=== PATIENT | female | born 1960 | race Caucasian/White ===

== ENCOUNTER 2017-09-12 09:17 | Emergency (ER) | payer MEDICARE, SELFPAY ==
[2017-09-12 09:18] VITALS: BP 143/89; PULSE 107; RESP 16; TEMP 36.4; O2SAT 99; BMI 20.3
--- NOTE | 2017-09-12 09:57 | ED.VISSUMM ---
- ER Visit Summary Date of Service: 09/12/17 Chief Complaint: Rectal prolapse History of Present Illness: The patient is a 57 F who reports having surgery for rectal prolapse approximately [address] Castillo. Patient states that she became constipated 2 weeks ago and noted recurrent prolapse when she would strain. She called her primary care physician was given a prescription for a laxative. She took the last dose of this 1 week ago. She does state that this helped her bowel movements and her prolapse. Patient now complains of recurrent prolapse with bowel movements and rectal pain. She called her primary care office today and was advised to come to the emergency room. Physical Examination: Vital signs are unremarkable. Patient is in no acute distress and appears nontoxic. Head neck examination is unremarkable. Heart is regular rate and rhythm. Lung sounds are clear with good air movement bilaterally. Abdomen is soft nontender. Hypoactive bowel sounds are noted. Rectal examination reveals no hemorrhoids. There is mild prolapse with straining only. No gross blood is noted. Test Results: [] Emergency Department Course and Treatment: I discussed the case with Dr. Faria. He advises that there is no colorectal surgeon it comes to [place] any longer. He recommended following up with colorectal surgery at [facility], Dr Mike Gill or first available. This physician's name and number is provided for the patient for follow-up. She will be given a prescription for stool softeners. Treatment Plan: [] Disposition: Discharge Impression: Rectal prolapse This note was generated with [employer] dictation software. It may contain incorrect words, spelling, and punctuation that were not noted in review of the chart prior to signing ED Disposition - Plan for ED Patient: Chief Complaint: Other, Pain/Inj Referrals: Jefferson Joya MD [Primary Care Provider] -
--- NOTE | 2017-09-12 10:01 | ED.DCSUM_ITS ---
- ER Visit Summary Date of Service: 09/12/17 Chief Complaint: Rectal prolapse History of Present Illness: The patient is a 57 F who reports having surgery for rectal prolapse approximately [address] Castillo. Patient states that she became constipated 2 weeks ago and noted recurrent prolapse when she would strain. She called her primary care physician was given a prescription for a laxative. She took the last dose of this 1 week ago. She does state that this helped her bowel movements and her prolapse. Patient now complains of recurrent prolapse with bowel movements and rectal pain. She called her primary care office today and was advised to come to the emergency room. Physical Examination: Vital signs are unremarkable. Patient is in no acute distress and appears nontoxic. Head neck examination is unremarkable. Heart is regular rate and rhythm. Lung sounds are clear with good air movement bilaterally. Abdomen is soft nontender. Hypoactive bowel sounds are noted. Rectal examination reveals no hemorrhoids. There is mild prolapse with straining only. No gross blood is noted. Test Results: [] Emergency Department Course and Treatment: I discussed the case with Dr. Faria. He advises that there is no colorectal surgeon it comes to [place] any longer. He recommended following up with colorectal surgery at [facility] , Dr Mike Gill or first available. This physician's name and number is provided for the patient for follow-up. She will be given a prescription for stool softeners. Treatment Plan: [] Disposition: Discharge Impression: Rectal prolapse This note was generated with [employer] dictation software. It may contain incorrect words, spelling, and punctuation that were not noted in review of the chart prior to signing ED Disposition - Plan for ED Patient: Chief Complaint: Other, Pain/Inj Referrals: Jefferson Joya MD [Primary Care Provider] -
--- NOTE | 2017-09-12 10:02 | ED.DEP ---
ED Disposition - Plan for ED Patient: Disposition: Home or Assisted Living Chief Complaint: Other, Pain/Inj Instructions: ED Prolapse Rectal Prescriptions: Docusate Sodium [Colace] 100 mg PO DAILY #20 capsule Referrals: Jefferson Joya MD [Primary Care Provider] - Additional Instructions: Follow-up with colorectal surgery at [facility], Dr Mike Gill or first available [phone]
[2017-09-12 10:15] VITALS: BP 137/81; PULSE 99; RESP 16; O2SAT 98
== END 2017-09-12 10:16 | disposition home or self-care (01) ==
PROVIDERS: Emergency Provider Emergency Medicine; Family Provider Internal Medicine; PCP Internal Medicine
DX: K62.3 Rectal prolapse (principal); F32.9 Major depressive disorder, single episode, unspecified; M79.7 Fibromyalgia; Z72.0 Tobacco use; Z79.82 Long term (current) use of aspirin; Z79.899 Other long term (current) drug therapy
CPT/HCPCS: 99282

== ENCOUNTER 2018-03-02 14:20 | Emergency (ER) | payer MEDICARE, SELFPAY ==
[2018-03-02 14:21] VITALS: BP 128/85; PULSE 105; RESP 18; TEMP 35.8; O2SAT 98; BMI 19.9
--- NOTE | 2018-03-02 15:10 | ED.VISSUMM ---
- ER Visit Summary Date of Service: 03/02/18 Chief Complaint: abdominal pain and rectal prolapse History of Present Illness: The patient is a 57 F with history of recurrent rectal prolapse who presents today for recurrent since yesterday with new abdominal pain. Patient states that she has had issues with rectal prolapse and was scheduled for preop evaluation this month on the . She has been feeling better and canceled it. Since yesterday she has been having return of rectal prolapse now with abdominal pain, which she states is new. She also is complaining of headache, nausea, and intermittent diarrhea. Stool this morning was loose but she did have straining and subsequent rectal prolapse. She denies any fever, chest pain, shortness of breath or other symptoms. Physical Examination: Vital signs: afebrile, hemodynamically stable, no hypoxia on room air General: well nourished, well developed, laying in bed crying Skin: warm, dry, no rash, no pallor HEENT: normocephalic and atraumatic; PERRL, EOMI, moist mucous membranes Cardiovascular: Tachycardic rate and rhythm without murmurs, no peripheral edema, 2+ pulses all distal extremities Respiratory: No increased work of breathing, lungs are clear to auscultation bilaterally, no rales, rhonchi or wheezing Abdominal: Abdomen is soft, mildly tender in lower quadrants with normoactive bowel sounds, no guarding or rebound, no masses; rectal exam shows an external hemorrhoid, no current prolapse, mucousy discharge noted MSK: Moves all extremities, no deformities, normal strength Neuro: Awake and alert, oriented ?4. No facial droop, sensation and motor function intact and symmetric Test Results: Abnormal Lab Results 03/02/18 03/02/18 03/02/18 15:35 15:35 15:35 WBC 8.1 RBC 3.88 L Hgb 12.8 Hct 38.0 MCV 97.9 MCH 33.0 H MCHC 33.7 RDW 13.0 RDW Differential 46.9 H Plt Count 332 MPV 8.9 Immature Gran % (Auto) 0.000 Neut % (Auto) 48.1 Lymph % (Auto) 40.8 [place] % (Auto) 4.6 Eos % (Auto) 6.0 H Baso % (Auto) 0.5 Absolute Neuts (auto) 3.9 Absolute Lymphs (auto) 3.32 Total Counted Not Reportable Sodium 142 Potassium 3.7 Chloride 105 Carbon Dioxide 29.0 Anion Gap 8 BUN 20 H Creatinine 0.78 Estim Creat Clear Calc 68.65 Est GFR (MDRD) Af Amer 98 Est GFR (MDRD) Non-Af 81 BUN/Creatinine Ratio 25.7 H Glucose 115 H Calcium 9.4 Total Bilirubin 0.20 AST 35 ALT 33 Alkaline Phosphatase 84 Total Protein 6.8 Albumin 3.4 Globulin 3.4 Albumin/Globulin Ratio 1.0 Lipase 322 Urine Color Yellow Urine Clarity Clear Urine pH 7.0 Ur Specific [place] 1.010 Urine Protein Negative Urine Glucose (UA) Normal Urine Ketones Negative Urine Occult Blood 50 H Urine Nitrite Negative Urine Bilirubin Negative Urine Urobilinogen Normal Ur Leukocyte Esterase Negative Urine RBC 0-5 SEEN Urine WBC 0 SEEN Ur Squamous Epith Cells 0 SEEN Urine Bacteria 0 SEEN Urine Mucus 0 SEEN Clinical Impression(s) from Imaging Studies Abdomen/Pelvis CT 03/02/18 15:08 IMPRESSION: 1. No evidence of acute intra-abdominal or pelvic abnormality or interval change. 2. Stable lumbar fusion. 3. Minimal dependent changes at the lung bases. Electronically Signed: Mango Iglesias DO at 18:01 EDT Tel [phone], Service support , Medications Given Discontinued Medications Sodium Chloride () 1,000 mls @ 1,000 mls/hr IV .Q1H ONE Stop: 03/02/18 16:07 Last Admin: 03/02/18 15:33 Dose: 1,000 mls/hr Morphine Sulfate () 4 mg IV X1 ONE Stop: 03/02/18 15:09 Last Admin: 03/02/18 15:33 Dose: 4 mg Ondansetron HCl (Zofran) 4 mg IV X1 ONE Stop: 03/02/18 15:09 Last Admin: 03/02/18 15:33 Dose: 4 mg Emergency Department Course and Treatment: Patient presented in significant pain associated with her rectal prolapse. She was given Zofran and morphine, with great improvement in her abdominal pain. Because the pain is a new symptom for her with her prolapse, CT the abdomen and pelvis was performed to evaluate for any possible bowel obstruction. Oral and p.o. contrast used and showed no significant intra-abdominal pathology. Labs were unremarkable patient had no urinary infection on urinalysis. Patient was much improved on reevaluation and felt well enough to go home. We discussed her following a strict bowel regimen to keep her stools soft so that she does not have to strain. She is Jorden been prescribed a regimen by her doctor and will follow it. We also discussed that if I prescribe her opiate pain medications would actually make her problem worse. She will use [id number] medications as needed for any further pain. She is going to call first thing in the morning to see if she can reinstate her preop appointment, and if not she will schedule one for as soon as possible. Patient agreed and was discharged home in improved condition with no evidence of active rectal prolapse. Treatment Plan: [] Disposition: [] Impression: Recurrent rectal prolapse, abdominal pain This note was generated with [employer] dictation software. It may contain incorrect words, spelling, and punctuation that were not noted in review of the chart prior to signing ED Disposition - Plan for ED Patient: Disposition: Home or Assisted Living Chief Complaint: Other, Pain/Inj Instructions: ED Abdominal Pain Unkn Cause, ED Prolapse Rectal Referrals: Jefferson Joya MD [Primary Care Provider] - 3-5 Days if not improving Additional Instructions: Please call your surgeon first thing tomorrow morning to see if you can get your appointment for the preop evaluation back. If not make an appointment with them for as soon as possible. Please use the bowel regimen you were recommended by your doctor daily for the next 7 days to help soften your stool and prevent further prolapse. Your CAT scan of your abdomen and pelvis showed a large amount of stool in your colon. Drink plenty of water to help stay regular and prevent constipation. If you have any worsening of your condition or any new concerning symptoms, please return immediately to the emergency department for another evaluation.
[2018-03-02] MEDS: Morphine 4 MG/ML Syringe IV (15:33)
[2018-03-02] MEDS: 0.9% Normal Saline 1,000 ML 1000 ML IV (15:33)
[2018-03-02] MEDS: Ondansetron 4 MG/2 ML Vial IV (15:33)
[2018-03-02 15:46] LABS: Bacteria 0 SEEN /hpf (None Seen); Mucous, Urine 0 SEEN /hpf (<or=2+); Squamous Epithelial Cells - UA 0 SEEN /hpf (5-10); White Blood Cells 0 SEEN /hpf (0-5)
[2018-03-02 15:47] LABS: Absolute Lymphocyte Count 3.32 X10^3/ul (0.83-4.51); Absolute Neutrophil Count 3.9 X10^3/uL (2.0-7.7); Basophil# 0.04 X10^3/uL; Basophil% 0.5 % (0-1); Eosinophil# 0.49 X10^3/uL; Hemoglobin 12.8 g/dl (12.0-15.0); Lymphocyte # 3.32 X10^3/ul (4.0); Lymphocyte % 40.8 % (19-41); Mean Corp Hgb Conc 33.7 g/gl (32-36); Mean Corpuscular Volume 97.9 fL (81-99); Mean Platelet Vol. 8.9 fl (6.2-12.0); Monocyte# 0.37 X10^3/uL; Monocyte% 4.6 % (0-10); Neutrophil # 3.91 X10^3/uL (2.7-7.7); Neutrophil % 48.1 % (47-70); POSITIVE COUNT NO; POSITIVE DIFFERENTIAL NO; POSITIVE MORPHOLOGY NO; Platelet Count 332 K/mm3 (150-450); RBC Distribution Width SD 46.9 fl (35.1-43.9); Red Blood Count 3.88 M/mm3 (4.2-5.4); White Blood Count 8.1 K/mm3 (4.4-11.0)
[2018-03-02 15:48] LABS: Color, Urine Yellow (Yellow); Glucose, Dipstick Normal (Normal); Ketone-Dipstick Negative (Negative); Leukocyte Esterase-Dipstick Negative /ul (Negative); Nitrite-Dipstick Negative (Negative); Occult Blood-Urine 50 /ul (Negative); Protein-Dipstick Negative (Negative); Urine Bilirubin Dipstick Negative (Negative); Urine Clarity Clear (Clear); Urine Urobilinogen Normal (Normal)
[2018-03-02 15:57] LABS: Red Blood Cells-Urine 0-5 SEEN /hpf (0-5)
[2018-03-02 16:02] LABS: AST(SGOT) 35 U/L (15-37); Alanine Aminotransfer ALT/SGPT 33 U/L (13-56); Albumin, Serum 3.4 g/dL (3.2-5.0); Alkaline Phosphatase 84 U/L (45-117); Anion Gap 8 (5-15); BUN 20 mg/dL (7-18); BUN/Creat Ratio 25.7 RATIO (10-20); Calcium,Total 9.4 mg/dL (8.5-10.1); Chloride 105 mmol/L (98-107); Creatinine, Serum 0.78 mg/dL (0.55-1.02); EST Glomerular Filtration Rate 81 mL/min (>60); Est Glom Filt Rate - Afr Amer 98 mL/min (>60); Estimated Creatinine Clearance 68.65 ml/min; Globulin 3.4 g/dL (2.2-4.2); Glucose 115 mg/dL (74-106); Lipase 322 U/L (73-393); Potassium 3.7 mmol/L (3.5-5.1); Protein, Total 6.8 g/dL (6.4-8.2); Sodium Level 142 mmol/L (136-145)
--- NOTE | 2018-03-02 18:24 | ED.DEP ---
ED Disposition - Plan for ED Patient: Disposition: Home or Assisted Living Chief Complaint: Other, Pain/Inj Instructions: ED Prolapse Rectal, ED Abdominal Pain Unkn Cause Referrals: Jefferson Joya MD [Primary Care Provider] - 3-5 Days if not improving Additional Instructions: Please call your surgeon first thing tomorrow morning to see if you can get your appointment for the preop evaluation back. If not make an appointment with them for as soon as possible. Please use the bowel regimen you were recommended by your doctor daily for the next 7 days to help soften your stool and prevent further prolapse. Your CAT scan of your abdomen and pelvis showed a large amount of stool in your colon. Drink plenty of water to help stay regular and prevent constipation. If you have any worsening of your condition or any new concerning symptoms, please return immediately to the emergency department for another evaluation.
[2018-03-02 18:33] VITALS: BP 111/76; PULSE 76; RESP 16; O2SAT 96
== END 2018-03-02 18:34 | disposition home or self-care (01) ==
PROVIDERS: Emergency Provider Emergency Medicine; Family Provider Internal Medicine; PCP Internal Medicine
DX: K62.2 Anal prolapse (principal); R10.30 Lower abdominal pain, unspecified; G89.29 Other chronic pain; Z72.0 Tobacco use
CPT/HCPCS: 74177; 80053; 81001; 83690; 85025; 96361; 96374; 96375; 99283; J7030; Q9967; J2405

== ENCOUNTER 2018-04-08 15:35 | Inpatient (IN) | payer MEDICARE, SELFPAY ==
[2018-04-08 15:36] VITALS: BP 108/66; PULSE 96; RESP 16; TEMP 36.9; O2SAT 98; BMI 20.5
--- NOTE | 2018-04-08 17:05 | EKG12_ITS ---
Test Reason : GENERAL ILLNESS Blood Pressure : / mmHG Vent. Rate : 072 BPM Atrial Rate : 072 BPM P-R Int : 124 ms QRS Dur : 082 ms QT Int : 418 ms P-R-T Axes : 072 060 065 degrees QTc Int : 457 ms Normal sinus rhythm Normal ECG Confirmed by ALEXANDR RAMESH, AZRA ([id number]), publishing editor SHARON ROSENBAUM ([id number]) on 04/13/2018 3:57:46 PM Referred By: MEGAN Confirmed By:AZRA STRANGE MD
--- NOTE | 2018-04-08 17:05 | CT_ITS ---
STUDY: CT BRAIN WITHOUT CONTRAST REASON FOR EXAM: Female, 57 years old. Schizophrenia, general weakness, confusion. RADIATION DOSAGE (If Supplied By Facility): CTDIvol = ( 60.81 ) mGy, DLP = ( 975.86 ) mGycm TECHNIQUE: Transaxial CT imaging of the brain was performed without administration of intravenous contrast material. Individualized dose optimization techniques were used for this CT. COMPARISON: 08/12/2014. FINDINGS: Normal soft tissue structures. Normal calvarium. There is mild cerebral atrophy with widening of the extra-axial spaces and ventricular dilatation. Normal white matter tracts of the cerebral hemispheres. Normal basal ganglia and thalami. Normal brainstem. Normal cerebellum. There is no intracranial hemorrhage. There are no findings of an acute ischemic infarction. Normal visualized paranasal sinuses. CT/Brain/Head without Contrast IMPRESSION: Mild atrophy, otherwise negative unenhanced CT scan of the brain. Electronically Signed: Faustina Johns MD at 17:56 EDT Tel , Service support ,
[2018-04-08] MEDS: 0.9% Normal Saline 1,000 ML 1000 ML IV (17:10)
[2018-04-08 18:00] VITALS: BP 104/69; PULSE 72; RESP 18
[2018-04-08 18:00] LABS: AST(SGOT) 23 U/L (15-37); Alanine Aminotransfer ALT/SGPT 27 U/L (13-56); Albumin, Serum 3.4 g/dL (3.2-5.0); Alkaline Phosphatase 68 U/L (45-117); Anion Gap 5 (5-15); BUN 16 mg/dL (7-18); BUN/Creat Ratio 20.9 RATIO (10-20); Calcium,Total 8.9 mg/dL (8.5-10.1); Chloride 110 mmol/L (98-107); Creatinine, Serum 0.77 mg/dL (0.55-1.02); EST Glomerular Filtration Rate 82 mL/min (>60); Est Glom Filt Rate - Afr Amer 99 mL/min (>60); Globulin 3.4 g/dL (2.2-4.2); Glucose 96 mg/dL (74-106); Potassium 3.7 mmol/L (3.5-5.1); Protein, Total 6.8 g/dL (6.4-8.2); Sodium Level 140 mmol/L (136-145)
[2018-04-08 18:01] LABS: Absolute Lymphocyte Count 2.81 X10^3/ul (0.83-4.51); Basophil# 0.06 X10^3/uL; Basophil% 0.8 % (0-1); Eosinophil# 0.57 X10^3/uL; Eosinophils% 7.2 % (0-5); Hematocrit 38.1 % (37-47); Lymphocyte # 2.81 X10^3/ul (4.0); Lymphocyte % 35.4 % (19-41); Mean Corp Hgb Conc 34.1 g/gl (32-36); Mean Corpuscular Hgb 34.1 pg (27.0-32.0); Monocyte# 0.45 X10^3/uL; Monocyte% 5.7 % (0-10); Neutrophil # 4.03 X10^3/uL (2.7-7.7); Neutrophil % 50.8 % (47-70); POSITIVE COUNT NO; POSITIVE DIFFERENTIAL NO; POSITIVE MORPHOLOGY NO; Platelet Count 383 K/mm3 (150-450); RBC Distribution Width CV 13.3 % (11.6-14.6); RBC Distribution Width SD 47.7 fl (35.1-43.9); Red Blood Count 3.81 M/mm3 (4.2-5.4); White Blood Count 7.9 K/mm3 (4.4-11.0)
[2018-04-08 18:14] LABS: Bacteria 0 SEEN /hpf (None Seen); Mucous, Urine 0 SEEN /hpf (<or=2+); White Blood Cells 0 SEEN /hpf (0-5)
[2018-04-08 18:18] LABS: Color, Urine Yellow (Yellow); Glucose, Dipstick Normal (Normal); Ketone-Dipstick Negative (Negative); Leukocyte Esterase-Dipstick Negative /ul (Negative); Nitrite-Dipstick Negative (Negative); Occult Blood-Urine 10 /ul (Negative); Protein-Dipstick Negative (Negative); Specific Gravity, Urine 1.015 (1.002-1.030); Urine Bilirubin Dipstick Negative (Negative); Urine Clarity Clear (Clear); Urine Urobilinogen Normal (Normal); Urine pH 6.5 (5.0 - 8.0)
[2018-04-08 18:33] LABS: Red Blood Cells-Urine 0-5 SEEN /hpf (0-5); Squamous Epithelial Cells - UA 0-5 SEEN /hpf (5-10)
--- NOTE | 2018-04-08 18:52 | CT_ITS ---
STUDY: CTA OF THE BRAIN REASON FOR EXAM: Female, 57 years old. Paresthesias. RADIATION DOSAGE (If Supplied By Facility): CTDIvol = ( 13.65 ) mGy, DLP = ( 428.60 ) mGycm TECHNIQUE: CT angiography was performed with a multi-detector CT scanner. Data acquisition was obtained from the skull base through the vertex following intravenous administration of ml of . MIP images were reconstructed from the axial data set. Post-processing of the angiographic images was performed, with multiplanar reformation and 3D reconstruction. Individualized dose optimization techniques were used for this CT. COMPARISON: CT brain 04/08/2018. FINDINGS: Normal bilateral petrous carotid arteries. Normal right cavernous carotid artery with a normal supraclinoid bifurcation. Normal left cavernous carotid artery with a normal supraclinoid bifurcation. Normal right A1 segment of the anterior cerebral artery. Normal left A1 segment of the anterior cerebral artery. There is non-visualization of the anterior communicating artery (ACOM). Normal bilateral A2 segments of the anterior cerebral arteries. Normal right M1 and M2 segments of the middle cerebral arteries, with a normal M1 bifurcation. Normal left M1 and M2 segments of the middle cerebral arteries, with a normal M1 bifurcation. There is a persistent origin of the right posterior cerebral artery with absence of the P1 segment of the right DATA MIGRATION CONSULTANT. There is non-visualization of the left posterior communicating artery (PCOM). Normal bilateral vertebral arteries. Normal basilar artery with a normal basilar bifurcation. The visualized bilateral superior cerebellar (SCA) arteries are normal. Absent P1 segment of the right posterior cerebral artery. Normal left P1 segment. Normal bilateral P2 and visualized P3 segments of the posterior cerebral arteries. There is no demonstrated aneurysm of the [place]. IMPRESSION: 1. Normal [place] without a demonstrated aneurysm or significant stenosis. 2. origin of the right posterior cerebral artery, normal variant. Electronically Signed: Faustina Johns MD at 20:23 EDT Tel , Service support , STUDY: CTA NECK WITH CONTRAST REASON FOR EXAM: Female, 57 years old. Paresthesias RADIATION DOSAGE (If Supplied By Facility): CTDIvol = ( ) mGy, DLP = ( ) mGycm TECHNIQUE: CT angiography with multi-detector data acquisition was performed from the aortic arch to the skull base following intravenous administration of 100ML ml of Isovue 300 contrast. MIP images were reconstructed from the axial data set. Post-processing of the angiographic images was performed, with multiplanar reformation and 3D reconstruction. Individualized dose optimization techniques were used for this CT. COMPARISON: None. FINDINGS: AORTIC ARCH: Normal visualized aortic arch. Normal origins of the brachiocephalic, left common carotid, and left subclavian arteries. RIGHT CAROTID ARTERIES: Normal right common carotid artery (CCA). Normal right common carotid bulb. Normal origin of the right internal carotid (ICA) artery without a hemodynamically significant stenosis. Normal visualized cervical portion of the right internal carotid artery. Normal origin of the right external carotid artery (ECA). LEFT CAROTID ARTERIES: Normal left common carotid artery (CCA). Normal left common carotid bulb. Normal origin of the left internal carotid (ICA) artery without a hemodynamically significant stenosis. Normal visualized cervical portion of the left internal carotid artery. Normal origin of the left external carotid artery (ECA). VERTEBRAL ARTERIES: Normal bilateral vertebral arteries. CT/CTA Head W/WO Contrast IMPRESSION: Normal bilateral cervical carotid and vertebral arteries. Electronically Signed: Faustina Johns MD at 20:29 EDT Tel , Service support ,
--- NOTE | 2018-04-08 18:52 | CT_ITS ---
STUDY: CTA OF THE BRAIN REASON FOR EXAM: Female, 57 years old. Paresthesias. RADIATION DOSAGE (If Supplied By Facility): CTDIvol = ( 13.65 ) mGy, DLP = ( 428.60 ) mGycm TECHNIQUE: CT angiography was performed with a multi-detector CT scanner. Data acquisition was obtained from the skull base through the vertex following intravenous administration of ml of . MIP images were reconstructed from the axial data set. Post-processing of the angiographic images was performed, with multiplanar reformation and 3D reconstruction. Individualized dose optimization techniques were used for this CT. COMPARISON: CT brain 04/08/2018. FINDINGS: Normal bilateral petrous carotid arteries. Normal right cavernous carotid artery with a normal supraclinoid bifurcation. Normal left cavernous carotid artery with a normal supraclinoid bifurcation. Normal right A1 segment of the anterior cerebral artery. Normal left A1 segment of the anterior cerebral artery. There is non-visualization of the anterior communicating artery (ACOM). Normal bilateral A2 segments of the anterior cerebral arteries. Normal right M1 and M2 segments of the middle cerebral arteries, with a normal M1 bifurcation. Normal left M1 and M2 segments of the middle cerebral arteries, with a normal M1 bifurcation. There is a persistent origin of the right posterior cerebral artery with absence of the P1 segment of the right PRODUCTIVITY ENGINEER. There is non-visualization of the left posterior communicating artery (PCOM). Normal bilateral vertebral arteries. Normal basilar artery with a normal basilar bifurcation. The visualized bilateral superior cerebellar (SCA) arteries are normal. Absent P1 segment of the right posterior cerebral artery. Normal left P1 segment. Normal bilateral P2 and visualized P3 segments of the posterior cerebral arteries. There is no demonstrated aneurysm of the [place]. IMPRESSION: 1. Normal [place] without a demonstrated aneurysm or significant stenosis. 2. origin of the right posterior cerebral artery, normal variant. Electronically Signed: Faustina Johns MD at 20:23 EDT Tel , Service support , STUDY: CTA NECK WITH CONTRAST REASON FOR EXAM: Female, 57 years old. Paresthesias RADIATION DOSAGE (If Supplied By Facility): CTDIvol = ( ) mGy, DLP = ( ) mGycm TECHNIQUE: CT angiography with multi-detector data acquisition was performed from the aortic arch to the skull base following intravenous administration of 100ML ml of Isovue 300 contrast. MIP images were reconstructed from the axial data set. Post-processing of the angiographic images was performed, with multiplanar reformation and 3D reconstruction. Individualized dose optimization techniques were used for this CT. COMPARISON: None. FINDINGS: AORTIC ARCH: Normal visualized aortic arch. Normal origins of the brachiocephalic, left common carotid, and left subclavian arteries. RIGHT CAROTID ARTERIES: Normal right common carotid artery (CCA). Normal right common carotid bulb. Normal origin of the right internal carotid (ICA) artery without a hemodynamically significant stenosis. Normal visualized cervical portion of the right internal carotid artery. Normal origin of the right external carotid artery (ECA). LEFT CAROTID ARTERIES: Normal left common carotid artery (CCA). Normal left common carotid bulb. Normal origin of the left internal carotid (ICA) artery without a hemodynamically significant stenosis. Normal visualized cervical portion of the left internal carotid artery. Normal origin of the left external carotid artery (ECA). VERTEBRAL ARTERIES: Normal bilateral vertebral arteries. CT/CTA Neck W/WO Contrast IMPRESSION: Normal bilateral cervical carotid and vertebral arteries. Electronically Signed: Faustina Johns MD at 20:29 EDT Tel , Service support ,
[2018-04-08 19:00] LABS: Magnesium 2.1 mg/dL (1.6-2.6)
[2018-04-08] MEDS: Metoclopramide 10 MG/2 ML Vial IV (19:02)
[2018-04-08] MEDS: Ketorolac 15 MG/ML Vial IV (19:02)
[2018-04-08] MEDS: DiphenhydrAMINE 50 MG/ML Syringe 25 MG IV (19:02)
[2018-04-08] MEDS: 0.9% Normal Saline 1,000 ML 150 ML IV (19:03)
[2018-04-08 20:01] VITALS: BP 102/67; PULSE 81; O2SAT 95
[2018-04-08 22:15] VITALS: BP 116/79; PULSE 77; RESP 18
--- NOTE | 2018-04-08 22:26 | ED.VISSUMM ---
- ER Visit Summary Date of Service: 04/08/18 Chief Complaint: [Fatigue, dizziness, headache] History of Present Illness: The patient is a 57 F [presents the emergency department with multiple complaints since yesterday. Patient states that she woke up in noted that she had a headache and of in the back of her head and the front of her head diffusely patient also noted that she had numbness in both hands and into the left forearm. Patient denies any weakness in the extremities. She denies any falls or head injuries. She denies any neck pain. Patient is not had symptoms like this before. She has not had any fever. She denies any visual changes. She does have a history of depression, fibromyalgia, and history of a rectal prolapse for which she is scheduled to have surgery for.] Physical Examination: [HEENT-PERRLA, EOMI. Cranial nerves II through XII grossly intact. TMs clear. Mucous membranes moist. No adenopathy. Cardiovascular-regular rate and rhythm without murmur or ectopy Lungs-clear to auscultation, chest wall stable without crepitus or subcu emphysema Abdomen-normoactive bowel sounds, soft, nontender, no rebound or rigidity, no peritoneal signs. Neuro cauk-nkztcn-ljrh and heel holloway testing within normal limits, negative Romberg, negative pronator drift, fundi benign. Patient has decreased sensation to light touch over the hands and left forearm. Extremities-intact ?4, normal range of motion, normal pulses, atraumatic] Test Results: [CBC with differential obtained showed a white count of 7.9, hemoglobin 13, hematocrit 38, platelets 383. Chemistries unremarkable. LFTs were normal. Urinalysis was normal. Troponin was less than 0.015. CT scan of the brain without contrast showed some mild atrophy otherwise nothing acute. He is of the head and neck were normal.] Emergency Department Course and Treatment: [She was medicated with Reglan, Benadryl, and Toradol. She had no real relief with that. Patient was ordered Depakote thousand milligrams IV.] Treatment Plan: [At this point etiology of patient's symptomatology is unclear. Patient has no neck pain. I feel she needs further workup and evaluation for this intractable headache and paresthesias. Would consider MS in the differential versus cervical spine lesion and she may warrant further imaging such as MRI of the brain and neck.] Disposition: [Admit] Impression: [Intractable headache Paresthesias] This note was generated with [employer] dictation software. It may contain incorrect words, spelling, and punctuation that were not noted in review of the chart prior to signing ED Disposition - Plan for ED Patient: Chief Complaint: General Illness Referrals: Jefferson Joya MD [Primary Care Provider] -
--- NOTE | 2018-04-08 22:31 | PCM.HP.STD ---
Problem List (1) Numbness and tingling in both hands Status: Acute (2) Headache Status: Acute History of Present Illness Date of Admission: 04/09/18 Chief Complaint: headache, numbness in both arms The patient is a 57 year old F with a history of fibromyalgia and depression. She was admitted via the ED on 04/08/18 with a complaint of 1 day history of numbness in both arms. She says she felt very weak after she left work on the day prior to admission, and slept all day and night. She woke up today and noticed that she had numbness in both arms, from below the elbow. She denies any weakness in any extremity. She also started having a severe headache this morning, rated 9.10, generalised, which was not relieved by aspirin she took at home. In the ED, she was given pain meds which still didnt help with headache. Labs and vitals in the ED were unremarkable. Brain CT and head and neck CTA were also negative for any acute pathology. She is being admitted to be managed for intractable headache. [] Past Medical History Past Medical History (Chronic Problems): Chronic Problems Depression (Chronic) Fibromyalgia (Chronic) Allergies Sulfa (Sulfonamide Antibiotics) Allergy (Verified 03/02/18 14:21) Unknown sulfamethoxazole [From Bactrim] Allergy (Verified 03/02/18 14:21) Unknown trimethoprim [From Bactrim] Allergy (Verified 03/02/18 14:21) Unknown acetaminophen [From Darvocet-N] Adverse Reaction (Verified 03/02/18 14:21) Vomiting codeine Adverse Reaction (Verified 03/02/18 14:21) Vomiting cyclobenzaprine HCl [From Flexeril] Adverse Reaction (Verified 03/02/18 14:21) Vomiting erythromycin base Adverse Reaction (Verified 03/02/18 14:21) Vomiting hydrocodone bitartrate [From Vicodin] Adverse Reaction (Verified 03/02/18 14:21) Vomiting pregabalin [From Lyrica] Adverse Reaction (Verified 03/02/18 14:21) Hives propoxyphene napsylate [From Darvocet-N] Adverse Reaction (Verified 03/02/18 14:21) Vomiting tramadol HCl [From Ultram] Adverse Reaction (Verified 03/02/18 14:21) Vomiting Home Medications: Ambulatory Orders Medication Instructions Recorded Duloxetine Hcl [Cymbalta] 120 mg PO DAILY 01/11/15 Clonazepam 0.5 mg PO PRN PRN 02/15/15 Omeprazole 40 mg PO DAILY 02/15/15 Aripiprazole [Abilify] 2.5 mg PO QHS 12/17/15 Gabapentin [Neurontin] 300 mg PO BIDCM 01/30/16 Gabapentin [Neurontin] 450 mg PO QHS 06/21/17 Aspirin [Aspirin, Baby] 81 mg PO DAILY@0800 09/12/17 Docusate Sodium [Colace] 100 mg PO DAILY PRN 04/09/18 Surgical History: no surgical history Psychiatric History: No pertinent 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 Denies: Chills, Fever, Weight Change Eyes: Denies: Blurred vision, Pain, Redness, Vision Change HEENT: Denies: Head Aches, Sinus Congestion, Sinus Drainage Cardiovascular: Denies: Chest Pain, Chest Pressure, Palpitations Respiratory: Denies: Cough, Shortness of Breath, Shortness of breath at rest, Shortness of breath upon exertion, Sputum production, Wheezing Gastrointestinal: Denies: Abdominal Pain, Nausea, Vomiting Genitourinary: Denies: Dysuria Musculoskeletal: Denies: Joint Pain, Joint Tenderness, Neck Pain, Shoulder Pain Skin: Denies: Rash, Wounds Neurological: Reports: Numbness - of both UEs. Denies: Blurred vision, Double vision, Slurred speech Psychiatric: Denies: Anxiety, Depression, Homicidal Ideations, Suicidal Ideations Endocrine: Denies: Change in Body Habitus Hematologic/ Lymphatic: Denies: Easy Bruising, Easy Bleeding VTE Information - Inpt Only VTE Present on Admission: No VTE Mechan Device Prophylaxis: None VTE Pharm Prophylaxis ordered?: Yes Patient Problems: Active and Suspected Problems Numbness and tingling in both hands (Acute) Headache (Acute) - Physical Exam General: Alert, Oriented x3, Cooperative HEENT: Atraumatic, PERRLA, EOMI, Normocephalic Oral: Dry Mucosa Neck: Supple, No JVD, Negative Carotid Bruits, No Nuchal Rigidity Lungs: Clear to auscultation, Normal air movement, No rhonchi, No wheeze, No rales Cardiovascular: Regular rate, Regular Rhythm, Normal S1, Normal S2, No murmurs Abdomen: Bowel Sounds Present, Soft, Non Tender, Non-Distended, No Hepato-splenomegaly Extremities: No clubbing, No cyanosis, No edema, Capillary Refill Less than 3 Seconds Skin: No rashes, No breakdown Musculoskeletal: No Tenderness to Palpation of Joints or Extremities, No Muscle Wasting Lymphatic: No Cervical, Supraclavicular, or Inguinal Adenopathy Neurological: Cranial nerves II-XII grossly intact, Motor Exam 5/5 strength throughout, Muscle tone normal, - - decreased sensation in upper extremities extending from hands to mid forearm. Normal power, tone and muscle bulk Psych/Mental Status: Normal Affect, Appropriate, Alert and oriented to time, place, person, mood and affect Vital Signs Temp Pulse Resp BP Pulse Ox 98.4 F 77 18 116/79 95 04/08/18 15:36 04/08/18 22:15 04/08/18 22:15 04/08/18 22:15 04/08/18 20:01 Oxygen Delivery Method Room Air Weight: 120 lb Body Mass Index (BMI) 20.5 Finger Stick Blood Glucose 100 Laboratory Tests Past 24 Hrs 04/08/18 04/08/18 04/08/18 17:20 17:20 17:20 WBC 7.9 RBC 3.81 L Hgb 13.0 Hct 38.1 MCV 100.0 H MCH 34.1 H MCHC 34.1 RDW 13.3 RDW Differential 47.7 H Plt Count 383 MPV 9.0 Immature Gran % (Auto) 0.100 Neut % (Auto) 50.8 Lymph % (Auto) 35.4 [place] % (Auto) 5.7 Eos % (Auto) 7.2 H Baso % (Auto) 0.8 Absolute Neuts (auto) 4.0 Absolute Lymphs (auto) 2.81 Total Counted Not Reportable Sodium 140 Potassium 3.7 Chloride 110 H Carbon Dioxide 25.0 Anion Gap 5 BUN 16 Creatinine 0.77 Estim Creat Clear Calc 67.60 Est GFR (MDRD) Af Amer 99 Est GFR (MDRD) Non-Af 82 BUN/Creatinine Ratio 20.9 H Glucose 96 Calcium 8.9 Magnesium 2.1 Total Bilirubin 0.20 AST 23 ALT 27 Alkaline Phosphatase 68 Troponin I < 0.015 Total Protein 6.8 Albumin 3.4 Globulin 3.4 Albumin/Globulin Ratio 1.0 Urine Color Urine Clarity Urine pH Ur Specific [place] Urine Protein Urine Glucose (UA) Urine Ketones Urine Occult Blood Urine Nitrite Urine Bilirubin Urine Urobilinogen Ur Leukocyte Esterase Urine RBC Urine WBC Ur Squamous Epith Cells Urine Bacteria Urine Mucus 04/08/18 18:10 WBC RBC Hgb Hct MCV MCH MCHC RDW RDW Differential Plt Count MPV Immature Gran % (Auto) Neut % (Auto) Lymph % (Auto) [place] % (Auto) Eos % (Auto) Baso % (Auto) Absolute Neuts (auto) Absolute Lymphs (auto) Total Counted Sodium Potassium Chloride Carbon Dioxide Anion Gap BUN Creatinine Estim Creat Clear Calc Est GFR (MDRD) Af Amer Est GFR (MDRD) Non-Af BUN/Creatinine Ratio Glucose Calcium Magnesium Total Bilirubin AST ALT Alkaline Phosphatase Troponin I Total Protein Albumin Globulin Albumin/Globulin Ratio Urine Color Yellow Urine Clarity Clear Urine pH 6.5 Ur Specific [place] 1.015 Urine Protein Negative Urine Glucose (UA) Normal Urine Ketones Negative Urine Occult Blood 10 H Urine Nitrite Negative Urine Bilirubin Negative Urine Urobilinogen Normal Ur Leukocyte Esterase Negative Urine RBC 0-5 SEEN Urine WBC 0 SEEN Ur Squamous Epith Cells 0-5 SEEN Urine Bacteria 0 SEEN Urine Mucus 0 SEEN Diagnostic Data Brain CT 04/08/18 17:05 IMPRESSION: Mild atrophy, otherwise negative unenhanced CT scan of the brain. Electronically Signed: Faustina Johns MD at 17:56 EDT Tel , Service support , Head CTA 04/08/18 18:52 IMPRESSION: Normal bilateral cervical carotid and vertebral arteries. Electronically Signed: Faustina Johns MD at 20:29 EDT Tel , Service support , Assessment/Plan All Active Problems Numbness and tingling in both hands (Acute) Headache (Acute) 57 y/o female presenting with numbness in UEs and headache 1. intractable headache with migrainoid features Still states headache is rated a 9 out of 10. Has not had such as severe headache before in the past. CT brain and CTA head and neck were negative Admit to [facility] telemetry. Started on IV Depakote in the ED. We will give IV Solu-Medrol to help with headache. If headache does not improve by morning, we will consider neurology consult. 2. Parasthesia of upper extremities Perales of numbness fits glove distribution. Patient not a known diabetic and this has been going on literally for just 1 day. will check A1C; has a strong history of smoking, which could also contribute to peripheral neuropathy on gabapentin for fibromyalgia. Will continue. Consider follow-up with neurology on outpatient basis. 3. Fibromyalgia: On gabapentin and Cymbalta. 4. Depression: On Abilify DVT prophylaxis: heparin Code status: Full code Code Visit OBSV E&M: 20634 Initial observation care L3
[2018-04-08 22:44] LABS: Erythrocyte Sedimentation Rate 18 mm/hr (0-30)
[2018-04-08 23:05] VITALS: BP 120/74; PULSE 80; RESP 16; O2SAT 98
--- NOTE | 2018-04-08 23:06 | ED.RN ---
patient sent to the floor with depacon running at 50ml/hr
[2018-04-08 23:49] VITALS: BMI 21.5
--- NOTE | 2018-04-09 | NURSING ---
Pt was a new admit. When Larisa (Rob) brought the pt up, she mentioned that there was a med hanging which was disconnected from the pt. I noticed that there was approximately half of a bag of Depacon that had not been infused. I told Larisa to have the GENERAL LEDGER BOOKKEEPER call me to talk about the med. Billy called me from the ER and stated that the med had been disconnected from the pt when she went to the bathroom and the rest of the Depacon needed to be infused.
[2018-04-09 00:37] VITALS: RESP 16
[2018-04-09] MEDS: 0.9% Normal Saline 1,000 ML 150 ML IV ×4 (00:55→23:30)
[2018-04-09 01:00] VITALS: BP 120/71; PULSE 71; RESP 16; TEMP 36.6; O2SAT 94
[2018-04-09] MEDS: Docusate Sodium 100 MG Capsule PO (01:15)
[2018-04-09] MEDS: Gabapentin 600 MG Tablet 450 MG PO ×2 (03:06→21:39)
[2018-04-09] MEDS: ARIPiprazole 5 MG Tablet 2.5 MG PO ×2 (03:07→21:39)
[2018-04-09 05:44] LABS: Absolute Lymphocyte Count 1.02 X10^3/ul (0.83-4.51); Absolute Neutrophil Count 4.8 X10^3/uL (2.0-7.7); Basophil# 0.05 X10^3/uL; Basophil% 0.8 % (0-1); Eosinophil# 0.15 X10^3/uL; Eosinophils% 2.5 % (0-5); Hematocrit 42.2 % (37-47); Hemoglobin 13.8 g/dl (12.0-15.0); Lymphocyte # 1.02 X10^3/ul (4.0); Lymphocyte % 16.8 % (19-41); Mean Corp Hgb Conc 32.7 g/gl (32-36); Monocyte# 0.06 X10^3/uL; Neutrophil # 4.75 X10^3/uL (2.7-7.7); Neutrophil % 78.4 % (47-70); Platelet Count 403 K/mm3 (150-450); RBC Distribution Width CV 13.3 % (11.6-14.6); RBC Distribution Width SD 48.9 fl (35.1-43.9); Red Blood Count 4.18 M/mm3 (4.2-5.4); White Blood Count 6.1 K/mm3 (4.4-11.0)
[2018-04-09 05:54] LABS: POSITIVE COUNT NO; POSITIVE DIFFERENTIAL NO; POSITIVE MORPHOLOGY NO
[2018-04-09 05:57] LABS: Anion Gap 6 (5-15); BUN 14 mg/dL (7-18); BUN/Creat Ratio 16.6 RATIO (10-20); Calcium,Total 8.7 mg/dL (8.5-10.1); Chloride 114 mmol/L (98-107); Creatinine, Serum 0.84 mg/dL (0.55-1.02); EST Glomerular Filtration Rate 73 mL/min (>60); Est Glom Filt Rate - Afr Amer 89 mL/min (>60); Estimated Creatinine Clearance 62.27 ml/min; Glucose 114 mg/dL (74-106); Potassium 4.3 mmol/L (3.5-5.1); Sodium Level 142 mmol/L (136-145)
[2018-04-09 06:00] VITALS: RESP 16
--- NOTE | 2018-04-09 06:54 | NURSING ---
pt woke up drenched w sweat, new gown given, states she wakes up often with sweats.
[2018-04-09 08:00] VITALS: BP 103/71; PULSE 75; RESP 18; TEMP 36.7; O2SAT 95
[2018-04-09] MEDS: Aspirin 81 MG TAB.CHEW PO (08:22)
[2018-04-09] MEDS: Enoxaparin 40 MG/0.4 ML Syringe SC (08:22)
[2018-04-09] MEDS: Gabapentin 300 MG Capsule PO ×2 (08:22→15:15)
[2018-04-09] MEDS: Pantoprazole Sodium 40 MG Tablet PO (08:23)
[2018-04-09] MEDS: CLARIFY ORDER 1 EACH NOTE (08:23)
[2018-04-09] MEDS: DULoxetine Hcl 60 MG Capsule 120 MG PO (08:27)
--- NOTE | 2018-04-09 10:55 | PCM.PN.HOSP ---
Patient Problems: Active and Suspected Problems Numbness and tingling in both hands (Acute) Headache (Acute) Subjective: Patient was seen and examined. She complains of her headaches subsiding to less than 4/10. Has bilateral upper extremities numbness and episodic weakness with dropping of objects. This has been ongoing for a week. Denies neck pain or head or neck trauma. Vitals/I&O's: Vital Signs Temp Pulse Resp BP Pulse Ox 98.1 F 75 18 103/71 95 04/09/18 08:00 04/09/18 08:00 04/09/18 08:00 04/09/18 08:00 04/09/18 08:00 Oxygen Delivery Method Room Air Weight: 56.9 kg Body Mass Index (BMI) 21.5 Finger Stick Blood Glucose 100 Intake and Output for Last 24 Hours 04/07/18 04/08/18 04/09/18 23:59 23:59 23:59 Intake Total 1130 / 1130 Balance 1130 / 1130 General: Alert, Oriented x3, Cooperative, No apparent distress HEENT: Atraumatic, PERRLA, EOMI, Normocephalic Oral: Moist Mucosa Neck: Supple Lungs: Clear to auscultation, Normal air movement Cardiovascular: Regular rate, Regular Rhythm, Normal S1, Normal S2, No murmurs Abdomen: Bowel Sounds Present, Soft, Non Tender, Non-Distended, No Hepato-splenomegaly Extremities: No edema Skin: No rashes, No breakdown Musculoskeletal: No Tenderness to Palpation of Joints or Extremities Lymphatic: No Cervical, Supraclavicular, or Inguinal Adenopathy Neurological: Cranial nerves II-XII grossly intact, Neuro grossly intact - subjective numbness of bilateral upper extremities, normal power in all extremities, normal tone Psych/Mental Status: Normal Affect, Appropriate Laboratory Results 04/08/18 17:20: WBC 7.9, RBC 3.81 L, Hgb 13.0, Hct 38.1, MCV 100.0 H, MCH 34.1 H, MCHC 34.1, RDW 13.3, RDW Differential 47.7 H, Plt Count 383, MPV 9.0, Immature Gran % (Auto) 0.100, Neut % (Auto) 50.8, Lymph % (Auto) 35.4, [place] % (Auto) 5.7, Eos % (Auto) 7.2 H, Baso % (Auto) 0.8, Absolute Neuts (auto) 4.0, Absolute Lymphs (auto) 2.81, Total Counted Not Reportable 04/08/18 17:20: Sodium 140, Potassium 3.7, Chloride 110 H, Carbon Dioxide 25.0, Anion Gap 5, BUN 16, Creatinine 0.77, Estim Creat Clear Calc 67.60, Est GFR (MDRD) Af Amer 99, Est GFR (MDRD) Non-Af 82, BUN/Creatinine Ratio 20.9 H, Glucose 96, Calcium 8.9, Total Bilirubin 0.20, AST 23, ALT 27, Alkaline Phosphatase 68, Troponin I < 0.015, Total Protein 6.8, Albumin 3.4, Globulin 3.4, Albumin/Globulin Ratio 1.0 04/08/18 17:20: Magnesium 2.1 04/08/18 17:20: ESR 18 04/08/18 18:10: Urine Color Yellow, Urine Clarity Clear, Urine pH 6.5, Ur Specific [place] 1.015, Urine Protein Negative, Urine Glucose (UA) Normal, Urine Ketones Negative, Urine Occult Blood 10 H, Urine Nitrite Negative, Urine Bilirubin Negative, Urine Urobilinogen Normal, Ur Leukocyte Esterase Negative, Urine RBC 0-5 SEEN, Urine WBC 0 SEEN, Ur Squamous Epith Cells 0-5 SEEN, Urine Bacteria 0 SEEN, Urine Mucus 0 SEEN 04/09/18 05:08: WBC 6.1, RBC 4.18 L, Hgb 13.8, Hct 42.2, MCV 101.0 H, MCH 33.0 H, MCHC 32.7, RDW 13.3, RDW Differential 48.9 H, Plt Count 403, MPV 9.0, Immature Gran % (Auto) 0.500, Neut % (Auto) 78.4 H, Lymph % (Auto) 16.8 L, [place] % (Auto) 1.0, Eos % (Auto) 2.5, Baso % (Auto) 0.8, Absolute Neuts (auto) 4.8, Absolute Lymphs (auto) 1.02, Total Counted Not Reportable 04/09/18 05:08: Sodium 142, Potassium 4.3, Chloride 114 H, Carbon Dioxide 22.0, Anion Gap 6, BUN 14, Creatinine 0.84, Estim Creat Clear Calc 62.27, Est GFR (MDRD) Af Amer 89, Est GFR (MDRD) Non-Af 73, BUN/Creatinine Ratio 16.6, Glucose 114 H, Calcium 8.7 Current Medications Acetaminophen/Butalbital/Caffeine (Fioricet) 1 tablet PO Q4H PRN PRN PRN Reason: HEADACHE Aripiprazole (Abilify) 2.5 mg PO QHS [facility] Last Admin: 04/09/18 03:07 Dose: 2.5 mg Aspirin (Aspirin, Baby) 81 mg PO DAILY@0800 [facility] Last Admin: 04/09/18 08:22 Dose: 81 mg Clonazepam (Klonopin) 0.5 mg PO 4X/DAY PRN PRN PRN Reason: ANXIETY Docusate Sodium (Colace) 100 mg PO DAILY PRN PRN PRN Reason: Constipation Last Admin: 04/09/18 01:15 Dose: 100 mg Duloxetine HCl (Cymbalta) 120 mg PO DAILY [facility] Last Admin: 04/09/18 08:27 Dose: 120 mg Enoxaparin Sodium (Lovenox) 40 mg SC DAILY@1000 [facility] Last Admin: 04/09/18 08:22 Dose: 40 mg Gabapentin (Neurontin) 300 mg PO BIDCM [facility] Last Admin: 04/09/18 08:22 Dose: 300 mg Gabapentin (Neurontin) 450 mg PO QHS [facility] Last Admin: 04/09/18 03:06 Dose: 450 mg Sodium Chloride () 1,000 mls @ 150 mls/hr IV .Q6H40M [facility] Last Admin: 04/09/18 07:28 Dose: 150 mls/hr Magnesium Hydroxide (Milk Of Magnesia) 30 ml PO DAILY PRN PRN PRN Reason: Constipation Methylprednisolone (Solu-Medrol) 40 mg IV Q8 [facility] Last Admin: 04/09/18 06:54 Dose: 40 mg Pantoprazole Sodium (Protonix) 40 mg PO DAILY [facility] Last Admin: 04/09/18 08:23 Dose: 40 mg Medical Necessity - Tobacco Use Smoking Status: Current every day smoker Tobacco Use: Cigarettes Assessment/Plan All Active Problems Numbness and tingling in both hands (Acute) Headache (Acute) 57 y/o female with past medical history of fibromyalgia, depression comes in with complaints of headaches and numbness in both extremities 1. Intractable headache, CT of the head as well as CTA of the head and neck was negative improved with Fioricet, Solu-Medrol Will continue on this for now, reassess headache in a.m. 2. Bilateral upper extremities numbness, ongoing for a week per patient, likely secondary to peripheral neuropathy, on gabapentin for fibromyalgia, No weakness noted on physical exam, will continue to monitor on steroids, will consider neurology consult if numbness persists tomorrow 3. Fibromyalgia, on gabapentin and Cymbalta 4. Depression, on Abilify 5. Rectal prolapse, needs to follow-up with general surgery in the outpatient 6. DVT prophylaxis - Lovenox [place] 7. Disposition: Possible DC in am if improved Code Visit Inpatient E&M: 32359 Subs Hosp L2
[2018-04-09 14:00] VITALS: BP 122/61; PULSE 84; RESP 18; TEMP 37.2; O2SAT 95
--- NOTE | 2018-04-09 15:21 | NURSING ---
in to talk with pt regarding 's response to asking about discharge. PRimary RN at bedside. Discussed Dr. Jarvis's response, Dr. Jarvis rounding this a.m. Pt verbalized her head feels better and her hands feel better since they put that stuff, the steriod, in her iv. Also stated she has difficulty understand Dr. Jarvis. Discussed plan to continue steriod/new medications and reevaluate her in a.m. Encouraged patient to ask for her nurse to be present when the physician rounds tomorrow if you can't understand her, that is very understanding and will help her if she can't understand what's she is saying. pt verbalized understanding, denies all further needs or concerns. call light within reach.
[2018-04-09 21:47] VITALS: BP 109/67; PULSE 92; RESP 18; TEMP 37.1; O2SAT 93
[2018-04-10 02:00] VITALS: BP 114/69; PULSE 81; RESP 18; TEMP 37; O2SAT 93
[2018-04-10] MEDS: 0.9% Normal Saline 1,000 ML 150 ML IV (06:38)
[2018-04-10 08:41] VITALS: BP 118/76; PULSE 75; RESP 18; TEMP 36.6; O2SAT 92
--- NOTE | 2018-04-10 08:45 | DS.PCM_ITS ---
Discharge Date and Diagnosis Date of Admission: 04/09/18 Date of Discharge: 04/10/18 - Primary Discharge Diagnosis Active and Suspected Problems Numbness and tingling in both hands (Acute) Headache (Acute) - Secondary Discharge Diagnosis Chronic Problems Depression (Chronic) Fibromyalgia (Chronic) Hospital Course and Treatment Imaging Results: Clinical Impression(s) from Imaging Studies Brain CT 04/08/18 17:05 IMPRESSION: Mild atrophy, otherwise negative unenhanced CT scan of the brain. Electronically Signed: Faustina Johns MD at 17:56 EDT Tel , Service support , Head CTA 04/08/18 18:52 IMPRESSION: Normal bilateral cervical carotid and vertebral arteries. Electronically Signed: Faustina Johns MD at 20:29 EDT Tel , Service support , Neck CTA 04/08/18 18:52 IMPRESSION: Normal bilateral cervical carotid and vertebral arteries. Electronically Signed: Faustina Johns MD at 20:29 EDT Tel , Service support , None Operations: None Procedures: None Summary of Care Provided: The patient is a 57 year old F with past medical history of fibromyalgia, depression comes in with complaints of headaches and numbness in both extremities. CT scan of the head as well as CT of the head and neck was negative for any acute findings. Patient was admitted to the telemetry bed and managed as intractable headache with IV Solu-Medrol and Fiorocet. Patient's headacheimproved in less than 24 hours. She also complains of bilateral upper extremity numbness and tingling which has been going on for a week. She had denied any neck pain or trauma. She has a diagnosis of peripheral neuropathy and is on gabapentin for fibromyalgia. The bilateral upper extremity numbness and tingling also improved with steroids. Patient demonstrated no weakness in her upper extremities. She was discharged home on a steroid taper and to follow-up with her outpatient primary care doctor for possible referral to neurology if this persists. Subjective: On the day of discharge, patient was seen and examined. She felt better, numbness in her upper extremity were resolved. Objective: Physical exam: General: Alert, Oriented x3, Cooperative, No apparent distress HEENT: Atraumatic, PERRLA, EOMI, Normocephalic Oral: Moist Mucosa Neck: Supple Lungs: Clear to auscultation, Normal air movement Cardiovascular: Regular rate, Regular Rhythm, Normal S1, Normal S2, No murmurs Abdomen: Bowel Sounds Present, Soft, Non Tender, Non-Distended, No Hepato- splenomegaly Extremities: No edema Skin: No rashes, No breakdown Musculoskeletal: No Tenderness to Palpation of Joints or Extremities Lymphatic: No Cervical, Supraclavicular, or Inguinal Adenopathy Neurological: Cranial nerves II-XII grossly intact, Neuro grossly intact, normal power in all extremities, normal tone, normal gait - Physical Exam Vital Signs Temp Pulse Resp BP Pulse Ox 97.9 F 75 18 118/76 92 04/10/18 08:41 04/10/18 08:41 04/10/18 08:41 04/10/18 08:41 04/10/18 08:41 Oxygen Delivery Method Room Air Weight: 56.9 kg Body Mass Index (BMI) 21.5 Finger Stick Blood Glucose 100 Intake and Output for Last 24 Hours 04/08/18 04/09/18 04/10/18 23:59 23:59 23:59 Intake Total 1781 / 1781 2744 / 2744 Balance 1781 / 1781 2744 / 2744 Laboratory Tests Past 24 Hrs 04/09/18 05:08 Hemoglobin A1c 6.0 Discharge Diet: No Restrictions Discharge Activity: Return to Normal Activity Home Medications: Medications to take at Discharge Duloxetine Hcl [Cymbalta] 120 mg PO DAILY 01/11/15 Clonazepam 0.5 mg PO 4X/DAY PRN PRN 02/15/15 Omeprazole 40 mg PO DAILY 02/15/15 Aripiprazole [Abilify] 2.5 mg PO QHS 12/17/15 Gabapentin [Neurontin] 300 mg PO BIDCM 01/30/16 Gabapentin [Neurontin] 450 mg PO QHS 06/21/17 Aspirin [Aspirin, Baby] 81 mg PO DAILY@0800 09/12/17 Docusate Sodium [Colace] 100 mg PO DAILY PRN 04/09/18 Ensure Enlive 120 ml PO 4X/DAY #100 liquid 04/10/18 Nicotine [Nicoderm Cq] 21 mg TRANSDERM. DAILY #30 patch 04/10/18 Prednisone 10 mg PO DAILY #30 tab 04/10/18 Following Prescrptions Were Given to Patient: Nicotine [Nicoderm Cq] 21 mg TRANSDERM. DAILY #30 patch Prednisone 10 mg PO DAILY #30 tab Ensure Enlive 120 ml PO 4X/DAY #100 liquid Primary Care Physician: Jefferson Joya MD [Primary Care Provider] - Please follow up with your Primary Care Physician in: within 2 weeks Additional Instructions: She was advised to quit smoking Disposition: Home Minutes spent on discharge:: 40 Patient Condition:: Stable Medical Necessity - Tobacco Use Smoking Status: Current every day smoker Tobacco Use: Cigarettes Meaningful Use Info Meaningful Use Diagnoses (Choose all that apply): None applicable Code Visit OBSV E&M: 36600 Observation care discharge
--- NOTE | 2018-04-10 08:45 | DCINST_ITS ---
- Discharge Diagnoses Current Active Problems: Current Active and Chronic Problems Numbness and tingling in both hands (Acute) Headache (Acute) Reason(s) for Visit for Discharge Instructions: Headache, numbness of upper extremities You will use the following diet at home:: Regular Your food should be the consistency of: Regular Your liquids should be the consistency of: Regular/Thin Discharge Activity: Return to Normal Activity Additional Instructions: Continue to take all your medications as prescribed. You have been prescribed a prednisone taper. Follow-up with your primary doctor in 2 weeks. You may need a referral to the neurologist if the numbness in your upper extremities persist. Allergies/Adverse Reactions: Allergies Sulfa (Sulfonamide Antibiotics) Allergy (Verified 04/08/18 23:52) gets sick sulfamethoxazole [From Bactrim] Allergy (Verified 04/08/18 23:52) gets sick trimethoprim [From Bactrim] Allergy (Verified 04/08/18 23:52) gets sick acetaminophen [From Darvocet-N] Adverse Reaction (Verified 03/02/18 14:21) Vomiting codeine Adverse Reaction (Verified 03/02/18 14:21) Vomiting cyclobenzaprine HCl [From Flexeril] Adverse Reaction (Verified 03/02/18 14:21) Vomiting erythromycin base Adverse Reaction (Verified 03/02/18 14:21) Vomiting hydrocodone bitartrate [From Vicodin] Adverse Reaction (Verified 03/02/18 14:21) Vomiting pregabalin [From Lyrica] Adverse Reaction (Verified 03/02/18 14:21) Hives propoxyphene napsylate [From Darvocet-N] Adverse Reaction (Verified 03/02/18 14:21) Vomiting tramadol HCl [From Ultram] Adverse Reaction (Verified 03/02/18 14:21) Vomiting Medications to take at Discharge Duloxetine Hcl [Cymbalta] 120 mg PO DAILY 01/11/15 Clonazepam 0.5 mg PO 4X/DAY PRN PRN 02/15/15 Omeprazole 40 mg PO DAILY 02/15/15 Aripiprazole [Abilify] 2.5 mg PO QHS 12/17/15 Gabapentin [Neurontin] 300 mg PO BIDCM 01/30/16 Gabapentin [Neurontin] 450 mg PO QHS 06/21/17 Aspirin [Aspirin, Baby] 81 mg PO DAILY@0800 09/12/17 Docusate Sodium [Colace] 100 mg PO DAILY PRN 04/09/18 Ensure Enlive 120 ml PO 4X/DAY #100 liquid 04/10/18 Nicotine [Nicoderm Cq] 21 mg TRANSDERM. DAILY #30 patch 04/10/18 Prednisone 10 mg PO DAILY #30 tab 04/10/18 The following prescriptions were given: Nicotine [Nicoderm Cq] 21 mg TRANSDERM. DAILY #30 patch Prednisone 10 mg PO DAILY #30 tab Ensure Enlive 120 ml PO 4X/DAY #100 liquid Primary Care Physician: Jefferson Joya MD [Primary Care Provider] - Please follow up with your Primary Care Physician in: within 2 weeks Test Results: Test results from this visit will be discussed in further detail at your follow- up appointment, if applicable. Proposed Discharge Date: 04/10/18
[2018-04-10] MEDS: Aspirin 81 MG TAB.CHEW PO (08:59)
[2018-04-10] MEDS: Pantoprazole Sodium 40 MG Tablet PO (08:59)
[2018-04-10] MEDS: DULoxetine Hcl 60 MG Capsule 120 MG PO (08:59)
[2018-04-10] MEDS: Gabapentin 300 MG Capsule PO (08:59)
--- NOTE | 2018-04-10 10:05 | CASEMGMT ---
RN CM Assessment: PCP: Dr. Joya [facility]: [facility] Prescription coverage: yes Transportation: can drive if needed DME: none Living Arrangements: with DC Plan: Home today, No needs identified.
== END 2018-04-10 11:17 | disposition home or self-care (01) | DRG 103 ==
LOC: ED 17:08 → MS3 22:42
PROVIDERS: Admitting Provider Student in an Organized Health Care Education/Training Program; Emergency Provider Emergency Medicine; Family Provider Internal Medicine; PCP Internal Medicine; Visit Provider Internal Medicine
DX: R51 Headache (principal); R20.2 Paresthesia of skin; R20.0 Anesthesia of skin; F32.9 Major depressive disorder, single episode, unspecified; M79.7 Fibromyalgia; K62.3 Rectal prolapse; Z79.82 Long term (current) use of aspirin; Z79.899 Other long term (current) drug therapy; F17.210 Nicotine dependence, cigarettes, uncomplicated
CPT/HCPCS: 36415; 70450; 70496; 70498; 80048; 80053; 81001; 83036; 83735; 84484; 85025; 85652; 93005; 97802; 99285; 99406; J7030; Q9967; A4216

== ENCOUNTER → 2019-11-02 | Outpatient (CLI) | payer MEDICARE, SELFPAY ==
--- NOTE | 2019-11-02 09:25 | MRI_ITS ---
STUDY: MRI LUMBAR SPINE WITH AND WITHOUT CONTRAST REASON FOR EXAM: Female, 59 years old. LBP s/p fusion, RT LEG PAIN TECHNIQUE: Standardized fat and water weighted pulse sequences were obtained in the sagittal and axial planes. IV DOTAREM 13ML was administered for the contrast portion of the examination. COMPARISON: 11/20/2016 FINDINGS: T12-L1: Normal endplates. Normal disc height, hydration and morphology. Normal bilateral facet joints. Normal central canal and bilateral lateral recesses. Normal bilateral intervertebral neural foramina. Normal lumbar lordosis. There is no substantial scoliosis. Normal conus medullaris that terminates at the L1. L1-2: Normal endplates. Normal disc height, hydration and morphology. Normal bilateral facet joints. Normal central canal and bilateral lateral recesses. Normal bilateral intervertebral neural foramina. L2-3: Status post discectomy, interbody fusion, and right transpedicular fixation with anatomic alignment and no spinal stenosis or neural foraminal stenosis. L3-4: Status post discectomy, interbody fusion, and right transpedicular fixation with anatomic alignment and no spinal stenosis or neural foraminal stenosis. L4-5: Mild right facet hypertrophy and ligament flavum hypertrophy. Interval development of a moderate-sized broad disc protrusion asymmetric to the right produces moderate spinal stenosis, moderate right lateral recess stenosis with abutment of the right L5 nerve root, mild left lateral recess stenosis, severe right neural foraminal stenosis with effacement of the right L4 nerve root laterally and mild left neural foraminal stenosis. Associated extensive Modic type I endplate changes involving the right side of the L4 and L5 vertebral bodies including involving the right pedicle of L5. L5-S1: Normal endplates. Normal disc height, hydration and morphology. Normal bilateral facet joints. Normal central canal and bilateral lateral recesses. Normal bilateral intervertebral neural foramina. Normal visualized sacral ala. Normal visualized paraspinous soft tissue structures. There is no demonstrated abnormal enhancement. MRI/Spine Lumbar W/WO Contrast IMPRESSION: Interval development of a moderate broad disc protrusion asymmetric to the right at L4/L5 inferior to the site of fusion from L2 through L4 as described above with moderate spinal stenosis, moderate right lateral recess stenosis with abutment of the right L5 nerve root, and severe right neural foraminal stenosis with effacement of the right L4 nerve root.. Electronically Signed: Darío Ellis MD at 11:27 EDT Tel , Service support ,
[2019-11-02 09:45] LABS: CREATININE FINGERSTICK 0.8 mg/dL (0.55-1.02); EGFR FINGERSTICK > 60.0000 mL/min (>60)
== END | disposition home or self-care (01) ==
LOC: MRI 09:24
PROVIDERS: PCP Internal Medicine; Referring Provider Orthopaedic Surgery; Visit Provider Orthopaedic Surgery
DX: M48.062 Spinal stenosis, lumbar region with neurogenic claudication (principal); Z98.1 Arthrodesis status
CPT/HCPCS: 72158; A9575

== ENCOUNTER → 2020-01-20 | Outpatient (CLI) | payer MEDICARE, SELFPAY | END | disposition home or self-care (01) | LOC: MTDU 10:07 | PROVIDERS: PCP Internal Medicine; Referring Provider Nurse Practitioner; Visit Provider Nurse Practitioner | DX: Z20.828 Contact with and (suspected) exposure to other viral communicable diseases (principal) | CPT/HCPCS: 87635; G2023; U0003 ==

== ENCOUNTER 2021-08-20 11:00 | Emergency (ER) | payer MEDICARE, SELFPAY ==
[2021-08-20 12:19] VITALS: BP 123/70; PULSE 89; RESP 16; TEMP 36.2; O2SAT 97; BMI 20.5
--- NOTE | 2021-08-20 14:40 | CT_ITS ---
STUDY: CT BRAIN WITHOUT CONTRAST REASON FOR EXAM: Female, 61 years old. Chronic headaches. RADIATION DOSAGE (If Supplied By Facility): CTDIvol = ( 47.06 ) mGy, DLP = ( 855.03 ) mGycm TECHNIQUE: Transaxial CT imaging of the brain was performed without administration of intravenous contrast material. Individualized dose optimization techniques were used for this CT. COMPARISON: Comparison is made with prior study 04/08/2018. FINDINGS: Normal soft tissue structures. Normal calvarium. There is mild cerebral atrophy with widening of the extra-axial spaces and ventricular dilatation. Normal white matter tracts of the cerebral hemispheres. Normal basal ganglia and thalami. Normal brainstem. Normal cerebellum. There is no intracranial hemorrhage. There are no findings of an acute ischemic infarction. Atherosclerotic calcification of the cavernous portions of the internal carotid arteries bilaterally. Normal visualized paranasal sinuses. CT/Brain/Head without Contrast IMPRESSION: Chronic involutional changes of the brain. Electronically Signed: Thomas Romero MD at 15:13 EST ,
--- NOTE | 2021-08-20 14:48 | EX.ED.GENINJ ---
HPI <ALEAH Perez - Last Filed: 08/20/21 15:37> History of Present Illness Chief Complaint: Other, Pain/Inj Narrative Narrative: 61-year-old female presents with a headache. She states for the last 2 months she has had left-sided pain mainly behind her left ear and sometimes into the neck. It is a constant dull ache that becomes occasionally more severe and throbbing. It occasionally makes her nauseous with no vomiting. No radiation anywhere else. No vision changes, diplopia, vision loss. No fever. No focal motor or sensory changes. She denies head trauma. She states she is just been living with it but when she called her primary care doctor today to make an appointment they recommended she come to the ER. PFSH <ALEAH Perez - Last Filed: 08/20/21 15:37> [facility] Home Medications duloxetine 120 mg PO DAILY 01/11/15 [History Last Taken 04/08/18 08:00] clonazepam 0.5 mg PO 4X/DAY PRN PRN 02/15/15 [History Last Taken Unknown] omeprazole 40 mg PO DAILY 02/15/15 [History Last Taken 04/08/18 08:00] aripiprazole 2.5 mg PO QHS 12/17/15 [History Last Taken Unknown] gabapentin 300 mg PO BIDCM 01/30/16 [History Last Taken 04/08/18 08:00] gabapentin 450 mg PO QHS 06/21/17 [History Last Taken Unknown] aspirin 81 mg PO DAILY@0800 09/12/17 [History Last Taken 04/08/18 08:00] docusate sodium [DOK] 100 mg PO DAILY PRN 04/09/18 [History Last Taken Unknown] food supplemt, lactose-reduced [Ensure Enlive] 120 ml PO 4X/DAY #100 liquid 04/10/18 [Rx Last Taken Unknown] nicotine 21 mg TRANSDERM. DAILY #30 patch 04/10/18 [Rx Last Taken Unknown] prednisone 10 mg PO DAILY #30 tab 04/10/18 [Rx Last Taken Unknown] Allergy/AdvReac Type Severity Reaction Status Date / Time Sulfa (Sulfonamide Allergy gets sick Verified 08/20/21 12:21 Antibiotics) sulfamethoxazole Allergy gets sick Verified 08/20/21 12:21 [From Bactrim] trimethoprim [From Bactrim] Allergy gets sick Verified 08/20/21 12:21 acetaminophen AdvReac Vomiting Verified 08/20/21 12:21 [From Darvocet-N] codeine AdvReac Vomiting Verified 08/20/21 12:21 cyclobenzaprine HCl AdvReac Vomiting Verified 08/20/21 12:21 [From Flexeril] erythromycin base AdvReac Vomiting Verified 08/20/21 12:21 hydrocodone bitartrate AdvReac Vomiting Verified 08/20/21 12:21 [From Vicodin] pregabalin [From Lyrica] AdvReac Hives Verified 08/20/21 12:21 propoxyphene napsylate AdvReac Vomiting Verified 08/20/21 12:21 [From Darvocet-N] tramadol HCl [From Ultram] AdvReac Vomiting Verified 08/20/21 12:21 Social History Smoking Status: Current every day smoker tobacco type: cigarettes ROS <ALEAH Perez - Last Filed: 08/20/21 15:37> ROS ED ROS Narrative Constitutional: Negative for fever, chills, malaise. Eyes: Negative for visual change. ENT: Negative for sore throat, ear pain, rhinorrhea. CVS: Negative for palpitations, chest pain, syncope. Respiratory: Negative for shortness of breath, cough, orthopnea. GI: Negative for abdominal pain, nausea, vomiting, diarrhea, constipation, melena, hematochezia. : Negative for dysuria, hematuria or frequency. Neuro: Positive for headache, negative for motor/sensory dysfunction. Skin: Negative for rash, abscess, or wound. Musc: Negative for joint pain, swelling, trauma. Heme: Negative for easy bruising, bleeding, lymphadenopathy. EXAM <ALEAH Perez - Last Filed: 08/20/21 15:37> Physical Exam Narrative Exam Narrative: CONST: Patient sitting in no acute distress. EYES: Normal inspection. PERRLA, EOMI. ENT: Normal inspection, moist mucous membranes. 2+ temporal pulses bilaterally, no temporal artery tenderness or palpable cords. NECK: Normal inspection. Supple, full range of motion. No midline spinal tenderness, no step-offs. RESP: No respiratory distress, CTAB. CVS: Regular rate and rhythm, no murmur, no gallop. SKIN: Color normal, no rash, warm, dry, intact. EXTREMITIES: Normal appearance, no pedal edema. NEURO: Oriented x4. Symmetric smile, 5/5 upper and lower extremity strength, normal sensation to light touch, no upper or lower extremity drift. Normal [id number]-[id number] and [id number]. Normal gait. PSYCH: Normal affect. Const Vital Signs: 08/20/21 12:19 08/20/21 14:29 08/20/21 15:42 Temperature 97.1 F L Temperature Source Temporal Pulse Rate 89 84 Respiratory Rate 16 18 Respiratory Effort Normal Non-Labored Blood Pressure 123/70 H 118/73 Blood Pressure Mean 87 Pulse Ox 97 Oxygen Delivery Method Room Air <Dr. Angelita Holley MD - Last Filed: 08/20/21 22:00> Physical Exam Const Vital Signs: 08/20/21 12:19 08/20/21 14:29 08/20/21 15:42 Temperature 97.1 F L Temperature Source Temporal Pulse Rate 89 84 Respiratory Rate 16 18 Respiratory Effort Normal Non-Labored Blood Pressure 123/70 H 118/73 Blood Pressure Mean 87 Pulse Ox 97 Oxygen Delivery Method Room Air [facility] <ALEAH Perez - Last Filed: 08/20/21 15:37> [facility] Narrative Medical decision making narrative: Patient presents with a left-sided headache behind her ear for the last 2 months. Her symptoms are unchanged today but she decided to seek evaluation. She appears well and nontoxic. Afebrile and vital signs within normal limits. Her head is normocephalic atraumatic. Temporal pulses are equal bilaterally with no tenderness or palpable cords. She has no evidence of mastoiditis. TMs clear bilaterally. She is neurologically intact. CT brain shows no acute process. She was treated with Toradol with some improvement. I recommended she follow-up with her PCP is if she has persistent headache she may need an outpatient MRI or further testing. She was counseled on signs that would warrant return and was discharged in stable condition. Diagnoses 1. Chronic headache Radiography Diagnostic Testing: Clinical Impression(s) from Imaging Studies Brain CT 08/20/21 14:40 IMPRESSION: Chronic involutional changes of the brain. Electronically Signed: Thomas Romero MD at 15:13 EST , <Dr. Angelita Holley MD - Last Filed: 08/20/21 22:00> MDM Radiography Diagnostic Testing: Clinical Impression(s) from Imaging Studies Brain CT 08/20/21 14:40 IMPRESSION: Chronic involutional changes of the brain. Electronically Signed: Thomas Romero MD at 15:13 EST , Treatment and Re-Evaluation Comments:: Patient seen and evaluated with physician package worker. Patient independently examined. Note is reviewed and endorsed by myself. Patient presents with a 2-month history of left-sided headache. Pain is very focal and reproducible with palpation of her scalp. It does radiate around the back of her left ear. She denies any known injury. No fever or chills. No vision change. Patient called her PCPs office today to make an appointment and they advised her to come to the emergency room. Patient sitting upright in bedside chair in no acute distress. Head and neck examination was reproducible scalp tenderness of the left parietal region. No tenderness of the mastoid bone. She has very mild tenderness over the left occiput. No C-spine tenderness. Heart is regular rate and rhythm. Sounds are clear. Abdomen is soft and nontender. Neuro exam is normal. CT head is unremarkable. Patient treated with Toradol. Patient is comfortable knowing head CT is normal will follow up with PCP. Discharge Plan Triage Chief Complaint: Other, Pain/Inj ED Provider: Portia Linton Dx/Rx/DC Orders Clinical Impression: Headache Instructions: ED Headache, Tension Prescriptions: No Action duloxetine 60 MG capsule 120 mg PO DAILY RF: 0 clonazepam 0.5 MG tablet 0.5 mg PO 4X/DAY PRN PRN (Reason: Anxiety) RF: 0 omeprazole 40 MG Capsule.Dr 40 mg PO DAILY RF: 0 aripiprazole 5 MG tablet 2.5 mg PO QHS RF: 0 gabapentin 300 MG capsule 300 mg PO BIDCM RF: 0 gabapentin 300 MG capsule 450 mg PO QHS RF: 0 aspirin 81 MG Tab.Chew 81 mg PO DAILY@0800 RF: 0 docusate sodium [DOK] 100 MG capsule 100 mg PO DAILY PRN (Reason: Constipation) RF: 0 nicotine 21 MG patch 21 mg TRANSDERM. DAILY Qty: 30 RF: 0 food supplemt, lactose-reduced [Ensure Enlive] 120 ML Liquid 120 ml PO 4X/DAY Qty: 100 RF: 0 prednisone 10 MG tablet 10 mg PO DAILY Qty: 30 RF: 0 Primary Care Provider: Jefferson Joya Referrals: Jefferson Joya MD [Primary Care Provider] - Activity Restrictions/Additional Instructions: A CAT scan of your brain looks normal. Please follow-up with your primary care doctor for further evaluation of your headaches. Disposition Disposition: Home, Self Care Discharge Date/Time: 08/20/21 15:43
[2021-08-20 15:42] VITALS: BP 118/73; PULSE 84; RESP 18
== END 2021-08-20 15:43 | disposition home or self-care (01) ==
PROVIDERS: Emergency Provider Physician Assistant; PCP Internal Medicine; Visit Provider Physician Assistant
DX: R51.9 Headache, unspecified (principal); F17.210 Nicotine dependence, cigarettes, uncomplicated
CPT/HCPCS: 70450; 96372; 99282

== ENCOUNTER 2021-11-10 19:15 | Emergency (ER) | payer MEDICARE, SELFPAY ==
[2021-11-10 19:16] VITALS: BP 122/91; PULSE 111; RESP 18; TEMP 36.7; O2SAT 97; BMI 21.9
--- NOTE | 2021-11-10 19:29 | EX.ED.DYSGE1 ---
HPI History of Present Illness Chief Complaint: Other, Pain/Inj Detail of Chief Complaint: Sore throat, left jaw and neck pain Informant: patient Narrative Narrative: Patient presents to the emergency department complaint of a sore throat that started this afternoon. Patient then subsequently noticed a lump on the back portion of her neck on the left side. Patient also complains of some pain to her left jaw and left ear. She denies any fevers. She denies any trauma. Denies sick contacts. She denies cough. Prior similar symptoms: No PFSH PFSH Home Medications duloxetine 120 mg PO DAILY 01/11/15 [History Last Taken 04/08/18 08:00] clonazepam 0.5 mg PO 4X/DAY PRN PRN 02/15/15 [History Last Taken Unknown] omeprazole 40 mg PO DAILY 02/15/15 [History Last Taken 04/08/18 08:00] aripiprazole 2.5 mg PO QHS 12/17/15 [History Last Taken Unknown] gabapentin 300 mg PO BIDCM 01/30/16 [History Last Taken 04/08/18 08:00] gabapentin 450 mg PO QHS 06/21/17 [History Last Taken Unknown] aspirin 81 mg PO DAILY@0800 09/12/17 [History Last Taken 04/08/18 08:00] docusate sodium [DOK] 100 mg PO DAILY PRN 04/09/18 [History Last Taken Unknown] food supplemt, lactose-reduced [Ensure Enlive] 120 ml PO 4X/DAY #100 liquid 04/10/18 [Rx Last Taken Unknown] nicotine 21 mg TRANSDERM. DAILY #30 patch 04/10/18 [Rx Last Taken Unknown] prednisone 10 mg PO DAILY #30 tab 04/10/18 [Rx Last Taken Unknown] Allergy/AdvReac Type Severity Reaction Status Date / Time Sulfa (Sulfonamide Allergy gets sick Verified 11/10/21 19:19 Antibiotics) sulfamethoxazole Allergy gets sick Verified 11/10/21 19:19 [From Bactrim] trimethoprim [From Bactrim] Allergy gets sick Verified 11/10/21 19:19 acetaminophen AdvReac Vomiting Verified 11/10/21 19:19 [From Darvocet-N] codeine AdvReac Vomiting Verified 11/10/21 19:19 cyclobenzaprine HCl AdvReac Vomiting Verified 11/10/21 19:19 [From Flexeril] erythromycin base AdvReac Vomiting Verified 11/10/21 19:19 hydrocodone bitartrate AdvReac Vomiting Verified 11/10/21 19:19 [From Vicodin] pregabalin [From Lyrica] AdvReac Hives Verified 11/10/21 19:19 propoxyphene napsylate AdvReac Vomiting Verified 11/10/21 19:19 [From Darvocet-N] tramadol HCl [From Ultram] AdvReac Vomiting Verified 11/10/21 19:19 Social History Smoking Status: Current every day smoker tobacco type: cigarettes ROS ROS ED Constitutional Constitutional ED: Reports systems reviewed and no addt'l complaints, except as documented; Denies body ache(s), change in weight or chills Eyes Eyes: Denies acute decrease in peripheral vision, change in vision, double vision or loss of vision ENT ENT ED: Reports none, ear pain, sore throat and other Details: Left jaw pain ; Denies lip swelling, loss taste/smell, neck pain or otalgia Cardiovascular Cardiovascular: Reports none; Denies abdominal pain, chest pain with activity, leg edema, lightheadedness, palpitations, rapid heart rate or syncope Respiratory/Chest Respiratory/Chest: Reports none; Denies change in mental status, dry cough, dyspnea, hemoptysis, shortness of breath at rest or shortness of breath with exertion Gastrointestinal Gastrointestinal: Reports none; Denies abdominal pain, change in stool character, diarrhea, hematemesis, hematochezia, melena, rectal bleeding or vomiting Genitourinary Genitourinary ED: Reports none; Denies abdominal discomfort, anuria, dysuria, genital pain or polyuria Musculoskeletal Musculoskeletal: Reports none; Denies arthralgias, back pain, difficulty walking, extremity pain, muscle weakness or myalgias Integumentary Reports none; Denies abscess or rash Neurologic Neurologic: Reports none; Denies abnormal gait, confusion, focal weakness, frequent falls, headache(s), loss of vision, numbness, paresthesias, radicular pain, vertigo or weakness Psychiatric Psychiatric: Reports systems reviewed and no addt'l complaints, except as documented and none; Denies behavioral changes, confusion, difficulty concentrating, hallucinations, suicidal ideation, tactile hallucinations or visual hallucinations Endocrine Endocrinology: Denies none, cold intolerance, excessive sweating, fatigue or heat intolerance Hematologic/Lymphatic Hematologic/Lymphatic: Reports none; Denies anemia, easy bleeding or easy bruising Allergic/Immunologic Allergic/Immunologic ED: Denies as per HPI, none, lip swelling, mouth swelling, throat swelling, tongue swelling or hives EXAM Physical Exam Const Vital Signs: 11/10/21 19:16 Temperature 98.0 F Temperature Source Temporal Pulse Rate 111 H Respiratory Rate 18 Blood Pressure 122/91 H Blood Pressure Mean 101 Pulse Ox 97 Oxygen Delivery Method Room Air Positive well nourished and well developed General Appearance ED: well developed and NAD HEENT Reports TM's clear and moist mucous membranes HEENT Narrative: Patient has dentures. She has left submandibular adenopathy as well as left posterior cervical lymphadenopathy. The posterior cervical adenopathy is small measuring less than a centimeter in diameter and freely movable within the soft tissues. Pharynx is slightly erythematous. No exudates. Uvula midline. No trismus. normocephalic and atraumatic; Negative for trauma or tenderness Tympanic Membrane ED: Yes TM's clear Eyes PERRL and EOMs intact bilaterally General Eye ED: Negative for pale conjunctiva or scleral icterus Neck no lymphadenopathy, supple and no JVD General: Negative for tenderness Chest Wall inspection of chest normal and palpation of chest normal Chest: Negative for tenderness Resp normal respiratory effort and clear to auscultation bilaterally Effort and Inspection: Negative for respiratory distress or pain with movement Auscultation: Negative for rhonchi, wheezes or diminished lung sounds Cardio regular rate, regular rhythm, S1 normal heart sound, S2 normal heart sound and no murmurs Peripheral Pulses: pulses 2+ throughout GI normal to inspection, nondistended, normoactive bowel sounds, soft to palpation, non-tender, non-distended and no masses Back/Spine no CVA tenderness and no thoracic nor lumbar tenderness Extremity normal to inspection General Extremety ED: Negative for edema General Extremity: Negative for edema Neuro oriented x3, CN's II-XII intact bilaterally, no sensory deficits noted and gait normal Sensorium / Orientation: awake, alert, oriented to person, oriented to place and oriented to time Motor Exam: strength 5/5 throughout and strength abnormal Psych mental status grossly normal Skin no rashes or lesions noted and no wounds MDM MDM MDM Narrative Medical decision making narrative: Rapid strep screen performed was negative. At this point I suspect a reactive cervical adenopathy that likely is viral. I do not feel antibiotics are indicated. Patient advised use ibuprofen or Tylenol for discomfort and follow-up with primary care physician within next 3 to 5 days. Patient to return if difficulty swallowing increased pain or redness or swelling or fevers or if condition should worsen anyway. Lab Data Attestation: I reviewed the patient's lab results. Discharge Plan Triage Chief Complaint: Other, Pain/Inj ED Provider: Andre Easton Dx/Rx/DC Orders Clinical Impression: Adenopathy, cervical Instructions: Lymphadenopathy Prescriptions: No Action duloxetine 60 MG capsule 120 mg PO DAILY RF: 0 clonazepam 0.5 MG tablet 0.5 mg PO 4X/DAY PRN PRN (Reason: Anxiety) RF: 0 omeprazole 40 MG Capsule.Dr 40 mg PO DAILY RF: 0 aripiprazole 5 MG tablet 2.5 mg PO QHS RF: 0 gabapentin 300 MG capsule 300 mg PO BIDCM RF: 0 gabapentin 300 MG capsule 450 mg PO QHS RF: 0 aspirin 81 MG Tab.Chew 81 mg PO DAILY@0800 RF: 0 docusate sodium [DOK] 100 MG capsule 100 mg PO DAILY PRN (Reason: Constipation) RF: 0 nicotine 21 MG patch 21 mg TRANSDERM. DAILY Qty: 30 RF: 0 food supplemt, lactose-reduced [Ensure Enlive] 120 ML Liquid 120 ml PO 4X/DAY Qty: 100 RF: 0 prednisone 10 MG tablet 10 mg PO DAILY Qty: 30 RF: 0 Primary Care Provider: Jefferson Joya Referrals: Jefferson Joya MD [Primary Care Provider] - 3-5 Days Disposition Disposition: Home, Self Care
== END 2021-11-10 20:10 | disposition home or self-care (01) ==
PROVIDERS: Emergency Provider Emergency Medicine; PCP Internal Medicine; Visit Provider Emergency Medicine
DX: R59.0 Localized enlarged lymph nodes (principal); J02.9 Acute pharyngitis, unspecified; F17.210 Nicotine dependence, cigarettes, uncomplicated; Z79.82 Long term (current) use of aspirin
CPT/HCPCS: 87880; 99282

== ENCOUNTER → 2022-10-16 | Outpatient (CLI) | payer MEDICARE, SELFPAY ==
[2022-10-16 17:49] LABS: Absolute Lymphocyte Count 3.16 X10^3/uL (0.83-4.51); Absolute Neutrophil Count 4.4 X10^3/uL (2.0-7.7); Basophil# 0.06 X10^3/uL; Basophil% 0.7 % (0-1); Eosinophil# 0.17 X10^3/uL; Eosinophils% 2.1 % (0-5); Hematocrit 45.2 % (37-47); Hemoglobin 14.7 g/dL (12.0-15.0); Lymphocyte # 3.16 X10^3/ul (0.83-4.51); Lymphocyte % 38.2 % (19-41); Mean Corp Hgb Conc 32.5 g/dL (32-36); Mean Corpuscular Hgb 33.3 pg (27.0-32.0); Mean Corpuscular Volume 102.3 fL (81-99); Mean Platelet Vol. 8.4 fl (6.2-12.0); Monocyte# 0.48 X10^3/uL; Monocyte% 5.8 % (0-10); NRBC Flagged by Analyzer 0 % (0-5); Neutrophil # 4.38 X10^3/uL (2.7-7.7); Neutrophil % 52.8 % (47-70); Platelet Count 443 K/mm3 (150-450); RBC Distribution Width CV 12.5 % (11.6-14.6); RBC Distribution Width SD 46.9 fl (35.1-43.9); Red Blood Count 4.42 M/mm3 (4.2-5.4); White Blood Count 8.3 K/mm3 (4.4-11.0)
[2022-10-16 18:50] LABS: AST(SGOT) 19 U/L (15-37); Alanine Aminotransfer ALT/SGPT 21 U/L (13-56); Albumin, Serum 3.8 g/dL (3.2-5.0); Alkaline Phosphatase 68 U/L (45-117); Anion Gap 3 (5-15); BUN 19 mg/dL (7-18); BUN/Creat Ratio 18.8 RATIO (10-20); Calcium,Total 10.5 mg/dL (8.5-10.1); Chloride 106 mmol/L (98-107); Creatinine, Serum 1.01 mg/dL (0.55-1.02); EST Glomerular Filtration Rate 59 mL/min (>60); Est Glom Filt Rate - Afr Amer 71 mL/min (>60); Glucose 96 mg/dL (74-106); Potassium 4.4 mmol/L (3.5-5.1); Protein, Total 7.8 g/dL (6.4-8.2); Sodium Level 136 mmol/L (136-145)
[2022-10-16 19:38] LABS: Hepatitis C Antibody Non-Reactive (Nonreactive)
== END | disposition home or self-care (01) ==
LOC: LAB 17:33
PROVIDERS: PCP Internal Medicine; Referring Provider Family Medicine Geriatric Medicine; Visit Provider Family Medicine Geriatric Medicine
DX: R53.83 Other fatigue (principal); Z13.89 Encounter for screening for other disorder
CPT/HCPCS: 36415; 80053; 84443; 85025; 86803

== ENCOUNTER 2022-11-09 08:56 | Emergency (ER) | payer MEDICARE, SELFPAY ==
[2022-11-09 08:57] VITALS: BP 121/86; PULSE 96; RESP 16; TEMP 36.2; O2SAT 99; BMI 20.9
--- NOTE | 2022-11-09 09:23 | CT_ITS ---
HISTORY: headache, intractable. TECHNIQUE: Noncontrast axial images were obtained of the brain. Subsequently, routine carotid and [place] CT angiogram protocol was performed after the intravenous administration of 100 mL Isovue-370. NASCET criteria using the distal ICAs for comparison were used for evaluation of stenoses. 3D reconstructions were reviewed. A radiation dose optimization technique was used for this scan. 2036 images. COMPARISON: 08/20/2021, 04/08/2018. FINDINGS: CT BRAIN- BRAIN PARENCHYMA: Mild chronic small vessel ischemic gliosis. No acute intra-axial hemorrhage. CSF SPACES: Mild generalized volume loss. No significant midline shift or other mass effect.No acute extra-axial hemorrhage. OTHER: Intact calvarium.No significant air fluid levels in the paranasal sinuses. Symmetric orbital contents. CTA NECK- AORTIC ARCH AND BRANCHES: Mild atherosclerosis. Bovine arch configuration. RIGHT CCA: No occlusion, significant stenosis or dissection. Minimal atherosclerosis at the bifurcation. RIGHT ICA: No occlusion, significant stenosis or dissection. LEFT CCA: No occlusion, significant stenosis or dissection. Minimal atherosclerosis at the bifurcation. LEFT ICA: No occlusion, significant stenosis or dissection. RIGHT VERTEBRAL ARTERY: No occlusion, significant stenosis or dissection. LEFT VERTEBRAL ARTERY: No occlusion, significant stenosis or dissection. OTHER: Emphysema and scarring in the lung apices. CTA HEAD- ICAs: No significant stenosis at the intracranial/visualized segments. ACAs: No significant stenosis at the visualized segments. MCAs: No significant stenosis at the visualized segments. heart nurse: No significant stenosis at the visualized segments. Right origin. BASILAR ARTERY: No significant stenosis. VERTEBRAL ARTERIES: No significant stenosis at the intradural/visualized segments. No evidence of intracranial aneurysm or vascular malformation. CT/CTA Head AND Neck W/ Contrast IMPRESSION: No acute intracranial process identified. Mild chronic involutional and white matter changes. No evidence for significant stenosis or occlusion of the carotid or vertebral arteries of the neck. No evidence for large vessel occlusion or other focal vascular abnormality in the [place] region. Electronically Signed: Jamila Jacobson MD at 11:41 EDT ,
--- NOTE | 2022-11-09 09:24 | EX.ED.VIS.HA ---
HPI History of Present Illness Chief Complaint: Headache Detail of Chief Complaint: Headache x1-1/2 months Informant: patient and spouse/S.O. Narrative Narrative: Patient presents with a headache that started a month and a half ago. Patient states that she saw her primary care physician 5 weeks ago and had a CT scan of her brain ordered but they had some issues with ordering it and is scheduled for next Friday. Patient states that she has a constant pain that is been there for the last month and a half and Tylenol is not relieving it. Patient apparently was given a prescription for a migraine medicine which is not helping her headache as well. She complains of nausea. She complains of photophobia and loud sounds hurting her head. Patient does have history of migraines but states this is different than any migraine she is ever had. She denies recent illness. She denies closed head injury or trauma. Patient rates her headache a 10 out of 10. Prior similar symptoms: No PFSH PFSH Medical History (Updated 11/09/22 @ 12:[address] Andre Easton, ) Depression Home Medications duloxetine 60 mg capsule,delayed release 120 mg PO DAILY depression 01/11/15 [History Last Taken 04/08/18 08:00] clonazepam 0.5 mg tablet 0.5 mg PO 4X/DAY PRN PRN Anxiety 02/15/15 [History Last Taken Unknown] omeprazole 40 mg capsule,delayed release 40 mg PO DAILY stomach 02/15/15 [History Last Taken 04/08/18 08:00] aripiprazole 5 mg tablet 2.5 mg PO QHS depression 12/17/15 [History Last Taken Unknown] gabapentin 300 mg capsule 300 mg PO BIDCM leg pain 01/30/16 [History Last Taken 04/08/18 08:00] gabapentin 300 mg capsule 450 mg PO QHS leg pain 06/21/17 [History Last Taken Unknown] aspirin 81 mg chewable tablet 81 mg PO DAILY@0800 heart health 09/12/17 [History Last Taken 04/08/18 08:00] docusate sodium 100 mg capsule (DOK) 100 mg PO DAILY PRN Constipation 04/09/18 [History Last Taken Unknown] food supplemt, lactose-reduced 0.08 gram-1.5 kcal/mL oral liquid (Ensure Enlive) 120 ml PO 4X/DAY ##100 04/10/18 [Rx Last Taken Unknown] nicotine 21 mg/24 hr daily transdermal patch 21 mg TRANSDERM. DAILY ##30 04/10/18 [Rx Last Taken Unknown] prednisone 10 mg tablet 10 mg PO DAILY #30 tabs 04/10/18 [Rx Last Taken Unknown] Allergy/AdvReac Type Severity Reaction Status Date / Time Sulfa (Sulfonamide Allergy gets sick Verified 11/09/22 08:59 Antibiotics) sulfamethoxazole Allergy gets sick Verified 11/09/22 08:59 [From Bactrim] trimethoprim [From Bactrim] Allergy gets sick Verified 11/09/22 08:59 acetaminophen AdvReac Vomiting Verified 11/09/22 08:59 [From Darvocet-N] codeine AdvReac Vomiting Verified 11/09/22 08:59 cyclobenzaprine HCl AdvReac Vomiting Verified 11/09/22 08:59 [From Flexeril] erythromycin base AdvReac Vomiting Verified 11/09/22 08:59 hydrocodone bitartrate AdvReac Vomiting Verified 11/09/22 08:59 [From Vicodin] pregabalin [From Lyrica] AdvReac Hives Verified 11/09/22 08:59 propoxyphene napsylate AdvReac Vomiting Verified 11/09/22 08:59 [From Darvocet-N] tramadol HCl [From Ultram] AdvReac Vomiting Verified 11/09/22 08:59 Social History Smoking Status: Current every day smoker tobacco type: cigarettes ROS ROS ED Review of Systems ROS Unobtainable: other Constitutional Constitutional ED: Reports lethargy; Denies chills, fever(s), sweats or weight loss Eyes Eyes: Denies blurry vision, change in vision or diplopia ENT ENT ED: Denies rhinorrhea or sore throat Cardiovascular Cardiovascular: Denies chest pain, orthopnea or racing heartbeat Respiratory/Chest Respiratory/Chest: Denies cough, dyspnea, dyspnea on exertion, orthopnea or sputum Gastrointestinal Gastrointestinal: Denies abdominal pain, diarrhea, nausea or vomiting Genitourinary Genitourinary ED: Denies dysuria, hematuria or urinary frequency Musculoskeletal Musculoskeletal: Denies arthralgias, back pain, myalgias or neck pain Integumentary Denies abscess, Abrasions or rash Neurologic Neurologic: Reports headache(s); Denies weakness Psychiatric Psychiatric: Denies anxiety, depression or suicidal thoughts Endocrine Endocrinology: Denies polydipsia, polyphagia or polyuria Hematologic/Lymphatic Hematologic/Lymphatic: Denies easy bleeding, easy bruising or lymphadenopathy Allergic/Immunologic Allergic/Immunologic ED: Denies mouth swelling, tongue swelling or urticaria EXAM Physical Exam Const Vital Signs: 11/09/22 08:57 Temperature 97.1 F L Temperature Source Temporal Pulse Rate 96 Respiratory Rate 16 Blood Pressure 121/86 H Blood Pressure Mean 97 Pulse Ox 99 Oxygen Delivery Method Room Air Positive well nourished and well developed General Appearance ED: well developed and NAD HEENT Reports TM's clear and moist mucous membranes normocephalic and atraumatic; Negative for trauma or tenderness Tympanic Membrane ED: Yes TM's clear Eyes PERRL and EOMs intact bilaterally General Eye ED: Negative for pale conjunctiva or scleral icterus Neck no lymphadenopathy, supple and no JVD General: Negative for tenderness Chest Wall inspection of chest normal and palpation of chest normal Chest: Negative for tenderness Resp normal respiratory effort and clear to auscultation bilaterally Effort and Inspection: Negative for respiratory distress or pain with movement Auscultation: Negative for rhonchi, wheezes or diminished lung sounds Cardio regular rate, regular rhythm, S1 normal heart sound, S2 normal heart sound and no murmurs Peripheral Pulses: pulses 2+ throughout GI normal to inspection, nondistended, normoactive bowel sounds, soft to palpation, non-tender, non-distended and no masses Back/Spine no CVA tenderness and no thoracic nor lumbar tenderness Extremity normal to inspection General Extremety ED: Negative for edema General Extremity: Negative for edema Neuro oriented x3, CN's II-XII intact bilaterally, no sensory deficits noted and gait normal Sensorium / Orientation: awake, alert, oriented to person, oriented to place and oriented to time Motor Exam: strength 5/5 throughout and strength abnormal Psych mental status grossly normal Skin no rashes or lesions noted and no wounds MDM MDM MDM Narrative Medical decision making narrative: Patient presents with headache for over 6 weeks. Patient does have history of migraines but this was different than migraine she has had. Patient had an IV line established which showed a white count of 6.0 and a sed rate of 14. Hemoglobin was 14. Chemistries were unremarkable. I did do a CTA of head and neck and these were normal. She does have some symptoms that would be consistent with migraine and that she has had nausea and some photophobia and loud sounds bother her. I did give her Reglan and Benadryl and Toradol and she did have some improvement in her headache with this. At this point I suspect possibly migraine as the etiology of her headache. Patient will be given referral to neurology for follow-up. Discharged to home in stable condition advised to return if worsening headache, difficulty with balance or speech, or condition should worsen anyway. Lab Data Attestation: I reviewed the patient's lab results. Labs: Laboratory Results - last 24 hr 11/09/22 11/09/22 09:35 09:35 WBC 6.0 RBC 4.19 L Hgb 14.0 Hct 41.7 MCV 99.5 H MCH 33.4 H MCHC 33.6 RDW Std Deviation 45.9 H RDW Coeff of Zuleima 12.5 Plt Count 382 MPV 9.5 Immature Gran % (Auto) 0.200 Neut % (Auto) 57.8 Lymph % (Auto) 33.3 [place] % (Auto) 5.3 Eos % (Auto) 2.6 Baso % (Auto) 0.8 Absolute Neuts (auto) 3.5 Absolute Lymphs (auto) 2.01 Nucleated RBC % 0 ESR 14 Sodium 140 Potassium 4.3 Chloride 108 H Carbon Dioxide 28.0 Anion Gap 4 L BUN 12 Creatinine 0.73 Estim Creat Clear Calc 64.40 Est GFR (MDRD) Af Amer 103 Est GFR (MDRD) Non-Af 85 BUN/Creatinine Ratio 16.5 Glucose 109 H Calcium 9.4 Radiography Diagnostic Testing: Clinical Impression(s) from Imaging Studies Head/Neck CTA 11/09/22 09:23 IMPRESSION: No acute intracranial process identified. Mild chronic involutional and white matter changes. No evidence for significant stenosis or occlusion of the carotid or vertebral arteries of the neck. No evidence for large vessel occlusion or other focal vascular abnormality in the lower [place] region. Electronically Signed: Jamila Jacobson MD at 11:41 EDT , Chest X-Ray 11/09/22 10:00 IMPRESSION: No acute cardiopulmonary process identified. COPD with mild scarring. Electronically Signed: Jamila Jacobson MD at 10:31 EDT , 1 view chest x-ray obtained interpreted by myself no acute disease process. There is no evidence of infiltrate or pneumothorax. Radiology was in agreement and noted COPD with mild scarring. Discharge Plan Triage Chief Complaint: Headache ED Provider: Andre Easton Dx/Rx/DC Orders Clinical Impression: Headache Instructions: ED Headache Unspecified, ED, Migraine (Classical) Prescriptions: No Action duloxetine 60 MG capsule 120 mg PO DAILY clonazepam 0.5 MG tablet 0.5 mg PO 4X/DAY PRN PRN (Reason: Anxiety) Label Comments: omeprazole 40 MG capsule,delayed release(DR/EC) 40 mg PO DAILY Label Comments: aripiprazole 5 MG tablet 2.5 mg PO QHS gabapentin 300 MG capsule 300 mg PO BIDCM Rx Instructions: takes 1 in the am; 1 in the afternoon & then the larger dose at night gabapentin 300 MG capsule 450 mg PO QHS aspirin 81 MG tablet,chewable 81 mg PO DAILY@0800 docusate sodium [DOK] 100 MG capsule 100 mg PO DAILY PRN (Reason: Constipation) nicotine 21 MG patch 21 mg TRANSDERM. DAILY Qty: 30 0RF food supplemt, lactose-reduced [Ensure Enlive] 120 ML liquid 120 ml PO 4X/DAY Qty: 100 0RF prednisone 10 MG tablet 10 mg PO DAILY Qty: 30 0RF Rx Instructions: 40 mg daily @ 8:00 AM for 3 days 30 mg daily @ 8:00 AM for 3 days 20 mg daily @ 8:00 AM for 3 days 10 mg daily @ 8:00 AM for 3 days Primary Care Provider: Lul Denson Chi Referrals: Lul Denson Chi, MD [[facility]] - Disposition Disposition: Home, Self Care
[2022-11-09] MEDS: 0.9% Normal Saline 1,000 ML 150 ML IV (09:37)
--- NOTE | 2022-11-09 10:00 | RAD_ITS ---
HISTORY: cough. TECHNIQUE: XR Chest 1 View. COMPARISON: 08/20/2016. FINDINGS: CARDIOMEDIASTINAL BORDERS: Cardiac silhouette within normal limits in size. Mediastinal contour unremarkable with calcification of the aortic knob. LUNGS: Mild hyperinflation with upper lobe lucency and chronic coarse interstitial markings in the lung bases, likely COPD. Chronic scarring in the mid lungs. PLEURA: No pleural effusion or pneumothorax seen. OSSEOUS STRUCTURES: Thoracic dextroscoliosis and mild degenerative change. RAD/Chest 1 View (Portable) IMPRESSION: No acute cardiopulmonary process identified. COPD with mild scarring. Electronically Signed: Jamila Jacobson MD at 10:31 EDT ,
[2022-11-09 10:11] LABS: Erythrocyte Sedimentation Rate 14 mm/hr (0-30)
[2022-11-09 10:12] LABS: Absolute Lymphocyte Count 2.01 X10^3/uL (0.83-4.51); Absolute Neutrophil Count 3.5 X10^3/uL (2.0-7.7); Basophil# 0.05 X10^3/uL; Basophil% 0.8 % (0-1); Eosinophil# 0.16 X10^3/uL; Eosinophils% 2.6 % (0-5); Hematocrit 41.7 % (37-47); Lymphocyte # 2.01 X10^3/ul (0.83-4.51); Lymphocyte % 33.3 % (19-41); Mean Corp Hgb Conc 33.6 g/dL (32-36); Mean Corpuscular Hgb 33.4 pg (27.0-32.0); Mean Corpuscular Volume 99.5 fL (81-99); Mean Platelet Vol. 9.5 fl (6.2-12.0); Monocyte# 0.32 X10^3/uL; Monocyte% 5.3 % (0-10); NRBC Flagged by Analyzer 0 % (0-5); Neutrophil # 3.49 X10^3/uL (2.7-7.7); Neutrophil % 57.8 % (47-70); Platelet Count 382 K/mm3 (150-450); RBC Distribution Width CV 12.5 % (11.6-14.6); RBC Distribution Width SD 45.9 fl (35.1-43.9); Red Blood Count 4.19 M/mm3 (4.2-5.4)
[2022-11-09 10:17] LABS: Anion Gap 4 (5-15); BUN 12 mg/dL (7-18); BUN/Creat Ratio 16.5 RATIO (10-20); Calcium,Total 9.4 mg/dL (8.5-10.1); Chloride 108 mmol/L (98-107); Creatinine, Serum 0.73 mg/dL (0.55-1.02); EST Glomerular Filtration Rate 85 mL/min (>60); Est Glom Filt Rate - Afr Amer 103 mL/min (>60); Glucose 109 mg/dL (74-106); Potassium 4.3 mmol/L (3.5-5.1); Sodium Level 140 mmol/L (136-145)
[2022-11-09 11:00] VITALS: PULSE 87; RESP 18; O2SAT 100
[2022-11-09] MEDS: Ketorolac 15 MG/ML Vial IV (12:03)
[2022-11-09] MEDS: Metoclopramide 10 MG/2 ML Vial IV (12:03)
[2022-11-09] MEDS: DiphenhydrAMINE 50 MG/ML Syringe 25 MG IV (12:03)
== END 2022-11-09 12:48 | disposition home or self-care (01) ==
PROVIDERS: Emergency Provider Emergency Medicine; PCP Family Medicine Geriatric Medicine; Visit Provider Emergency Medicine
DX: R51.9 Headache, unspecified (principal); F17.210 Nicotine dependence, cigarettes, uncomplicated; F32.A Depression, unspecified; Z79.899 Other long term (current) drug therapy
CPT/HCPCS: 70496; 70498; 71045; 80048; 85025; 85652; 96361; 96374; 96375; 99284; J7030; Q9967; A4216

== ENCOUNTER 2023-01-07 17:41 | Emergency (ER) | payer MEDICARE, SELFPAY ==
[2023-01-07 17:43] VITALS: BP 115/70; PULSE 72; RESP 15; TEMP 36.2; O2SAT 100; BMI 20.5
--- NOTE | 2023-01-07 22:25 | EDS_ITS ---
HPI History of Present Illness Chief Complaint: Headache Informant: patient Narrative Narrative: Patient is a 62-year-old female with past medical history of fibromyalgia and depression. She states for the past few months she has been in a brain fog. She states that she had a head CT over the last 4 weeks which revealed no acute finding. Patient states that this time she feels deathly ill. She states there is no associated nausea vomiting diarrhea or dysuria. She denies any chest pain shortness of breath or diaphoresis. She states there has been no known sick contacts. She states because she feels ill she is concerned for an infectious process and therefore comes in for evaluation [facility] Medical History (Updated 01/08/23 @ 04:[address] Martinez Wick, DO) Depression Home Medications duloxetine 60 mg capsule,delayed release 120 mg PO DAILY depression 01/11/15 [History Last Taken 04/08/18 08:00] clonazepam 0.5 mg tablet 0.5 mg PO 4X/DAY PRN PRN Anxiety 02/15/15 [History Last Taken Unknown] omeprazole 40 mg capsule,delayed release 40 mg PO DAILY stomach 02/15/15 [History Last Taken 04/08/18 08:00] aripiprazole 5 mg tablet 2.5 mg PO QHS depression 12/17/15 [History Last Taken Unknown] gabapentin 300 mg capsule 300 mg PO BIDCM leg pain 01/30/16 [History Last Taken 04/08/18 08:00] gabapentin 300 mg capsule 450 mg PO QHS leg pain 06/21/17 [History Last Taken Unknown] aspirin 81 mg chewable tablet 81 mg PO DAILY@0800 heart health 09/12/17 [History Last Taken 04/08/18 08:00] docusate sodium 100 mg capsule (DOK) 100 mg PO DAILY PRN Constipation 04/09/18 [History Last Taken Unknown] food supplemt, lactose-reduced 0.08 gram-1.5 kcal/mL oral liquid (Ensure Enlive) 120 ml PO 4X/DAY ##100 04/10/18 [Rx Last Taken Unknown] nicotine 21 mg/24 hr daily transdermal patch 21 mg TRANSDERM. DAILY ##30 04/10/18 [Rx Last Taken Unknown] prednisone 10 mg tablet 10 mg PO DAILY #30 tabs 04/10/18 [Rx Last Taken Unknown] Allergy/AdvReac Type Severity Reaction Status Date / Time Sulfa (Sulfonamide Allergy gets sick Verified 01/07/23 17:46 Antibiotics) sulfamethoxazole Allergy gets sick Verified 01/07/23 17:46 [From Bactrim] trimethoprim [From Bactrim] Allergy gets sick Verified 01/07/23 17:46 acetaminophen AdvReac Vomiting Verified 01/07/23 17:46 [From Darvocet-N] codeine AdvReac Vomiting Verified 01/07/23 17:46 cyclobenzaprine HCl AdvReac Vomiting Verified 01/07/23 17:46 [From Flexeril] erythromycin base AdvReac Vomiting Verified 01/07/23 17:46 hydrocodone bitartrate AdvReac Vomiting Verified 01/07/23 17:46 [From Vicodin] pregabalin [From Lyrica] AdvReac Hives Verified 01/07/23 17:46 propoxyphene napsylate AdvReac Vomiting Verified 01/07/23 17:46 [From Darvocet-N] tramadol HCl [From Ultram] AdvReac Vomiting Verified 01/07/23 17:46 Social History Smoking Status: Current every day smoker tobacco type: cigarettes ROS ROS ED Constitutional Constitutional ED: Denies chills or fever(s) Eyes Eyes: Denies change in vision ENT ENT ED: Denies rhinorrhea or sore throat Cardiovascular Cardiovascular: Denies chest pain, palpitations or racing heartbeat Respiratory/Chest Respiratory/Chest: Denies cough or dyspnea Gastrointestinal Gastrointestinal: Denies abdominal pain, diarrhea, nausea or vomiting Genitourinary Genitourinary ED: Denies dysuria or hematuria Musculoskeletal Musculoskeletal: Denies myalgias Integumentary Denies rash Neurologic Neurologic: Reports headache(s) and weakness Psychiatric Psychiatric: Reports depression Hematologic/Lymphatic Hematologic/Lymphatic: Denies easy bleeding or easy bruising EXAM Physical Exam Const Vital Signs: 01/07/23 17:43 01/07/23 21:54 01/07/23 23:57 Temperature 97.1 F L Temperature Source Temporal Pulse Rate 72 61 Respiratory Rate 15 16 Respiratory Effort Normal Non-Labored Respiratory Pattern Normal Blood Pressure 115/70 107/62 Blood Pressure Mean 85 77 Pulse Ox 100 99 Oxygen Delivery Method Room Air 01/08/23 01:10 01/08/23 01:10 Temperature Temperature Source Pulse Rate 61 Respiratory Rate 18 Respiratory Effort Respiratory Pattern Blood Pressure 116/79 116/79 Blood Pressure Mean 91 Pulse Ox 99 Oxygen Delivery Method Positive well nourished and well developed General Appearance ED: well developed HEENT Reports dry mucous membranes HEENT Narrative: No signs of infection noted in the posterior pharynx Mouth ED: Yes dry mucous membranes Mouth: dry mucous membranes Eyes PERRL and EOMs intact bilaterally General Eye ED: Negative for scleral icterus Neck supple Neck Narrative: No nuchal rigidity or meningeal signs Resp normal respiratory effort and clear to auscultation bilaterally Cardio regular rate and regular rhythm Rate: other Other Details: Radial pulses are plus 2 out of 4 bilaterally are equal and symmetric GI normal to inspection, nondistended, normoactive bowel sounds, non-tender and non-distended GI Narrative: No voluntary guarding or rigidity no pulsatile mass Auscultation: normoactive bowel sounds Palpation: soft Back/Spine no CVA tenderness Extremity normal to inspection Neuro oriented x3, CN's II-XII intact bilaterally and no sensory deficits noted Sensorium / Orientation: alert Motor Exam: strength 5/5 throughout Psych Psych Narrative: Patient has a flat affect Skin no rashes or lesions noted Skin Narrative: Skin turgor is elevated/increased General Skin Exam: Negative for jaundice MDM MDM MDM Narrative Medical decision making narrative: Patient presented to the ER with stable vitals and a nonfocal exam other than dehydration changes with increased skin tenting and dry mucous membranes. She denied any recent trauma or fevers and despite reporting feeling deathly ill she cannot define her symptoms more than having mild headache and fatigue. As she states she had a CT scan in the last 4 to 6 weeks which was normal and there were no signs of meningitis or trauma I do not feel there is need for repeat imaging. Basic blood work was obtained which reveals no clinically significant cause of the patient's symptoms. Therefore at this time with negative work-up and stable vitals I do not feel there is need for further evaluation and patient can be discharged home with outpatient follow-up History & Record Review Discussion w/independent historian: Patient and Significant other Lab Data Attestation: I reviewed the patient's lab results. Labs: Laboratory Results - last 24 hr 01/07/23 01/07/23 22:55 23:27 WBC 9.1 RBC 3.98 L Hgb 13.3 Hct 40.2 MCV 101.0 H MCH 33.4 H MCHC 33.1 RDW Std Deviation 48.9 H RDW Coeff of Zuleima 13.2 Plt Count 465 H MPV 8.8 Immature Gran % (Auto) 0.300 Neut % (Auto) 51.7 Lymph % (Auto) 40.3 [place] % (Auto) 5.0 Eos % (Auto) 1.9 Baso % (Auto) 0.8 Absolute Neuts (auto) 4.7 Absolute Lymphs (auto) 3.68 Nucleated RBC % 0 Sodium 141 Potassium 3.4 L Chloride 109 H Carbon Dioxide 28.0 Anion Gap 4 L BUN 15 Creatinine 0.92 Estim Creat Clear Calc 51.10 Est GFR (MDRD) Af Amer 79 Est GFR (MDRD) Non-Af 66 BUN/Creatinine Ratio 16.4 Glucose 87 Calcium 9.7 Magnesium 2.0 TSH 1.68 Urine Color Yellow Urine Clarity Clear Urine pH 6.5 Ur Specific [place] 1.010 Urine Protein Negative Urine Glucose (UA) Normal Urine Ketones Negative Urine Occult Blood 25 H Urine Nitrite Negative Urine Bilirubin Negative Urine Urobilinogen Normal Ur Leukocyte Esterase Negative Urine RBC 0-5 SEEN Urine WBC 0 SEEN Ur Squamous Epith Cells 0 SEEN Urine Bacteria 0 SEEN Urine Mucus 0 SEEN Discharge Plan Triage Chief Complaint: Headache ED Provider: Martinez Wick Dx/Rx/DC Orders Clinical Impression: Dehydration, Generalized weakness, Depression Instructions: Dehydration, ED Weakness (Uncertain Cause) Prescriptions: No Action duloxetine 60 MG capsule 120 mg PO DAILY clonazepam 0.5 MG tablet 0.5 mg PO 4X/DAY PRN PRN (Reason: Anxiety) Patient Comments: omeprazole 40 MG capsule,delayed release(DR/EC) 40 mg PO DAILY Patient Comments: aripiprazole 5 MG tablet 2.5 mg PO QHS gabapentin 300 MG capsule 300 mg PO BIDCM Rx Instructions: takes 1 in the am; 1 in the afternoon & then the larger dose at night gabapentin 300 MG capsule 450 mg PO QHS aspirin 81 MG tablet,chewable 81 mg PO DAILY@0800 docusate sodium [DOK] 100 MG capsule 100 mg PO DAILY PRN (Reason: Constipation) nicotine 21 MG patch 21 mg TRANSDERM. DAILY Qty: 30 0RF food supplemt, lactose-reduced [Ensure Enlive] 120 ML liquid 120 ml PO 4X/DAY Qty: 100 0RF prednisone 10 MG tablet 10 mg PO DAILY Qty: 30 0RF Rx Instructions: 40 mg daily @ 8:00 AM for 3 days 30 mg daily @ 8:00 AM for 3 days 20 mg daily @ 8:00 AM for 3 days 10 mg daily @ 8:00 AM for 3 days Primary Care Provider: Lul Denson Chi Referrals: Lul Denson Chi, MD [Primary Care Provider] - Activity Restrictions/Additional Instructions: please follow-up with your family doctor to discuss referral to neurology and/or rheumatology to assess for other disease processes that could be causing your symptoms but your work-up here revealed no acute findings Disposition Disposition: Home, Self Care Discharge Date/Time: 01/08/23 01:12
[2023-01-07] MEDS: 0.9% Normal Saline 1,000 ML 999 ML IV (23:01)
[2023-01-07 23:07] LABS: Absolute Lymphocyte Count 3.68 X10^3/uL (0.83-4.51); Absolute Neutrophil Count 4.7 X10^3/uL (2.0-7.7); Basophil# 0.07 X10^3/uL; Basophil% 0.8 % (0-1); Eosinophil# 0.17 X10^3/uL; Eosinophils% 1.9 % (0-5); Hematocrit 40.2 % (37-47); Hemoglobin 13.3 g/dL (12.0-15.0); Lymphocyte # 3.68 X10^3/ul (0.83-4.51); Lymphocyte % 40.3 % (19-41); Mean Corp Hgb Conc 33.1 g/dL (32-36); Mean Corpuscular Hgb 33.4 pg (27.0-32.0); Mean Platelet Vol. 8.8 fl (6.2-12.0); Monocyte# 0.46 X10^3/uL; NRBC Flagged by Analyzer 0 % (0-5); Neutrophil # 4.72 X10^3/uL (2.7-7.7); Neutrophil % 51.7 % (47-70); Platelet Count 465 K/mm3 (150-450); RBC Distribution Width CV 13.2 % (11.6-14.6); RBC Distribution Width SD 48.9 fl (35.1-43.9); Red Blood Count 3.98 M/mm3 (4.2-5.4); White Blood Count 9.1 K/mm3 (4.4-11.0)
[2023-01-07 23:32] LABS: Anion Gap 4 (5-15); BUN 15 mg/dL (7-18); BUN/Creat Ratio 16.4 RATIO (10-20); Calcium,Total 9.7 mg/dL (8.5-10.1); Chloride 109 mmol/L (98-107); Creatinine, Serum 0.92 mg/dL (0.55-1.02); EST Glomerular Filtration Rate 66 mL/min (>60); Est Glom Filt Rate - Afr Amer 79 mL/min (>60); Glucose 87 mg/dL (74-106); Potassium 3.4 mmol/L (3.5-5.1); Sodium Level 141 mmol/L (136-145); Thyroid Stim Hormone (TSH) 1.68 uIU/mL (0.358-3.74)
[2023-01-07 23:36] LABS: Bacteria 0 SEEN /hpf (None Seen); Mucous, Urine 0 SEEN /hpf (<or=2+); Squamous Epithelial Cells - UA 0 SEEN /hpf (5-10); White Blood Cells 0 SEEN /hpf (0-5)
[2023-01-07 23:38] LABS: Color, Urine Yellow (Yellow); Glucose, Dipstick Normal (Normal); Ketone-Dipstick Negative (Negative); Leukocyte Esterase-Dipstick Negative /ul (Negative); Nitrite-Dipstick Negative (Negative); Occult Blood-Urine 25 /ul (Negative); Protein-Dipstick Negative (Negative); Urine Bilirubin Dipstick Negative (Negative); Urine Clarity Clear (Clear); Urine Urobilinogen Normal (Normal); Urine pH 6.5 (5.0 - 8.0)
[2023-01-07 23:49] LABS: Red Blood Cells-Urine 0-5 SEEN /hpf (0-5)
[2023-01-07 23:57] VITALS: BP 107/62; PULSE 61; RESP 16; O2SAT 99
[2023-01-08 01:10] VITALS: BP 116/79; PULSE 61; RESP 18; O2SAT 99
== END 2023-01-08 01:12 | disposition home or self-care (01) ==
PROVIDERS: Emergency Provider Emergency Medicine; PCP Family Medicine Geriatric Medicine; Visit Provider Emergency Medicine
DX: E86.0 Dehydration (principal); F32.A Depression, unspecified; F17.210 Nicotine dependence, cigarettes, uncomplicated; M79.7 Fibromyalgia; R51.9 Headache, unspecified
CPT/HCPCS: 80048; 81001; 83735; 84443; 85025; 87428; 96360; 96361; 99285; J7030; A4216

== ENCOUNTER → 2023-01-09 | Outpatient (CLI) | payer MEDICARE, SELFPAY | END | disposition home or self-care (01) | PROVIDERS: PCP Family Medicine Geriatric Medicine; Referring Provider Family Medicine Geriatric Medicine; Visit Provider Family Medicine Geriatric Medicine | DX: R68.83 Chills (without fever) (principal) | CPT/HCPCS: 87804; 87807 ==

== ENCOUNTER → 2023-01-13 | Outpatient (CLI) | payer MEDICARE, SELFPAY ==
[2023-01-13 16:24] LABS: Absolute Lymphocyte Count 2.29 X10^3/uL (0.83-4.51); Absolute Neutrophil Count 4.5 X10^3/uL (2.0-7.7); Basophil# 0.07 X10^3/uL; Basophil% 0.9 % (0-1); Eosinophil# 0.12 X10^3/uL; Eosinophils% 1.6 % (0-5); Hematocrit 42.5 % (37-47); Hemoglobin 13.9 g/dL (12.0-15.0); Lymphocyte # 2.29 X10^3/ul (0.83-4.51); Lymphocyte % 30.9 % (19-41); Mean Corp Hgb Conc 32.7 g/dL (32-36); Mean Corpuscular Hgb 32.8 pg (27.0-32.0); Mean Corpuscular Volume 100.2 fL (81-99); Mean Platelet Vol. 9.3 fl (6.2-12.0); Monocyte# 0.36 X10^3/uL; Monocyte% 4.9 % (0-10); NRBC Flagged by Analyzer 0 % (0-5); Neutrophil # 4.53 X10^3/uL (2.7-7.7); Neutrophil % 61.3 % (47-70); Platelet Count 555 K/mm3 (150-450); RBC Distribution Width CV 13.4 % (11.6-14.6); RBC Distribution Width SD 49.3 fl (35.1-43.9); Red Blood Count 4.24 M/mm3 (4.2-5.4); White Blood Count 7.4 K/mm3 (4.4-11.0)
[2023-01-13 17:26] LABS: ALB/GLOB Ratio 0.9 RATIO (0.9-2.4); AST(SGOT) 25 U/L (15-37); Alanine Aminotransfer ALT/SGPT 24 U/L (13-56); Albumin, Serum 3.6 g/dL (3.2-5.0); Alkaline Phosphatase 65 U/L (45-117); Anion Gap 4 (5-15); BUN 10 mg/dL (7-18); BUN/Creat Ratio 12.9 RATIO (10-20); Calcium,Total 9.6 mg/dL (8.5-10.1); Chloride 106 mmol/L (98-107); Creatinine, Serum 0.78 mg/dL (0.55-1.02); EST Glomerular Filtration Rate 79 mL/min (>60); Est Glom Filt Rate - Afr Amer 96 mL/min (>60); Globulin 4.1 g/dL (2.2-4.2); Glucose 97 mg/dL (74-106); Potassium 3.9 mmol/L (3.5-5.1); Protein, Total 7.7 g/dL (6.4-8.2); Sodium Level 136 mmol/L (136-145); Thyroid Stim Hormone (TSH) 1.52 uIU/mL (0.358-3.74)
== END | disposition home or self-care (01) ==
PROVIDERS: PCP Family Medicine Geriatric Medicine; Visit Provider Family Medicine Geriatric Medicine
DX: R53.83 Other fatigue (principal)
CPT/HCPCS: 36415; 80053; 84443; 85025

== ENCOUNTER → 2023-04-24 | Outpatient (CLI) | payer MEDICARE, SELFPAY ==
[2023-04-24 11:56] LABS: Absolute Lymphocyte Count 2.54 X10^3/uL (0.83-4.51); Basophil# 0.05 X10^3/uL; Basophil% 0.7 % (0-1); Eosinophil# 0.11 X10^3/uL; Eosinophils% 1.5 % (0-5); Hematocrit 39.5 % (37-47); Hemoglobin 12.8 g/dL (12.0-15.0); Lymphocyte # 2.54 X10^3/ul (0.83-4.51); Lymphocyte % 35.1 % (19-41); Mean Corp Hgb Conc 32.4 g/dL (32-36); Mean Corpuscular Hgb 32.7 pg (27.0-32.0); Mean Platelet Vol. 9.6 fl (6.2-12.0); Monocyte# 0.48 X10^3/uL; Monocyte% 6.6 % (0-10); NRBC Flagged by Analyzer 0 % (0-5); Neutrophil # 4.04 X10^3/uL (2.7-7.7); Neutrophil % 55.8 % (47-70); Platelet Count 371 K/mm3 (150-450); RBC Distribution Width CV 12.8 % (11.6-14.6); RBC Distribution Width SD 47.8 fl (35.1-43.9); Red Blood Count 3.91 M/mm3 (4.2-5.4); White Blood Count 7.2 K/mm3 (4.4-11.0)
[2023-04-24 12:22] LABS: ALB/GLOB Ratio 0.9 RATIO (0.9-2.4); AST(SGOT) 16 U/L (15-37); Alanine Aminotransfer ALT/SGPT 21 U/L (13-56); Albumin, Serum 3.3 g/dL (3.2-5.0); Alkaline Phosphatase 71 U/L (45-117); Anion Gap 4 (5-15); BUN 15 mg/dL (7-18); BUN/Creat Ratio 21.9 RATIO (10-20); Calcium,Total 9.2 mg/dL (8.5-10.1); Chloride 107 mmol/L (98-107); Creatinine, Serum 0.68 mg/dL (0.55-1.02); EST Glomerular Filtration Rate 92 mL/min (>60); Est Glom Filt Rate - Afr Amer 111 mL/min (>60); Globulin 3.6 g/dL (2.2-4.2); Glucose 115 mg/dL (74-106); Potassium 3.5 mmol/L (3.5-5.1); Protein, Total 6.9 g/dL (6.4-8.2); Sodium Level 137 mmol/L (136-145); Thyroid Stim Hormone (TSH) 0.59 uIU/mL (0.358-3.74)
== END | disposition home or self-care (01) ==
LOC: POLAB3 10:00
PROVIDERS: PCP Family Medicine Geriatric Medicine; Visit Provider Family Medicine Geriatric Medicine
DX: R53.83 Other fatigue (principal)
CPT/HCPCS: 36415; 80053; 84443; 85025

== ENCOUNTER 2023-08-08 11:32 | Outpatient (CLI) | payer MEDICARE, SELFPAY ==
--- NOTE | 2023-08-08 11:34 | CT_ITS ---
STUDY: CT ABDOMEN AND PELVIS WITH CONTRAST REASON FOR EXAM: Female, 63 years old. NAUSEA AND VOMITING. One week history of lower abdominal pain. RADIATION DOSAGE (If Supplied By Facility): CTDIvol = ( 11.05 ) mGy, DLP = ( 388.22 ) mGycm TECHNIQUE: Transaxial images were obtained from the dome of the diaphragm to the symphysis pubis with oral contrast. Oral and amp; IV Gastrografin and amp; 100mL Isovue-300 was administered. Sagittal and coronal images were reconstructed. Individualized dose optimization techniques were used for this CT. COMPARISON: Comparison is made with prior study dated March 02, 2018. FINDINGS: Stable mild increased markings at the lung bases suggestive of atelectasis and/or scarring. The visualized portions of the heart are within normal limits. Normal liver. Normal gallbladder and extrahepatic biliary system. Normal spleen. Normal pancreas. Normal bilateral adrenal glands. Normal right kidney. Normal left kidney. Normal visualized stomach. Normal small intestine. Moderate amount of fecal material is seen in the colon. Mural thickening of the sigmoid colon suggestive of a sigmoid colitis. There are surgical clips in the region of the appendix consistent with a prior appendectomy. There is diffuse atherosclerotic calcification of the abdominal aorta, without a demonstrated aneurysm. Normal inferior vena cava. Normal retroperitoneum. Normal urinary bladder. There is absence of the uterus consistent with a prior hysterectomy. Normal abdominal wall. There are diffuse degenerative changes of the visualized lumbar spine. Prior effusion at the L2-L3 and L3-L4 levels. CT/Abdomen/Pelvis WITH Contrast IMPRESSION: Moderate amount of fecal material is seen in the colon. Status post appendectomy. Findings suggestive of a colitis of the sigmoid colon. Electronically Signed: Thomas Romero MD at 13:58 EST ,
[2023-08-08] MEDS: 0.9% Normal Saline (1000mL) 1,000 ML 999 ML IV ×2 (12:04→13:10)
[2023-08-08 12:05] VITALS: BP 115/72; PULSE 75; RESP 16; TEMP 35.5; O2SAT 115; BMI 20.5
[2023-08-08 14:50] VITALS: BP 113/76; PULSE 69; RESP 16
== END 2023-08-08 23:59 | disposition home or self-care (01) ==
PROVIDERS: PCP Family Medicine Geriatric Medicine; Referring Provider Family Medicine Geriatric Medicine; Visit Provider Family Medicine Geriatric Medicine
DX: R11.2 Nausea with vomiting, unspecified (principal); D86.0 Sarcoidosis of lung; N39.0 Urinary tract infection, site not specified; K57.32 Diverticulitis of large intestine without perforation or abscess without bleeding
CPT/HCPCS: 96360; 96361; 36415; 74177; 80053; 85025; 87086; 87088; 87186; Q9967; A4216

== ENCOUNTER → 2023-08-08 | Outpatient (CLI) | payer MEDICARE, SELFPAY ==
[2023-08-08 11:50] LABS: Absolute Lymphocyte Count 2.85 X10^3/uL (0.83-4.51); Absolute Neutrophil Count 4.3 X10^3/uL (2.0-7.7); Basophil# 0.06 X10^3/uL; Basophil% 0.8 % (0-1); Eosinophils% 1.3 % (0-5); Hematocrit 42.3 % (37-47); Hemoglobin 14.3 g/dL (12.0-15.0); Lymphocyte # 2.85 X10^3/ul (0.83-4.51); Lymphocyte % 37.5 % (19-41); Mean Corp Hgb Conc 33.8 g/dL (32-36); Mean Corpuscular Hgb 32.9 pg (27.0-32.0); Mean Corpuscular Volume 97.5 fL (81-99); Mean Platelet Vol. 9.3 fl (6.2-12.0); Monocyte# 0.29 X10^3/uL; Monocyte% 3.8 % (0-10); NRBC Flagged by Analyzer 0 % (0-5); Neutrophil # 4.29 X10^3/uL (2.7-7.7); Neutrophil % 56.3 % (47-70); Platelet Count 395 K/mm3 (150-450); RBC Distribution Width CV 12.8 % (11.6-14.6); RBC Distribution Width SD 45.8 fl (35.1-43.9); Red Blood Count 4.34 M/mm3 (4.2-5.4); White Blood Count 7.6 K/mm3 (4.4-11.0)
[2023-08-08 12:14] LABS: AST(SGOT) 15 U/L (15-37); Alanine Aminotransfer ALT/SGPT 23 U/L (13-56); Albumin, Serum 3.9 g/dL (3.2-5.0); Alkaline Phosphatase 63 U/L (45-117); Anion Gap 5 (5-15); BUN 13 mg/dL (7-18); BUN/Creat Ratio 17.2 RATIO (10-20); Calcium,Total 10.2 mg/dL (8.5-10.1); Chloride 105 mmol/L (98-107); Creatinine, Serum 0.76 mg/dL (0.55-1.02); EST Glomerular Filtration Rate 81 mL/min (>60); Est Glom Filt Rate - Afr Amer 99 mL/min (>60); Globulin 3.9 g/dL (2.2-4.2); Glucose 114 mg/dL (74-106); Potassium 3.7 mmol/L (3.5-5.1); Protein, Total 7.8 g/dL (6.4-8.2); Sodium Level 140 mmol/L (136-145)
== END | disposition home or self-care (01) ==
LOC: POLAB3 10:55
PROVIDERS: PCP Family Medicine Geriatric Medicine; Visit Provider Family Medicine Geriatric Medicine
DX: N39.0 Urinary tract infection, site not specified (principal); K57.32 Diverticulitis of large intestine without perforation or abscess without bleeding; R11.2 Nausea with vomiting, unspecified
CPT/HCPCS: 36415; 80053; 85025; 87086; 87088; 87186

== ENCOUNTER → 2023-11-03 | Outpatient (CLI) | payer MEDICARE, SELFPAY ==
[2023-11-03 10:38] LABS: Absolute Lymphocyte Count 2.65 X10^3/uL (0.83-4.51); Absolute Neutrophil Count 3.6 X10^3/uL (2.0-7.7); Basophil# 0.08 X10^3/uL; Basophil% 1.2 % (0-1); Eosinophil# 0.12 X10^3/uL; Eosinophils% 1.7 % (0-5); Hematocrit 40.5 % (37-47); Hemoglobin 13.5 g/dL (12.0-15.0); Lymphocyte # 2.65 X10^3/ul (0.83-4.51); Lymphocyte % 38.1 % (19-41); Mean Corp Hgb Conc 33.3 g/dL (32-36); Mean Corpuscular Hgb 33.7 pg (27.0-32.0); Mean Platelet Vol. 9.2 fl (6.2-12.0); Monocyte# 0.47 X10^3/uL; Monocyte% 6.8 % (0-10); NRBC Flagged by Analyzer 0 % (0-5); Neutrophil % 51.8 % (47-70); Platelet Count 371 K/mm3 (150-450); RBC Distribution Width CV 12.5 % (11.6-14.6); RBC Distribution Width SD 47.1 fl (35.1-43.9); Red Blood Count 4.01 M/mm3 (4.2-5.4)
[2023-11-03 11:08] LABS: Vitamin D,25 Hydroxy 34.3 ng/mL
[2023-11-03 11:36] LABS: ALB/GLOB Ratio 0.9 RATIO (0.9-2.4); AST(SGOT) 20 U/L (15-37); Alanine Aminotransfer ALT/SGPT 20 U/L (13-56); Albumin, Serum 3.6 g/dL (3.2-5.0); Alkaline Phosphatase 66 U/L (45-117); Anion Gap 4 (5-15); BUN 11 mg/dL (7-18); Calcium,Total 9.7 mg/dL (8.5-10.1); Chloride 108 mmol/L (98-107); Creatinine, Serum 0.73 mg/dL (0.55-1.02); EST Glomerular Filtration Rate 84 mL/min (>60); Est Glom Filt Rate - Afr Amer 102 mL/min (>60); Globulin 3.8 g/dL (2.2-4.2); Glucose 85 mg/dL (74-106); Potassium 4.3 mmol/L (3.5-5.1); Protein, Total 7.4 g/dL (6.4-8.2); Sodium Level 138 mmol/L (136-145); Thyroid Stim Hormone (TSH) 0.42 uIU/mL (0.358-3.74)
== END | disposition home or self-care (01) ==
LOC: LAB 09:45
PROVIDERS: PCP Family Medicine Geriatric Medicine; Referring Provider Family Medicine Geriatric Medicine; Visit Provider Family Medicine Geriatric Medicine
DX: R53.83 Other fatigue (principal); E55.9 Vitamin D deficiency, unspecified
CPT/HCPCS: 36415; 80053; 82306; 84443; 85025

== ENCOUNTER → 2023-12-01 | Outpatient (CLI) | payer MEDICARE, SELFPAY ==
--- NOTE | 2023-12-01 07:29 | CT_ITS ---
HISTORY: Nicotine dependence. TECHNIQUE: Helically acquired images were obtained of the chest without contrast. A radiation dose optimization technique was used for this scan. 793 images. COMPARISON: CR 11/09/2022. FINDINGS: LARGE AIRWAYS: Patent. LUNGS: Mild-moderate paraseptal emphysema with mild biapical and peripheral reticular scarring. 2 mm left upper lobe nodule. Irregular linear scarring in the left upper lobe anteriorly. 7 mm triangular pleural-based nodule of the left lower lobe. PLEURA: No pneumothorax or significant pleural effusion. HEART/PERICARDIUM: Heart within normal limits in size with coronary artery calcification. No pericardial effusion. VESSELS: Thoracic aorta nondilated. Mild atherosclerosis. MEDIASTINUM/LUKASZ: No pathologically enlarged adenopathy. UPPER ABDOMEN: Unremarkable. BONES: Mild thoracic dextroscoliosis. Lumbar spinal fusion hardware present.. CT/Low Dose CT Lung Screening IMPRESSION: Emphysema with mild scarring and a 7 mm left lower lobe juxtapleural nodule. Lungs-RADS category 2: Continue annual screening with low dose CT. Electronically Signed: Jamila Jacobson MD at 9:10 EDT ,
== END | disposition home or self-care (01) ==
PROVIDERS: PCP Family Medicine Geriatric Medicine; Referring Provider Family Medicine Geriatric Medicine; Visit Provider Family Medicine Geriatric Medicine
DX: Z12.2 Encounter for screening for malignant neoplasm of respiratory organs (principal); F17.210 Nicotine dependence, cigarettes, uncomplicated
CPT/HCPCS: 71271

== ENCOUNTER 2023-12-04 11:58 | Outpatient (CLI) | payer MEDICARE, SELFPAY ==
[2023-12-04 12:12] VITALS: BP 113/62; PULSE 66; RESP 16; TEMP 36.4; O2SAT 97
[2023-12-04] MEDS: 0.9% NaCl Peripheral Flush Adult/Peds IV (12:18)
[2023-12-04] MEDS: 0.9% Normal Saline (1000mL) 1,000 ML 999 ML IV ×2 (12:18→13:56)
--- NOTE | 2023-12-04 15:45 | RAD_ITS ---
EXAM: XR CHEST, 2 VIEWS CLINICAL INDICATION: ABDOMINAL PAIN TECHNIQUE: Frontal and lateral views of the chest. COMPARISON: 11/09/2022 FINDINGS: LUNGS AND PLEURAL SPACES: There are interstitial opacities in the periphery of the lungs which may represent scar or minimal edema. No pneumothorax. No effusion. HEART: Unremarkable. Cardiac silhouette not enlarged. MEDIASTINUM: Central airways and mediastinal contour are unremarkable. BONES/JOINTS: Scoliotic deformity of the thoracic spine. No acute fracture. SOFT TISSUES: Unremarkable. OTHER FINDINGS: . Stable from the reference exam. RAD/Chest PA and Lateral IMPRESSION: Stable interstitial opacities which may represent scar or trace edema. There has been no change from the reference exam. Electronically Signed: Mikel Vazquez MD at 18:57 EDT ,
--- NOTE | 2023-12-04 15:45 | RAD_ITS ---
EXAM: XR ABDOMEN, 1 VIEW CLINICAL INDICATION: ABDOMINAL PAIN TECHNIQUE: Frontal supine view of the abdomen/pelvis. COMPARISON: No relevant prior studies available. FINDINGS: LOWER THORAX: No acute pathology. GASTROINTESTINAL TRACT: Unremarkable. Non-obstructive. No bowel or stomach distention. ORGANS: Unremarkable as visualized. No organomegaly. No abnormal calcifications. BONES/JOINTS: There are right-sided pedicle screws from L2 through L4. SOFT TISSUES: No acute pathology. RAD/Abdomen Single View IMPRESSION: No acute findings. Electronically Signed: Mikel Vazquez MD at 20:58 EDT ,
[2023-12-04 15:59] LABS: Absolute Lymphocyte Count 3.01 X10^3/uL (0.83-4.51); Absolute Neutrophil Count 3.5 X10^3/uL (2.0-7.7); Basophil# 0.06 X10^3/uL; Basophil% 0.8 % (0-1); Eosinophil# 0.16 X10^3/uL; Eosinophils% 2.3 % (0-5); Hematocrit 37.1 % (37-47); Hemoglobin 12.1 g/dL (12.0-15.0); Lymphocyte # 3.01 X10^3/ul (0.83-4.51); Lymphocyte % 42.3 % (19-41); Mean Corp Hgb Conc 32.6 g/dL (32-36); Mean Corpuscular Volume 101.1 fL (81-99); Mean Platelet Vol. 9.1 fl (6.2-12.0); Monocyte# 0.39 X10^3/uL; Monocyte% 5.5 % (0-10); NRBC Flagged by Analyzer 0 % (0-5); Neutrophil # 3.47 X10^3/uL (2.7-7.7); Neutrophil % 48.8 % (47-70); Platelet Count 348 K/mm3 (150-450); RBC Distribution Width CV 13.1 % (11.6-14.6); RBC Distribution Width SD 48.7 fl (35.1-43.9); Red Blood Count 3.67 M/mm3 (4.2-5.4); White Blood Count 7.1 K/mm3 (4.4-11.0)
[2023-12-04 16:44] LABS: AST(SGOT) 26 U/L (15-37); Alanine Aminotransfer ALT/SGPT 24 U/L (13-56); Albumin, Serum 3.1 g/dL (3.2-5.0); Alkaline Phosphatase 66 U/L (45-117); Anion Gap 3 (5-15); BUN 9 mg/dL (7-18); BUN/Creat Ratio 11.5 RATIO (10-20); Calcium,Total 8.8 mg/dL (8.5-10.1); Chloride 114 mmol/L (98-107); Creatinine, Serum 0.78 mg/dL (0.55-1.02); EST Glomerular Filtration Rate 78 mL/min (>60); Est Glom Filt Rate - Afr Amer 95 mL/min (>60); Globulin 3.2 g/dL (2.2-4.2); Glucose 70 mg/dL (74-106); Potassium 3.7 mmol/L (3.5-5.1); Protein, Total 6.3 g/dL (6.4-8.2); Sodium Level 143 mmol/L (136-145); Thyroid Stim Hormone (TSH) 0.66 uIU/mL (0.358-3.74)
== END 2023-12-04 23:59 | disposition home or self-care (01) ==
PROVIDERS: PCP Family Medicine Geriatric Medicine; Referring Provider Family Medicine Geriatric Medicine; Visit Provider Family Medicine Geriatric Medicine
DX: E86.0 Dehydration (principal); N39.0 Urinary tract infection, site not specified; A08.4 Viral intestinal infection, unspecified; R19.7 Diarrhea, unspecified; R10.9 Unspecified abdominal pain
CPT/HCPCS: 96360; 96361; 36415; 71046; 74018; 80053; 84443; 85025; 87077; 87086; 87088; 87186; J7030; A4216

== ENCOUNTER → 2023-12-05 | Outpatient (CLI) | payer MEDICARE, SELFPAY | END | disposition home or self-care (01) | LOC: LAB.FUTURE 09:37 | PROVIDERS: PCP Family Medicine Geriatric Medicine; Visit Provider Family Medicine Geriatric Medicine | DX: A08.4 Viral intestinal infection, unspecified (principal); R19.7 Diarrhea, unspecified ==

== ENCOUNTER → 2024-05-17 | Outpatient (CLI) | payer MEDICARE, SELFPAY ==
[2024-05-17 11:30] LABS: Absolute Lymphocyte Count 2.45 X10^3/uL (0.83-4.51); Absolute Neutrophil Count 6.8 X10^3/uL (2.0-7.7); Basophil# 0.05 X10^3/uL; Basophil% 0.5 % (0-1); Eosinophil# 0.11 X10^3/uL; Eosinophils% 1.1 % (0-5); Hematocrit 41.7 % (37-47); Hemoglobin 13.9 g/dL (12.0-15.0); Lymphocyte # 2.45 X10^3/ul (0.83-4.51); Lymphocyte % 24.6 % (19-41); Mean Corp Hgb Conc 33.3 g/dL (32-36); Mean Corpuscular Hgb 32.1 pg (27.0-32.0); Mean Corpuscular Volume 96.3 fL (81-99); NRBC Flagged by Analyzer 0 % (0-5); Neutrophil # 6.83 X10^3/uL (2.7-7.7); Neutrophil % 68.6 % (47-70); Platelet Count 468 K/mm3 (150-450); RBC Distribution Width CV 12.6 % (11.6-14.6); RBC Distribution Width SD 44.7 fl (35.1-43.9); Red Blood Count 4.33 M/mm3 (4.2-5.4)
[2024-05-17 11:58] LABS: Vitamin D,25 Hydroxy 35.6 ng/mL
[2024-05-17 12:04] LABS: ALB/GLOB Ratio 1.1 RATIO (0.9-2.4); AST(SGOT) 21 U/L (15-37); Alanine Aminotransfer ALT/SGPT 25 U/L (13-56); Albumin, Serum 4.2 g/dL (3.2-5.0); Alkaline Phosphatase 65 U/L (45-117); Anion Gap 11 (5-15); BUN 35 mg/dL (7-18); BUN/Creat Ratio 32.1 RATIO (10-20); Calcium,Total 9.9 mg/dL (8.5-10.1); Chloride 99 mmol/L (98-107); Creatinine, Serum 1.09 mg/dL (0.55-1.02); EST Glomerular Filtration Rate 53 mL/min (>60); Est Glom Filt Rate - Afr Amer 65 mL/min (>60); Globulin 3.8 g/dL (2.2-4.2); Glucose 117 mg/dL (74-106); Potassium 3.2 mmol/L (3.5-5.1); Sodium Level 133 mmol/L (136-145)
== END | disposition home or self-care (01) ==
LOC: POLAB3 10:54
PROVIDERS: PCP Family Medicine Geriatric Medicine; Visit Provider Family Medicine Geriatric Medicine
DX: R53.83 Other fatigue (principal); E55.9 Vitamin D deficiency, unspecified
CPT/HCPCS: 36415; 80053; 82306; 84443; 85025

== ENCOUNTER → 2024-05-17 | Outpatient (CLI) | payer MEDICARE, SELFPAY ==
--- NOTE | 2024-05-17 12:06 | CT_ITS ---
STUDY: CT ABDOMEN AND PELVIS WITH CONTRAST REASON FOR EXAM: Female, 63 years old. Left-sided abdominal pain for months. RADIATION DOSAGE (If Supplied By Facility): CTDIvol = ( 16.25 ) mGy, DLP = ( 247.41 ) mGycm TECHNIQUE: Transaxial images were obtained from the dome of the diaphragm to the symphysis pubis with oral contrast. Oral and amp; IV Gastrografin and amp; 100mL Isovue-300 was administered. Sagittal and coronal images were reconstructed. Individualized dose optimization techniques were used for this CT. COMPARISON: Comparison is made with prior study dated August 08, 2023. FINDINGS: Mild degree of increased markings at the right lung base suggestive of atelectasis. The visualized portions of the heart are within normal limits. Normal liver. Normal gallbladder and extrahepatic biliary system. Normal spleen. Normal pancreas. Normal bilateral adrenal glands. Normal right kidney. Normal left kidney. Normal visualized stomach. Normal small intestine. Large amount of fecal material is seen throughout the colon. The patient is status post appendectomy. There is scattered atherosclerotic calcification of the abdominal aorta, without a demonstrated aneurysm. Normal inferior vena cava. Normal retroperitoneum. There is distention of the urinary bladder. There is absence of the uterus consistent with a prior hysterectomy. Normal abdominal wall. There are degenerative changes of the visualized lumbar spine. Patient status post interpedicular screw fixation and prosthetic disc placement at the L2-L3 and L3-L4 levels. CT/Abdomen/Pelvis WITH Contrast IMPRESSION: Large amount of fecal material is seen in the colon. There is distention of the urinary bladder. Electronically Signed: Thomas Romero MD at 14:25 EST ,
== END | disposition home or self-care (01) ==
LOC: CT 12:05
PROVIDERS: PCP Family Medicine Geriatric Medicine; Referring Provider Family Medicine Geriatric Medicine; Visit Provider Family Medicine Geriatric Medicine
DX: R10.9 Unspecified abdominal pain (principal)
CPT/HCPCS: 74177; Q9967; A4216

== ENCOUNTER → 2024-09-01 | Outpatient (CLI) | payer MEDICARE, SELFPAY ==
--- NOTE | 2024-09-01 14:50 | RAD_ITS ---
PROCEDURE: THORACIC SPINE 3 VIEWS REASON FOR EXAM: Thoracic back pain TECHNIQUE: AP, lateral, and swimmer's views of the thoracic spine were obtained. COMPARISON: None. FINDINGS: Visualization of the upper thoracic spine is limited due to superimposition of the shoulders, despite swimmer's view. Fracture/dislocation: None visible. Vertebral body heights are preserved. Alignment: S shaped cervical and thoracolumbar scoliosis, predominantly dextroconvex at the level of the lower thoracic and upper lumbar spine. Disc heights: Variable disc height loss up to mild along the mid to lower thoracic spine. Soft tissues: Atherosclerosis. Foreign bodies: Partially imaged lumbar spinal fusion hardware with a disc spacer. Bone mineralization: Demineralization. RAD/Thoracic Spine 3 Views IMPRESSION: 1. Demineralization without visible acute displaced fracture. If concern persi sts, consider CT. 2. Scoliosis with overall mild evident spondylosis as detailed. 3. Additional description as above. Reading Location: [id number]
== END | disposition home or self-care (01) ==
LOC: RAD 14:39
PROVIDERS: PCP Family Medicine Geriatric Medicine; Referring Provider Family Medicine Geriatric Medicine; Visit Provider Family Medicine Geriatric Medicine
DX: M54.6 Pain in thoracic spine (principal)
CPT/HCPCS: 72072

== ENCOUNTER → 2024-12-14 | Outpatient (CLI) | payer MEDICARE, SELFPAY ==
[2024-12-14 12:00] LABS: Absolute Lymphocyte Count 2.72 X10^3/uL (0.83-4.51); Absolute Neutrophil Count 4.6 X10^3/uL (2.0-7.7); Basophil# 0.09 X10^3/uL; Basophil% 1.1 % (0-1); Eosinophils% 2.4 % (0-5); Hematocrit 37.9 % (37-47); Hemoglobin 12.7 g/dL (12.0-15.0); Lymphocyte # 2.72 X10^3/ul (0.83-4.51); Lymphocyte % 33.3 % (19-41); Mean Corp Hgb Conc 33.5 g/dL (32-36); Mean Corpuscular Hgb 33.9 pg (27.0-32.0); Mean Corpuscular Volume 101.1 fL (81-99); Mean Platelet Vol. 9.3 fl (6.2-12.0); Monocyte# 0.52 X10^3/uL; Monocyte% 6.4 % (0-10); NRBC Flagged by Analyzer 0 % (0-5); Neutrophil # 4.63 X10^3/uL (2.7-7.7); Neutrophil % 56.6 % (47-70); Platelet Count 391 K/mm3 (150-450); RBC Distribution Width SD 48.2 fl (35.1-43.9); Red Blood Count 3.75 M/mm3 (4.2-5.4); White Blood Count 8.2 K/mm3 (4.4-11.0)
[2024-12-14 14:50] LABS: Thyroid Stim Hormone (TSH) 0.988 uIU/mL (0.300-4.200); Vitamin D,25 Hydroxy 30.3 ng/mL (30-100)
[2024-12-14 14:54] LABS: ALB/GLOB Ratio 1.5 RATIO (0.9-2.4); AST(SGOT) 24 U/L (<=31); Alanine Aminotransfer ALT/SGPT 20 U/L (<=34); Albumin, Serum 4.1 g/dL (3.4-4.8); Alkaline Phosphatase 70 U/L (35-104); Anion Gap 8 (5-15); BUN 13 mg/dL (4-19); BUN/Creat Ratio 18.9 RATIO (10-20); Calcium,Total 10.2 mg/dL (7.6-11.0); Carbon Dioxide 27.1 mmol/L (21.0-32.0); Chloride 103 mmol/L (98-108); Creatinine, Serum 0.69 mg/dL (0.70-1.20); EST Glomerular Filtration Rate 96 (>60); Globulin 2.8 g/dL (2.2-4.2); Glucose 97 mg/dL (70-99); Potassium 4.4 mmol/L (3.3-5.1); Protein, Total 6.9 g/dL (5.9-8.4); Sodium Level 139 mmol/L (133-145); Total Bilirubin < 0.15 mg/dL (0.00-1.30)
--- OUTSIDE RECORDS SUMMARY | 2024-12-14 22:19 | XMS RPT_ITS | CCD ---
Author Organization [facility] Care Team Providers Care Meal Temperer Name Role Phone Sofia Medina MD Primary Care Provider Toan RAMESH, Jefferson Garvin Primary Care Provider Toan RAMESH, Jefferson Garvin Primary Care Provider [phone] Toan RAMESH, Jefferson Garvin Primary Care Provider [phone] Unavailable Primary Care Provider Unavailabl e Toan RAMESH, Jefferson Garvin Primary Care Provider Sofia Medina MD Primary Care Provider Toan RAMESH, Jefferson Garvin Primary Care Provider Jarett, Ull Chi Primary Care Provider Jarett, Lul Chi Primary Care Unavailable Jarett, Lul Chi Attending Unavailable Jarett, Lul Chi Attending Unavailable Jarett, Lul Chi Primary Care Unavailable Jarett, Lul Chi Attending Unavailable Jarett, Lul Chi Referring Unavailable Jarett, Lul Chi Primary Care Unavailable Jarett, Lul Chi Attending Unavailable Jarett, Lul Chi Referring Unavailable Jarett, Lul Chi Primary Care Unavailable Jarett, Lul Chi Attending Unavailable Jarett, Lul Chi Primary Care Unavailable Jarett, Lul Chi Primary Care Unavailable Jarett, Lul Chi Attending Unavailable Jarett, Lul Chi Referring Unavailable Jarett, Lul Chi Primary Care Unavailable Jarett, Lul Chi Attending Unavailable Jarett, Lul Chi Referring Unavailable Jarett, Lul Chi Primary Care Unavailable Jarett, Lul Chi Attending Unavailable Jarett, Lul Chi Referring Unavailable Jarett , Dr. Lul Metzger Primary Care Provider Dr. Lul Reyes MD, Chi Attending Provider Dr. Lul Reyes MD, Chi Referring Provider JARETT, LUL CHI Primary Care Unavailable KIKI CARROLL Referring Unavailable KIKI CARROLL Attending Unavailable LUL REYES CHI Primary Care Unavailable Allergies Allergy Classification Reported Allergen(s) Allergy Type Date of Onset Reaction(s) Facility (6 sources) Acetaminophen Drug Allergy 11-11-19 [facility] (20 sources) Codeine; Translations: [CODEINE] Drug Allergy 06-08-20 05 [facility] Work Phone: [phone] (20 sources) cyclobenzaprine; Translations: [cyclobenzaprine HCl] Drug Allergy 12-10-19 09 Intolerance [facility] (20 sources) Erythromycin Drug Allergy 06-08-20 05 [facility] Work Phone: (11 sources) HYDROcodone; Translations: [hydrocodone bitartrate] Drug Allergy 11-11-19 22 [facility] (10 sources) pregabalin Drug Allergy 11-11-19 22 [facility] (11 sources) Propoxyphene; Translations: [propoxyphene napsylate] Drug Allergy 11-11-19 22 [facility] (10 sources) Sulfamethoxazole Drug Allergy 11-11-19 [facility] (20 sources) Sulfonamides (Antibiotic); Translations: [Sulfa (Sulfonamide Antibiotics)] Allergy to substance 06-09-20 07 GI Upset [facility] (20 sources) traMADol; Translations: [tramadol HCl] Drug Allergy 01-19-20 08 GI Upset [facility] (10 sources) Trimethoprim Drug Allergy 11-11-19 22 [facility] (20 sources) Acetaminophen / Codeine; Translations: [ACETAMINOPHEN-CODE INE] Drug Allergy 10-04-19 12 [facility] (20 sources) Propranolol; Translations: [PROPRANOLOL HCL] Drug Allergy 08-02-19 15 Other: See Comments [facility] Work Phone: (20 sources) Sulfamethoxazole / Trimethoprim; Translations: [SULFAMETHOXAZOLE-T RIMETHOPRIM] Drug Allergy 06-08-20 05 [facility] Work Phone: (20 sources) zonisamide; Translations: [ZONISAMIDE] Drug Allergy 08-02-19 15 Other: See Comments [facility] Work Phone: (20 sources) Propoxyphene N-Acetaminophen; Translations: [PROPOXYPHENE N-ACETAMINOPHEN] Drug Intolerance 02-03-20 09 [facility] Work Phone: (1 source) Codeine Drug Allergy 08-08-19 24 [facility] (1 source) Erythromycin Drug Allergy 08-08-19 24 [facility] (1 source) pregabalin Drug Allergy 08-08-19 24 [facility] (1 source) Sulfamethoxazole Drug Allergy 08-08-19 24 [facility] (1 source) Trimethoprim Drug Allergy 08-08-19 24 [facility] (1 source) Erythromycin; Translations: [ERYTHROMYCIN] Drug Allergy 06-08-20 05 [facility] Repository Medications Current Medications Medication Drug Class(es) Dates Sig (Normalized) Sig (Original) amoxicillin 875 mg oral tablet (1 source) Penicillin-class Antibacterial Start: 04-12-2023 End: 04-19-2023 take 1 tablet by mouth twice daily amoxicillin (AMOXIL) 875 mg tablet Indications: Other acute nonsuppurative otitis media of left ear, recurrence not specified Take 1 tablet by mouth two times a day for 7 days. 14 tablet 0 04/12/2023 04/19/2023 Active Comment on above: Take 1 tablet by kishan th two times a day for 7 days. 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 Dr. Ochoa 0 07/10/2015 Active Comment on above: Take 1 tablet by kishan th once daily. Dr. Ochoa aspirin 81 mg chewable tablet (10 sources) Platelet Aggregation Inhibitor, Nonsteroidal Anti-inflammatory Drug Start: 03-16-2 018 take 1 tablet by mouth once daily Aspirin 81 MG tablet,chewable Active 81 mg PO DAILY@0800 September 12, 2017 12:00am clonazePAM 0.5 mg oral tablet (10 sources) Benzodiazepine Start: 015 take 1 tablet by mouth four times daily as needed for anxiety Clonazepam 0.5 MG tablet Active 0.5 mg PO 4 TIMES DAILY NEEDED as needed for Anxiety February 15, 2015 12:00am docusate sodium 100 mg oral capsule (20 sources) Start: 018 End: 018 take 1 capsule by mouth once daily as needed for constipation Docusate Sodium (Dok) 100 MG capsule Active 100 mg PO DAILY as needed for Constipation April 09, 2018 12:09am DULoxetine 60 mg delayed release oral capsule (20 sources) Serotonin and Norepinephrine Reuptake Inhibitor Start: 016 take 1 capsule by mouth once daily DULoxetine (CYMBALTA) 60 mg capsule Indications: Severe episode of recurrent major depressive disorder, with psychotic features (HCC) Take 60 mg by mouth once daily. 02/08/2016 Active Start: 01-11-2015 take 2 capsules by m out once daily Duloxetine 60 MG capsule Active 120 mg PO DAILY January 11, 2015 12:00am Start: 01-11-2015 take 120 mg by mouth once marlys y Duloxetine Active 120 MG PO DAILY January 11, 2015 12:00am Comment on above: Take 60 mg by mouth once daily. Food Supplemt, Lactose-Reduced (Ensure Enlive) 120 ML Liquid (1 source) Start: 04-10-2018 take 1 mL by mouth four times daily Food Supplemt, Lactose-Reduced (Ensure Enlive) 120 ML Liquid Active 120 ML PO 4 TIMES DAILY 100 April 10, 2018 8:40am furosemide 20 mg oral tablet (12 sources) Loop Diuretic Start: 01-31-2022 take 1 tablet by mouth once daily furosemide (LASIX) 20 mg tablet Indications: Leg swelling Take 1 tablet by mouth once daily. 3 tablet 01/31/2022 Active Comment on above: Take 1 tablet by kishan th once daily. gabapentin 800 mg oral tablet (20 sources) Anti-epileptic Agent Start: 11-15-2019 gabapentin (NEURONTIN) 800 mg tablet Take one(1) tablet AM and noon. Take 1.[address] Lara. 11/15/2019 Active Start: 06-21-2017 Gabapentin 300 MG capsule Active 450 mg PO AT BEDTIME June 21, 2017 1:00am Start: 06-21-2017 take 450 mg by mouth at bedtim e Gabapentin Active 450 MG PO AT BEDTIME June 21, 2017 1:00am Start: 01-30-2016 Gabapentin 300 MG capsule Active 300 mg PO TWICE DAILY WITH MEALS January 30, 2016 12:00am takes 1 in the am; 1 in the afternoon & then the larger dose at night Comment on above: Take one(1) tablet A M and noon. Take 1.[address] Lara. 24 hr nicotine 0.875 mg/hr transdermal system (10 sources) Cholinergic Nicotinic Agonist Start: 018 apply 21 mg transdermal route once daily Nicotine 21 MG patch Active 21 mg TRANSDERM. DAILY April 10, 2018 12:00am nystatin 178695 unt/ml oral suspension (8 sources) Polyene Antifungal Start: 023 nystatin (MYCOSTATIN) 100,000 unit/mL suspension Indications: Tongue burning sensation Take 5 mL by mouth four times daily. 1tsp swish in mouth for several minutes, then swallow (or expectorate) 4 times daily until gone. 200 mL 10/14/2022 Active Comment on above: Take 5 mL by mouth f our times daily. 1tsp swish in mouth for several minutes, then swallow (or expectorate) 4 times daily until gone. ofloxacin 3 mg/ml otic solution (1 source) Quinolone Antimicrobial Start: 023 End: 023 ofloxacin (FLOXIN) 0.3 % otic solution Indications: Cellulitis of ear canal, left Use 5 Drops in the left ear two times a day for 7 days. 4 mL 0 04/12/2023 04/19/2023 Active Comment on above: Use 5 Drops in the l eft ear two times a day for 7 days. omeprazole 40 mg delayed release oral capsule (20 sources) Proton Pump Inhibitor Start: 015 End: 021 take 1 capsule by mouth once daily omeprazole (PRILOSEC) 40 mg capsule Take 1 capsule by mouth once daily. 90 capsule 1 04/04/2021 Active Comment on above: Take 1 capsule by [facility] once daily. polyethylene glycol 3350 17475 mg powder for oral solution (19 sources) Osmotic Laxative Start: 020 polyethylene glycol 3350 (MIRALAX, GLYCOLAX) 17 gram/dose powder Take 17 g by mouth once daily. This is one (1) capful. Use in at least 8oz of liquid. The dose can be adjusted as needed. 527 g 5 05/12/2020 Active Comment on above: Take 17 g by mouth o nce daily. This is one (1) capful. Use in at least 8oz of liquid. The dose can be adjusted as needed. SUMAtriptan 50 mg oral tablet (19 sources) Serotonin-1b and Serotonin-1d Receptor Agonist Start: 021 SUMAtriptan (IMITREX) 50 mg tablet Indications: Migraine without aura and without status migrainosus, not intractable Take 1 tablet by mouth as needed for Migraine Headache (see administration instructions). 7 tablet 5 11/24/2020 Active Comment on above: Take 1 tablet by [facility] as needed for Migraine Headache (see administration instructions). tropicamide 10 mg/ml ophthalmic solution (2 sources) Anticholinergic Start: 025 End: 025 tropicamide 1 % 1 Drop (MYDRIACYL) Start: 09-02-2024 End: 09-02-2024 1 Drop, BOTH EYES, DIRECT ED, Starting on Sherin 09/02/24 at 0930, Until Sherin 09/02/24 at 2129, Administer for dilation Completed/Discontinued Medications Medication Drug Class(es) Dates Sig (Normalized) Sig (Original) Food Supplemt, Lactose-Reduced (Ensure Enlive) 120 ML liquid (9 sources) Start: 04-10-2018 End: 2023 take 1 mL by mouth four times daily Food Supplemt, Lactose-Reduced (Ensure Enlive) 120 ML liquid Discontinued 120 mL PO 4 TIMES DAILY April 10, 2018 12:00am 2023 1:02pm Start: 04-10-2018 End: 2023 take 1 mL by mouth four times daily Food Supplemt, Lactose-Reduced (Ensure Enlive) 120 ML liquid Discontinued 120 ML PO 4 TIMES DAILY April 10, 2018 12:00am 2023 1:02pm Start: 04-10-2018 End: 2023 take 1 mL by mouth four times daily Food Supplemt, Lactose-Reduced (Ensure Enlive) 120 ML liquid Discontinued 120 ML PO 4 TIMES DAILY April 09, 2018 11:00pm 2023 12:02pm Start: 04-10-2018 take 1 mL by mouth f our times daily Food Supplemt, Lactose-Reduced (Ensure Enlive) 120 ML liquid Active 120 ML PO 4 TIMES DAILY April 10, 2018 12:00am iv contrast (will be provided with radiology test) (1 source) Start: 11-14-2021 End: 11-14-2021 inject 1 dose intravenously once, then inject 1 dose intravenously once iv contrast (will be provided with radiology test) Indications: Neck pain on left side , Jaw pain , Lymphadenopathy Inject 1 Each intravenously one time only for [address] Neck W IVCON No IV access, insert saline lock prior to the sedation, infusion, injection for imaging exam. Discontinue saline lock post exam. If Pt. has a central line or IVAD, may access for administration according to line specific nursing protocol. Once exam is complete flush line and de-access according to line specific nursing protocol in the CT contrast administration guidelines link. 1 Each 0 11/14/2021 11/14/2021 Comment on above: Inject 1 Each intrav enously one time only for [address] Neck W IVCON No IV access, insert saline lock prior to the sedation, infusion, injection for imaging exam. Discontinue saline lock post exam. If Pt. has a central line or IVAD, may access for administration according to line specific nursing protocol. Once exam is complete flush line and de-access according to line specific nursing protocol in the CT contrast administration guidelines link. perflutren lipid microspheres 1.3 mL in NaCl (PF) 0.9% 10 mL injection (DEFINITY) (8 sources) Start: 01-31-2022 End: 05-02-2023 perflutren lipid microspheres 1.3 mL in NaCl (PF) 0.9% 10 mL injection (DEFINITY) predniSONE 10 mg oral tablet (12 sources) Start: 04-10-2018 End: 2023 take 4 tablets by mouth once daily in the morning Prednisone 10 MG tablet Discontinued 10 mg PO DAILY April 10, 2018 12:00am 2023 1:04pm 40 mg daily @ 8:00 AM for 3 days 30 mg daily @ 8:00 AM for 3 days 20 mg daily @ 8:00 AM for 3 days 10 mg daily @ 8:00 AM for 3 days Start: 04-10-2018 End: 2023 take 40 mg by mouth once daily in the morning Prednisone Discontinued 10 MG PO DAILY April 10, 2018 12:00am 2023 1:04pm 40 mg daily @ 8:00 AM for 3 days 30 mg daily @ 8:00 AM for 3 days 20 mg daily @ 8:00 AM for 3 days 10 mg daily @ 8:00 AM for 3 days 125 ml sodium chloride 9 mg/ ml prefilled syringe (8 sources) Start: 01-31-2022 End: 05-02-2023 sodium chloride 0.9 % (flush ) 10 mL (BD POSIFLUSH) Problems Active Problems Problem Classification Problem Date Documented Da te Episodic/Chronic Anxiety disorders (19 sources) Anxiety; Translations: [Anxiety disorder, unspecified] Onset: 4 06-25-2021 Chronic Blindness and vision defects (2 sources) Presbyopia; Translations: [Presbyopia] 09-02-2024 Episodic Cataract (1 source) Bilateral age-related nuclear cataracts; Translations: [Age-related nuclear cataract, bilateral] 09-02-2024 Chronic Conditions associated with dizziness or vertigo (1 source) Dizziness; Translations: [Dizziness and giddiness] 10-03-2024 Episodic Diseases of mouth; excluding dental (1 source) Glossopyrosis ; Translations: [Glossodynia] Episodic Disorders of lipid metabolism (19 sources) Mixed hyperlipidemia; Translations: [Mixed hyperlipidemia] Onset: 6 02-08-2016 Chronic Disorders of teeth and jaw (5 sources) Jaw pain; Translations: [Jaw pain] Episodic Esophageal disorders (20 sources) Gastroesophageal reflux disease; Translations: [Gastro-esophageal reflux disease without esophagitis] Onset: 4 Resolved: 6 09-04-2017 Chronic Gastritis and duodenitis (10 sources) Acute gastritis; Translations: [Acute gastritis without bleeding] 10-30-2014 Episodic Headache; including migraine (20 sources) Migraine without aura, not refractory ; Translations: [Migraine without aura, not intractable, without status migrainosus] Onset: 5 Resolved: 6 11-21-2018 Chronic Headache; including migraine (20 sources) Headache; Translations: [Headache] 04-09-2018 Episodic Influenza (1 source) Influenza-like illness; Translations: [Influenza due to unidentified influenza virus with other respiratory manifestations] Episodic Lymphadenitis (12 sources) Cervical lymphadenopathy; Translations: [Localized enlarged lymph nodes] Episodic Mood disorders (20 sources) Depressive disorder; Translations: [Depression] Onset: 4 06-25-2021 Chronic Nausea and vomiting (1 source) Diarrhea and vomiting; Translations: [Vomiting, unspecified] Episodic Nonspecific chest pain (10 sources) Chest pain; Translations: [Chest pain, unspecified] 10-30-2014 Episodic Other connective tissue disease (1 source) Swelling of lower limb; Translations: [Other specified soft tissue disorders] Episodic Other connective tissue disease (1 source) Pain in bilateral legs; Translations: [Pain in right leg] Episodic Other connective tissue disease (1 source) Pain in left foot; Translations: [Pain in left foot] 01-29-2021 Episodic Other ear and sense organ disorders (1 source) Infection of external auditory canal; Translations: [Cellulitis of left external ear] 04-12-2023 Episodic Other gastrointestinal disorders (10 sources) Diarrhea; Translations: [Diarrhea, unspecified] 12-18-2015 Episodic Other injuries and conditions due to external causes (2 sources) Contusion; Translations: [Other injury of unspecified body region, initial encounter] Episodic Other lower respiratory disease (11 sources) Cough; Translations: [Cough] Episodic Other lower respiratory disease (1 source) Dyspnea on exertion; Translations: [Shortness of breath] Episodic Other lower respiratory disease (1 source) Cough; Translations: [Acute cough] 10-14-2022 Episodic Other nervous system disorders (10 sources) Paresthesia of hand ; Translations: [Anesthesia of skin] 04-09-2018 Episodic Other nutritional; endocrine; and metabolic disorders (1 source) Hypercalcemia; Translations: [Hypercalcemia] Chronic Other skin disorders (2 sources) Finding of neck region; Translations: [Localized swelling, mass and lump, neck] Episodic Otitis media and related conditions (1 source) Acute secretory otitis media; Translations: [Other acute nonsuppurative otitis media, left ear] 04-12-2023 Episodic Residual codes; unclassified (19 sources) Tobacco user; Translations: [Tobacco use] 06-25-2021 Episodic Spondylosis; intervertebral disc disorders; other back problems (19 sources) Lumbar spondylosis; Translations: [Spondylosis without myelopathy or radiculopathy, lumbar region] Onset: 3 09-07-2017 Chronic Substance-related disorders (20 sources) Nicotine dependence; Translations: [Nicotine dependence, unspecified, uncomplicated] Onset: 8 05-14-2018 Chronic Urinary tract infections (10 sources) Urinary tract infectious disease; Translations: [Urinary tract infection, site not specified] 12-18-2015 Episodic Past or Other Problems Problem Classification Problem Date Documented Da te Episodic/Chronic Abdominal pain (2 sources) Generalized abdominal pain; Translations: [Generalized abdominal pain] Onset: 05-20-2024 11-15-2023 Episodic Anal and rectal conditions (12 sources) Rectal prolapse; Translations: [Rectal prolapse] Onset: 11-23-2010 Resolved: 11-21-2018 07-10-2015 Episodic Fluid and electrolyte disorders (9 sources) Dehydration; Translations: [Dehydration] Onset: 12-19-2023 01-07-2023 Episodic Intestinal infection (1 source) Viral intestinal infection, unspecified; Translations: [Viral intestinal infection, unspecified] Onset: 12-19-2023 Episodic Malaise and fatigue (14 sources) Asthenia; Translations: [Weakness] Onset: 05-15-2011 Resolved: 07-10-2015 01-08-2023 Episodic Other and unspecified benign neoplasm (19 sources) Adenomatous polyp of colon ; Translations: [Benign neoplasm of colon, unspecified] Onset: 02-08-2016 02-08-2016 Episodic Other connective tissue disease (16 sources) Fibromyalgia; Translations: [Fibromyalgia] Onset: 06-14-2014 Resolved: 07-10-2015 04-09-2018 Episodic Other connective tissue disease (19 sources) Pain in lower limb; Translations: [Pain in leg, unspecified] Onset: 10-28-2013 06-14-2014 Episodic Other gastrointestinal disorders (6 sources) Irritable bowel syndrome with diarrhea; Translations: [Irritable bowel syndrome with diarrhea] Onset: 01-24-2016 Resolved: 01-24-2016 01-24-2016 Chronic Other lower respiratory disease (6 sources) Hypoxemia; Translations: [Hypoxemia] Onset: 05-14-2018 Resolved: 11-21-2018 11-21-2018 Episodic Other nervous system disorders (6 sources) Postoperative pain ; Translations: [Other acute postprocedural pain] Onset: 05-14-2018 Resolved: 11-21-2018 11-21-2018 Episodic Other non-traumatic joint disorders (6 sources) Arthropathy of multiple joints; Translations: [Arthropathy, unspecified] Onset: 12-25-2012 Resolved: 07-10-2015 07-10-2015 Chronic Other non-traumatic joint disorders (6 sources) Shoulder joint pain; Translations: [Pain in unspecified shoulder] Onset: 05-06-2006 Resolved: 07-10-2015 07-10-2015 Episodic Other screening for suspected conditions (not mental disorders or infectious disease) (4 sources) Patient encounter status; Translations: [Encounter for screening for malignant neoplasm of colon] Onset: 12-11-2023 Episodic Residual codes; unclassified (6 sources) Bilateral lower limb edema; Translations: [Localized edema] Onset: 02-08-2016 Resolved: 09-07-2017 09-07-2017 Episodic Respiratory failure; insufficiency; arrest (adult) (6 sources) Acute respiratory failure; Translations: [Acute respiratory failure, unspecified whether with hypoxia or hypercapnia] Onset: 05-14-2018 Resolved: 11-21-2018 11-21-2018 Episodic Spondylosis; intervertebral disc disorders; other back problems (19 sources) Chronic back pain ; Translations: [Dorsalgia, unspecified] Onset: 01-08-2011 Resolved: 07-10-2015 Episodic Results Test Name Value Interpretation Reference Range Facility [facility] 10-03-2024 CNOV Office Visit ([facility]) DENISA SCHERER ([id number]) 1960 F Date Time Provider Department 10/03/24 8:30 AM PEARL SWANSON [facility] During your visit today, we recorded the following information about you: Temperature Pulse Respiration Blood pressure 97.6 degrees 123/minute 18/minute 109/68 Weight 49.7 kg Pearl Swanson APRN.DIRECTOR CARDIOLOGY 10/03/2024 8:57 AM Signed Patient came in with complaints of 2 days worth of dizziness lightheaded. Patient says it does not seem to be getting any better. Patient says it feels like the room is spinning and that she is going to fall over. Patient did not injure herself in any way. Patient says her whole body feels kind of weak and tired. Patient does have some slight nausea but never vomited patient says she had 2 bouts of diarrhea yesterday but is able to eat and drink. Due to patient's symptoms patient should get blood work. Sent to the ER for an evaluation do not have access to blood work today. Patient declined squad and wants to take her self. Allergies As of Date: 10/03/2024 Noted Allergy Reaction BACTRIM (SULFAMETHOXAZOLE-TR IMETH*06/08/2005 11 - Vomiting CODEINE 06/08/2005 11 - Vomiting ERYTHROMYCIN 06/08/2005 11 - Vomiting ACETAMINOPHEN-CODEIN E 10/04/2011 11 - Vomiting DARVOCET-N 100 (PROPOXYPHENE N-AC*02/02/2009 Comments: Hives and nausea FLEXERIL (CYCLOBENZAPRINE HCL) 12/09/2008 5 - Intolerance Comments: sleepy INDERAL (PROPRANOLOL HCL) 08/02/2014 14 - Other: See Comments Comments: Nausea and dizzy SULFA (SULFONAMIDE ANTIBIOTICS) 06/09/2007 8 - GI Upset ULTRAM (TRAMADOL HCL) 01/19/2008 8 - GI Upset Comments: severe ZONEGRAN (ZONISAMIDE) 08/02/2014 14 - Other: See Comments Comments: Nausea and dizzy Date Reviewed: 10/03/2024 Reviewed by: Agnieszka James MA - Fully Assessed Reason for Visit: Dizziness [36] Cmt: Lightheaded, nausea, diarrhea, ALMENDAREZ x2 days Primary Visit Diagnosis:Dizziness [R42] Prescriptions as of 10/04/2024 - predniSONE (DELTASONE) 10 mg tablet TAKE 4 TABLETS BY MOUTH DAILY FOR 2 days then TAKE 3 TABLETS BY M... (REFER TO PRESCRIPTION NOTES). - nystatin (MYCOSTATIN) 100,000 unit/mL suspension Take 5 mL by mouth four times daily. 1tsp swish in mouth for several minutes, then swallow (or expectorate) 4 times daily until gone. - furosemide (LASIX) 20 mg tablet Take 1 tablet by mouth once daily. - omeprazole (PRILOSEC) 40 mg capsule Take 1 capsule by mouth once daily. - SUMAtriptan (IMITREX) 50 mg tablet Take 1 tablet by mouth as needed for Migraine Headache (see administration instructions). - polyethylene glycol 3350 (MIRALAX, GLYCOLAX) 17 gram/dose powder Take 17 g by mouth once daily. This is one (1) capful. Use in at least 8oz of liquid. The dose can be adjusted as needed. - gabapentin (NEURONTIN) 800 mg tablet Take one(1) tablet AM and noon. Take 1.[address] Lara. - DULoxetine (CYMBALTA) 60 mg capsule Take 60 mg by mouth once daily. - ARIPiprazole (ABILIFY) 5 mg tablet Take 1 tablet by mouth once daily. Dr. Ochoa Problem List As Of Date 10/03/2024 Noted Resolved Pain in joint, shoulder region [M25.519] 05/06/2006 07/10/2015 Rectal prolapse [K62.3] 11/23/2010 07/10/2015 Back pain [M54.9] 01/08/2011 07/10/2015 Physical deconditioning [R53.81] 05/15/2011 07/10/2015 Arthritis, multiple joint involvement [M12.9] 12/25/2012 07/10/2015 Lumbar spondylosis [M47.816] 04/16/2013 Leg pain [M79.606] 10/28/2013 Tobacco abuse [Z72.0] Fibromyalgia [M79.7] 06/14/2014 07/10/2015 Anxiety [F41.9] 06/14/2014 Depression, major [F32.9] 06/14/2014 GERD (gastroesophageal reflux disease) [K21.9] 06/14/2014 Migraine [G43.909] 07/27/2014 07/10/2015 Gastroesophageal reflux disease [K21.9] 01/24/2016 01/24/2016 Irritable bowel syndrome with diarrhea [K58.0] 01/24/2016 01/24/2016 Adenomatous colon polyp [D12.6] 02/08/2016 Mixed hyperlipidemia [E78.2] 02/08/2016 Bilateral edema of lower extremity [R60.0] 02/08/2016 09/07/2017 RP (rectal prolapse) [K62.3] 01/28/2018 11/21/2018 Nicotine use disorder, F17.2 [F17.200] 05/14/2018 Postoperative pain [G89.18] 05/14/2018 11/21/2018 Hypoxemia [R09.02] 05/14/2018 11/21/2018 Acute respiratory failure (HCC) [J96.00] 05/14/2018 11/21/2018 Migraine without aura and without status migrai*11/21/2018 Decongestant abuse [F55.8] 04/05/2020 Encounter Status:Closed by PEARL SWANSON on 10/03/24 Normal [facility] Thoracic Spine 3 Viewson Thoracic Spine 3 Views [facility] [address] [place] [id number] Thoracic Spine 3 Views MR#: [id number] Acct: [id number] Name: DENISA SCHERER Rep #: [id number] : 1960 F 64 From: Gomez Lyles MD PCP: Dr. Lul Reyes MD Status: REG CLI Study: Thoracic Spine 3 Views Date of Exam: 09/01/24 Exam# [id number] Ordering Dr: Lul Reyes MD PROCEDURE: THORACIC SPINE 3 VIEWS REASON FOR EXAM: Thoracic back pain TECHNIQUE: AP, lateral, and swimmer's views of the thoracic spine were obtained. COMPARISON: None. FINDINGS: Visualization of the upper thoracic spine is limited due to superimposition of the shoulders, despite swimmer's view. Fracture/dislocation : None visible. Vertebral body heights are preserved. Alignment: S shaped cervical and thoracolumbar scoliosis, predominantly dextroconvex at the level of the lower thoracic and upper lumbar spine. Disc heights: Variable disc height loss up to mild along the mid to lower thoracic spine. Soft tissues: Atherosclerosis. Foreign bodies: Partially imaged lumbar spinal fusion hardware with a disc spacer. Bone mineralization: Demineralization. RAD/Thoracic Spine 3 Views IMPRESSION: 1. Demineralization without visible acute displaced fracture. If concern persists, consider CT. 2. Scoliosis with overall mild evident spondylosis as detailed. 3. Additional description as above. Reading Location: [id number] CC: Dr. Lul Reyes MD Fleece Tier: Signed Normal [facility] 90-GP-Pcugmrs DOrdered By: Tomeka Reyes on 05-17-2024 Vitamin D 25-Hydroxy 35.6 ng/mL [facility] Comment on above: Vitamin D 25(OH) Sta tus Range Deficiency <20 ng/mL (50nmol/L) Insufficiency 20 - 30 ng/mL (50 - 75 nmol/L) Sufficiency 30 - 100 ng/mL (75 - 250 nmol/L) Toxicity >100 ng/mL (>250 nmol/L) Abdomen/Pelvis WITH Contrast on 05-17-2024 Abdomen/Pelvis WITH Contrast [facility] [address] [place] [address] Abdomen/Pelvis WITH Contrast MR#: [id number] Acct: [id number] Name: DENISA SCHERER Rep #: [id number] : 1960 F 63 From: Thomas munoz MD PCP: Dr. Lul Reyes MD Status: REG [facility] Study: Abdomen/Pelvis WITH Contrast Date of Exam: Exam# [id number] Ordering Dr: Lul Reyes MD [id number] STUDY: CT ABDOMEN AND PELVIS WITH CONTRAST REASON FOR EXAM: Female, 63 years old. Left-sided abdominal pain for months. RADIATION DOSAGE (If Supplied By Facility): CTDIvol = ( 16.25 ) mGy, DLP = ( 247.41 ) mGycm TECHNIQUE: Transaxial images were obtained from the dome of the diaphragm to the symphysis pubis with oral contrast. Oral and amp; IV Gastrografin and amp; 100mL Isovue-300 was administered. Sagittal and coronal images were reconstructed. Individualized dose optimization techniques were used for this CT. COMPARISON: Comparison is made with prior study dated 2023. FINDINGS: Mild degree of increased markings at the right lung base suggestive of atelectasis. The visualized portions of the heart are within normal limits. Normal liver. Normal gallbladder and extrahepatic biliary system. Normal spleen. Normal pancreas. Normal bilateral adrenal glands. Normal right kidney. Normal left kidney. Normal visualized stomach. Normal small intestine. Large amount of fecal material is seen throughout the colon. The patient is status post appendectomy. There is scattered atherosclerotic calcification of the abdominal aorta, without a demonstrated aneurysm. Normal inferior vena cava. Normal retroperitoneum. There is distention of the urinary bladder. There is absence of the uterus consistent with a prior hysterectomy. Normal abdominal wall. There are degenerative changes of the visualized lumbar spine. Patient status post interpedicular screw fixation and prosthetic disc placement at the L2-L3 and L3-L4 levels. CT/Abdomen/Pelvis WITH Contrast IMPRESSION: Large amount of fecal material is seen in the colon. There is distention of the urinary bladder. Electronically Signed: Thomas Romero MD at 14:25 [facility] , CC: Dr. Lul Reyes MD Fleece Tier: Signed Normal [facility] Absolute neutrophil countOrd ered By: Lul Reyes on 05-17-2024 Neutrophils (Bld) [#/Vol] 6.8 10*3/uL 2.0-7.7 [facility] Albumin to globulin ratioOrd ered By: Lul Reyes on 05-17-2024 Albumin/Globulin [Mass ratio] 1.1 {ratio} 0.9-2.4 [facility] Basophil percentageOrdered B y: Lul Reyes on 05-17-2024 Basophils/100 WBC (Bld) 0.5 % 0-1 [facility] Bilirubin, totalOrdered By: Lul Reyes on 05-17-2024 Bilirubin [Mass/Vol] 0.50 mg/dL 0.20-1.00 [facility] Comment on above: For patients on eltr ombopag therapy, use of Dimension [place] TBIL is not recommended. Blood urea nitrogen (BUN)/cr eatinine ratioOrdered By: Lul Reyes on 05-17-2024 Urea nitrogen/Creatinine [Mass ratio] 32.1 mg/mg High - [facility] CBC W/Diff, Automatedon 04-30 Absolute Lymph 2.45 X10 3/uL Normal 0.83-4.51 [facility] Comment on above: Performed By: #### L 501.9520, L506.1000, L100.0100, L500.4050 #### [facility] [address] [place], [address] Absolute Neut 6.8 X10 3/uL Normal 2.0-7.7 [facility] Comment on above: Performed By: #### L 501.9520, L506.1000, L100.0100, L500.4050 #### [facility] [address] [place], [address] Basophils/100 WBC (Bld) 0.5 % Normal 0-1 [facility] Comment on above: Performed By: #### L 501.9520, L506.1000, L100.0100, L500.4050 #### [facility] [address] [place], [address] Eosinophils/100 WBC (Bld) 1.1 % Normal 0-5 [facility] Comment on above: Performed By: #### L 501.9520, L506.1000, L100.0100, L500.4050 #### [facility] [address] [place], [address] Erythrocyte distribution width (RBC) [Ratio] 12.6 % Normal 11.6-14.6 [facility] Comment on above: Performed By: #### L 501.9520, L506.1000, L100.0100, L500.4050 #### [facility] [address] [place], [address] Hematocrit (Bld) [Volume fraction] 41.7 % Normal 37-47 [facility] Comment on above: Performed By: #### L 501.9520, L506.1000, L100.0100, L500.4050 #### [facility] [address] [place], [address] Hemoglobin (Bld) [Mass/Vol] 13.9 g/dL Normal 12.0-15.0 [facility] Comment on above: Performed By: #### L 501.9520, L506.1000, L100.0100, L500.4050 #### [facility] [address] [place], [address] IG% 0.200 Normal 0.0-0.9 [facility] Comment on above: Result Comment: IG% - Immature Granulocytes (promyelocytes, myelocytes and metamyelocytes) > 1% indicates that a LEFT SHIFT is Present. Performed By: #### L 501.9520, L506.1000, L100.0100, L500.4050 #### [facility] [address] [place], [address] Lymphocytes/100 WBC (Bld) 24.6 % Normal 19-41 [facility] Comment on above: Performed By: #### L 501.9520, L506.1000, L100.0100, L500.4050 #### [facility] [address] [place], [address] MCH (RBC) [Entitic mass] 32.1 pg High 27.0-32.0 [facility] Comment on above: Performed By: #### L 501.9520, L506.1000, L100.0100, L500.4050 #### [facility] [address] [place], [address] MCHC (RBC) [Mass/Vol] 33.3 g/dL Normal 32-36 [facility] Comment on above: Performed By: #### L 501.9520, L506.1000, L100.0100, L500.4050 #### [facility] [address] [place], [address] MCV (RBC) [Entitic vol] 96.3 fL Normal 81-99 [facility] Comment on above: Performed By: #### L 501.9520, L506.1000, L100.0100, L500.4050 #### [facility] [address] [place], [address] Monocytes/100 WBC (Bld) 5.0 % Normal 0-10 [facility] Comment on above: Performed By: #### L 501.9520, L506.1000, L100.0100, L500.4050 #### [facility] [address] [place], [address] Neutrophils/100 WBC (Bld) 68.6 % Normal 47-70 [facility] Comment on above: Performed By: #### L 501.9520, L506.1000, L100.0100, L500.4050 #### [facility] [address] [place], [address] Nucleated RBC (Bld) [#/Vol] 0 10*3/uL Normal 0-5 [facility] Comment on above: Performed By: #### L 501.9520, L506.1000, L100.0100, L500.4050 #### [facility] [address] [place], [address] Platelet mean volume (Bld) [Entitic vol] 9.0 fL Normal 6.2-12.0 [facility] Comment on above: Performed By: #### L 501.9520, L506.1000, L100.0100, L500.4050 #### [facility] [address] [place], [address] Platelets (Bld) [#/Vol] 468 10*3/uL High 150-450 [facility] Comment on above: Performed By: #### L 501.9520, L506.1000, L100.0100, L500.4050 #### [facility] [address] [place], [address] RBC (Bld) [#/Vol] 4.33 10*6/uL Normal 4.2-5.4 [facility] Comment on above: Performed By: #### L 501.9520, L506.1000, L100.0100, L500.4050 #### [facility] [address] [place], [address] RDW SD 44.7 fl High 35.1-43.9 [facility] Comment on above: Performed By: #### L 501.9520, L506.1000, L100.0100, L500.4050 #### [facility] [address] [place], [address] WBC (Bld) [#/Vol] 10.0 10*3/uL Normal 4.4-11.0 [facility] Comment on above: Performed By: #### L 501.9520, L506.1000, L100.0100, L500.4050 #### [facility] [address] [place], [address] Carbon dioxide measurementOr dered By: Lul Reyes on 05-17-2024 CO2 [Moles/Vol] 23.0 mmol/L 21.0-32.0 [facility] Chloride measurementOrdered By: Lul Reyes on 05-17-2024 Chloride [Moles/Vol] 99 mmol/L 98-107 [facility] Metabolic Prof ilon 05-17-2024 Albumin [Mass/Vol] 4.2 g/dL Normal 3.2-5.0 [facility] Comment on above: Performed By: #### L 501.9520, L506.1000, L100.0100, L500.4050 #### [facility] [address] [place], [address] Albumin/Globulin [Mass ratio] 1.1 {ratio} Normal 0.9-2.4 [facility] Comment on above: Performed By: #### L 501.9520, L506.1000, L100.0100, L500.4050 #### [facility] [address] [place], [address] ALK P 65 U/L Normal 45-117 [facility] Comment on above: Performed By: #### L 501.9520, L506.1000, L100.0100, L500.4050 #### [facility] [address] [place], [address] ALT [Catalytic activity/Vol] 25 U/L Normal 13-56 [facility] Comment on above: Performed By: #### L 501.9520, L506.1000, L100.0100, L500.4050 #### [facility] [address] [place], [address] AST [Catalytic activity/Vol] 21 U/L Normal 15-37 [facility] Comment on above: Performed By: #### L 501.9520, L506.1000, L100.0100, L500.4050 #### [facility] [address] [place], [address] Bilirubin [Mass/Vol] 0.50 mg/dL Normal 0.20-1.00 [facility] Comment on above: Result Comment: For patients on eltrombopag therapy, use of Dimension [place] TBIL is not recommended. Performed By: #### L 501.9520, L506.1000, L100.0100, L500.4050 #### [facility] [address] [place], [address] BUN/CRE 32.1 RATIO High 10-20 [facility] Comment on above: Performed By: #### L 501.9520, L506.1000, L100.0100, L500.4050 #### [facility] [address] [place], [address] CA,Total 9.9 mg/dL Normal 8.5-10.1 [facility] Comment on above: Performed By: #### L 501.9520, L506.1000, L100.0100, L500.4050 #### [facility] [address] [place], [address] Chloride [Moles/Vol] 99 mmol/L Normal 98-107 [facility] Comment on above: Performed By: #### L 501.9520, L506.1000, L100.0100, L500.4050 #### [facility] [address] [place], [address] CO2 [Moles/Vol] 23.0 mmol/L Normal 21.0-32.0 [facility] Comment on above: Performed By: #### L 501.9520, L506.1000, L100.0100, L500.4050 #### [facility] [address] [place], [address] Creatinine [Mass/Vol] 1.09 mg/dL High 0.55-1.02 [facility] Comment on above: Result Comment: The validity of the calculated GFR GFRAA in patients over 70 years has not been determined. Clinical correlation is essential. Performed By: #### L 501.9520, L506.1000, L100.0100, L500.4050 #### [facility] [address] [place], [address] EST GFR - AA 65 mL/min Normal >60 [facility] Comment on above: Result Comment: Afri can [place] Citizen GFR Calc Performed By: #### L 501.9520, L506.1000, L100.0100, L500.4050 #### [facility] [address] [place], [address] GAP 11 Normal 5-15 [facility] Comment on above: Performed By: #### L 501.9520, L506.1000, L100.0100, L500.4050 #### [facility] [address] [place], [address] GFR/1.73 sq M.predicted among non-blacks MDRD (S/P/Bld) [Vol rate/Area] 53 mL/min/{1.73_m2} Low >60 [facility] Comment on above: Result Comment: Non- GFR Calc Performed By: #### L 501.9520, L506.1000, L100.0100, L500.4050 #### [facility] [address] [place], [address] Globulin (S) [Mass/Vol] 3.8 g/dL Normal 2.2-4.2 [facility] Comment on above: Performed By: #### L 501.9520, L506.1000, L100.0100, L500.4050 #### [facility] [address] [place], [address] Glucose [Mass/Vol] 117 mg/dL High 74-106 [facility] Comment on above: Result Comment: Fast ing Glucose result from 100 to 125 mg/dL suggests IMPAIRED HOMEOSTASIS per A.D.A. criteria. Performed By: #### L 501.9520, L506.1000, L100.0100, L500.4050 #### [facility] [address] [place], [address] Potassium [Moles/Vol] 3.2 mmol/L Low 3.5-5.1 [facility] Comment on above: Performed By: #### L 501.9520, L506.1000, L100.0100, L500.4050 #### [facility] [address] [place], [address] Sodium [Moles/Vol] 133 mmol/L Low 136-145 [facility] Comment on above: Performed By: #### L 501.9520, L506.1000, L100.0100, L500.4050 #### [facility] [address] [place], [address] T PROT 8.0 g/dL Normal 6.4-8.2 [facility] Comment on above: Performed By: #### L 501.9520, L506.1000, L100.0100, L500.4050 #### [facility] [address] [place], [address] Urea nitrogen [Mass/Vol] 35 mg/dL High 7-18 [facility] Comment on above: Performed By: #### L 501.9520, L506.1000, L100.0100, L500.4050 #### [facility] [address] [place], [address] Eosinophil percentageOrdered By: Lul Reyes on 05-17-2024 Eosinophils/100 WBC (Bld) 1.1 % 0-5 [facility] Erythrocyte distribution wid th ratioOrdered By: Lul Reyes on 05-17-2024 Erythrocyte distribution width (RBC) [Ratio] 12.6 % 11.6-14.6 [facility] Erythrocyte distribution wid th standard deviationOrdered By: Lul Reyes on 05-17-2024 Erythrocyte distribution width (RBC) [Entitic vol] 44.7 fL High 35.1-43.9 [facility] Estimated glomerular filtrat ion rate (GFR) AmericanOrdered By: Lul Ryees on 05-17-2024 Estimated GFR (MDRD) Amer 65 mL/min >60 [facility] Comment on above: GFR Calc Glomerular filtration rate ( GFR) estimationOrdered By: Lul Reyes on 05-17-2024 Estimated GFR (MDRD) Non-Af Amer 53 mL/min Low >60 [facility] Comment on above: Non- GFR Calc Glucose measurementOrdered B y: Lul Jarett on 05-17-2024 Glucose [Mass/Vol] 117 mg/dL High 74-106 [facility] Comment on above: Fasting Glucose resu lt from 100 to 125 mg/dL suggests IMPAIRED HOMEOSTASIS per A.D.A. criteria. Hematocrit Auto (Bld) [Volum e fraction]Ordered By: Lul Reyes on 05-17-2024 Hematocrit (Bld) [Volume fraction] 41.7 % 37-47 [facility] Hemoglobin measurementOrdere d By: Lul Reyes on 05-17-2024 Hemoglobin (Bld) [Mass/Vol] 13.9 g/dL 12.0-15.0 [facility] Immature granulocytes/100 WB C Auto (Bld)Ordered By: Lul Reyes 05-17-2024 Immature granulocytes/100 WBC (Bld) 0.200 % 0.0-0.9 [facility] Comment on above: IG% - Immature Granu locytes (promyelocytes, myelocytes and metamyelocytes) > 1% indicates that a LEFT SHIFT is Present. Laboratory - Chemistry and C hemistry - challengeOrdered By: Lul Reyes on 05-17-2024 AST [Catalytic activity/Vol] 21 U/L 15-37 [facility] Lymphocytes Auto (Unsp spec) [#/Vol]Ordered By: Lul Reyes 05-17-2024 Lymphocytes (Bld) [#/Vol] 2.45 10*3/uL 0.83-4.51 [facility] Lymphocytes/100 WBC Auto (Un sp spec)Ordered By: Lul Reyes 05-17-2024 Lymphocytes/100 WBC (Bld) 24.6 % 19-41 [facility] MCV (mean corpuscular volume ) determinationOrdered By: Lul Reyes 05-17-2024 MCV (RBC) [Entitic vol] 96.3 fL 81-99 [facility] Mean corpuscular hemoglobin (MCH) determinationOrdered By: Lul Reyes 05-17-2024 MCH (RBC) [Entitic mass] 32.1 pg High 27.0-32.0 [facility] Mean corpuscular hemoglobin concentration (MCHC) determinationOrdered By: Lul Reyes on 05-17-2024 MCHC (RBC) [Mass/Vol] 33.3 g/dL 32-36 [facility] Mean platelet volume determi nationOrdered By: Lul Reyes on 05-17-2024 Platelet mean volume (Bld) [Entitic vol] 9.0 fL 6.2-12.0 [facility] Monocyte percentageOrdered B y: Lul Reyes on 05-17-2024 Monocytes/100 WBC (Bld) 5.0 % 0-10 [facility] Neutrophil percentageOrdered By: Lul Reyes on 05-17-2024 Neutrophils/100 WBC (Bld) 68.6 % 47-70 [facility] Nucleated red blood cell per centageOrdered By: Lul Reyes on 05-17-2024 Nucleated RBC/100 WBC (Bld) [Ratio] 0 % 0-5 [facility] Platelet countOrdered By: Jsaon Reyes on 05-17-2024 Platelets (Bld) [#/Vol] 468 10*3/uL High 150-450 [facility] Potassium measurementOrdered By: Lul Reyes on 05-17-2024 Potassium [Moles/Vol] 3.2 mmol/L Low 3.5-5.1 [facility] RBC Auto (Bld) [#/Vol]Ordere d By: Lul Reyes on 05-17-2024 RBC (Bld) [#/Vol] 4.33 10*6/uL 4.2-5.4 [facility] Serum anion gap measurementO rdered By: Lul Reyes on 05-17-2024 Anion gap [Moles/Vol] 11 mmol/L 5-15 [facility] Serum globulin measurementOr dered By: Lul Reyes on 05-17-2024 Globulin (S) [Mass/Vol] 3.8 g/dL 2.2-4.2 [facility] Serum or plasma alanine youngblood otransferase (ALT) measurementOrdered By: Lul Reyes 05-17-2024 ALT [Catalytic activity/Vol] 25 U/L 13-56 [facility] Serum or plasma albumin rohith urement (mass/volume)Ordered By: Lul Reyes on 05-17-2024 Albumin [Mass/Vol] 4.2 g/dL 3.2-5.0 [facility] Serum or plasma alkaline shasha sphatase measurementOrdered By: Lul Reyes on 05-17-2024 ALP [Catalytic activity/Vol] 65 U/L 45-117 [facility] Serum or plasma calcium rohith urement (mass/volume)Ordered By: Lul Reyes on 05-17-2024 Calcium [Mass/Vol] 9.9 mg/dL 8.5-10.1 [facility] Serum or plasma creatinine m easurement (mass/volume)Ordered By: Lul Reyes on 05-17-2024 Creatinine [Mass/Vol] 1.09 mg/dL High 0.55-1.02 [facility] Comment on above: The validity of the calculated GFR & GFRAA in patients over 70 years has not been determined. Clinical correlation is essential. Serum or plasma urea nitroge n measurement (mass/volume)Ordered By: Lul Reyes on 05-17-2024 Urea nitrogen [Mass/Vol] 35 mg/dL High 7-18 [facility] Sodium levelOrdered By: Lul Reyes on 05-17-2024 Sodium [Moles/Vol] 133 mmol/L Low 136-145 [facility] TSH QnOrdered By: Lul Reyes o n 05-17-2024 Thyroid Stimulating Hormone (TSH) 1.640 uIU/mL 0.358-3.740 [facility] Thyroid Stim Hormone (TSH)on 05-17-2024 TSH 1.640 uIU/mL Normal 0.358-3.740 [facility] Comment on above: Performed By: #### L 501.9520, L506.1000, L100.0100, L500.4050 #### [facility] [address] [place], [address] Total proteinOrdered By: Lul Reyes on 05-17-2024 Protein [Mass/Vol] 8.0 g/dL 6.4-8.2 [facility] Vitamin D,25 Hydroxyon 05-17 Vitamin D 25-OH 35.6 ng/mL Normal [facility] Comment on above: Result Comment: Emelia min D 25(OH) Status Range Deficiency <20 ng/mL (50nmol/L) Insufficiency 20 - 30 ng/mL (50 - 75 nmol/L) Sufficiency 30 - 100 ng/mL (75 - 250 nmol/L) Toxicity >100 ng/mL (>250 nmol/L) Performed By: #### L 501.9520, L506.1000, L100.0100, L500.4050 #### [facility] [address] [place], [address] White blood cell (WBC) count Ordered By: Lul Reyes on 05-17-2024 WBC (Bld) [#/Vol] 10.0 10*3/uL 4.4-11.0 [facility] Urine Cultureon 12-06-2023 [facility] Escherichia coli Lena Count 11,000-25,000 Escherichia coli: REACTION Ampicillin Islt MANUEL 8 S Ampicillin+Sulbac Islt MANUEL 4 S ceFAZolin Islt MANUEL <=4 S Cefepime Islt MANUEL <=0.12 S cefTRIAXone Islt MANUEL <=0.25 S Ciprofloxacin Islt MANUEL <=0.25 S Ertapenem Islt MANUEL <=0.12 S B-Lactamase Extended Susc Islt NEG Gentamicin Islt MANUEL <=1 S Imipenem Islt MANUEL <=0.25 S levoFLOXacin Islt MANUEL <=0.12 S Nitrofurantoin Islt MANUEL <=16 S Pip+Tazo Islt MANUEL <=4 S Tobramycin Islt MANUEL <=1 S TMP SMX Islt MANUEL <=20 S Normal [facility] Comment on above: Performed By: #### L 501.9520, L506.1000, L100.0100, L500.4050 #### [facility] [address] [place], [place], [id number] Abdomen Single Viewon 2023 Abdomen Single View [facility] [address] [place], [place] [id number] Abdomen Single View MR#: [id number] Acct: [id number] Name: DENISA SCHERER Rep #: [id number] : 1960 F 63 From: Mikel Vazquez MD PCP: Dr. Lul Reyes MD Status: REG CLI Study: Abdomen Single View Date of Exam: 12/04/23 Exam# [id number] Ordering Dr: Lul Reyes MD [id number] EXAM: XR ABDOMEN, 1 VIEW CLINICAL INDICATION: ABDOMINAL PAIN TECHNIQUE: Frontal supine view of the abdomen/pelvis. COMPARISON: No relevant prior studies available. FINDINGS: LOWER THORAX: No acute pathology. GASTROINTESTINAL TRACT: Unremarkable. Non-obstructive. No bowel or stomach distention. ORGANS: Unremarkable as visualized. No organomegaly. No abnormal calcifications. BONES/JOINTS: There are right-sided pedicle screws from L2 through L4. SOFT TISSUES: No acute pathology. RAD/Abdomen Single View IMPRESSION: No acute findings. Electronically Signed: Mikel Vazquez MD at 20:58 EDT , CC: Dr. Lul Reyes MD Fleece Tier: Signed Normal [facility] CBC W/Diff, Automatedon 06-0 Absolute Lymph 3.01 X10 3/uL Normal 0.83-4.51 [facility] Comment on above: Performed By: #### L 100.0100, L500.4050, L501.9520 #### [facility] [address] [place], [address] Absolute Neut 3.5 X10 3/uL Normal 2.0-7.7 [facility] Comment on above: Performed By: #### L 100.0100, L500.4050, L501.9520 #### [facility] [address] [place], [address] Basophils/100 WBC (Bld) 0.8 % Normal 0-1 [facility] Comment on above: Performed By: #### L 100.0100, L500.4050, L501.9520 #### [facility] [address] [place], [address] Eosinophils/100 WBC (Bld) 2.3 % Normal 0-5 [facility] Comment on above: Performed By: #### L 100.0100, L500.4050, L501.9520 #### [facility] [address] [place], [address] Erythrocyte distribution width (RBC) [Ratio] 13.1 % Normal 11.6-14.6 [facility] Comment on above: Performed By: #### L 100.0100, L500.4050, L501.9520 #### [facility] [address] [place], [address] Hematocrit (Bld) [Volume fraction] 37.1 % Normal 37-47 [facility] Comment on above: Performed By: #### L 100.0100, L500.4050, L501.9520 #### [facility] [address] [place], [address] Hemoglobin (Bld) [Mass/Vol] 12.1 g/dL Normal 12.0-15.0 [facility] Comment on above: Performed By: #### L 100.0100, L500.4050, L501.9520 #### [facility] [address] [place], [address] IG% 0.300 Normal 0.0-0.9 [facility] Comment on above: Result Comment: IG% - Immature Granulocytes (promyelocytes, myelocytes and metamyelocytes) > 1% indicates that a LEFT SHIFT is Present. Performed By: #### L 100.0100, L500.4050, L501.9520 #### [facility] [address] [place], [address] Lymphocytes/100 WBC (Bld) 42.3 % High 19-41 [facility] Comment on above: Performed By: #### L 100.0100, L500.4050, L501.9520 #### [facility] [address] [place], [address] MCH (RBC) [Entitic mass] 33.0 pg High 27.0-32.0 [facility] Comment on above: Performed By: #### L 100.0100, L500.4050, L501.9520 #### [facility] [address] [place], [address] MCHC (RBC) [Mass/Vol] 32.6 g/dL Normal 32-36 [facility] Comment on above: Performed By: #### L 100.0100, L500.4050, L501.9520 #### [facility] [address] [place], [address] MCV (RBC) [Entitic vol] 101.1 fL High 81-99 [facility] Comment on above: Performed By: #### L 100.0100, L500.4050, L501.9520 #### [facility] [address] [place], [address] Monocytes/100 WBC (Bld) 5.5 % Normal 0-10 [facility] Comment on above: Performed By: #### L 100.0100, L500.4050, L501.9520 #### [facility] [address] [place], [address] Neutrophils/100 WBC (Bld) 48.8 % Normal 47-70 [facility] Comment on above: Performed By: #### L 100.0100, L500.4050, L501.9520 #### [facility] [address] [place], [address] Nucleated RBC (Bld) [#/Vol] 0 10*3/uL Normal 0-5 [facility] Comment on above: Performed By: #### L 100.0100, L500.4050, L501.9520 #### [facility] [address] [place], [address] Platelet mean volume (Bld) [Entitic vol] 9.1 fL Normal 6.2-12.0 [facility] Comment on above: Performed By: #### L 100.0100, L500.4050, L501.9520 #### [facility] [address] [place], [address] Platelets (Bld) [#/Vol] 348 10*3/uL Normal 150-450 [facility] Comment on above: Performed By: #### L 100.0100, L500.4050, L501.9520 #### [facility] [address] [place], [address] RBC (Bld) [#/Vol] 3.67 10*6/uL Low 4.2-5.4 [facility] Comment on above: Performed By: #### L 100.0100, L500.4050, L501.9520 #### [facility] [address] [place], [address] RDW SD 48.7 fl High 35.1-43.9 [facility] Comment on above: Performed By: #### L 100.0100, L500.4050, L501.9520 #### [facility] [address] [place], [address] WBC (Bld) [#/Vol] 7.1 10*3/uL Normal 4.4-11.0 [facility] Comment on above: Performed By: #### L 100.0100, L500.4050, L501.9520 #### [facility] [address] [place], [address] Chest PA and Lateralon 12-03 Chest PA and Lateral [facility] [address] [place], [place] [address] Chest PA and Lateral MR#: [id number] Acct: [id number] Name: DENISA SCHERER Rep #: [id number] : 1960 F 63 From: Mikel Vazquez MD PCP: Dr. Lul Reyes MD Status: REG CLI Study: Chest PA and Lateral Date of Exam: 12/04/23 Exam# [id number] Ordering Dr: Lul Reyes MD [id number] EXAM: XR CHEST, 2 VIEWS CLINICAL INDICATION: ABDOMINAL PAIN TECHNIQUE: Frontal and lateral views of the chest. COMPARISON: 11/09/2022 FINDINGS: LUNGS AND PLEURAL SPACES: There are interstitial opacities in the periphery of the lungs which may represent scar or minimal edema. No pneumothorax. No effusion. HEART: Unremarkable. Cardiac silhouette not enlarged. MEDIASTINUM: Central airways and mediastinal contour are unremarkable. BONES/JOINTS: Scoliotic deformity of the thoracic spine. No acute fracture. SOFT TISSUES: Unremarkable. OTHER FINDINGS: . Stable from the reference exam. RAD/Chest PA and Lateral IMPRESSION: Stable interstitial opacities which may represent scar or trace edema. There has been no change from the reference exam. Electronically Signed: Mikel Vazquez MD at 18:57 EDT , CC: Dr. uLl Reyes MD Fleece Tier: Signed Normal [facility] Comprehensive Metabolic Prof ilon 12-04-2023 Albumin [Mass/Vol] 3.1 g/dL Low 3.2-5.0 [facility] Comment on above: Performed By: #### L 100.0100, L500.4050, L501.9520 #### [facility] [address] [place], [address] Albumin/Globulin [Mass ratio] 1.0 {ratio} Normal 0.9-2.4 [facility] Comment on above: Performed By: #### L 100.0100, L500.4050, L501.9520 #### [facility] [address] [place], [address] ALK P 66 U/L Normal 45-117 [facility] Comment on above: Performed By: #### L 100.0100, L500.4050, L501.9520 #### [facility] [address] [place], [address] ALT [Catalytic activity/Vol] 24 U/L Normal 13-56 [facility] Comment on above: Performed By: #### L 100.0100, L500.4050, L501.9520 #### [facility] [address] [place], [address] AST [Catalytic activity/Vol] 26 U/L Normal 15-37 [facility] Comment on above: Performed By: #### L 100.0100, L500.4050, L501.9520 #### [facility] [address] [place], [address] Bilirubin [Mass/Vol] 0.10 mg/dL Low 0.20-1.00 [facility] Comment on above: Result Comment: For patients on eltrombopag therapy, use of Dimension [place] TBIL is not recommended. Performed By: #### L 100.0100, L500.4050, L501.9520 #### [facility] [address] [place], [address] BUN/CRE 11.5 RATIO Normal 10-20 [facility] Comment on above: Performed By: #### L 100.0100, L500.4050, L501.9520 #### [facility] [address] [place], [address] CA,Total 8.8 mg/dL Normal 8.5-10.1 [facility] Comment on above: Performed By: #### L 100.0100, L500.4050, L501.9520 #### [facility] [address] [place], [address] Chloride [Moles/Vol] 114 mmol/L High 98-107 [facility] Comment on above: Performed By: #### L 100.0100, L500.4050, L501.9520 #### [facility] [address] [place], [address] CO2 [Moles/Vol] 26.0 mmol/L Normal 21.0-32.0 [facility] Comment on above: Performed By: #### L 100.0100, L500.4050, L501.9520 #### [facility] [address] [place], [address] Creatinine [Mass/Vol] 0.78 mg/dL Normal 0.55-1.02 [facility] Comment on above: Result Comment: The validity of the calculated GFR GFRAA in patients over 70 years has not been determined. Clinical correlation is essential. Performed By: #### L 100.0100, L500.4050, L501.9520 #### [facility] [address] [place], [address] EST GFR - AA 95 mL/min Normal >60 [facility] Comment on above: Result Comment: Afri can [place] Citizen GFR Calc Performed By: #### L 100.0100, L500.4050, L501.9520 #### [facility] [address] [place], [address] GAP 3 Low 5-15 [facility] Comment on above: Performed By: #### L 100.0100, L500.4050, L501.9520 #### [facility] [address] [place], [address] GFR/1.73 sq M.predicted among non-blacks MDRD (S/P/Bld) [Vol rate/Area] 78 mL/min/{1.73_m2} Normal >60 [facility] Comment on above: Result Comment: Non- GFR Calc Performed By: #### L 100.0100, L500.4050, L501.9520 #### [facility] [address] [place], [address] Globulin (S) [Mass/Vol] 3.2 g/dL Normal 2.2-4.2 [facility] Comment on above: Performed By: #### L 100.0100, L500.4050, L501.9520 #### [facility] [address] [place], [address] Glucose [Mass/Vol] 70 mg/dL Low 74-106 [facility] Comment on above: Performed By: #### L 100.0100, L500.4050, L501.9520 #### [facility] [address] [place], [address] Potassium [Moles/Vol] 3.7 mmol/L Normal 3.5-5.1 [facility] Comment on above: Performed By: #### L 100.0100, L500.4050, L501.9520 #### [facility] [address] [place], [address] Sodium [Moles/Vol] 143 mmol/L Normal 136-145 [facility] Comment on above: Performed By: #### L 100.0100, L500.4050, L501.9520 #### [facility] [address] [place], [address] T PROT 6.3 g/dL Low 6.4-8.2 [facility] Comment on above: Performed By: #### L 100.0100, L500.4050, L501.9520 #### [facility] [address] [place], [address] Urea nitrogen [Mass/Vol] 9 mg/dL Normal 7-18 [facility] Comment on above: Performed By: #### L 100.0100, L500.4050, L501.9520 #### [facility] [address] [place], [address] Thyroid Stim Hormone (TSH)on 12-04-2023 TSH 0.66 uIU/mL Normal 0.358-3.74 [facility] Comment on above: Performed By: #### L 501.9520, L506.1000, L100.0100, L500.4050 #### [facility] [address] [place], [address] Lung Screeningon 12-01-[address] Lung Screening [facility] [address] [facility] [place] [address] Lung Screening MR#: [id number] Acct: [id number] Name: DENISA SCHERER Rep #: [id number] : 1960 F 63 From: Jamila turner MD PCP: Dr. Lul Reyes MD Status: [facility] Study: Low Dose CT Lung Screening Date of Exam: 11/30 Exam# [id number] Ordering Dr: Lul Reyes MD [id number] HISTORY: Nicotine dependence. TECHNIQUE: Helically acquired images were obtained of the chest without contrast. A radiation dose optimization technique was used for this scan. 793 images. COMPARISON: CR 11/09/2022. FINDINGS: LARGE AIRWAYS: Patent. LUNGS: Mild-moderate paraseptal emphysema with mild biapical and peripheral reticular scarring. 2 mm left upper lobe nodule. Irregular linear scarring in the left upper lobe anteriorly. 7 mm triangular pleural-based nodule of the left lower lobe. PLEURA: No pneumothorax or significant pleural effusion. HEART/PERICARDIUM: Heart within normal limits in size with coronary artery calcification. No pericardial effusion. VESSELS: Thoracic aorta nondilated. Mild atherosclerosis. MEDIASTINUM/LUKASZ: No pathologically enlarged adenopathy. UPPER ABDOMEN: Unremarkable. BONES: Mild thoracic dextroscoliosis. Lumbar spinal fusion hardware present.. CT/Low Dose CT Lung Screening IMPRESSION: Emphysema with mild scarring and a 7 mm left lower lobe juxtapleural nodule. Lungs-RADS category 2: Continue annual screening with low dose CT. Electronically Signed: Jamila Jacobson MD at 9:10 EDT , CC: Dr. Lul Reyes MD Fleece Tier: Signed [facility] 11-15-2023 CNOV Office Visit (UCWSTR) DENISA SCHERER ([id number]) 1960 F Date Time Provider Department 11/15/23 10:45 AM RUBY OLGUIN [facility] During your visit today, we recorded the following information about you: Temperature Pulse Respiration Blood pressure 98.9 degrees 103/minute 18/minute 122/80 Weight 52.4 kg Ruby Olguin PA 11/15/2023 10:39 AM Signed This note was created using [employer]. Subjective Denisa Scherer is a 63 year old female. HPI 63-year-old female presents for abdominal pain, headache, generally feeling ill for the past several days. Patient is concerned she may have colitis or diverticulitis. She states she has had these in the past. She has had some diarrhea, no blood in the stool. No vomiting. No cough congestion or URI symptoms. She states her stomach feels bloated and when palpated is a 10 out of 10 pain. PAST MEDICAL HISTORY Diagnosis Date Acute kidney injury (HCC) 02/24/2015 Acute respiratory failure (HCC) 05/14/2018 Adjustment disorder with depressed mood Anxiety 06/14/2014 Dr. Tess Ochoa (Psychiatrist at [facility]). Bowel disease Colon polyps Depression, major 06/14/2014 Dr. Tess Ochoa (Psychiatrist at [facility]). 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 0) 02/24/2015 Tobacco abuse 1ppd x 15 years Toxic encephalopathy 02/24/2015 Withdrawal symptoms, drug or narcotic (HCC) 02/24/2015 PAST SURGICAL HISTORY Procedure Laterality Date APPENDECTOMY 08/07 DELIVERY ONLY 2002 , low cervical. x 3 COLONOSCOPY FLX DX W/COLLJ SPEC WHEN PFRMD 11/30/2010 Colonoscopy COLONOSCOPY FLX DX W/COLLJ SPEC WHEN PFRMD 01/24/2016 Colonoscopy ESOPHAGOGASTRODUODEN OSCOPY TRANSORAL DIAGNOSTIC 01/24/2016 EGD LAMINECTOMY W/O FFD > 2 VERT SEG LUMBAR 02/06/2015 Bruce Burks PAST SURGICAL HISTORY OF 1978 left above eye to remove lumps PAST SURGICAL HISTORY OF 11/2010 Laparoscopically-ass isted ventral rectopexy with mesh insertion (Prolene mesh). PAST SURGICAL HISTORY OF 2006 Partial hysterectomy ALLERGIES Bactrim [Sulfamethoxazole-Tr imethoprim], Codeine, Erythromycin, Acetaminophen-Codein e, Darvocet-N 100 [Propoxyphene N-Acetaminophen], Flexeril [Cyclobenzaprine Hcl], Inderal [Propranolol Hcl], Sulfa (Sulfonamide Antibiotics), Ultram [Tramadol Hcl], and Zonegran [Zonisamide] MEDICATIONS nystatin (MYCOSTATIN) 100,000 unit/mL suspension Take 5 mL by mouth four times daily. 1tsp swish in mouth for several minutes, then swallow (or expectorate) 4 times daily until gone. furosemide (LASIX) 20 mg tablet Take 1 tablet by mouth once daily. polyethylene glycol 3350 (MIRALAX, GLYCOLAX) 17 gram/dose powder Take 17 g by mouth once daily. This is one (1) capful. Use in at least 8oz of liquid. The dose can be adjusted as needed. gabapentin (NEURONTIN) 800 mg tablet Take one(1) tablet AM and noon. Take 1.[address] Lara. DULoxetine (CYMBALTA) 60 mg capsule Take 60 mg by mouth once daily. ARIPiprazole (ABILIFY) 5 mg tablet Take 1 tablet by mouth once daily. Dr. Ochoa omeprazole (PRILOSEC) 40 mg capsule Take 1 capsule by mouth once daily. (Patient not taking: Reported on 11/14/2021 ) SUMAtriptan (IMITREX) 50 mg tablet Take 1 tablet by mouth as needed for Migraine Headache (see administration instructions). (Patient not taking: Reported on 11/14/2021 ) FAMILY HISTORY Problem Relation Age of Onset Arthritis Mother Cancer Father lung Social History Tobacco Use Smoking status: Every Day Packs/day: 0.50 Years: 30.00 Additional pack years: 0.00 Total pack years: 15.00 Types: Cigarettes Smokeless tobacco: Never Vaping Use Vaping Use: Never used Substance Use Topics Alcohol use: No Drug use: No Review of Systems Constitutional: Positive for fatigue. Negative for chills and fever. HENT: Negative for congestion, ear pain and sore throat. Respiratory: Negative for cough and shortness of breath. Cardiovascular: Negative for chest pain. Gastrointestinal: Positive for abdominal pain and diarrhea. Negative for vomiting. Neurological: Positive for headaches. Objective BP 122/80 Pulse 103 Temp 37.2 ?C (98.9 ?F) (Tympanic) Resp 18 Wt 52.4 kg (115 lb 8.3 oz) LMP 03/13/2007 SpO2 98% BMI 20.46 kg/m? Phys (more content not included)... Normal [facility] Absolute lymphocyte countOrd ered By: Lul Reyes on 11-03-2023 Lymphocytes Auto (Unsp spec) [#/Vol] 2.65 10*3/uL 0.83-4.51 [facility] Automated lymphocyte count a s percentage of total leukocytesOrdered By: Lul Reyes on 11-03-2023 Lymphocytes/100 WBC Auto (Unsp spec) 38.1 % 19-41 [facility] Basophil percentageOrdered B y: Lul Reyes on 11-03-2023 Basophils/100 WBC (Bld) 1.2 % 0-1 [facility] Bilirubin [Mass/Vol] 0.20 mg/dL 0.20-1.00 [facility] Comment on above: For patients on eltr ombopag therapy, use of Dimension [place] TBIL is not recommended. Chloride [Moles/Vol] 108 mmol/L 98-107 [facility] Eosinophils/100 WBC (Bld) 1.7 % 0-5 [facility] Glucose [Mass/Vol] 85 mg/dL 74-106 [facility] Hemoglobin (Bld) [Mass/Vol] 13.5 g/dL 12.0-15.0 [facility] Monocytes/100 WBC (Bld) 6.8 % 0-10 [facility] Neutrophils (Bld) [#/Vol] 3.6 10*3/uL 2.0-7.7 [facility] Neutrophils/100 WBC (Bld) 51.8 % 47-70 [facility] Potassium [Moles/Vol] 4.3 mmol/L 3.5-5.1 [facility] Protein [Mass/Vol] 7.4 g/dL 6.4-8.2 [facility] Sodium [Moles/Vol] 138 mmol/L 136-145 [facility] WBC (Bld) [#/Vol] 7.0 10*3/uL 4.4-11.0 [facility] CBC W/Diff, Automatedon Absolute Lymph 2.65 X10 3/uL Normal 0.83-4.51 [facility] Comment on above: Performed By: #### L 100.0100, L506.1000, L501.9520, L500.4050 #### [facility] [address] [place], [address] Absolute Neut 3.6 X10 3/uL Normal 2.0-7.7 [facility] Comment on above: Performed By: #### L 100.0100, L506.1000, L501.9520, L500.4050 #### [facility] [address] [place], [address] Basophils/100 WBC (Bld) 1.2 % High 0-1 [facility] Comment on above: Performed By: #### L 100.0100, L506.1000, L501.9520, L500.4050 #### [facility] [address] [place], [address] Eosinophils/100 WBC (Bld) 1.7 % Normal 0-5 [facility] Comment on above: Performed By: #### L 100.0100, L506.1000, L501.9520, L500.4050 #### [facility] [address] [place], [address] Erythrocyte distribution width (RBC) [Ratio] 12.5 % Normal 11.6-14.6 [facility] Comment on above: Performed By: #### L 100.0100, L506.1000, L501.9520, L500.4050 #### [facility] [address] [place], [address] Hematocrit (Bld) [Volume fraction] 40.5 % Normal 37-47 [facility] Comment on above: Performed By: #### L 100.0100, L506.1000, L501.9520, L500.4050 #### [facility] [address] [place], [address] Hemoglobin (Bld) [Mass/Vol] 13.5 g/dL Normal 12.0-15.0 [facility] Comment on above: Performed By: #### L 100.0100, L506.1000, L501.9520, L500.4050 #### [facility] [address] [place], [address] IG% 0.400 Normal 0.0-0.9 [facility] Comment on above: Result Comment: IG% - Immature Granulocytes (promyelocytes, myelocytes and metamyelocytes) > 1% indicates that a LEFT SHIFT is Present. Performed By: #### L 100.0100, L506.1000, L501.9520, L500.4050 #### [facility] [address] [place], [address] Lymphocytes/100 WBC (Bld) 38.1 % Normal 19-41 [facility] Comment on above: Performed By: #### L 100.0100, L506.1000, L501.9520, L500.4050 #### [facility] [address] [place], [address] MCH (RBC) [Entitic mass] 33.7 pg High 27.0-32.0 [facility] Comment on above: Performed By: #### L 100.0100, L506.1000, L501.9520, L500.4050 #### [facility] [address] [place], [address] MCHC (RBC) [Mass/Vol] 33.3 g/dL Normal 32-36 [facility] Comment on above: Performed By: #### L 100.0100, L506.1000, L501.9520, L500.4050 #### [facility] [address] [place], [address] MCV (RBC) [Entitic vol] 101.0 fL High 81-99 [facility] Comment on above: Performed By: #### L 100.0100, L506.1000, L501.9520, L500.4050 #### [facility] [address] [place], [address] Monocytes/100 WBC (Bld) 6.8 % Normal 0-10 [facility] Comment on above: Performed By: #### L 100.0100, L506.1000, L501.9520, L500.4050 #### [facility] [address] [place], [address] Neutrophils/100 WBC (Bld) 51.8 % Normal 47-70 [facility] Comment on above: Performed By: #### L 100.0100, L506.1000, L501.9520, L500.4050 #### [facility] [address] [place], [address] Nucleated RBC (Bld) [#/Vol] 0 10*3/uL Normal 0-5 [facility] Comment on above: Performed By: #### L 100.0100, L506.1000, L501.9520, L500.4050 #### [facility] [address] [place], [address] Platelet mean volume (Bld) [Entitic vol] 9.2 fL Normal 6.2-12.0 [facility] Comment on above: Performed By: #### L 100.0100, L506.1000, L501.9520, L500.4050 #### [facility] [address] [place], [address] Platelets (Bld) [#/Vol] 371 10*3/uL Normal 150-450 [facility] Comment on above: Performed By: #### L 100.0100, L506.1000, L501.9520, L500.4050 #### [facility] [address] [place], [address] RBC (Bld) [#/Vol] 4.01 10*6/uL Low 4.2-5.4 [facility] Comment on above: Performed By: #### L 100.0100, L506.1000, L501.9520, [id number] #### [facility] [address] [place], [address] RDW SD 47.1 fl High 35.1-43.9 [facility] Comment on above: Performed By: #### L 100.0100, L506.1000, L501.9520, [id number] #### [facility] [address] [place], [address] WBC (Bld) [#/Vol] 7.0 10*3/uL Normal 4.4-11.0 [facility] Comment on above: Performed By: #### L 100.0100, L506.1000, L501.9520, [id number] #### [facility] [address] [place], [address] Comprehensive Metabolic Prof [facility] 11-03-2023 Albumin [Mass/Vol] 3.6 g/dL Normal 3.2-5.0 [facility] Comment on above: Performed By: #### L 100.0100, L506.1000, L501.9520, L500.4050 #### [facility] [address] [place], [address] Albumin/Globulin [Mass ratio] 0.9 {ratio} Normal 0.9-2.4 [facility] Comment on above: Performed By: #### L 100.0100, L506.1000, L501.9520, [id number] #### [facility] [address] [place], [address] ALK P 66 U/L Normal 45-117 [facility] Comment on above: Performed By: #### L 100.0100, L506.1000, L501.9520, [id number] #### [facility] [address] [place], [address] ALT [Catalytic activity/Vol] 20 U/L Normal 13-56 [facility] Comment on above: Performed By: #### L 100.0100, L506.1000, L501.9520, L500.4050 #### [facility] [address] [place], [address] AST [Catalytic activity/Vol] 20 U/L Normal 15-37 [facility] Comment on above: Performed By: #### L 100.0100, L506.1000, L501.9520, L500.4050 #### [facility] [address] [place], [address] Bilirubin [Mass/Vol] 0.20 mg/dL Normal 0.20-1.00 [facility] Comment on above: Result Comment: For patients on eltrombopag therapy, use of Dimension [place] TBIL is not recommended. Performed By: #### L 100.0100, L506.1000, L501.9520, L500.4050 #### [facility] [address] [place], [address] BUN/CRE 15.0 RATIO Normal 10-20 [facility] Comment on above: Performed By: #### L 100.0100, L506.1000, L501.9520, [id number] #### [facility] [address] [place], [address] CA,Total 9.7 mg/dL Normal 8.5-10.1 [facility] Comment on above: Performed By: #### L 100.0100, L506.1000, L501.9520, [id number] #### [facility] [address] [place], [address] Chloride [Moles/Vol] 108 mmol/L High 98-107 [facility] Comment on above: Performed By: #### L 100.0100, L506.1000, L501.9520, [id number] #### [facility] [address] [place], [address] CO2 [Moles/Vol] 26.0 mmol/L Normal 21.0-32.0 [facility] Comment on above: Performed By: #### L 100.0100, L506.1000, L501.9520, L500.4050 #### [facility] [address] [place], [address] Creatinine [Mass/Vol] 0.73 mg/dL Normal 0.55-1.02 [facility] Comment on above: Result Comment: The validity of the calculated GFR GFRAA in patients over 70 years has not been determined. Clinical correlation is essential. Performed By: #### L 100.0100, L506.1000, L501.9520, L500.4050 #### [facility] [address] [place], [address] EST GFR - AA 102 mL/min Normal >60 [facility] Comment on above: Result Comment: Afri can [place] Citizen GFR Calc Performed By: #### L 100.0100, L506.1000, L501.9520, L500.4050 #### [facility] [address] [place], [address] GAP 4 Low 5-15 [facility] Comment on above: Performed By: #### L 100.0100, L506.1000, L501.9520, L500.4050 #### [facility] [address] [place], [address] GFR/1.73 sq M.predicted among non-blacks MDRD (S/P/Bld) [Vol rate/Area] 84 mL/min/{1.73_m2} Normal >60 [facility] Comment on above: Result Comment: Non- GFR Calc Performed By: #### L 100.0100, L506.1000, L501.9520, L500.4050 #### [facility] [address] [place], [address] Globulin (S) [Mass/Vol] 3.8 g/dL Normal 2.2-4.2 [facility] Comment on above: Performed By: #### L 100.0100, L506.1000, L501.9520, L500.4050 #### [facility] [address] [place], [address] Glucose [Mass/Vol] 85 mg/dL Normal 74-106 [facility] Comment on above: Performed By: #### L 100.0100, L506.1000, L501.9520, L500.4050 #### [facility] [address] [place], [address] Potassium [Moles/Vol] 4.3 mmol/L Normal 3.5-5.1 [facility] Comment on above: Performed By: #### L 100.0100, L506.1000, L501.9520, L500.4050 #### [facility] [address] [place], [address] Sodium [Moles/Vol] 138 mmol/L Normal 136-145 [facility] Comment on above: Performed By: #### L 100.0100, L506.1000, L501.9520, L500.4050 #### [facility] [address] [place], [address] T PROT 7.4 g/dL Normal 6.4-8.2 [facility] Comment on above: Performed By: #### L 100.0100, L506.1000, L501.9520, L500.4050 #### [facility] [address] [place], [address] Urea nitrogen [Mass/Vol] 11 mg/dL Normal 7-18 [facility] Comment on above: Performed By: #### L 100.0100, L506.1000, L501.9520, L500.4050 #### [facility] [address] [place], [address] Determination of erythrocyte mean corpuscular volume (MCV)Ordered By: [facility] J[facility]tt on 11-03-2023 MCV (RBC) [Entitic vol] 101.0 fL 81-99 [facility] Erythrocyte distribution wid th ratioOrdered By: [facility] on 11-03-2023 Erythrocyte distribution width (RBC) [Ratio] 12.5 % 11.6-14.6 [facility] Erythrocyte distribution wid th standard deviationOrdered By: [facility] on 11-03-2023 Erythrocyte distribution width (RBC) [Entitic vol] 47.1 fL 35.1-43.9 [facility] Hematocrit Auto (Bld) [Volum e fraction]Ordered By: [facility] on 11-03-2023 Hematocrit (Bld) [Volume fraction] 40.5 % 37-47 [facility] Immature granulocytes/100 WB C Auto (Bld)Ordered By: [facility] on 11-03-2023 Immature granulocytes/100 WBC (Bld) 0.400 % 0.0-0.9 [facility] Comment on above: IG% - Immature Granu locytes (promyelocytes, myelocytes and metamyelocytes) > 1% indicates that a LEFT SHIFT is Present. Laboratory - Chemistry and C hemistry - challengeOrdered By: [facility] on 11-03-2023 Albumin/Globulin [Mass ratio] 0.9 {ratio} 0.9-2.4 [facility] ALP [Catalytic activity/Vol] 66 U/L 45-117 [facility] ALT [Catalytic activity/Vol] 20 U/L 13-56 [facility] CO2 [Moles/Vol] 26.0 mmol/L 21.0-32.0 [facility] Globulin (S) [Mass/Vol] 3.8 g/dL 2.2-4.2 [facility] Urea nitrogen/Creatinine [Mass ratio] 15.0 mg/mg 10-20 [facility] Laboratory - Hematology and Cell countsOrdered By: [facility] 11-03-2023 MCH (RBC) [Entitic mass] 33.7 pg 27.0-32.0 [facility] MCHC (RBC) [Mass/Vol] 33.3 g/dL 32-36 [facility] Nucleated RBC/100 WBC (Bld) [Ratio] 0 % 0-5 [facility] Platelet mean volume (Bld) [Entitic vol] 9.2 fL 6.2-12.0 [facility] Platelets (Bld) [#/Vol] 371 10*3/uL 150-450 [facility] No Panel InformationOrdered By: Lul eRyes on 11-03-2023 Estimated GFR (MDRD) Amer 102 mL/min >60 [facility] Comment on above: GFR Calc Estimated GFR (MDRD) Non-Af Amer 84 mL/min >60 [facility] Comment on above: Non- GFR Calc Vitamin D 25-Hydroxy 34.3 ng/mL [facility] Comment on above: Vitamin D 25(OH) Sta tus Range Deficiency <20 ng/mL (50nmol/L) Insufficiency 20 - 30 ng/mL (50 - 75 nmol/L) Sufficiency 30 - 100 ng/mL (75 - 250 nmol/L) Toxicity >100 ng/mL (>250 nmol/L) RBC Auto (Bld) [#/Vol]Ordere d By: Lul Reyes on 11-03-2023 RBC (Bld) [#/Vol] 4.01 10*6/uL 4.2-5.4 [facility] Serum or plasma calcium rohith urement (mass/volume)Ordered By: Lul Reyes on 11-03-2023 Calcium [Mass/Vol] 9.7 mg/dL 8.5-10.1 [facility] Serum or plasma creatinine m easurement (mass/volume)Ordered By: Lul Reyes on 11-03-2023 Creatinine [Mass/Vol] 0.73 mg/dL 0.55-1.02 [facility] Comment on above: The validity of the calculated GFR & GFRAA in patients over 70 years has not been determined. Clinical correlation is essential. Serum or plasma thyroid stim ulating hormone (TSH) measurement (units/volume)Ordered By: Lul Reyes on 11-03-2023 TSH Qn 0.42 uIU/mL 0.358-3.74 [facility] Serum or plasma urea nitroge n measurement (mass/volume)Ordered By: Lul Reyes on 11-03-2023 Urea nitrogen [Mass/Vol] 11 mg/dL 7-18 [facility] Thin prep Papanicolaou smear with manual screeningOrdered By: Lul Reyes on 11-03-2023 Thin prep Papanicolaou smear with manual screening 3.6 g/dL 3.2-5.0 [facility] Thin prep Papanicolaou smear with manual screening 20 U/L 15-37 [facility] Thin prep Papanicolaou smear with manual screening 4 5-15 [facility] Thyroid Stim Hormone (TSH)on 11-03-2023 TSH 0.42 uIU/mL Normal 0.358-3.74 [facility] Comment on above: Performed By: #### L 100.0100, L506.1000, L501.9520, L500.4050 #### [facility] [address] [place], [place], [address] Vitamin D,25 Hydroxyon 11-02 Vitamin D 25-OH 34.3 ng/mL Normal [facility] Comment on above: Result Comment: Emelia min D 25(OH) Status Range Deficiency <20 ng/mL (50nmol/L) Insufficiency 20 - 30 ng/mL (50 - 75 nmol/L) Sufficiency 30 - 100 ng/mL (75 - 250 nmol/L) Toxicity >100 ng/mL (>250 nmol/L) Performed By: #### L 100.0100, L506.1000, L501.9520, L500.4050 #### [facility] [address] [place], [place], [id number] Absolute lymphocyte countOrd ered By: Lul Reyes on 2023 Lymphocytes Auto (Unsp spec) [#/Vol] 2.85 10*3/uL 0.83-4.51 [facility] Automated lymphocyte count a s percentage of total leukocytesOrdered By: Lul Reyes on 2023 Lymphocytes/100 WBC Auto (Unsp spec) 37.5 % 19-41 [facility] Basophil percentageOrdered B y: Lul Reyes on 2023 Basophils/100 WBC (Bld) 0.8 % 0-1 [facility] Bilirubin [Mass/Vol] 0.40 mg/dL 0.20-1.00 [facility] Comment on above: For patients on eltr ombopag therapy, use of Dimension [place] TBIL is not recommended. Chloride [Moles/Vol] 105 mmol/L 98-107 [facility] Eosinophils/100 WBC (Bld) 1.3 % 0-5 [facility] Glucose [Mass/Vol] 114 mg/dL 74-106 [facility] Comment on above: Fasting Glucose resu lt from 100 to 125 mg/dL suggests IMPAIRED HOMEOSTASIS per A.D.A. criteria. Hemoglobin (Bld) [Mass/Vol] 14.3 g/dL 12.0-15.0 [facility] Monocytes/100 WBC (Bld) 3.8 % 0-10 [facility] Neutrophils (Bld) [#/Vol] 4.3 10*3/uL 2.0-7.7 [facility] Neutrophils/100 WBC (Bld) 56.3 % 47-70 [facility] Potassium [Moles/Vol] 3.7 mmol/L 3.5-5.1 [facility] Protein [Mass/Vol] 7.8 g/dL 6.4-8.2 [facility] Sodium [Moles/Vol] 140 mmol/L 136-145 [facility] WBC (Bld) [#/Vol] 7.6 10*3/uL 4.4-11.0 [facility] Culture, urineOrdered By: Jason Reyes on 2023 Bacteria identified Cx Nom (U) Presumptive E. coli [facility] Bacteria identified Cx Nom (U) Presumptive E. coli [facility] Determination of erythrocyte mean corpuscular volume (MCV)Ordered By: Lul Reyes on 2023 MCV (RBC) [Entitic vol] 97.5 fL 81-99 [facility] Erythrocyte distribution wid th ratioOrdered By: Lul Reyes on 2023 Erythrocyte distribution width (RBC) [Ratio] 12.8 % 11.6-14.6 [facility] Erythrocyte distribution wid th standard deviationOrdered By: Lul Reyes on 2023 Erythrocyte distribution width (RBC) [Entitic vol] 45.8 fL 35.1-43.9 [facility] Hematocrit Auto (Bld) [Volum e fraction]Ordered By: Lul Reyes on 2023 Hematocrit (Bld) [Volume fraction] 42.3 % 37-47 [facility] Immature granulocytes/100 WB C Auto (Bld)Ordered By: Lul Reyes on 2023 Immature granulocytes/100 WBC (Bld) 0.300 % 0.0-0.9 [facility] Comment on above: IG% - Immature Granu locytes (promyelocytes, myelocytes and metamyelocytes) > 1% indicates that a LEFT SHIFT is Present. Laboratory - Chemistry and C hemistry - challengeOrdered By: Lul Reyes on 2023 Albumin/Globulin [Mass ratio] 1.0 {ratio} 0.9-2.4 [facility] ALP [Catalytic activity/Vol] 63 U/L 45-117 [facility] ALT [Catalytic activity/Vol] 23 U/L 13-56 [facility] CO2 [Moles/Vol] 30.0 mmol/L 21.0-32.0 [facility] Globulin (S) [Mass/Vol] 3.9 g/dL 2.2-4.2 [facility] Urea nitrogen/Creatinine [Mass ratio] 17.2 mg/mg 10-20 [facility] - Hematology and Cell countsOrdered By: Lul Reyes on 2023 MCH (RBC) [Entitic mass] 32.9 pg 27.0-32.0 [facility] MCHC (RBC) [Mass/Vol] 33.8 g/dL 32-36 [facility] Nucleated RBC/100 WBC (Bld) [Ratio] 0 % 0-5 [facility] Platelet mean volume (Bld) [Entitic vol] 9.3 fL 6.2-12.0 [facility] Platelets (Bld) [#/Vol] 395 10*3/uL 150-450 [facility] No Panel InformationOrdered By: Lul Reyes on 2023 Estimated GFR (MDRD) Amer 99 mL/min >60 [facility] Comment on above: GFR Calc Estimated GFR (MDRD) Non-Af Amer 81 mL/min >60 [facility] Comment on above: Non- GFR Calc RBC Auto (Bld) [#/Vol]Ordere d By: Lul Reyes on 2023 RBC (Bld) [#/Vol] 4.34 10*6/uL 4.2-5.4 [facility] Serum or plasma calcium rohith urement (mass/volume)Ordered By: Lul Reyes on 2023 Calcium [Mass/Vol] 10.2 mg/dL 8.5-10.1 [facility] Serum or plasma creatinine m easurement (mass/volume)Ordered By: Lul Reyes on 2023 Creatinine [Mass/Vol] 0.76 mg/dL 0.55-1.02 [facility] Comment on above: The validity of the calculated GFR & GFRAA in patients over 70 years has not been determined. Clinical correlation is essential. Serum or plasma urea nitroge n measurement (mass/volume)Ordered By: Lul Reyes on 2023 Urea nitrogen [Mass/Vol] 13 mg/dL 7-18 [facility] Thin prep Papanicolaou smear with manual screeningOrdered By: Lul Reyes on 2023 Thin prep Papanicolaou smear with manual screening 3.9 g/dL 3.2-5.0 [facility] Thin prep Papanicolaou smear with manual screening 15 U/L 15-37 [facility] Thin prep Papanicolaou smear with manual screening 5 5-15 [facility] Absolute lymphocyte countOrd ered By: Lul Reyes on 04-24-2023 Lymphocytes Auto (Unsp spec) [#/Vol] 2.54 10*3/uL 0.83-4.51 [facility] Basophil percentageOrdered B y: Lul Reyes on 04-24-2023 Basophils/100 WBC (Bld) 0.7 % 0-1 [facility] Bilirubin [Mass/Vol] 0.20 mg/dL 0.20-1.00 [facility] Comment on above: For patients on eltr ombopag therapy, use of Dimension [place] TBIL is not recommended. Chloride [Moles/Vol] 107 mmol/L 98-107 [facility] Eosinophils/100 WBC (Bld) 1.5 % 0-5 [facility] Glucose [Mass/Vol] 115 mg/dL 74-106 [facility] Comment on above: Fasting Glucose resu lt from 100 to 125 mg/dL suggests IMPAIRED HOMEOSTASIS per A.D.A. criteria. Neutrophils (Bld) [#/Vol] 4.0 10*3/uL 2.0-7.7 [facility] Neutrophils/100 WBC (Bld) 55.8 % 47-70 [facility] Potassium [Moles/Vol] 3.5 mmol/L 3.5-5.1 [facility] Protein [Mass/Vol] 6.9 g/dL 6.4-8.2 [facility] Sodium [Moles/Vol] 137 mmol/L 136-145 [facility] WBC (Bld) [#/Vol] 7.2 10*3/uL 4.4-11.0 [facility] Blood erythrocytes count (nu mber/volume)Ordered By: Lul Reyes on 04-24-2023 RBC (Bld) [#/Vol] 3.91 10*6/uL 4.2-5.4 [facility] Blood hemoglobin measurement (mass/volume)Ordered By: Lul Reyes on 04-24-2023 Hemoglobin (Bld) [Mass/Vol] 12.8 g/dL 12.0-15.0 [facility] Blood lymphocytes/100 leukoc ytesOrdered By: Lul Reyes on 04-24-2023 Lymphocytes/100 WBC (Bld) 35.1 % 19-41 [facility] Blood monocytes/100 leukocyt esOrdered By: Lul Reyes on 04-24-2023 Monocytes/100 WBC (Bld) 6.6 % 0-10 [facility] Blood platelet mean volumeOr dered By: Lul Reyes on 04-24-2023 Platelet mean volume (Bld) [Entitic vol] 9.6 fL 6.2-12.0 [facility] Determination of erythrocyte mean corpuscular volume (MCV)Ordered By: Lul Reyes on 04-24-2023 MCV (RBC) [Entitic vol] 101.0 fL 81-99 [facility] Hematocrit Auto (Bld) [Volum e fraction]Ordered By: Lul Reyes on 04-24-2023 Hematocrit (Bld) [Volume fraction] 39.5 % 37-47 [facility] Laboratory - Chemistry and C hemistry - challengeOrdered By: Lul Reyes on 04-24-2023 ALP [Catalytic activity/Vol] 71 U/L 45-117 [facility] ALT [Catalytic activity/Vol] 21 U/L 13-56 [facility] CO2 [Moles/Vol] 26.0 mmol/L 21.0-32.0 [facility] Globulin (S) [Mass/Vol] 3.6 g/dL 2.2-4.2 [facility] Urea nitrogen/Creatinine [Mass ratio] 21.9 mg/mg 10-20 [facility] - Hematology and Cell countsOrdered By: Lul Reyes on 04-24-2023 Erythrocyte distribution width (RBC) [Entitic vol] 47.8 fL 35.1-43.9 [facility] Erythrocyte distribution width (RBC) [Ratio] 12.8 % 11.6-14.6 [facility] Immature granulocytes/100 WBC (Bld) 0.300 % 0.0-0.9 [facility] Comment on above: IG% - Immature Granu locytes (promyelocytes, myelocytes and metamyelocytes) > 1% indicates that a LEFT SHIFT is Present. MCH (RBC) [Entitic mass] 32.7 pg 27.0-32.0 [facility] Nucleated RBC/100 WBC (Bld) [Ratio] 0 % 0-5 [facility] MCHC Auto (RBC) [Mass/Vol]Or dered By: Lul Reyes on 04-24-2023 MCHC (RBC) [Mass/Vol] 32.4 g/dL 32-36 [facility] No Panel InformationOrdered By: Lul Reyes on 04-24-2023 Estimated GFR (MDRD) Amer 111 mL/min >60 [facility] Comment on above: GFR Calc Estimated GFR (MDRD) Non-Af Amer 92 mL/min >60 [facility] Comment on above: Non- GFR Calc Thyroid Stimulating Hormone (TSH) 0.59 uIU/mL 0.358-3.74 [facility] Platelets bldOrdered By: Lul Reyes on 04-24-2023 Platelets (Bld) [#/Vol] 371 10*3/uL 150-450 [facility] Serum or plasma albumin rohith urement (mass/volume)Ordered By: Lul Reyes on 04-24-2023 Albumin [Mass/Vol] 3.3 g/dL 3.2-5.0 [facility] Serum or plasma albumin/glob ulin mass ratioOrdered By: Lul Reyes on 04-24-2023 Albumin/Globulin [Mass ratio] 0.9 {ratio} 0.9-2.4 [facility] Serum or plasma calcium rohith urement (mass/volume)Ordered By: Lul Reyes on 04-24-2023 Calcium [Mass/Vol] 9.2 mg/dL 8.5-10.1 [facility] Serum or plasma creatinine m easurement (mass/volume)Ordered By: Lul Reyes on 04-24-2023 Creatinine [Mass/Vol] 0.68 mg/dL 0.55-1.02 [facility] Comment on above: The validity of the calculated GFR & GFRAA in patients over 70 years has not been determined. Clinical correlation is essential. Serum or plasma urea nitroge n measurement (mass/volume)Ordered By: Lul Reyes on 04-24-2023 Urea nitrogen [Mass/Vol] 15 mg/dL 7-18 [facility] Thin prep Papanicolaou smear with manual screeningOrdered By: Lul Reyes 04-24-2023 Thin prep Papanicolaou smear with manual screening 16 U/L 15-37 [facility] Thin prep Papanicolaou smear with manual screening 4 5-15 [facility] Absolute lymphocyte countOrd ered By: Lul Reyes on 01-13-2023 Lymphocytes Auto (Unsp spec) [#/Vol] 2.29 10*3/uL 0.83-4.51 [facility] Basophil percentageOrdered B y: Lul Reyes on 01-13-2023 Basophils/100 WBC (Bld) 0.9 % 0-1 [facility] Bilirubin [Mass/Vol] 0.20 mg/dL 0.20-1.00 [facility] Comment on above: For patients on eltr ombopag therapy, use of Dimension [place] TBIL is not recommended. Chloride [Moles/Vol] 106 mmol/L 98-107 [facility] Eosinophils/100 WBC (Bld) 1.6 % 0-5 [facility] Glucose [Mass/Vol] 97 mg/dL 74-106 [facility] Neutrophils (Bld) [#/Vol] 4.5 10*3/uL 2.0-7.7 [facility] Neutrophils/100 WBC (Bld) 61.3 % 47-70 [facility] Potassium [Moles/Vol] 3.9 mmol/L 3.5-5.1 [facility] Protein [Mass/Vol] 7.7 g/dL 6.4-8.2 [facility] Sodium [Moles/Vol] 136 mmol/L 136-145 [facility] WBC (Bld) [#/Vol] 7.4 10*3/uL 4.4-11.0 [facility] Blood erythrocytes count (nu mber/volume)Ordered By: Lul Reyes on 01-13-2023 RBC (Bld) [#/Vol] 4.24 10*6/uL 4.2-5.4 [facility] Blood hemoglobin measurement (mass/volume)Ordered By: Lul Reyes on 01-13-2023 Hemoglobin (Bld) [Mass/Vol] 13.9 g/dL 12.0-15.0 [facility] Blood lymphocytes/100 leukoc ytesOrdered By: Lul Reyes on 01-13-2023 Lymphocytes/100 WBC (Bld) 30.9 % 19-41 [facility] Blood monocytes/100 leukocyt esOrdered By: Lul Reyes on 01-13-2023 Monocytes/100 WBC (Bld) 4.9 % 0-10 [facility] Blood platelet mean volumeOr dered By: Lul Reyes on 01-13-2023 Platelet mean volume (Bld) [Entitic vol] 9.3 fL 6.2-12.0 [facility] Determination of erythrocyte mean corpuscular volume (MCV)Ordered By: Lul Reyse on 01-13-2023 MCV (RBC) [Entitic vol] 100.2 fL 81-99 [facility] Hematocrit Auto (Bld) [Volum e fraction]Ordered By: Lul Reyes on 01-13-2023 Hematocrit (Bld) [Volume fraction] 42.5 % 37-47 [facility] Laboratory - Chemistry and C hemistry - challengeOrdered By: Lul Reyes on 01-13-2023 ALP [Catalytic activity/Vol] 65 U/L 45-117 [facility] ALT [Catalytic activity/Vol] 24 U/L 13-56 [facility] CO2 [Moles/Vol] 26.0 mmol/L 21.0-32.0 [facility] Globulin (S) [Mass/Vol] 4.1 g/dL 2.2-4.2 [facility] Urea nitrogen/Creatinine [Mass ratio] 12.9 mg/mg 10-20 [facility] Laboratory - Hematology and Cell countsOrdered By: Lul Reyes on 01-13-2023 Erythrocyte distribution width (RBC) [Entitic vol] 49.3 fL 35.1-43.9 [facility] Erythrocyte distribution width (RBC) [Ratio] 13.4 % 11.6-14.6 [facility] Immature granulocytes/100 WBC (Bld) 0.400 % 0.0-0.9 [facility] Comment on above: IG% - Immature Granu locytes (promyelocytes, myelocytes and metamyelocytes) > 1% indicates that a LEFT SHIFT is Present. MCH (RBC) [Entitic mass] 32.8 pg 27.0-32.0 [facility] Nucleated RBC/100 WBC (Bld) [Ratio] 0 % 0-5 [facility] MCHC Auto (RBC) [Mass/Vol]Or dered By: Lul Reyes on 01-13-2023 MCHC (RBC) [Mass/Vol] 32.7 g/dL 32-36 [facility] No Panel InformationOrdered By: Lul Reyes on 01-13-2023 Estimated GFR (MDRD) Amer 96 mL/min >60 [facility] Comment on above: GFR Calc Estimated GFR (MDRD) Non-Af Amer 79 mL/min >60 [facility] Comment on above: Non- GFR Calc Thyroid Stimulating Hormone (TSH) 1.52 uIU/mL 0.358-3.74 [facility] Platelets bldOrdered By: Lul Reyes on 01-13-2023 Platelets (Bld) [#/Vol] 555 10*3/uL 150-450 [facility] Serum or plasma albumin rohith urement (mass/volume)Ordered By: Lul Reyes on 01-13-2023 Albumin [Mass/Vol] 3.6 g/dL 3.2-5.0 [facility] Serum or plasma albumin/glob ulin mass ratioOrdered By: Lul Reyes on 01-13-2023 Albumin/Globulin [Mass ratio] 0.9 {ratio} 0.9-2.4 [facility] Serum or plasma calcium rohith urement (mass/volume)Ordered By: Lul Reyes on 01-13-2023 Calcium [Mass/Vol] 9.6 mg/dL 8.5-10.1 [facility] Serum or plasma creatinine m easurement (mass/volume)Ordered By: Lul Reyes on 01-13-2023 Creatinine [Mass/Vol] 0.78 mg/dL 0.55-1.02 [facility] Comment on above: The validity of the calculated GFR & GFRAA in patients over 70 years has not been determined. Clinical correlation is essential. Serum or plasma urea nitroge n measurement (mass/volume)Ordered By: Lul Reyes on 01-13-2023 Urea nitrogen [Mass/Vol] 10 mg/dL 7-18 [facility] Thin prep Papanicolaou smear with manual screeningOrdered By: Lul Reyes on 01-13-2023 Thin prep Papanicolaou smear with manual screening 25 U/L 15-37 [facility] Thin prep Papanicolaou smear with manual screening 4 5-15 [facility] No Panel InformationOrdered By: Lul Reyes on 01-09-2023 Influenza Types A,B Direct FA (MANUEL) [facility] RSV Ag EIAOrdered By: Lul ortiz on 01-09-2023 RSV Ag Immune stain Ql (Tiss) [facility] Absolute lymphocyte countOrd ered By: Martinez Wick on 01-07-2023 Lymphocytes Auto (Unsp spec) [#/Vol] 3.68 10*3/uL 0.83-4.51 [facility] Basophil percentageOrdered B y: Martinez Wick on 01-07-2023 Basophil percentage 0 SEEN /hpf 0-5 [facility] Basophils/100 WBC (Bld) 0.8 % 0-1 [facility] Chloride [Moles/Vol] 109 mmol/L 98-107 [facility] Eosinophils/100 WBC (Bld) 1.9 % 0-5 [facility] Glucose [Mass/Vol] 87 mg/dL 74-106 [facility] Neutrophils (Bld) [#/Vol] 4.7 10*3/uL 2.0-7.7 [facility] Neutrophils/100 WBC (Bld) 51.7 % 47-70 [facility] Potassium [Moles/Vol] 3.4 mmol/L 3.5-5.1 [facility] Sodium [Moles/Vol] 141 mmol/L 136-145 [facility] WBC (Bld) [#/Vol] 9.1 10*3/uL 4.4-11.0 [facility] Bilirubin Test strip Ql (U)O rdered By: Martinez Wick on 01-07-2023 Bilirubin Ql (U) Negative Negative [facility] Blood erythrocytes count (nu mber/volume)Ordered By: Martinez Wick on 01-07-2023 RBC (Bld) [#/Vol] 3.98 10*6/uL 4.2-5.4 [facility] Blood hemoglobin measurement (mass/volume)Ordered By: Martinez Wick on 01-07-2023 Hemoglobin (Bld) [Mass/Vol] 13.3 g/dL 12.0-15.0 [facility] Blood lymphocytes/100 leukoc ytesOrdered By: Martinez Wick on 01-07-2023 Lymphocytes/100 WBC (Bld) 40.3 % 19-41 [facility] Blood monocytes/100 leukocyt esOrdered By: Martinez Wick on 01-07-2023 Monocytes/100 WBC (Bld) 5.0 % 0-10 [facility] Blood platelet mean volumeOr dered By: Martinez Wick on 01-07-2023 Platelet mean volume (Bld) [Entitic vol] 8.8 fL 6.2-12.0 [facility] Determination of erythrocyte mean corpuscular volume (MCV)Ordered By: Martinez Wick on 01-07-2023 MCV (RBC) [Entitic vol] 101.0 fL 81-99 [facility] Hematocrit Auto (Bld) [Volum e fraction]Ordered By: Martinez Wick on 01-07-2023 Hematocrit (Bld) [Volume fraction] 40.2 % 37-47 [facility] Influenza virus A and B and SARS-CoV-2 (COVID-19) Ag panel - Upper respiratory specimOrdered By: Martinez Wick on 01-07-2023 SARS-CoV-2 (COVID-19) RNA ALEAH+probe Ql (Resp) [facility] Ketones Test strip Ql (U)Ord ered By: Martinez Wick on 01-07-2023 Ketones Ql (U) Negative Negative [facility] Laboratory - Chemistry and C hemistry - challengeOrdered By: Martinez Wick on 01-07-2023 CO2 [Moles/Vol] 28.0 mmol/L 21.0-32.0 [facility] Magnesium [Mass/Vol] 2.0 mg/dL 1.6-2.6 [facility] Urea nitrogen/Creatinine [Mass ratio] 16.4 mg/mg 10-20 [facility] Laboratory - Hematology and Cell countsOrdered By: Martinez Wick on 01-07-2023 Erythrocyte distribution width (RBC) [Entitic vol] 48.9 fL 35.1-43.9 [facility] Erythrocyte distribution width (RBC) [Ratio] 13.2 % 11.6-14.6 [facility] Immature granulocytes/100 WBC (Bld) 0.300 % 0.0-0.9 [facility] Comment on above: IG% - Immature Granu locytes (promyelocytes, myelocytes and metamyelocytes) > 1% indicates that a LEFT SHIFT is Present. MCH (RBC) [Entitic mass] 33.4 pg 27.0-32.0 [facility] Nucleated RBC/100 WBC (Bld) [Ratio] 0 % 0-5 [facility] MCHC Auto (RBC) [Mass/Vol]Or dered By: Martinez Wick on 01-07-2023 MCHC (RBC) [Mass/Vol] 33.1 g/dL 32-36 [facility] Mucus LM Ql (Urine sed)Order ed By: Martinez Wick on 01-07-2023 Mucus Ql (Urine sed) 0 SEEN /hpf [facility] Nitrite Test strip Ql (U)Ord ered By: Martinez Wick on 01-07-2023 Nitrite Ql (U) Negative Negative [facility] No Panel InformationOrdered By: Martinez Wick on 01-07-2023 Estimated Creatinine Clearance Calc 51.10 ml/min [facility] Estimated GFR (MDRD) Amer 79 mL/min >60 [facility] Comment on above: GFR Calc Estimated GFR (MDRD) Non-Af Amer 66 mL/min >60 [facility] Comment on above: Non- GFR Calc Thyroid Stimulating Hormone (TSH) 1.68 uIU/mL 0.358-3.74 [facility] Platelets bldOrdered By: Barrington Wick on 01-07-2023 Platelets (Bld) [#/Vol] 465 10*3/uL 150-450 [facility] Protein Test strip Ql (U)Ord ered By: Martinez Wick on 01-07-2023 Protein Ql (U) Negative Negative [facility] Serum or plasma calcium rohith urement (mass/volume)Ordered By: Martinez Wick on 01-07-2023 Calcium [Mass/Vol] 9.7 mg/dL 8.5-10.1 [facility] Serum or plasma creatinine m easurement (mass/volume)Ordered By: Martinez Wick on 01-07-2023 Creatinine [Mass/Vol] 0.92 mg/dL 0.55-1.02 [facility] Comment on above: The validity of the calculated GFR & GFRAA in patients over 70 years has not been determined. Clinical correlation is essential. Serum or plasma urea nitroge n measurement (mass/volume)Ordered By: Martinez Wick on 01-07-2023 Urea nitrogen [Mass/Vol] 15 mg/dL 7-18 [facility] Squamous epithelial cells de tection in urine sediment by light microscopyOrdered By: Martinez Wick on 01-07-2023 Epithelial cells.squamous LM Ql (Urine sed) 0 SEEN /hpf 5-10 [facility] Thin prep Papanicolaou smear with manual screeningOrdered By: Martinez Wick on 01-07-2023 Thin prep Papanicolaou smear with manual screening 4 5-15 [facility] Urine blood detectionOrdered By: Martinez Wick on 01-07-2023 RBC Ql (U) 25 /ul Negative [facility] RBC Ql (U) 0-5 SEEN /hpf 0-5 [facility] Urine clarityOrdered By: Barrington Wick on 01-07-2023 Clarity (U) Clear Clear [facility] Urine color determinationOrd ered By: Martinez Wick on 01-07-2023 Color (U) Yellow Yellow [facility] Urine glucose detectionOrder ed By: Martinez Wick on 01-07-2023 Glucose Ql (U) Normal mg/dl Normal [facility] Urine leukocyte esterase det ection by dipstickOrdered By: Martinez Wick on 01-07-2023 Leukocyte esterase Test strip Ql (U) Negative Negative [facility] Urine pHOrdered By: Martinez coffman on 01-07-2023 pH (U) 6.5 [pH] 5.0 - 8.0 [facility] Urine sediment bacteria coun t by microscopy (number/high power field)Ordered By: Martinez Wick on 01-07-2023 Bacteria LM.HPF (Urine sed) [#/Area] 0 /[HPF] None Seen [facility] Urine specific gravity measu rementOrdered By: Martinez Wick on 01-07-2023 Specific gravity (U) [Rel density] 1.010 1.002-1.030 [facility] Urobilinogen Auto test strip Ql (U)Ordered By: Martinez Wick on 01-07-2023 Urobilinogen Ql (U) Normal mg/dl Normal [facility] Absolute lymphocyte countOrd ered By: Dr. Easton on 11-09-2022 Lymphocytes Auto (Unsp spec) [#/Vol] 2.01 10*3/uL 0.83-4.51 [facility] Basophil percentageOrdered B y: Dr. Easton on 11-09-2022 Basophils/100 WBC (Bld) 0.8 % 0-1 [facility] Chloride [Moles/Vol] 108 mmol/L 98-107 [facility] Eosinophils/100 WBC (Bld) 2.6 % 0-5 [facility] Glucose [Mass/Vol] 109 mg/dL 74-106 [facility] Comment on above: Fasting Glucose resu lt from 100 to 125 mg/dL suggests IMPAIRED HOMEOSTASIS per A.D.A. criteria. Neutrophils (Bld) [#/Vol] 3.5 10*3/uL 2.0-7.7 [facility] Neutrophils/100 WBC (Bld) 57.8 % 47-70 [facility] Potassium [Moles/Vol] 4.3 mmol/L 3.5-5.1 [facility] Sodium [Moles/Vol] 140 mmol/L 136-145 [facility] WBC (Bld) [#/Vol] 6.0 10*3/uL 4.4-11.0 [facility] Blood erythrocytes count (nu mber/volume)Ordered By: Dr. Easton on 11-09-2022 RBC (Bld) [#/Vol] 4.19 10*6/uL 4.2-5.4 [facility] Blood hemoglobin measurement (mass/volume)Ordered By: Dr. Easton on 11-09-2022 Hemoglobin (Bld) [Mass/Vol] 14.0 g/dL 12.0-15.0 [facility] Blood lymphocytes/100 leukoc ytesOrdered By: Dr. Easton on 11-09-2022 Lymphocytes/100 WBC (Bld) 33.3 % 19-41 [facility] Blood monocytes/100 leukocyt esOrdered By: Dr. Easton on 11-09-2022 Monocytes/100 WBC (Bld) 5.3 % 0-10 [facility] Blood platelet mean volumeOr dered By: Dr. Easton on 11-09-2022 Platelet mean volume (Bld) [Entitic vol] 9.5 fL 6.2-12.0 [facility] Determination of erythrocyte mean corpuscular volume (MCV)Ordered By: Dr. Easton on 11-09-2022 MCV (RBC) [Entitic vol] 99.5 fL 81-99 [facility] Erythrocyte sedimentation ra teOrdered By: Dr. Easton on 11-09-2022 ESR (Bld) [Velocity] 14 mm/h 0-30 [facility] Hematocrit Auto (Bld) [Volum e fraction]Ordered By: Dr. Easton on 11-09-2022 Hematocrit (Bld) [Volume fraction] 41.7 % 37-47 [facility] Laboratory - Chemistry and C hemistry - challengeOrdered By: Dr. Easton on 11-09-2022 CO2 [Moles/Vol] 28.0 mmol/L 21.0-32.0 [facility] Urea nitrogen/Creatinine [Mass ratio] 16.5 mg/mg 10-20 [facility] Laboratory - Hematology and Cell countsOrdered By: Dr. Easton on 11-09-2022 Erythrocyte distribution width (RBC) [Entitic vol] 45.9 fL 35.1-43.9 [facility] Erythrocyte distribution width (RBC) [Ratio] 12.5 % 11.6-14.6 [facility] Immature granulocytes/100 WBC (Bld) 0.200 % 0.0-0.9 [facility] Comment on above: IG% - Immature Granu locytes (promyelocytes, myelocytes and metamyelocytes) > 1% indicates that a LEFT SHIFT is Present. MCH (RBC) [Entitic mass] 33.4 pg 27.0-32.0 [facility] Nucleated RBC/100 WBC (Bld) [Ratio] 0 % 0-5 [facility] MCHC Auto (RBC) [Mass/Vol]Or dered By: Dr. Easton on 11-09-2022 MCHC (RBC) [Mass/Vol] 33.6 g/dL 32-36 [facility] No Panel InformationOrdered By: Dr. Easton on 11-09-2022 Estimated Creatinine Clearance Calc 64.40 ml/min [facility] Estimated GFR (MDRD) Amer 103 mL/min >60 [facility] Comment on above: GFR Calc Estimated GFR (MDRD) Non-Af Amer 85 mL/min >60 [facility] Comment on above: Non- GFR Calc Platelets bldOrdered By: Dr. Easton on 11-09-2022 Platelets (Bld) [#/Vol] 382 10*3/uL 150-450 [facility] Serum or plasma calcium rohith urement (mass/volume)Ordered By: Dr. Easton on 11-09-2022 Calcium [Mass/Vol] 9.4 mg/dL 8.5-10.1 [facility] Serum or plasma creatinine m easurement (mass/volume)Ordered By: Dr. Easton on 11-09-2022 Creatinine [Mass/Vol] 0.73 mg/dL 0.55-1.02 [facility] Comment on above: The validity of the calculated GFR & GFRAA in patients over 70 years has not been determined. Clinical correlation is essential. Serum or plasma urea nitroge n measurement (mass/volume)Ordered By: Dr. Easton on 11-09-2022 Urea nitrogen [Mass/Vol] 12 mg/dL 7-18 [facility] Thin prep Papanicolaou smear with manual screeningOrdered By: Dr. Easton on 11-09-2022 Thin prep Papanicolaou smear with manual screening 4 5-15 [facility] Absolute lymphocyte countOrd ered By: Dr. Reyes on 10-16-2022 Lymphocytes Auto (Unsp spec) [#/Vol] 3.16 10*3/uL 0.83-4.51 [facility] Basophil percentageOrdered B y: Dr. Reyes on 10-16-2022 Basophils/100 WBC (Bld) 0.7 % 0-1 [facility] Bilirubin [Mass/Vol] 0.10 mg/dL 0.20-1.00 [facility] Comment on above: For patients on eltr ombopag therapy, use of Dimension [place] TBIL is not recommended. Chloride [Moles/Vol] 106 mmol/L 98-107 [facility] Eosinophils/100 WBC (Bld) 2.1 % 0-5 [facility] Glucose [Mass/Vol] 96 mg/dL 74-106 [facility] Neutrophils (Bld) [#/Vol] 4.4 10*3/uL 2.0-7.7 [facility] Neutrophils/100 WBC (Bld) 52.8 % 47-70 [facility] Potassium [Moles/Vol] 4.4 mmol/L 3.5-5.1 [facility] Protein [Mass/Vol] 7.8 g/dL 6.4-8.2 [facility] Sodium [Moles/Vol] 136 mmol/L 136-145 [facility] WBC (Bld) [#/Vol] 8.3 10*3/uL 4.4-11.0 [facility] Blood erythrocytes count (nu mber/volume)Ordered By: Dr. Reyes on 10-16-2022 RBC (Bld) [#/Vol] 4.42 10*6/uL 4.2-5.4 [facility] Blood hemoglobin measurement (mass/volume)Ordered By: Dr. Reyes on 10-16-2022 Hemoglobin (Bld) [Mass/Vol] 14.7 g/dL 12.0-15.0 [facility] Blood lymphocytes/100 leukoc ytesOrdered By: Dr. Reyes on 10-16-2022 Lymphocytes/100 WBC (Bld) 38.2 % 19-41 [facility] Blood monocytes/100 leukocyt esOrdered By: Dr. Reyes on 10-16-2022 Monocytes/100 WBC (Bld) 5.8 % 0-10 [facility] Blood platelet mean volumeOr dered By: Dr. Reyes on 10-16-2022 Platelet mean volume (Bld) [Entitic vol] 8.4 fL 6.2-12.0 [facility] Determination of erythrocyte mean corpuscular volume (MCV)Ordered By: Dr. Reyes on 10-16-2022 MCV (RBC) [Entitic vol] 102.3 fL 81-99 [facility] Hematocrit Auto (Bld) [Volum e fraction]Ordered By: Dr. Reyes on 10-16-2022 Hematocrit (Bld) [Volume fraction] 45.2 % 37-47 [facility] Laboratory - Chemistry and C hemistry - challengeOrdered By: Dr. Reyes on 10-16-2022 ALP [Catalytic activity/Vol] 68 U/L 45-117 [facility] ALT [Catalytic activity/Vol] 21 U/L 13-56 [facility] CO2 [Moles/Vol] 27.0 mmol/L 21.0-32.0 [facility] Globulin (S) [Mass/Vol] 4.0 g/dL 2.2-4.2 [facility] Urea nitrogen/Creatinine [Mass ratio] 18.8 mg/mg 10-20 [facility] Laboratory - Hematology and Cell countsOrdered By: Dr. Reyes on 10-16-2022 Erythrocyte distribution width (RBC) [Entitic vol] 46.9 fL 35.1-43.9 [facility] Erythrocyte distribution width (RBC) [Ratio] 12.5 % 11.6-14.6 [facility] Immature granulocytes/100 WBC (Bld) 0.400 % 0.0-0.9 [facility] Comment on above: IG% - Immature Granu locytes (promyelocytes, myelocytes and metamyelocytes) > 1% indicates that a LEFT SHIFT is Present. MCH (RBC) [Entitic mass] 33.3 pg 27.0-32.0 [facility] Nucleated RBC/100 WBC (Bld) [Ratio] 0 % 0-5 [facility] MCHC Auto (RBC) [Mass/Vol]Or dered By: Dr. Reyes on 10-16-2022 MCHC (RBC) [Mass/Vol] 32.5 g/dL 32-36 [facility] No Panel InformationOrdered By: Dr. Reyes on 10-16-2022 Estimated GFR (MDRD) Amer 71 mL/min >60 [facility] Comment on above: GFR Calc Estimated GFR (MDRD) Non-Af Amer 59 mL/min >60 [facility] Comment on above: Non- GFR Calc Hepatitis C Antibody Non-Reactive Nonreactive [facility] Comment on above: Non Reactive: < 0.8 Equivocal: >/= 0.8 to < 1.0 Reactive: >/= 1.0The CDC recommends that a reactive/equivocal HCV antibody result be followed up by the HCV Nucleic Acid Amplificationtest (593325) Thyroid Stimulating Hormone (TSH) 1.80 uIU/mL 0.358-3.74 [facility] Platelets bldOrdered By: Dr. Reyes on 10-16-2022 Platelets (Bld) [#/Vol] 443 10*3/uL 150-450 [facility] Serum or plasma albumin rohith urement (mass/volume)Ordered By: Dr. Reyes on 10-16-2022 Albumin [Mass/Vol] 3.8 g/dL 3.2-5.0 [facility] Serum or plasma albumin/glob ulin mass ratioOrdered By: Dr. Reyes on 10-16-2022 Albumin/Globulin [Mass ratio] 1.0 {ratio} 0.9-2.4 [facility] Serum or plasma calcium rohith urement (mass/volume)Ordered By: Dr. Reyes on 10-16-2022 Calcium [Mass/Vol] 10.5 mg/dL 8.5-10.1 [facility] Serum or plasma creatinine m easurement (mass/volume)Ordered By: Dr. Reyes on 10-16-2022 Creatinine [Mass/Vol] 1.01 mg/dL 0.55-1.02 [facility] Comment on above: The validity of the calculated GFR & GFRAA in patients over 70 years has not been determined. Clinical correlation is essential. Serum or plasma urea nitroge n measurement (mass/volume)Ordered By: Dr. Reyes on 10-16-2022 Urea nitrogen [Mass/Vol] 19 mg/dL 7-18 [facility] Thin prep Papanicolaou smear with manual screeningOrdered By: Dr. Reyes on 10-16-2022 Thin prep Papanicolaou smear with manual screening 19 U/L 15-37 [facility] Thin prep Papanicolaou smear with manual screening 3 5-15 [facility] XR CHEST 2V FRONTAL/LATon [facility] XR Chest PA and Lateralon IMPRESSION: No acute radiographic abnormality. Fleece Tier: PSCB Transcribe Date/Time: Oct 14 2022 8:18A Dictated by : RONALDO ENGLE MD This examination was interpreted and the report reviewed and electronically signed by: RONALDO ENGLE MD on Oct 14 2022 8:22AM [facility] DIVISION OF RADIOLOGY * * *Final Report* * * DATE OF EXAM: Oct 14 2022 8:10AM WOX [id number] - XR CHEST 2V FRONTAL/LAT / PROCEDURE REASON: Acute cough * * * * Physician Interpretation * * * * EXAMINATION: CHEST RADIOGRAPH (2 VIEW FRONTAL & LATERAL) CLINICAL HISTORY: Acute cough MQ: XC2_6 EXAM DATE/TIME: 10/14/2022 8:10 AM COMPARISON: Chest x-ray 05/14/2018 RESULT: Lines, tubes, and devices: None. Lungs and pleura: No consolidation. No lung mass. No pleural effusion. No pneumothorax. Cardiomediastinal silhouette: Normal cardiomediastinal silhouette. Bones and soft tissues: Unremarkable. DIVISION OF RADIOLOGY Provider, [facility] - 10/14/2022 * * *Final Report* * * DATE OF EXAM: Oct 14 2022 8:10AM WOX [id number] - XR CHEST 2V FRONTAL/LAT / PROCEDURE REASON: Acute cough * * * * Physician Interpretation * * * * EXAMINATION: CHEST RADIOGRAPH (2 VIEW FRONTAL & LATERAL) CLINICAL HISTORY: Acute cough MQ: XC2_6 EXAM DATE/TIME: 10/14/2022 8:10 AM COMPARISON: Chest x-ray 05/14/2018 RESULT: Lines, tubes, and devices: None. Lungs and pleura: No consolidation. No lung mass. No pleural effusion. No pneumothorax. Cardiomediastinal silhouette: Normal cardiomediastinal silhouette. Bones and soft tissues: Unremarkable. IMPRESSION IMPRESSION: No acute radiographic abnormality. Fleece Tier: PSCB Transcribe Date/Time: Oct 14 2022 8:18A Dictated by : RONALDO ENGLE MD This examination was interpreted and the report reviewed and electronically signed by: RONALDO ENGLE MD on Oct 14 2022 8:22AM EST [facility] Radiology Study observation (narrative) [facility] XR Chest PA and LateralOrder ed By: [facility] Provider on 10-14-2022 [facility] CBC panel Auto (Bld)on 11-15 Erythrocyte distribution width (RBC) [Ratio] 13.2 % 11.5 - 15.0 % [facility] Hematocrit (Bld) [Volume fraction] 44.2 % 36.0 - 46.0 % [facility] Hemoglobin (Bld) [Mass/Vol] 14.3 g/dL 11.5 - 15.5 g/dL [facility] MCH (RBC) [Entitic mass] 32.9 pg 26.0 - 34.0 pg [facility] MCHC (RBC) [Mass/Vol] 32.4 g/dL 30.5 - 36.0 g/dL [facility] MCV (RBC) [Entitic vol] 101.8 fL High 80.0 - 100.0 fL [facility] Nucleated RBC (Bld) [#/Vol] 10*3/uL <0.01 k/uL [facility] Platelet mean volume (Bld) [Entitic vol] 8.8 fL Low 9.0 - 12.7 fL [facility] Platelets (Bld) [#/Vol] 477 10*3/uL High 150 - 400 k /uL [facility] RBC (Bld) [#/Vol] 4.34 10*6/uL 3.90 - 5.2 0 m/uL [facility] WBC (Bld) [#/Vol] 8.19 10*3/uL 3.70 - 11. 00 k/uL [facility] Comprehensive metabolic 2000 panelon 11-15-2021 Albumin [Mass/Vol] 4.2 g/dL 3.9 - 4.9 g/dL [facility] ALP [Catalytic activity/Vol] 67 U/L 34 - 123 U/L [facility] ALT [Catalytic activity/Vol] 13 U/L 7 - 38 U/L [facility] Anion gap [Moles/Vol] 10 mmol/L 9 - 18 mmol/L [facility] AST [Catalytic activity/Vol] 22 U/L 13 - 35 U/L [facility] Bilirubin [Mass/Vol] 0.2 mg/dL 0.2 - 1 .3 mg/dL [facility] Calcium [Mass/Vol] 10.5 mg/dL High 8.5 - 10. 2 mg/dL [facility] Chloride [Moles/Vol] 106 mmol/L High 97 - 10 5 mmol/L [facility] CO2 [Moles/Vol] 23 mmol/L 22 - 30 mmol/L [facility] Creatinine [Mass/Vol] 0.73 mg/dL 0.58 - 0.96 mg/dL [facility] Estimated Glomerular Filtration Rate 93 mL/min/1.73m >=60 mL/min/1.73m [facility] Glucose [Mass/Vol] 114 mg/dL High 74 - 99 mg/dL [facility] Potassium [Moles/Vol] 4.6 mmol/L 3.7 - 5.1 mmol/L [facility] Protein [Mass/Vol] 7.4 g/dL 6.3 - 8.0 g/dL [facility] Sodium [Moles/Vol] 139 mmol/L 136 - 144 mmol/L [facility] Urea nitrogen [Mass/Vol] 15 mg/dL 7 - 21 mg/d L [facility] PTH INTACT BLDon 11-15-2021 Parathyrin.intact [Mass/Vol] 43 pg/mL 15 - 65 pg/mL [facility] T4 FREE/FREE THYROXon 2021 Free T4 [Mass/Vol] 1.1 ng/dL 0.9 - 1.7 ng/dL [facility] XR Neck AP and Lateralon * * *Final Report* * * DATE OF EXAM: Nov 14 2021 6:06PM WOX [id number] - XR NECK SOFT TISSUE 2V AP/LAT / PROCEDURE REASON: multiple diagnoses * * * * Physician Interpretation * * * * Indication: Left-sided neck pain. Jaw pain. Comparison: None AP and lateral x-rays of the soft tissues of the neck are obtained. Airway is patent. No radiodense foreign body. 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 No prevertebral soft tissue swelling. 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 Jaw pain. Comparison: None AP and lateral x-rays of the soft tissues of the neck are obtained. Airway is patent. No radiodense foreign body. 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 No prevertebral soft tissue swelling. 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: [facility] Transcribe Date/Time: Nov 15 2021 9:51A Dictated by : RONALDO ENGLE MD This examination was interpreted and the report reviewed and electronically signed by: RONALDO ENGLE MD on Nov 15 2021 9:53AM EST [facility] XR Neck AP and LateralOrdere d By: [facility] Provider on 11-15-2021 [facility] XR NECK SOFT TISSUE 2V AP/LA Ton 11-14-2021 [facility] XR Neck AP and Lateralon Radiology Study observation (narrative) [facility] XR Foot - left AP and Latera l and obliqueon 01-29-2021 IMPRESSION: Nutrient channel versus oblique nondisplaced fracture of the fourth proximal phalanx. Correlation with physical examination for possible point tenderness in this region. Additionally, if indicated a follow-up radiograph in one week may be obtained. Fleece Tier: [place] Transcribe Date/Time: Jan 29 2021 10:52A Dictated by : LEONA AMARO MD This examination was interpreted and the report reviewed and electronically signed by: LEONA AMARO MD on Jan 29 2021 10:54AM EST DIVISION OF RADIOLOGY * * *Final Report* * * DATE OF EXAM: Jan 29 2021 9:08AM WOX 5336 - XR FOOT 3V AP/LAT/OBL LT / PROCEDURE REASON: Foot pain, left * * * * Physician Interpretation * * * * CLINICAL INDICATION: Random into stool TECHNIQUE: 3 view radiographic study of the left foot COMPARISON: None FINDINGS: Questioned oblique nondisplaced fracture versus nutrient channel of the fourth proximal phalanx. No additional osseous injury identified. DIVISION OF RADIOLOGY Provider, [facility] - 01/29/2021 * * *Final Report* * * DATE OF EXAM: Jan 29 2021 9:08AM WOX 5336 - XR FOOT 3V AP/LAT/OBL LT / PROCEDURE REASON: Foot pain, left * * * * Physician Interpretation * * * * CLINICAL INDICATION: Random into stool TECHNIQUE: 3 view radiographic study of the left foot COMPARISON: None FINDINGS: Questioned oblique nondisplaced fracture versus nutrient channel of the fourth proximal phalanx. No additional osseous injury identified. IMPRESSION IMPRESSION: Nutrient channel versus oblique nondisplaced fracture of the fourth proximal phalanx. Correlation with physical examination for possible point tenderness in this region. Additionally, if indicated a follow-up radiograph in one week may be obtained. [facility] Transcribe Date/Time: Jan 29 2021 10:52A Dictated by : LEONA AMARO MD This examination was interpreted and the report reviewed and electronically signed by: LEONA AMARO MD on Jan 29 2021 10:54AM EST [facility] Radiology Study observation (narrative) Ishmael ferraro [facility] XR Foot - left AP and Latera l and obliqueOrdered By: [facility] Provider on 01-29-2021 [facility] Vital Signs Date Time Vital Sign Value Performing Clinician Facility 10-03-2024 08:45-0400 Body mass index (BMI) [Ratio] 19.41 kg/m2 Pearl Swanson APRN.DIRECTOR CARDIOLOGY Work Phone: [facility] 10-03-2024 08:45-0400 Body temperature 97.59 [degF] Pearl Swanson APRN.DIRECTOR CARDIOLOGY Work Phone: [facility] 10-03-2024 08:45-0400 Body weight 49.7 kg Pearl Swanson APRN.DIRECTOR CARDIOLOGY Work Phone: [facility] 10-03-2024 08:45-0400 Diastolic blood pressure 68 mm[Hg] Pearl Swanson APRN.DIRECTOR CARDIOLOGY Work Phone: [facility] 10-03-2024 08:45-0400 Heart rate 123 /min Pearl Swanson APRN.DIRECTOR CARDIOLOGY Work Phone: [facility] 10-03-2024 08:45-0400 Respiratory rate 18 /min Pearl Swanson APRN.DIRECTOR CARDIOLOGY Work Phone: [facility] 10-03-2024 08:45-0400 SaO2% (BldA) [Mass fraction] 99 % Pearl Swanson APRN.DIRECTOR CARDIOLOGY Work Phone: [facility] 10-03-2024 08:45-0400 Systolic blood pressure 109 mm[Hg] Pearl Swanson APRN.DIRECTOR CARDIOLOGY Work Phone: [facility] 11-15-2023 10:30-0400 Body mass index (BMI) [Ratio] 20.46 kg/m2 Krislyn Aberegg PA Work Phone: [facility] 11-15-2023 10:30-0400 Body temperature 98.91 [degF] Krislyn Aberegg PA Work Phone: [facility] 11-15-2023 10:30-0400 Body weight 52.4 kg Krislyn Aberegg PA Work Phone: [facility] 11-15-2023 10:30-0400 Diastolic blood pressure 80 mm[Hg] Krislyn Aberegg PA Work Phone: [facility] 11-15-2023 10:30-0400 Heart rate 103 /min Krislyn Aberegg PA Work Phone: [facility] 11-15-2023 10:30-0400 Respiratory rate 18 /min Krislyn Aberegg PA Work Phone: [facility] 11-15-2023 10:30-0400 SaO2% (BldA) [Mass fraction] 98 % Krislyn Aberegg PA Work Phone: [facility] 11-15-2023 10:30-0400 Systolic blood pressure 122 mm[Hg] Krislyn Aberegg PA Work Phone: [facility] 2023 14:50-0500 Diastolic blood pressure 76 mm[Hg] [facility] 2023 14:50-0500 Heart rate 69 /min [facility] 2023 14:50-0500 Respiratory rate 16 /min [facility] 2023 14:50-0500 Systolic blood pressure 113 mm[Hg] [facility] 2023 12:05-0500 Body height 160.02 cm [facility] 2023 12:05-0500 Body mass index (BMI) [Ratio] 20.5 kg/m2 [facility] 2023 12:05-0500 Body temperature 96 [degF] [facility] 2023 12:05-0500 Body weight 52.61 kg [facility] 2023 12:05-0500 SaO2% (BldA) [Mass fraction] 115 % [facility] 04-12-2023 08:09-0400 Body temperature 97.3 [degF] Zahra Marcano APRN.DIRECTOR CARDIOLOGY Work Phone: [facility] 04-12-2023 08:09-0400 Body weight 52.07 kg Zahra Navarro-Ric PHARMACOGNOSIST.DIRECTOR CARDIOLOGY Work Phone: [facility] 04-12-2023 08:09-0400 Diastolic blood pressure 76 mm[Hg] Zahra Praisler-Wood PHARMACOGNOSIST.DIRECTOR CARDIOLOGY Work Phone: [facility] 04-12-2023 08:09-0400 Heart rate 111 /min Zahra Praisler-Wood PHARMACOGNOSIST.DIRECTOR CARDIOLOGY Work Phone: [facility] 04-12-2023 08:09-0400 Respiratory rate 20 /min Zahra Praisler-Wood PHARMACOGNOSIST.DIRECTOR CARDIOLOGY Work Phone: [facility] 04-12-2023 08:09-0400 SaO2% (BldA) [Mass fraction] 96 % Zahra Praisler-Wood PHARMACOGNOSIST.DIRECTOR CARDIOLOGY Work Phone: [facility] 04-12-2023 08:09-0400 Systolic blood pressure 109 mm[Hg] Zahra Praisler-Wood PHARMACOGNOSIST.[facility] Work Phone: [facility] 01-08-2023 01:10-0400 Diastolic blood pressure 79 mm[Hg] [facility] 01-08-2023 01:10-0400 Heart rate 61 /min [facility] 01-08-2023 01:10-0400 Respiratory rate 18 /min [facility] 01-08-2023 01:10-0400 SaO2% (BldA) [Mass fraction] 99 % [facility] 01-08-2023 01:10-0400 Systolic blood pressure 116 mm[Hg] [facility] 01-07-2023 17:43-0400 Body height 160.02 cm [facility] 01-07-2023 17:43-0400 Body mass index (BMI) [Ratio] 20.5 kg/m2 [facility] 01-07-2023 17:43-0400 Body temperature 97.1 [degF] [facility] 01-07-2023 17:43-0400 Body weight 52.61 kg [facility] 11-09-2022 11:00-0400 Heart rate 87 /min [facility] 11-09-2022 11:00-0400 Respiratory rate 18 /min [facility] 11-09-2022 11:00-0400 SaO2% (BldA) [Mass fraction] 100 % [facility] 11-09-2022 08:57-0400 Body height 160.02 cm [facility] 11-09-2022 08:57-0400 Body mass index (BMI) [Ratio] 20.9 kg/m2 [facility] 11-09-2022 08:57-0400 Body temperature 97.1 [degF] [facility] 11-09-2022 08:57-0400 Body weight 53.52 kg [facility] 11-09-2022 08:57-0400 Diastolic blood pressure 86 mm[Hg] [facility] 11-09-2022 08:57-0400 Systolic blood pressure 121 mm[Hg] [facility] 10-14-2022 07:11-0400 Body temperature 97.11 [degF] Yani Bogner PA-C Work Phone: [facility] 10-14-2022 07:11-0400 Body weight 55.61 kg Yani Bogner PA-C Work Phone: [facility] 10-14-2022 07:11-0400 Diastolic blood pressure 72 mm[Hg] Yani Bogner PA-C Work Phone: [facility] 10-14-2022 07:11-0400 Heart rate 96 /min Yani Bogner PA-C Work Phone: [facility] 10-14-2022 07:11-0400 Respiratory rate 18 /min Yani Bogner PA-C Work Phone: [facility] 10-14-2022 07:11-0400 SaO2% (BldA) [Mass fraction] 97 % Yani Bogner PA-C Work Phone: [facility] 10-14-2022 07:11-0400 Systolic blood pressure 116 mm[Hg] Yani Bogner PA-C Work Phone: [facility] 05-31-2022 11:37-0500 Body temperature 98.6 [degF] Sheldon Keys MD Work Phone: [facility] 05-31-2022 11:37-0500 Body weight 55.43 kg Sheldon Keys MD Work Phone: [facility] 05-31-2022 11:37-0500 Diastolic blood pressure 82 mm[Hg] Sheldon Keys MD Work Phone: [facility] 05-31-2022 11:37-0500 Heart rate 70 /min Sheldon Keys MD Work Phone: [facility] 05-31-2022 11:37-0500 Respiratory rate 18 /min Sheldon Keys MD Work Phone: [facility] 05-31-2022 11:37-0500 SaO2% (BldA) [Mass fraction] 97 % Sheldon Keys MD Work Phone: [facility] 05-31-2022 11:37-0500 Systolic blood pressure 124 mm[Hg] Sheldon Keys MD Work Phone: [facility] 01-31-2022 07:46-0400 Body weight 55.79 kg Meenu Sidhu PHARMACOGNOSIST.MERCH[employer]ISE FOR [employer] 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 Work Phone: [facility] 01-31-2022 07:46-0400 Diastolic blood pressure 78 mm[Hg] Meenu Sidhu PHARMACOGNOSIST.MERCH[employer]ISE FOR 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 Work Phone: [facility] 01-31-2022 07:46-0400 Heart rate 82 /min Meenu Sidhu PHARMACOGNOSIST.MERCHANDISE FOR [employer]ALE 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 Work Phone: [facility] 01-31-2022 07:46-0400 Respiratory rate 16 /min Meenu Sidhu PHARMACOGNOSIST.MERCHANDISE FOR [employer]ALE 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 Work Phone: [facility] 01-31-2022 07:46-0400 SaO2% (BldA) [Mass fraction] 96 % Meenu Sidhu PHARMACOGNOSIST.MERCHANDISE FOR [employer]ALE 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 Work Phone: [facility] 01-31-2022 07:46-0400 Systolic blood pressure 112 mm[Hg] Meenu Sidhu PHARMACOGNOSIST.MERCHANDISE FOR [employer]ALE 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 Work Phone: [facility] 01-27-2022 12:26-0400 Body temperature 98.1 [degF] Erika Athy PA-C Work Phone: [facility] 01-27-2022 12:26-0400 Body weight 52.53 kg Erika Athy PA-C Work Phone: [facility] 01-27-2022 12:26-0400 Diastolic blood pressure 78 mm[Hg] Erika Athy PA-C Work Phone: [facility] 01-27-2022 12:26-0400 Heart rate 98 /min Erika Athy PA-C Work Phone: [facility] 01-27-2022 12:26-0400 Respiratory rate 20 /min Erika Athy PA-C Work Phone: [facility] 01-27-2022 12:26-0400 SaO2% (BldA) [Mass fraction] 97 % Erika Athy PA-C Work Phone: [facility] 01-27-2022 12:26-0400 Systolic blood pressure 115 mm[Hg] Erika Athy PA-C Work Phone: [facility] 11-14-2021 16:00-0400 Body weight 53.52 kg Sofia Medina MD Work Phone: [facility] 11-14-2021 16:00-0400 Diastolic blood pressure 78 mm[Hg] Sofia Medina MD Work Phone: [facility] 11-14-2021 16:00-0400 Heart rate 86 /min Sofia Medina MD Work Phone: [facility] 11-14-2021 16:00-0400 Systolic blood pressure 112 mm[Hg] Sofia Medina MD Work Phone: [facility] 11-10-2021 19:16-0400 Body height 157.48 cm [facility] Work Phone: 11-10-2021 19:16-0400 Body mass index (BMI) [Ratio] 21.9 kg/m2 [facility] Work Phone: 11-10-2021 19:16-0400 Body temperature 98 [degF] [facility] Work Phone: 11-10-2021 19:16-0400 Body weight 54.43 kg [facility] Work Phone: 11-10-2021 19:16-0400 Diastolic blood pressure 91 mm[Hg] [facility] Work Phone: 11-10-2021 19:16-0400 Heart rate 111 /min [facility] Work Phone: 11-10-2021 19:16-0400 Respiratory rate 18 /min [facility] Work Phone: 11-10-2021 19:16-0400 SaO2% (BldA) [Mass fraction] 97 % [facility] Work Phone: 11-10-2021 19:16-0400 Systolic blood pressure 122 mm[Hg] [facility] Work Phone: 08-20-2021 14:42-0500 Diastolic blood pressure 73 mm[Hg] [facility] Work Phone: 08-20-2021 14:42-0500 Heart rate 84 /min [facility] Work Phone: 08-20-2021 14:42-0500 Respiratory rate 18 /min [facility] Work Phone: 08-20-2021 14:42-0500 Systolic blood pressure 118 mm[Hg] [facility] Work Phone: 08-20-2021 11:19-0500 Body mass index (BMI) [Ratio] 20.5 kg/m2 [facility] Work Phone: 08-20-2021 11:19-0500 Body temperature 97.1 [degF] [facility] Work Phone: 08-20-2021 11:19-0500 Body weight 54.43 kg [facility] Work Phone: 08-20-2021 11:19-0500 SaO2% (BldA) [Mass fraction] 97 % [facility] Work Phone: Encounters Encounter Date Encounter Type Care Provider Facility Start: 10-03-2024 End: 10-03-2024 ambulatory [facility] Facility:[facility] Start: 10-03-2024 End: 10-03-2024 Patient encounter procedure Pearl Swanson APRN.DIRECTOR CARDIOLOGY Work Phone: [facility] Comment on above: Dizziness (Primary D x) Start: 09-02-2024 End: 09-02-2024 ambulatory [facility] Facility:[facility] Start: 09-02-2024 End: 09-02-2024 Patient encounter procedure Kiki Carroll OD Work Phone: Optometry Comment on above: Presbyopia (Primary Dx); Regular astigmatism of both eyes; Age-related nuclear cataract of both eyes Start: 09-01-2024 End: 09-01-[address] Lul Reyes MD Work Phone: [facility] Work Phone: Start: 09-01-2024 End: 09-01-[address] Lul Reyes MD -Radiology, [facility] Work Phone: Start: 09-01-2024 End: 09-01-20[facility] Start: 05-23-2024 ambulatory [facility] Facility:[facility] Start: 05-17-2024 End: 05-17-[address] Lul Reyes MD -Cat Scan, [facility] Work Phone: Start: 05-17-2024 End: 05-17-[address] Lul Reyes MD -Laboratory, Phy Office 3rd Flr Start: 05-17-2024 End: 05-17-2024 ambulatory Lul [facility] Facility:[facility] Start: 12-04-2023 End: 12-05-2023 ambulatory [facility] Facility:[facility] Start: 12-01-2023 End: 12-01-2023 ambulatory [facility] Facility:[facility] Start: 11-15-2023 End: 11-15-2023 Patient encounter procedure Ruby BULLARD Work Phone: [facility] Comment on above: Generalized abdomina l pain (Primary Dx) Start: 11-15-2023 End: 11-15-2023 ambulatory [facility] Facility:[facility] Start: 11-03-2023 End: 11-03-2023 ambulatory [facility] Work Phone: Start: 11-03-2023 End: 11-03-2023 Patient encounter procedure [facility] Work Phone: Start: 11-03-2023 End: 11-03-2023 ambulatory [facility] Facility:[facility] Start: 2023 End: 2023 ambulatory [facility] Work Phone: Start: 2023 End: 2023 Patient encounter procedure [facility]-Cat Scan, [facility] Work Phone: Start: 07-30-2023 ambulatory Jefferson bustillo MD Work Phone: Internal Medicine [facility] Start: 04-24-2023 End: 04-24-2023 ambulatory [facility] Work Phone: Start: 04-24-2023 End: 04-24-2023 Patient encounter procedure [facility]-Laboratory, Phy Office 3rd Flr Start: 04-12-2023 End: 04-12-2023 Patient encounter procedure Zahra Marcano APRN.CNP Work Phone: [facility] Comment on above: Cellulitis of ear ca nal, left (Primary Dx); Other acute nonsuppurative otitis media of left ear, recurrence not specified Start: 01-13-2023 End: 01-13-2023 ambulatory [facility] Work Phone: Start: 01-13-2023 End: 01-13-2023 [facility] Start: 01-09-2023 End: 01-09-2023 Patient encounter procedure [facility]Pulmonary Services/Neurology Work Phone: Start: 01-07-2023 End: 01-08-2023 [facility] Start: 11-09-2022 End: 11-09-2022 [facility] Start: 10-16-2022 End: 10-16-2022 ambulatory [facility] Work Phone: Start: 10-16-2022 End: 10-16-2022 [facility] Start: 10-16-2022 Telephone encounter Jose Angel zuluaga APRN.DIRECTOR CARDIOLOGY Work Phone: [facility] Comment on above: Results Start: 10-14-2022 End: 10-14-2022 Subsequent hospital visit by physician [facility] Work Phone: Radiology Comment on above: Acute cough [R05.1] Start: 10-14-2022 End: 10-14-2022 Office outpatient visit 25 minutes Yani Pollard PA-C Work Phone: [facility] Comment on above: Acute cough (Primary Dx); Tongue burning sensation Start: 08-21-2022 ambulatory Jefferson bustillo MD Work Phone: Internal Medicine [facility] Start: 05-31-2022 End: 05-31-2022 Patient encounter procedure Sheldon Keys MD Work Phone: [facility] Comment on above: Influenza-like illne ss (Primary Dx) Start: 05-08-2022 ambulatory Jefferson bustillo MD Work Phone: Ambulatory Surgery Start: 01-31-2022 End: 01-31-2022 Patient encounter procedure Meenu Sidhu APRN.MERCH[employer]ISE FOR [employer] 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 Work Phone: [facility] [place] Comment on above: Leg swelling (Primar y Dx); Bilateral leg pain; Smoker; Short of breath on exertion Start: 01-29-2022 ambulatory Sofia shaffer MD Work Phone: [facility] [place] Comment on above: Ankle Pain Start: 01-28-2022 Telephone encounter Pearl Swanson MARTHA Work Phone: [facility] Comment on above: Results Start: 01-27-2022 End: 01-27-2022 Patient encounter procedure Erika Wilkinson PA-C Work Phone: [facility] Comment on above: Vomiting and diarrhe a (Primary Dx) Start: 01-07-2022 Telephone encounter Sofia venegas MD Work Phone: [facility] [place] Comment on above: Results Start: 11-14-2021 End: 11-14-2021 Subsequent hospital visit by physician [facility] Work Phone: Radiology Comment on above: Neck pain on left si de [M54.2] Start: 11-14-2021 End: 11-14-2021 Office outpatient visit 40 minutes Sofia Medina MD Work Phone: [facility] [place] Comment on above: Neck pain on left si de (Primary Dx); Jaw pain; Tenderness of left temporomandibular joint; Bruise; Temporomandibular joint disorder; Localized swelling, mass or lump of neck; Lymphadenopathy; Hypercalcemia Start: 11-10-2021 End: 11-10-2021 [facility] Start: 08-20-2021 End: 08-20-2021 [facility] Start: 01-29-2021 End: 01-29-2021 Subsequent hospital visit by physician [facility] Work Phone: Radiology Comment on above: Foot pain, left [M79 .672] Procedures Date Procedure Procedure Detail Performing Clinician Start: 09-01-2024 X-ray of thoracic sp ine, three views Dr. Lul Reyes MD Work Phone: Start: 05-17-2024 Computed tomography of abdomen and pelvis with contrast Dr. Lul Reyes MD Work Phone: Start: 2023 Urine culture Start: 2023 Computed tomography of abdomen and pelvis with contrast Start: 01-09-2023 Influenza Types A,B Direct FA (MANUEL) Start: 01-09-2023 Respiratory syncytia l virus antigen assay Start: 01-07-2023 SARS-CoV-2 & FLU Ant igen (Rapid) Start: 11-09-2022 Plain chest X-ray Start: 11-09-2022 CT angiography of he ad and neck Start: 10-14-2022 Radiologic exam ches t 2 views Yani Pollard PA-C Work Phone: Start: 11-14-2021 Radiologic examinati on neck soft tissue Sofia Medina MD Work Phone: Start: 08-20-2021 CT of head without contrast Start: 07-05-2021 Mammography Sofia logan MD Work Phone: Start: 01-29-2021 Radex foot complete minimum 3 views Sheldon Keys MD Work Phone: Start: 12-18-2020 Lipid 1996 panel - S pratik or Plasma Zahra Marcano APRN.DIRECTOR CARDIOLOGY Work Phone: Start: 01-24-2016 Colonoscopy Sofia logan MD Work Phone: Plan of Treatment Date Care Activity Detail Author Start: 2033 RSV Vaccine (1 - 1-dose 75+ series) RSV Vaccine (1 - 1-dose 75+ series) [facility] Start: 12-18-2025 Lipid 1996 panel - Serum or Plasma Lipid Screening [facility] Start: 12-18-2025 Lipid panel Lipid Screening [facility] Start: 12-18-2025 LIPID SCREEN LIPID SCREEN [facility] Start: 09-08-2025 End: 09-08-2025 Patient encounter procedure 09/08/2025 8:00 AM EDT Office Visit [facility] [address] [place] [address] Kiki Carroll, OD [address] [place] [address] eye exam/[facility] Comment on above: eye exam/[facility] Start: 11-15-2024 DIABETES SCREEN DIABETES SCREEN [facility] Start: 11-15-2024 Diabetes Screening Diabetes Screening [facility] Start: 06-30-2024 Advance Directive Discussion Advance Directive Discussion [facility] Start: 02-29-2024 Covid-19 Vaccine () Covid-19 Vaccine () [facility] Start: 02-29-2024 Influenza vaccination Influenza Vaccine (#1) [facility] Start: 2023 Advance Directive Discussion Advance Directive Discussion [facility] Start: 2023 Iv infusion hydration each additional hour HYDRATE IV INFUSION ADD-ON [facility] Start: 2023 Iv infusion hydration initial 31 min-1 hour HYDRATION IV INFUSION INIT [facility] Start: 2023 Screening for osteoporosis Bone Density Screening [facility] Start: 02-28-2023 Covid-19 Vaccine ( season) Covid-19 Vaccine ( season) [facility] Start: 02-28-2023 Influenza vaccination Influenza Vaccine (#1) [facility] Start: 10-14-2022 End: 12-14-2022 Fungus identified in Unspecified specimen by Culture [facility] Work Phone: Comment on above: Expected: 10/14/2022, Expires: 3 Start: 07-05-2022 Mammography [facility] Start: 07-05-2022 Screening for malignant neoplasm of breast Mammogram Screening [facility] Start: 05-31-2022 End: 06-14-2022 Influenza virus A and B RNA and SARS-CoV-2 (COVID-19) N gene panel - Respiratory specimen by ALEAH with probe detection COVID WITH FLUA+B, ROUTINE Microbiology Routine Influenza-like illness Expected: 05/31/2022, Expires: 06/14/2022 [facility] Work Phone: Comment on above: Expected: 05/31/2022, Expires: 2 Start: 02-28-2022 Influenza vaccination INFLUENZA (#1) [facility] Start: 01-27-2022 End: 02-10-2022 SARS-CoV-2 (COVID-19) RNA [Presence] in Respiratory specimen by ALEAH with probe detection [facility] Work Phone: Comment on above: Expected: 01/27/2022, Expires: 2 Start: 11-10-2021 Streptococcus pyogenes antigen assay Group A Streptococcus Rapid Screen [facility] Work Phone: Start: 01-23-2021 Colonoscopy COLONOSCOPY [facility] Start: 01-23-2021 COLORECTAL CANCER SCREENING COLORECTAL CANCER SCREENING [facility] Start: 01-23-2021 Screening for malignant neoplasm of colon [facility] Start: 2018 RSV Vaccine (1 - 1-dose 60+ series) RSV Vaccine (1 - 1-dose 60+ series) [facility] Start: 07-10-2016 PNEUMOCOCCAL (2 - PCV) PNEUMOCOCCAL (2 - PCV) [facility] Start: 07-10-2016 Pneumococcal vaccination [facility] Start: 07-10-2016 Pneumococcal Vaccine: 50+ (2 of 2 - PCV) Pneumococcal Vaccine: 50+ (2 of 2 - PCV) [facility] Start: 07-10-2016 Pneumococcal Vaccine: 65+ (2 of 2 - PCV) Pneumococcal Vaccine: 65+ (2 of 2 - PCV) [facility] Start: 11-09-2015 Urine microalbumin profile [facility] Start: 2008 SHINGRIX VACCINE (1 of 2) SHINGRIX VACCINE (1 of 2) [facility] Start: 2003 COLOGUARD (FIT-DNA) COLOGUARD (FIT-DNA) [facility] Start: [address] COLONOGRAPHY [facility] Start: 2003 FECAL OCCULT BLOOD FECAL OCCULT BLOOD [facility] Start: 2003 Screening for malignant neoplasm of colon [facility] Start: 2003 SIGMOIDOSCOPY SIGMOIDOSCOPY [facility] Start: 1976 HIV SCREENING HIV SCREENING [facility] Start: 1976 HIV screening HIV Screening [facility] Start: 02-05-1961 COVID-19 VACCINE (#1) COVID-19 VACCINE (#1) [facility] End: 12-14-2022 Ct soft tissue neck w/contrast material CT NECK SOFT TISSUE W IVCON Radiology Routine Neck pain on left side Jaw pain Bruise Temporomandibular joint disorder Localized swelling, mass or lump of neck Lymphadenopathy 1 Occurrences starting 11/14/2021 until 12/14/2022 [facility] Work Phone: Comment on above: 1 Occurrences starting 11/14/2021 until 12/14/2022 End: 01-31-2023 Echocardiography ECHO Cardiology Routine Leg swelling Short of breath on exertion 1 Occurrences starting 01/31/2022 until 01/31/2023 [facility] Work Phone: Comment on above: 1 Occurrences starting 01/31/2022 until 01/31/2023 End: 09-20-2023 LEWIS SCREENING LEWIS SCREENING Radiology Routine Encounter for screening mammogram for breast cancer 1 Occurrences starting 08/21/2022 until 09/20/2023 [facility] Work Phone: Comment on above: 1 Occurrences starting 08/21/2022 until 09/20/2023 End: 08-28-2024 LEWIS SCREENING LEWIS SCREENING Radiology Routine Encounter for screening mammogram for breast cancer 1 Occurrences starting 07/30/2023 until 08/28/2024 [facility] Work Phone: Comment on above: 1 Occurrences starting 07/30/2023 until 08/28/2024 Patient Education [facility] Work Phone: Patient referral [facility] Work Phone: SARS-CoV-2 (COVID-19 ) RNA [Presence] in Respiratory specimen by ALEAH with probe detection 2019 CORONAVIRUS Microbiology Routine Acute cough 10/14/2022 9:42 AM EDT [facility] Work Phone: End: 05-08-2023 Screening colonoscopy COLONOSCOPY SCREENING Endoscopy Routine Screening for colon cancer 1 Occurrences starting 05/08/2022 until 05/08/2023 [facility] Work Phone: Comment on above: 1 Occurrences starting 05/08/2022 until 05/08/2023 End: 01-31-2023 US LEG VEIN DVT [facility] US LEG VEIN DVT [facility] Vascular Lab Routine Leg swelling Bilateral leg pain 1 Occurrences starting 01/31/2022 until 01/31/2023 [facility] Work Phone: Comment on above: 1 Occurrences starting 01/31/2022 until 01/31/2023 [facility] Immunizations Immunization Date Immunization Notes Care Provider Siddharth bailee 04-22-2023 influenza virus vacc ine, unspecified formulation [facility]r [place] Work Phone: [facility] 04-22-2022 influenza virus vacc ine, unspecified formulation Zahra Marcano APRN.DIRECTOR CARDIOLOGY Work Phone: [facility] 02-10-2020 influenza, injectabl e, quadrivalent, preservative free Sofia Medina MD Work Phone: [facility] Work Phone: 04-09-2019 influenza, injectabl e, quadrivalent, preservative free Sofia Medina MD Work Phone: [facility] Work Phone: 03-30-2018 influenza, injectabl e, quadrivalent, preservative free Sofia Medina MD Work Phone: [facility] 04-07-2017 influenza, seasonal, injectable Sofia Medina MD Work Phone: [facility] Work Phone: 03-24-2017 Influenza virus vaccine [facility] 11-08-2015 tetanus and diphther ia toxoids, adsorbed, preservative free, for adult use (5 Lf of tetanus toxoid and 2 Lf of diphtheria toxoid) Sofia Medina MD Work Phone: [facility] 07-10-2015 pneumococcal polysaccharide vaccine, 23 valent Sofia Medina MD Work Phone: [facility] 03-29-2015 influenza, seasonal, injectable Sofia Medina MD Work Phone: [facility] Payers Date Payer Category Payer Private Health Insurance [employer] [address] [place] [address] [id number] 06-30-2024 Unknown [id number] 11-03-2023 Self-pay [id number] [id number] 06-30-2023 Medicare (Managed Care) [facility] [employer] ADV[employer] PPO Member Subscriber Plan / Payer (Effective 2023-Present) Name: Denisa Scherer Relation to Subscriber: Self Name: Denisa Scherer Payer ID: [id number] (NAIC) Group ID: Not on file Type: PPO Address: [address] [id number] 06-30-2023 Unknown [employer] MEDICARE ADVANTAGE PPO [id number] 06/30/2023-Present [phone] [address] PPO [id number] 06-30-2023 Medicare [id number] 10-29-2015 Medicare [id number] 10-29-2015 Medicare MEDICARE MEDICAR E A AND B [id number] 10/29/2015-Present [phone] [place] [address] Medicare [id number] 10-29-2015 Medicare MEDICARE MEDICAR E A AND B [id number] 10/29/2015-Present [phone] [place] [address] Medicare [id number] Unknown [id number] Unknown [id number] Unknown [id number] Unknown [id number] Unknown [id number] Unknown [id number] Unknown [id number] Unknown [id number] Social History Date Type Detail Facility Start: 11-10-2021 End: 01-07-2023 Tobacco smoking status CAIS Unknown if ever smoked [facility] Start: 04-09-2018 Occasional [facility] Start: 04-09-2018 None [facility] Start: 04-09-2018 Spouse/ Signif icant Other [facility] Start: 04-10-2018 Cigarettes [facility] Start: 1960 Sex Assigned At Female [facility] Start: 01-11-2016 End: 09-02-2024 Tobacco smoking status NHIS Smokes tobacco daily [facility] History of tobacco use Cigarette Smoker [facility] Start: 01-11-2016 End: 09-02-2024 Cigarettes smoked current (pack per day) - Reported 0.5 [facility] Start: 01-11-2016 End: 09-02-2024 Tobacco use and exposure Smokeless tobacco non-user [facility] Start: 06-25-2021 End: 10-03-2024 Alcohol intake Current non-drinker of alcohol (finding) [facility] Start: 1960 Sex Assigned At Not on file [facility] Start: 12-30-2020 End: 05-31-2022 Exposure to SARS-CoV-2 (event) Not sure [facility] Start: 04-12-2023 End: 09-02-2024 Tobacco use panel [facility] Adult Depression Screening Assessment 2 [facility] Start: 09-11-2024 Sex Female (finding) [facility] Medical Equipment Procedure Code Equipment Code Equipment Origin al Text Equipment Identifier Dates Graft Biodesign Collagen Surgical Rectopexy Sterile Latex Free - [id number] Start: 05-13-2018 Mesh Srg Prol 6x 3in Katarina Nabsb - [id number] Start: 12-11-2010 Functional Status Date Assessment Result Facility 05-15-2018 Are you deaf, or do you have serious difficulty hearing No 05/15/2018 12:18 PM Rhea Ordonez, CALI No [facility] 05-15-2018 Are you blind, or do you have serious difficulty seeing, even when wearing glasses No 05/15/2018 12:18 PM Rhea Ordonez, CALI No [facility] 05-15-2018 Do you have serious difficulty walking or climbing stairs No 05/15/2018 12:18 PM Rhea Ordonez, CALI No [facility] 05-15-2018 Do you have difficul ty dressing or bathing No 05/15/2018 12:18 PM Rhea Ordonez, CALI No [facility] 05-15-2018 Because of a physica l, mental, or emotional condition, do you have difficulty doing errands alone such as visiting a physician's office or shopping No 05/15/2018 12:18 PM Rhea Ordonez, CALI No [facility] Mental Status Date Assessment Result Facility 2023 Cognitive function Level Of Cons ciousness Awake;Alert;Appropriate;Fol lows Commands [facility] Work Phone: 01-07-2023 Cognitive function Level Of Cons ciousness Awake;Alert;Appropriate;Fol lows Commands [facility] Work Phone: 11-09-2022 Cognitive function Level Of Cons ciousness Awake;Alert;Appropriate;Fol lows Commands [facility] Work Phone: 08-20-2021 Cognitive function Level Of Cons ciousness Awake;Alert;Appropriate [facility] Work Phone: 05-15-2018 Because of a physica l, mental, or emotional condition, do you have serious difficulty concentrating, remembering, or making decisions No 05/15/2018 12:18 PM Rhea Ordonez RN No [facility] Clinical Notes 05-14-2018 to 10-03-2024 Pearl Swanson APRN.DIRECTOR CARDIOLOGY - 10/03/2024 8:52 AM Kiki Tsai OD - 09/02/2024 9:25 AM Ruby Sabillon PA - 11/15/2023 10:37 AM Zahra Angela APRN.DIRECTOR CARDIOLOGY - 04/12/2023 8:21 AM EDT Note Date & Type Note Facility 10-03-2024 Note HNO ID: [id number] Author: PEARL SWANSON APRN.DIRECTOR CARDIOLOGY Service: ? Author Type: Nurse Practitioner Type: Progress Notes Filed: 10/03/2024 08:57 Note Text: Patient came in with complaints of 2 days worth of dizziness lightheaded. Patient says it does not seem to be getting any better. Patient says it feels like the room is spinning and that she is going to fall over. Patient did not injure herself in any way. Patient says her whole body feels kind of weak and tired. Patient does have some slight nausea but never vomited patient says she had 2 bouts of diarrhea yesterday but is able to eat and drink. Due to patient's symptoms patient should get blood work. Sent to the ER for an evaluation do not have access to blood work today. Patient declined squad and wants to take her self. [facility] 10-03-2024 History of Presen t illness Narrative Patient came in with complaints of 2 days worth of dizziness lightheaded. Patient says it does not seem to be getting any better. Patient says it feels like the room is spinning and that she is going to fall over. Patient did not injure herself in any way. Patient says her whole body feels kind of weak and tired. Patient does have some slight nausea but never vomited patient says she had 2 bouts of diarrhea yesterday but is able to eat and drink. Due to patient's symptoms patient should get blood work. Sent to the ER for an evaluation do not have access to blood work today. Patient declined squad and wants to take her self. documented in this encounter [facility] 09-02-2024 Note HNO ID: [id number] Author: KIKI CARROLL, LISSY Service: ? Author Type: MIXER OPERATOR RAW SALT Type: Progress Notes Filed: 09/02/2024 09:26 Note Text: ASSESSMENT/PLAN: 1. Presbyopia - ICD9: 367.4, ICD10: H52.4 (primary diagnosis) 2. Regular astigmatism of both eyes - ICD9: 367.21, ICD10: H52.223 Updated spectacle prescription, and educated patient to adaptation to new prescription. 3. Age-related nuclear cataract of both eyes - ICD9: 366.16, ICD10: H25.13 Educate patient on ultraviolet protection and yearly eye exams. Return to clinic sooner with changes in vision, or increase in glare with night time driving. Return to clinic with changes to vision, otherwise follow up yearly. Kiki Carroll, OD September 02, 2024 9:26 AM [facility] 09-02-2024 History of Presen t illness Narrative ASSESSMENT/PLAN: 1. Presbyopia - ICD9: 367.4, ICD10: H52.4 (primary diagnosis) 2. Regular astigmatism of both eyes - ICD9: 367.21, ICD10: H52.223 Updated spectacle prescription, and educated patient to adaptation to new prescription. 3. Age-related nuclear cataract of both eyes - ICD9: 366.16, ICD10: H25.13 Educate patient on ultraviolet protection and yearly eye exams. Return to clinic sooner with changes in vision, or increase in glare with night time driving. Return to clinic with changes to vision, otherwise follow up yearly. Kiki Carroll, OD September 02, 2024 9:26 AM documented in this encounter [facility] 09-01-2024 Radiology Diagnostic study note [facility] [address] [place], [place] [id number] Thoracic Spine 3 Views MR#: [id number] Acct: [id number] Name: DENISA SCHERER Rep #: [id number] : 1960 F 64 From: Cami Lyles MD PCP: Dr. Lul Reyes MD Status: REG C LI Study:Thoracic Spine 3 Views Date of Exam: 09/01/24 Exam# [id number] Ordering Dr: Lul Reyes MD PROCEDURE: THORACIC SPINE 3 VIEWS REASON FOR EXAM: Thoracic back pain TECHNIQUE: AP, lateral, and swimmer's views of the thoracic spine were obtained. COMPARISON: None. FINDINGS: Visualization of the upper thoracic spine is limited due to superimposition of the shoulders, despite swimmer's view. Fracture/dislocation: None visible. Vertebral body heights are preserved. Alignment: S shaped cervical and thoracolumbar scoliosis, predominantly dextroconvex at the level of the lower thoracic and upper lumbar spine. Disc heights: Variable disc height loss up to mild along the mid to lower thoracic spine. Soft tissues: Atherosclerosis. Foreign bodies: Partially imaged lumbar spinal fusion hardware with a disc spacer. Bone mineralization: Demineralization. RAD/Thoracic Spine 3 Views IMPRESSION: 1. Demineralization without visible acute displaced fracture. If concern persists, consider CT. 2. Scoliosis with overall mild evident spondylosis as detailed. 3. Additional description as above. Reading Location: [id number] CC: Dr. Lul Reyes MD ~ Fleece Tier: Signed [facility] 11-15-2023 Note HNO ID: [id number] Author: RUBY OLGUIN PA Service: ? Author Type: Physician Certified Maintenance Welder Type: Progress Notes Filed: 11/15/2023 10:39 Note Text: This note was created using [employer]. Subjective Denisa Scherer is a 63 year old female. HPI 63-year-old female presents for abdominal pain, headache, generally feeling ill for the past several days. Patient is concerned she may have colitis or diverticulitis. She states she has had these in the past. She has had some diarrhea, no blood in the stool. No vomiting. No cough congestion or URI symptoms. She states her stomach feels bloated and when palpated is a 10 out of 10 pain. PAST MEDICAL HISTORY Diagnosis Date Acute kidney injury (HCC) 02/24/2015 Acute respiratory failure (HCC) 05/14/2018 Adjustment disorder with depressed mood Anxiety 06/14/2014 Dr. Tess Ochoa (Psychiatrist at [facility]). Bowel disease Colon polyps Depression, major 06/14/2014 Dr. Tess Ochoa (Psychiatrist at [facility]). 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 Peripheral vascular disease, unspecified (HCC) Poisoning by benzodiazepine, intentional self-harm (HCC) 02/24/2015 Rectal prolapse Respiratory failure, acute (HCC) 02/24/2015 RP (rectal prolapse) 01/28/2018 Added automatically from request for surgery [id number] Severe sepsis (HCC) 02/24/2015 Sprain of unspecified site of sacroiliac region Suicide and self-inflicted poisoning by analgesics, antipyretics, and antirheumatics(E950.0) 02/24/2015 Tobacco abuse 1ppd x 15 years Toxic encephalopathy 02/24/2015 Withdrawal symptoms, drug or narcotic (HCC) 02/24/2015 PAST SURGICAL HISTORY Procedure Laterality Date APPENDECTOMY 08/07 DELIVERY ONLY 2002 , low cervical. x 3 COLONOSCOPY FLX DX W/COLLJ SPEC WHEN PFRMD 11/30/2010 Colonoscopy COLONOSCOPY FLX DX W/COLLJ SPEC WHEN PFRMD 01/24/2016 Colonoscopy ESOPHAGOGASTRODUODENOSCOPY TRANSORAL DIAGNOSTIC 01/24/2016 EGD LAMINECTOMY W/O FFD > 2 VERT SEG LUMBAR 02/06/2015 Bruce Burks PAST SURGICAL HISTORY OF 1978 left above eye to remove lumps PAST SURGICAL HISTORY OF 11/2010 Laparoscopically-assisted ventral rectopexy with mesh insertion (Prolene mesh). PAST SURGICAL HISTORY OF 2006 Partial hysterectomy ALLERGIES Bactrim [Sulfamethoxazole-Trimethoprim], Codeine, Erythromycin, Acetaminophen-Codeine, Darvocet-N 100 [Propoxyphene N-Acetaminophen], Flexeril [Cyclobenzaprine Hcl], Inderal [Propranolol Hcl], Sulfa (Sulfonamide Antibiotics), Ultram [Tramadol Hcl], and Zonegran [Zonisamide] MEDICATIONS nystatin (MYCOSTATIN) 100,000 unit/mL suspension Take 5 mL by mouth four times daily. 1tsp swish in mouth for several minutes, then swallow (or expectorate) 4 times daily until gone. furosemide (LASIX) 20 mg tablet Take 1 tablet by mouth once daily. polyethylene glycol 3350 (MIRALAX, GLYCOLAX) 17 gram/dose powder Take 17 g by mouth once daily. This is one (1) capful. Use in at least 8oz of liquid. The dose can be adjusted as needed. gabapentin (NEURONTIN) 800 mg tablet Take one(1) tablet AM and noon. Take 1.[address] Lara. DULoxetine (CYMBALTA) 60 mg capsule Take 60 mg by mouth once daily. ARIPiprazole (ABILIFY) 5 mg tablet Take 1 tablet by mouth once daily. Dr. Ochoa omeprazole (PRILOSEC) 40 mg capsule Take 1 capsule by mouth once daily. (Patient not taking: Reported on 11/14/2021 ) SUMAtriptan (IMITREX) 50 mg tablet Take 1 tablet by mouth as needed for Migraine Headache (see administration instructions). (Patient not taking: Reported on 11/14/2021 ) FAMILY HISTORY Problem Relation Age of Onset Arthritis Mother Cancer Father lung Social History Tobacco Use Smoking status: Every Day Packs/day: 0.50 Years: 30.00 Additional pack years: 0.00 Total pack years: 15.00 Types: Cigarettes Smokeless tobacco: Never Vaping Use Vaping Use: Never used Substance Use Topics Alcohol use: No Drug use: No Review of Systems Constitutional: Positive for fatigue. Negative for chills and fever. HENT: Negative for congestion, ear pain and sore throat. Respiratory: Negative for cough and shortness of breath. Cardiovascular: Negative for chest pain. Gastrointestinal: Positive for abdominal pain and diarrhea. Negative for vomiting. Neurological: Positive for headaches. Objective BP 122/80 Pulse 103 Temp 37.2 ?C (98.9 ?F) (Tympanic) Resp 18 Wt 52.4 kg (115 lb 8.3 oz) LMP 03/13/2007 SpO2 98% BMI 20.46 kg/m? Physical Exam Vitals and nursing note reviewed. Constitutional: General: She is not in acute distress. Appearance: Normal appearance. She is not toxic-appearing. Cardiovascular: Rate and Rhythm: Normal rate and regular rhythm. Pulmonary: Effort: Pulmonary effort is normal. Breath joshua (more content not included)... [facility] 11-15-2023 History of Presen t illness Narrative This note was created using [employer]. Subjective Denisa Scherer is a 63 year old female. HPI 63-year-old female presents for abdominal pain, headache, generally feeling ill for the past several days. Patient is concerned she may have colitis or diverticulitis. She states she has had these in the past. She has had some diarrhea, no blood in the stool. No vomiting. No cough congestion or URI symptoms. She states her stomach feels bloated and when palpated is a 10 out of 10 pain. PAST MEDICAL HISTORY Diagnosis Date Acute kidney injury (HCC) 02/24/2015 Acute respiratory failure (HCC) 05/14/2018 Adjustment disorder with depressed mood Anxiety 06/14/2014 Dr. Tess Ochoa (Psychiatrist at [facility]). Bowel disease Colon polyps Depression, major 06/14/2014 Dr. Tess Ochoa (Psychiatrist at [facility]). 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 Peripheral vascular disease, unspecified (HCC) Poisoning by benzodiazepine, intentional self-harm (HCC) 02/24/2015 Rectal prolapse Respiratory failure, acute (HCC) 02/24/2015 RP (rectal prolapse) 01/28/2018 Added automatically from request for surgery [id number] Severe sepsis (HCC) 02/24/2015 Sprain of unspecified site of sacroiliac region Suicide and self-inflicted poisoning by analgesics, antipyretics, and antirheumatics(E950.0) 02/24/2015 Tobacco abuse 1ppd x 15 years Toxic encephalopathy 02/24/2015 Withdrawal symptoms, drug or narcotic (HCC) 02/24/2015 PAST SURGICAL HISTORY Procedure Laterality Date APPENDECTOMY 08/07 DELIVERY ONLY 2002 , low cervical. x 3 COLONOSCOPY FLX DX W/COLLJ SPEC WHEN PFRMD 11/30/2010 Colonoscopy COLONOSCOPY FLX DX W/COLLJ SPEC WHEN PFRMD 01/24/2016 Colonoscopy ESOPHAGOGASTRODUODENOSCOPY TRANSORAL DIAGNOSTIC 01/24/2016 EGD LAMINECTOMY W/O FFD > 2 VERT SEG LUMBAR 02/06/2015 Bruce Burks PAST SURGICAL HISTORY OF 1978 left above eye to remove lumps PAST SURGICAL HISTORY OF 11/2010 Laparoscopically-assisted ventral rectopexy with mesh insertion (Prolene mesh). PAST SURGICAL HISTORY OF 2006 Partial hysterectomy ALLERGIES Bactrim [Sulfamethoxazole-Trimethoprim], Codeine, Erythromycin, Acetaminophen-Codeine, Darvocet-N 100 [Propoxyphene N-Acetaminophen], Flexeril [Cyclobenzaprine Hcl], Inderal [Propranolol Hcl], Sulfa (Sulfonamide Antibiotics), Ultram [Tramadol Hcl], and Zonegran [Zonisamide] MEDICATIONS nystatin (MYCOSTATIN) 100,000 unit/mL suspension Take 5 mL by mouth four times daily. 1tsp swish in mouth for several minutes, then swallow (or expectorate) 4 times daily until gone. furosemide (LASIX) 20 mg tablet Take 1 tablet by mouth once daily. polyethylene glycol 3350 (MIRALAX, GLYCOLAX) 17 gram/dose powder Take 17 g by mouth once daily. This is one (1) capful. Use in at least 8oz of liquid. The dose can be adjusted as needed. gabapentin (NEURONTIN) 800 mg tablet Take one(1) tablet AM and noon. Take 1.[address] Lara. DULoxetine (CYMBALTA) 60 mg capsule Take 60 mg by mouth once daily. ARIPiprazole (ABILIFY) 5 mg tablet Take 1 tablet by mouth once daily. Dr. Ochoa omeprazole (PRILOSEC) 40 mg capsule Take 1 capsule by mouth once daily. (Patient not taking: Reported on 11/14/2021 ) SUMAtriptan (IMITREX) 50 mg tablet Take 1 tablet by mouth as needed for Migraine Headache (see administration instructions). (Patient not taking: Reported on 11/14/2021 ) FAMILY HISTORY Problem Relation Age of Onset Arthritis Mother Cancer Father lung Social History Tobacco Use Smoking status: Every Day Packs/day: 0.50 Years: 30.00 Additional pack years: 0.00 Total pack years: 15.00 Types: Cigarettes Smokeless tobacco: Never Vaping Use Vaping Use: Never used Substance Use Topics Alcohol use: No Drug use: No Review of Systems Constitutional: Positive for fatigue. Negative for chills and fever. HENT: Negative for congestion, ear pain and sore throat. Respiratory: Negative for cough and shortness of breath. Cardiovascular: Negative for chest pain. Gastrointestinal: Positive for abdominal pain and diarrhea. Negative for vomiting. Neurological: Positive for headaches. Objective BP 122/80 Pulse 103 Temp 37.2 C (98.9 F) (Tympanic) Resp 18 Wt 52.4 kg (115 lb 8.3 oz) LMP 03/13/2007 SpO2 98% BMI 20.46 kg/m Physical Exam Vitals and nursing note reviewed. Constitutional: General: She is not in acute distress. Appearance: Normal appearance. She is not toxic-appearing. Cardiovascular: Rate and Rhythm: Normal rate and regular rhythm. Pulmonary: Effort: Pulmonary effort is normal. Breath sounds: Normal breath sounds. Abdominal: General: Abdomen is flat. Palpations: Abdomen is soft. Tenderness: There is abdominal tenderness in the epigastric area and periumbilical area. There is no right CVA tenderness, left CVA tenderness, guarding or rebound. Comments: Tender over the epigastric and periumbilical region. Patient reports 10/10 pain with palpation. Neurological: Mental Status: She is alert. Assessment and Plan ASSESSMENT/PLAN: 1. Generalized abdominal pain - ICD9: 789.07, ICD10: R10.84 -Due to 10/10 abdominal pain with palpation, did recommend evaluation in the emergency room. Patient agreeable. She is unsure which ER she will go to. ALEAH Bhandari documented in this encounter [facility] 04-12-2023 History of Presen t illness Narrative Subjective Ear Pain Pertinent negatives include no chills, congestion, coughing, fever, headaches, rash or sore throat. Denisa Scherer is a 62 year old female who presents with left ear pain for the past 2 days. She has had trouble hearing. Last week she had a sore throat but that is better now. She rates her ear pain 8/10. She took tylenol last night for pain. She has not had a fever. Review of Systems Constitutional: Negative for chills and fever. HENT: Positive for ear pain and hearing loss. Negative for congestion and sore throat. Respiratory: Negative for cough. Cardiovascular: Negative. Skin: Negative for itching and rash. Neurological: Negative for headaches. BP 109/76 Pulse 111 Temp 36.3 C (97.3 F) Resp 20 Wt 52.1 kg (114 lb 12.8 oz) LMP 03/13/2007 SpO2 96% BMI 20.34 kg/m PAST MEDICAL HISTORY Diagnosis Date Acute kidney injury (HCC) 02/24/2015 Acute respiratory failure (HCC) 05/14/2018 Adjustment disorder with depressed mood Anxiety 06/14/2014 Dr. Tess Ochoa (Psychiatrist at [facility]). Bowel disease Colon polyps Depression, major 06/14/2014 Dr. Tess Ochoa (Psychiatrist at [facility]). 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 Peripheral vascular disease, unspecified (HCC) Poisoning by benzodiazepine, intentional self-harm (HCC) 02/24/2015 Rectal prolapse Respiratory failure, acute (HCC) 02/24/2015 RP (rectal prolapse) 01/28/2018 Added automatically from request for surgery [id number] Severe sepsis (HCC) 02/24/2015 Sprain of unspecified site of sacroiliac region Suicide and self-inflicted poisoning by analgesics, antipyretics, and antirheumatics(E950.0) 02/24/2015 Tobacco abuse 1ppd x 15 years Toxic encephalopathy 02/24/2015 Withdrawal symptoms, drug or narcotic (HCC) 02/24/2015 PAST SURGICAL HISTORY Procedure Laterality Date APPENDECTOMY 08/07 DELIVERY ONLY 2002 , low cervical. x 3 COLONOSCOPY FLX DX W/COLLJ SPEC WHEN PFRMD 11/30/2010 Colonoscopy COLONOSCOPY FLX DX W/COLLJ SPEC WHEN PFRMD 01/24/2016 Colonoscopy ESOPHAGOGASTRODUODENOSCOPY TRANSORAL DIAGNOSTIC 01/24/2016 EGD LAMINECTOMY W/O FFD > 2 VERT SEG LUMBAR 02/06/2015 Bruce Burks PAST SURGICAL HISTORY OF 1978 left above eye to remove lumps PAST SURGICAL HISTORY OF 11/2010 Laparoscopically-assisted ventral rectopexy with mesh insertion (Prolene mesh). PAST SURGICAL HISTORY OF 2006 Partial hysterectomy ALLERGIES Bactrim [Sulfamethoxazole-Trimethoprim], Codeine, Erythromycin, Acetaminophen-Codeine, Darvocet-N 100 [Propoxyphene N-Acetaminophen], Flexeril [Cyclobenzaprine Hcl], Inderal [Propranolol Hcl], Sulfa (Sulfonamide Antibiotics), Ultram [Tramadol Hcl], and Zonegran [Zonisamide] MEDICATIONS amoxicillin (AMOXIL) 875 mg tablet^Take 1 tablet by mouth two times a day for 7 days.^Disp: 14 tablet^Rfl: 0 ARIPiprazole (ABILIFY) 5 mg tablet^Take 1 tablet by mouth once daily. Dr. Ochoa^Disp: ^Rfl: 0 DULoxetine (CYMBALTA) 60 mg capsule^Take 60 mg by mouth once daily. ^Disp: ^Rfl: furosemide (LASIX) 20 mg tablet^Take 1 tablet by mouth once daily.^Disp: 3 tablet^Rfl: 0 gabapentin (NEURONTIN) 800 mg tablet^Take one(1) tablet AM and noon. Take 1.[address] Lara.^Disp: ^Rfl: nystatin (MYCOSTATIN) 100,000 unit/mL suspension^Take 5 mL by mouth four times daily. 1tsp swish in mouth for several minutes, then swallow (or expectorate) 4 times daily until gone.^Disp: 200 mL^Rfl: 0 ofloxacin (FLOXIN) 0.3 % otic solution^Use 5 Drops in the left ear two times a day for 7 days.^Disp: 4 mL^Rfl: 0 omeprazole (PRILOSEC) 40 mg capsule^Take 1 capsule by mouth once daily.^Disp: 90 capsule^Rfl: 1 (Patient not taking: Reported on 11/14/2021 ) polyethylene glycol 3350 (MIRALAX, GLYCOLAX) 17 gram/dose powder^Take 17 g by mouth once daily. This is one (1) capful. Use in at least 8oz of liquid. The dose can be adjusted as needed.^Disp: 527 g^Rfl: 5 SUMAtriptan (IMITREX) 50 mg tablet^Take 1 tablet by mouth as needed for Migraine Headache (see administration instructions).^Disp: 7 tablet^Rfl: 5 (Patient not taking: Reported on 11/14/2021 ) FAMILY HISTORY Problem Relation Age of Onset Arthritis Mother Cancer Father lung Social History Tobacco Use Smoking status: Every Day Packs/day: 0.50 Years: 30.00 Additional pack years: 0.00 Total pack years: 15.00 Types: Cigarettes Smokeless tobacco: Never Vaping Use Vaping Use: Never used Substance Use Topics Alcohol use: No Drug use: No Objective Physical Exam Vitals and nursing note reviewed. Constitutional: General: She is not in acute distress. Appearance: Normal appearance. She is not ill-appearing. HENT: Right Ear: Tympanic membrane, ear canal and external ear normal. Left Ear: Ear canal and external ear normal. Decreased hearing noted. Swelling and tenderness present. No mastoid tenderness. Tympanic membrane is injected and erythematous. Ears: Comments: Left TM cannot be fully visualized due to ear canal swelling and tenderness, portion that is visualized appears inflamed. Nose: Nose normal. Mouth/Throat: Pharynx: Uvula midline. No oropharyngeal exudate or posterior oropharyngeal erythema. Cardiovascular: Rate and Rhythm: Normal rate and regular rhythm. Heart sounds: Normal heart sounds. Pulmonary: Effort: Pulmonary effort is normal. No respiratory distress. Breath sounds: Normal breath sounds. No wheezing or rales. Musculoskeletal: Cervical back: Neck supple. Lymphadenopathy: Cervical: No cervical adenopathy. Skin: General: Skin is warm and dry. Findings: No erythema or rash. Neurological: Mental Status: She is alert. ASSESSMENT/PLAN: 1. Cellulitis of ear canal, left - ICD9: 380.10, ICD10: H60.12 (primary diagnosis) - OFLOXACIN 0.3 % EAR DROPS 2. Other acute nonsuppurative otitis media of left ear, recurrence not specified - ICD9: 381.00, ICD10: H65.192 - Will begin treatment with Amoxicillin for 7 days - Supportive care with plenty of fluids, rest, and analgesia prn. - AMOXICILLIN 875 MG TABLET - Follow-up with your PCP in 3-5 days if symptoms have not improved or sooner if symptoms worsen - Discussed red flags and need for immediate medical evaluation if any occur. - Discussed supportive care treatment with fluids, rest and analgesia. - Discussed expected course of illness Zahra Marcano APRN.DIRECTOR CARDIOLOGY documented in this encounter [facility] 04-12-2023 Instructions Zahra Marcano APRN.DIRECTOR CARDIOLOGY - 04/12/2023 8:19 AM EDT ASSESSMENT/PLAN: 1. Cellulitis of ear canal, left - ICD9: 380.10, ICD10: H60.12 (primary diagnosis) - OFLOXACIN 0.3 % EAR DROPS 2. Other acute nonsuppurative otitis media of left ear, recurrence not specified - ICD9: 381.00, ICD10: H65.192 - Will begin treatment with Amoxicillin for 7 days - Supportive care with plenty of fluids, rest, and analgesia prn. - AMOXICILLIN 875 MG TABLET - Follow-up with your PCP in 3-5 days if symptoms have not improved or sooner if symptoms worsen - Discussed red flags and need for immediate medical evaluation if any occur. - Discussed supportive care treatment with fluids, rest and analgesia. - Discussed expected course of illness Zahra Marcano APRN.DIRECTOR CARDIOLOGY OTITIS MEDIA GENERAL INFORMATION: Otitis media is an infection of the middle ear. The middle ear sits behind the eardrum. This infection may be caused by a virus or bacteria and often follows a cold. Children often have repeat ear infections. Otitis media is not contagious. INSTRUCTIONS: 1. An antibiotic has been prescribed. It should be taken exactly as prescribed. Do not stop the medicine even if the symptoms go away. 2. Ntwn-qqz-tnqjkow pain medication may be taken or other pain medication as prescribed by the doctor. 3. Nothing should be placed in the ear unless instructed by your doctor. 4. The patient may return to school/daycare or work when the temperature is normal (98.6 F or 37 C). 5. The patient should not swim while the ear is infected. CONTACT YOUR DOCTOR IF YOU OR YOUR CHILD: 1. Does not feel better within 36 hours. 2. Develops a temperature over 102E F (39E C). 3. Starts vomiting or has diarrhea. 4. Develops drainage from the affected ear. 5. Has any new problem that may be related to the medicine prescribed. RETURN TO THE ED IF: 1. You or your child has a severe headache or pain around the ear. 2. You or your child notice swelling around the ear. 3. You or your child has a seizure (convulsion), twitching of the facial muscles, or passes out. 4. You or your child is dizzy, has a stiff neck, or cannot walk or talk normally. 5. Your child becomes more irritable or listless (not interested in his or her surroundings, does not get soothed by you holding him or her). documented in this encounter [facility] 10-17-2022 Miscellaneous Notes Phone call placed patient advised (see prior provider encounter) Patient verbalized understanding, agreed with plan of care. Maggy Goff LPN Left message for pt to call back. Cheri Gates MA Please notify that no fungus grown at 2 days. Will notify if becomes positive. documented in this encounter [facility] 10-14-2022 History of Presen t illness Narrative Radiology Service Progress Note PATIENT NAME: Denisa Scherer DATE OF SERVICE: October 14, 2022 TIME: 8:03 AM PATIENT IDENTITY VERIFICATION COMPLETED USING TWO (2) IDENTIFIERS: Name and Date of confirmed by patient verbally. FALL SCREENING: Has the patient had 2 falls in the last year or 1 fall with injury or currently using an Ambulatory Assistive Device (Walker, Cane, Wheelchair, Crutches, etc.)? No PATIENT GENDER DATA: Female. status: : No status: NO. PATIENT RELEVANT IMPLANT DATA REVIEWED: Yes RADIOLOGY DEPARTMENT: General X-ray: Exam(s) Completed: Chest X-Ray PERIPHERAL IV DATA: Not applicable SIGNED BY: RT Pratik(R) October 14, 2022 8:03 AM documented in this encounter [facility] 10-14-2022 History of Presen t illness Narrative 10/14/2022 Patient presents with: Sore Throat: Cough x4 days SUBJECTIVE: This is a 62 year old that is here today for Complaint(s) of sore throat x 4 days. + ALMENDAREZ and fatigue associated. Having a cough occasional, mostly non-productive. + chills and sweats. Also having some pain on her tongue and mouth-burning per patient. She does wear dentures. Sore throat is overall improving currently. She mentions some left sided upper back discomfort, worse pressing on area. Not pleuritic. Mostly constant, describes as achy x 4 days. Denies fever, SOB, wheezing, hemoptysis, chest pain, leg pian, swelling, recent travel, recent surgery. Not on hormone therapy. No history of DVT/PE. No ripping or tearing pain. PAST MEDICAL HISTORY Diagnosis Date Acute kidney injury (HCC) 02/24/2015 Acute respiratory failure (HCC) 05/14/2018 Adjustment disorder with depressed mood Anxiety 06/14/2014 Dr. Tess Ochoa (Psychiatrist at [facility]). Bowel disease Colon polyps Depression, major 06/14/2014 Dr. Tess Ochoa (Psychiatrist at [facility]). Fibromyalgia 06/14/2014 GERD (gastroesophageal reflux disease) 06/14/2014 Hematuria 12/22/2007 LBP (See LOW BACK PAIN) 01/31/2009 Migraine 07/27/2014 Mixed hyperlipidemia 02/08/2016 Opiate poisoning ([facility]) 02/24/2015 Peripheral vascular disease, unspecified ([facility]) Poisoning by benzodiazepine, intentional self-harm ([facility]) 02/24/2015 Rectal prolapse Respiratory failure, acute ([facility]) 02/24/2015 RP (rectal prolapse) 01/28/2018 Added automatically from request for surgery [id number] Severe sepsis ([facility]) 02/24/2015 Sprain of unspecified site of sacroiliac region Suicide and self-inflicted poisoning by analgesics, antipyretics, and antirheumatics(E950.0) 02/24/2015 Tobacco abuse 1ppd x 15 years Toxic encephalopathy 02/24/2015 Withdrawal symptoms, drug or narcotic ([facility]) 02/24/2015 ALLERGIES Bactrim [Sulfamethoxazole-Trimethoprim], Codeine, Erythromycin, Acetaminophen-Codeine, Darvocet-N 100 [Propoxyphene N-Acetaminophen], Flexeril [Cyclobenzaprine Hcl], Inderal [Propranolol Hcl], Sulfa (Sulfonamide Antibiotics), Ultram [Tramadol Hcl], and Zonegran [Zonisamide] MEDICATIONS Current Outpatient Medications Medication Sig furosemide (LASIX) 20 mg tablet Take 1 tablet by mouth once daily. omeprazole (PRILOSEC) 40 mg capsule Take 1 capsule by mouth once daily. (Patient not taking: Reported on 11/14/2021 ) SUMAtriptan (IMITREX) 50 mg tablet Take 1 tablet by mouth as needed for Migraine Headache (see administration instructions). (Patient not taking: Reported on 11/14/2021 ) polyethylene glycol 3350 (MIRALAX, GLYCOLAX) 17 gram/dose powder Take 17 g by mouth once daily. This is one (1) capful. Use in at least 8oz of liquid. The dose can be adjusted as needed. gabapentin (NEURONTIN) 800 mg tablet Take one(1) tablet AM and noon. Take 1.[address] Lara. DULoxetine (CYMBALTA) 60 mg capsule Take 60 mg by mouth once daily. ARIPiprazole (ABILIFY) 5 mg tablet Take 1 tablet by mouth once daily. Dr. Ochoa Current Facility-Administered Medications Medication Dose Route Frequency perflutren lipid microspheres 1.3 mL in NaCl (PF) 0.9% 10 mL injection (DEFINITY) INTRAVENOUS DIRECTED PRN sodium chloride 0.9 % (flush) 10 mL (BD POSIFLUSH) 10 mL INTRAVENOUS DIRECTED PRN SOCIAL HISTORY Social History Tobacco Use Smoking status: Every Day Packs/day: 0.50 Years: 30.00 Pack years: 15.00 Types: Cigarettes Smokeless tobacco: Never Vaping Use Vaping Use: Never used Substance Use Topics Alcohol use: No Drug use: No REVIEW OF SYSTEMS See HPI OBJECTIVE: BP 116/72 Pulse 96 Temp 36.2 C (97.1 F) Resp 18 Wt 55.6 kg (122 lb 9.6 oz) LMP 03/13/2007 SpO2 97% BMI 21.72 kg/m APPEARANCE Well appearing, alert, in no acute distress, well-hydrated, well nourished. EYES PERRLA, conjunctiva and sclera normal. EARS External ears normal, canals clear. TMs normal DANUTA NOSE/SINUS Nares normal. Septum midline. Mucosa normal. No drainage or sinus tenderness. THROAT mild erythema, no exudate. Uvula midline. Tongue with mild erythema and white coating. NECK Supple, no adenopathy; HEART RRR with normal S1 and S2 LUNG clear to auscultation, No wheezing, rhonchi, rales. EXTREMITIES Extremities normal, No deformities, No skin discoloration, No edema, and Normal pulses bilaterally.no calf TTP. Negative Homans'. BACK + mild left upper mid and lateral aspect of back TTP. No rash. No erythema, warmth. ASSESSMENT/PLAN: 1. Acute cough - ICD9: 786.2, ICD10: R05.1 (primary diagnosis) CXR unremarkable, no obvious CAP. Patient without SOB, chest pain. Pain in upper back is reproducible on exam-suspect more musculoskeletal etiology. Advise ER if worsening pain, SOB, dizziness, chest pain. OTC cough/cold meds prn Tylenol/motrin - 2019 CORONAVIRUS - XR CHEST 2V FRONTAL/LAT F/u in 5-7 days if not improving, sooner if worsening. 2. Tongue burning sensation - ICD9: 529.6, ICD10: K14.6 Cover for possible thrush. Send fungal screen. Reviewed cleaning of dentures. - NYSTATIN 100,000 UNIT/ML ORAL SUSPENSION - FUNGAL SCREEN Reviewed red flags and when to seek care sooner. The patient indicates understanding of these issues and agrees with the plan. Yani Pollard PA-C documented in this encounter [facility] 05-31-2022 History of Presen t illness Narrative Patient presents with: Cough: Pt reported nausea, body aches, Almendarez x5 days. HPI: Feeling sick for 5 days. Positive symptoms: Cough, Body Aches, Headache, Nausea, Post nasal drainage, Chills, Malaise, Fatigue, sometimes short of breath Negative symptoms: Sore throat, Rhinorrhea, Vomiting, Diarrhea, OTC: Tylenol Has not had known COVID illness. PAST MEDICAL HISTORY Diagnosis Date Acute kidney injury (HCC) 02/24/2015 Acute respiratory failure (HCC) 05/14/2018 Adjustment disorder with depressed mood Anxiety 06/14/2014 Dr. Tess Ochoa (Psychiatrist at [facility]). Bowel disease Colon polyps Depression, major 06/14/2014 Dr. Tess Ochoa (Psychiatrist at [facility]). 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 Peripheral vascular disease, unspecified (HCC) Poisoning by benzodiazepine, intentional self-harm (HCC) 02/24/2015 Rectal prolapse Respiratory failure, acute (HCC) 02/24/2015 RP (rectal prolapse) 01/28/2018 Added automatically from request for surgery [id number] Severe sepsis (HCC) 02/24/2015 Sprain of unspecified site of sacroiliac region Suicide and self-inflicted poisoning by analgesics, antipyretics, and antirheumatics(E950.0) 02/24/2015 Tobacco abuse 1ppd x 15 years Toxic encephalopathy 02/24/2015 Withdrawal symptoms, drug or narcotic (HCC) 02/24/2015 MEDICATIONS: Current Outpatient Medications Medication Sig furosemide (LASIX) 20 mg tablet Take 1 tablet by mouth once daily. polyethylene glycol 3350 (MIRALAX, GLYCOLAX) 17 gram/dose powder Take 17 g by mouth once daily. This is one (1) capful. Use in at least 8oz of liquid. The dose can be adjusted as needed. gabapentin (NEURONTIN) 800 mg tablet Take one(1) tablet AM and noon. Take 1.[address] Lara. DULoxetine (CYMBALTA) 60 mg capsule Take 60 mg by mouth once daily. ARIPiprazole (ABILIFY) 5 mg tablet Take 1 tablet by mouth once daily. Dr. Ochoa omeprazole (PRILOSEC) 40 mg capsule Take 1 capsule by mouth once daily. (Patient not taking: Reported on 11/14/2021 ) SUMAtriptan (IMITREX) 50 mg tablet Take 1 tablet by mouth as needed for Migraine Headache (see administration instructions). (Patient not taking: Reported on 11/14/2021 ) Current Facility-Administered Medications Medication Dose Route Frequency perflutren lipid microspheres 1.3 mL in NaCl (PF) 0.9% 10 mL injection (DEFINITY) INTRAVENOUS DIRECTED PRN sodium chloride 0.9 % (flush) 10 mL (BD POSIFLUSH) 10 mL INTRAVENOUS DIRECTED PRN ALLERGIES: ALLERGIES Allergen Reactions Bactrim [Sulfametho* Vomiting Codeine Vomiting Erythromycin Vomiting Acetaminophen-Codei* Vomiting Darvocet-N 100 [Pro* Hives and nausea Flexeril [Cyclobenz* Intolerance sleepy Inderal [Propranolo* Other: See Comments Nausea and dizzy Sulfa (Sulfonamide * GI Upset Ultram [Tramadol Hc* GI Upset severe Zonegran [Zonisamid* Other: See Comments Nausea and dizzy VITALS: BP 124/82 Pulse 70 Temp 37 C (98.6 F) Resp 18 Wt 55.4 kg (122 lb 3.2 oz) LMP 03/13/2007 SpO2 97% BMI 21.65 kg/m PHYSICAL EXAM: GEN: mildly ill appearing. HEENT: PERRL, EOMI, conjunctiva clear Ears: canals clear. TMs without erythema, bulge, or effusion Sinuses: non-tender frontal sinus, non-tender maxillary sinuses Throat: moist mucous membranes, mild erythema, no exudate Neck: supple, no thyromegaly, no lymphadenopathy HEART: regular rate and rhythm, no murmurs LUNGS: clear to auscultation, no wheezes or crackles, no increased WOB ASSESSMENT/PLAN: 1. Influenza-like illness - ICD9: 487.1, ICD10: J11.1 - suspect viral URI, differential includes influenza and COVID-19. - Discussed supportive care treatment with home isolation, rest, cold medicine, and analgesia. - Red flags to seek further treatment include chest pain, shortness of breath, and lethargy; in the ER if severe. - COVID WITH FLUA+B, ROUTINE Sheldon Keys MD documented in this encounter [facility] 01-31-2022 Instructions Meenu Sidhu APRN.CNS - 01/31/2022 8:02 AM EDT For foot and leg swelling: Avoid salty foods, elevate your legs when sitting down and try [id number] compression socks when sitting or standing for prolonged periods (8-15mmHg strength or similar). These are available at most pharmacies. documented in this encounter [facility] 01-31-2022 History of Presen t illness Narrative SUBJECTIVE: COVID-19 VACCINE(1) Never done HIV SCREENING Never done SHINGRIX VACCINE(1 of 2) Never done DTAP,TDAP,TD(1 - Tdap) due on 11/09/2015 PNEUMOCOCCAL(2 - PCV) due on 07/10/2016 COLORECTAL CANCER SCREENING due on 01/23/2021 HPI 8 pounds Denisa Scherer is a 61 year old female. PMH significant for ACTIVE PROBLEM LIST Lumbar Spondylosis Leg Pain Tobacco Abuse Anxiety Depression, Major Gerd (Gastroesophageal Reflux Disease) Adenomatous Colon Polyp Mixed Hyperlipidemia Nicotine use disorder, F17.2 Migraine Without Aura and Without Status Migrainosus, Not Intractable Decongestant Abuse She was seen in urgent care January 27, 2022 with viral illness versus foodborne illness from [facility]. Negative COVID test. Presents for mild ankle swelling present for 2 weeks that increases with prolonged standing, resolves overnight. Diet change/sodium intake: Does not monitor states he does not eat salty foods Chest pain: No Shortness of breath: 40 years smoking, 3/4 packs a day; stable History of RI: No Weight gain: 8 pounds over the last week She notes her legs feel funny, states bilateral leg pain in [place], calf, thighs. No redness, no warmth. Review of Systems Constitutional: Negative. Respiratory: Positive for shortness of breath. Objective BP 112/78 Pulse 82 Resp 16 Wt 55.8 kg (123 lb) LMP 03/13/2007 SpO2 96% BMI 21.79 kg/m Physical Exam Vitals and nursing note reviewed. Constitutional: Appearance: Normal appearance. HENT: Head: Normocephalic and atraumatic. Eyes: Conjunctiva/sclera: Conjunctivae normal. Neck: Thyroid: No thyromegaly. Vascular: Normal carotid pulses. JVD present. Cardiovascular: Rate and Rhythm: Normal rate and regular rhythm. Pulses: Carotid pulses are 2+ on the right side and 2+ on the left side. Radial pulses are 2+ on the right side and 2+ on the left side. Heart sounds: Normal heart sounds. Pulmonary: Effort: Pulmonary effort is normal. Breath sounds: Normal breath sounds. Abdominal: General: Bowel sounds are normal. Palpations: Abdomen is soft. Musculoskeletal: Right lower leg: Edema (Nonpitting ankle) present. Left lower leg: Edema (Nonpitting ankle) present. Comments: TTP bilateral holloway, bilateral calf, bilateral thigh, no erythema, warmth, cords Skin: General: Skin is warm and dry. Neurological: General: No focal deficit present. Mental Status: She is alert and oriented to person, place, and time. ALLERGIES Allergen Reactions Bactrim [Sulfametho* Vomiting Codeine Vomiting Erythromycin Vomiting Acetaminophen-Codei* Vomiting Darvocet-N 100 [Pro* Hives and nausea Flexeril [Cyclobenz* Intolerance sleepy Inderal [Propranolo* Other: See Comments Nausea and dizzy Sulfa (Sulfonamide * GI Upset Ultram [Tramadol Hc* GI Upset severe Zonegran [Zonisamid* Other: See Comments Nausea and dizzy Medication omeprazole (PRILOSEC) 40 mg capsule Take 1 capsule by mouth once daily. SUMAtriptan (IMITREX) 50 mg tablet Take 1 tablet by mouth as needed for Migraine Headache (see administration instructions). polyethylene glycol 3350 (MIRALAX, GLYCOLAX) 17 gram/dose powder Take 17 g by mouth once daily. This is one (1) capful. Use in at least 8oz of liquid. The dose can be adjusted as needed. gabapentin (NEURONTIN) 800 mg tablet Take one(1) tablet AM and noon. Take 1.[address] Lara. DULoxetine (CYMBALTA) 60 mg capsule Take 60 mg by mouth once daily. ARIPiprazole (ABILIFY) 5 mg tablet Take 1 tablet by mouth once daily. Dr. Ochoa PAST MEDICAL HISTORY Diagnosis Date Acute kidney injury (HCC) 02/24/2015 Acute respiratory failure (HCC) 05/14/2018 Adjustment disorder with depressed mood Anxiety 06/14/2014 Dr. Tess Ochoa (Psychiatrist at [facility]). Bowel disease Colon polyps Depression, major 06/14/2014 Dr. Tess Ochoa (Psychiatrist at [facility]). 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 Peripheral vascular disease, unspecified (HCC) Poisoning by benzodiazepine, intentional self-harm (HCC) 02/24/2015 Rectal prolapse Respiratory failure, acute (HCC) 02/24/2015 RP (rectal prolapse) 01/28/2018 Added automatically from request for surgery [id number] Severe sepsis (HCC) 02/24/2015 Sprain of unspecified site of sacroiliac region Suicide and self-inflicted poisoning by analgesics, antipyretics, and antirheumatics(E950.0) 02/24/2015 Tobacco abuse 1ppd x 15 years Toxic encephalopathy 02/24/2015 Withdrawal symptoms, drug or narcotic (HCC) 02/24/2015 Social History Tobacco Use Smoking status: Current Every Day Smoker Packs/day: 0.50 Years: 30.00 Pack years: 15.00 Types: Cigarettes Smokeless tobacco: Never Used Vaping Use Vaping Use: Never used Substance Use Topics Alcohol use: No Drug use: No Component Latest Ref Rng & Units 11/15/2021 01/27/2022 Protein, Total 6.3 - 8.0 g/dL 7.4 Albumin 3.9 - 4.9 g/dL 4.2 Calcium 8.5 - 10.2 mg/dL 10.5 (H) Bilirubin, Total 0.2 - 1.3 mg/dL 0.2 Alkaline Phosphatase 34 - 123 U/L 67 AST 13 - 35 U/L 22 ALT 7 - 38 U/L 13 Glucose 74 - 99 mg/dL 114 (H) BUN 7 - 21 mg/dL 15 Creatinine 0.58 - 0.96 mg/dL 0.73 Sodium 136 - 144 mmol/L 139 Potassium 3.7 - 5.1 mmol/L 4.6 Chloride 97 - 105 mmol/L 106 (H) CO2 22 - 30 mmol/L 23 Anion Gap 9 - 18 mmol/L 10 eGFR >=60 mL/min/1.73m 93 WBC 3.70 - 11.00 k/uL 8.19 RBC 3.90 - 5.20 m/uL 4.34 Hemoglobin 11.5 - 15.5 g/dL 14.3 Hematocrit 36.0 - 46.0 % 44.2 MCV 80.0 - 100.0 fL 101.8 (H) MCH 26.0 - 34.0 pg 32.9 MCHC 30.5 - 36.0 g/dL 32.4 RDW-CV 11.5 - 15.0 % 13.2 Platelet Count 150 - 400 k/uL 477 (H) MPV 9.0 - 12.7 fL 8.8 (L) Absolute nRBC <0.01 k/uL <0.01 Free T4 0.9 - 1.7 ng/dL 1.1 PTH, Intact 15 - 65 pg/mL 43 COVID 19 Result Not Detected SARS-CoV-2 (Agent of COVID-19) Not Detected by RT-PCR or equivalent method. ASSESSMENT/PLAN: 1. Leg swelling - ICD9: 729.81, ICD10: M79.89 (primary diagnosis) - ECHO - PERFLUTREN LIPID MICROSPHERES 1.1 MG/ML INJECTION IN NS 10 ML - SODIUM CHLORIDE 0.9 % (FLUSH) INJECTION SYRINGE - FUROSEMIDE 20 MG TABLET - US LEG VEIN DVT [facility] 2. Bilateral leg pain - ICD9: 729.5, ICD10: M79.604, M79.605 - US LEG VEIN DVT [facility] 3. Smoker - ICD9: 305.1, ICD10: F17.200 Cessation endorsed 4. Short of breath on exertion - ICD9: 786.05, ICD10: R06.02 - ECHO - PERFLUTREN LIPID MICROSPHERES 1.1 MG/ML INJECTION IN NS 10 ML - SODIUM CHLORIDE 0.9 % (FLUSH) INJECTION SYRINGE Advised: For foot and leg swelling: Avoid salty foods, elevate your legs when sitting down and try [id number] compression socks when sitting or standing for prolonged periods (8-15mmHg strength or similar). These are available at most pharmacies. She will let us know if not feeling improved with these measures. Meenu Sidhu APRN.CNS Medical Decision Making: Problems: Moderate: New problem with uncertain prognosis Data: Unique test result(s) reviewed: 3+ Unique test(s) ordered: 2 Risk: Moderate: Drug management Medical Decision Making Level: 4 - Moderate documented in this encounter [facility] 01-29-2022 Miscellaneous Notes Patient calls to report ankle edema. Nurse triage completed. Protocol recommends see provider within 3 days. Patient agreeable. Appointment scheduled. Care advice and when to call back reviewed. Patient verbalizes understanding. Reason for Disposition [1] MILD swelling of both ankles (i.e., pedal edema) AND [2] new-onset or worsening Answer Assessment - Initial Assessment Questions 1. ONSET: 2 weeks ago 2. LOCATION: Bilateral ankle swelling and about an inch above the ankle. 3. SEVERITY: - MILD pedal edema - swelling limited to foot and ankle, pitting edema < 1/4 inch (6 mm) deep, rest and elevation eliminate most or all swelling 4. REDNESS: No 5. PAIN: Is the swelling painful to touch? If Yes, ask: How painful is it? (Scale 1-10; mild, moderate or severe) Not painful to touch but moderately uncomfortable to walk on. 6. FEVER: No 7. 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 Reports worse at the end of the day. Relieved with elevation. 8. MEDICAL HISTORY: No 9. RECURRENT SYMPTOM: No 10. OTHER SYMPTOMS: No chest pain or difficulty breathing Protocols used: LEG SWELLING AND [id number] documented in this encounter [facility] 01-28-2022 Miscellaneous Notes Patient given results and verbalized understanding of instructions given. Sarah Beth Ramirez Negative for covid please notify thank you documented in this encounter [facility] 01-27-2022 History of Presen t illness Narrative This note was created using YouNoodle[employer]. Subjective Denisa Scherer is a 61 year old female. HPI Patient presents with a chief complaint of vomiting and diarrhea. She states for the past 3 days she had vomiting and diarrhea but seem to improve significantly yesterday. She did have some abdominal cramping during this but that is gotten better. She has been able to keep water down since yesterday. No lightheadedness or dizziness. She had called off work and they require a COVID test so she came in for COVID test. No cough or congestion. No sore throat. She states multiple people at her work do have COVID right now. No blood in her stool. The night before she had the vomiting and diarrhea she did eat [employer]. No recent antibiotics. No fever or chills. Review of Systems Constitutional: Negative. HENT: Negative. Cardiovascular: Negative. Gastrointestinal: Positive for abdominal pain, diarrhea, nausea and vomiting. Negative for blood in stool. Genitourinary: Negative. Musculoskeletal: Positive for myalgias. All other systems reviewed and are negative. PAST MEDICAL HISTORY Diagnosis Date Acute kidney injury (HCC) 02/24/2015 Acute respiratory failure (HCC) 05/14/2018 Adjustment disorder with depressed mood Anxiety 06/14/2014 Dr. Tess Ochoa (Psychiatrist at [facility]). Bowel disease Colon polyps Depression, major 06/14/2014 Dr. Tess Ochoa (Psychiatrist at [facility]). 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 Peripheral vascular disease, unspecified (HCC) Poisoning by benzodiazepine, intentional self-harm (HCC) 02/24/2015 Rectal prolapse Respiratory failure, acute (HCC) 02/24/2015 RP (rectal prolapse) 01/28/2018 Added automatically from request for surgery [id number] Severe sepsis (HCC) 02/24/2015 Sprain of unspecified site of sacroiliac region Suicide and self-inflicted poisoning by analgesics, antipyretics, and antirheumatics(E950.0) 02/24/2015 Tobacco abuse 1ppd x 15 years Toxic encephalopathy 02/24/2015 Withdrawal symptoms, drug or narcotic (HCC) 02/24/2015 Current Outpatient Medications Medication Sig Dispense Refill omeprazole (PRILOSEC) 40 mg capsule Take 1 capsule by mouth once daily. (Patient not taking: Reported on 11/14/2021 ) 90 capsule 1 SUMAtriptan (IMITREX) 50 mg tablet Take 1 tablet by mouth as needed for Migraine Headache (see administration instructions). (Patient not taking: Reported on 11/14/2021 ) 7 tablet 5 polyethylene glycol 3350 (MIRALAX, GLYCOLAX) 17 gram/dose powder Take 17 g by mouth once daily. This is one (1) capful. Use in at least 8oz of liquid. The dose can be adjusted as needed. 527 g 5 gabapentin (NEURONTIN) 800 mg tablet Take one(1) tablet AM and noon. Take 1.[address] Lara. DULoxetine (CYMBALTA) 60 mg capsule Take 60 mg by mouth once daily. ARIPiprazole (ABILIFY) 5 mg tablet Take 1 tablet by mouth once daily. Dr. Ochoa 0 No current facility-administered medications for this visit. PAST SURGICAL HISTORY Procedure Laterality Date APPENDECTOMY 08/07 DELIVERY ONLY 2002 , low cervical. x 3 COLONOSCOPY FLX DX W/COLLJ SPEC WHEN PFRMD 11/30/2010 Colonoscopy COLONOSCOPY FLX DX W/COLLJ SPEC WHEN PFRMD 01/24/2016 Colonoscopy ESOPHAGOGASTRODUODENOSCOPY TRANSORAL DIAGNOSTIC 01/24/2016 EGD LAMINECTOMY W/O FFD > 2 VERT SEG LUMBAR 02/06/2015 Bruce Burks PAST SURGICAL HISTORY OF 1978 left above eye to remove lumps PAST SURGICAL HISTORY OF 11/2010 Laparoscopically-assisted ventral rectopexy with mesh insertion (Prolene mesh). PAST SURGICAL HISTORY OF 2006 Partial hysterectomy FAMILY HISTORY Problem Relation Age of Onset Arthritis Mother Cancer Father lung Social History Tobacco Use Smoking status: Current Every Day Smoker Packs/day: 0.50 Years: 30.00 Pack years: 15.00 Types: Cigarettes Smokeless tobacco: Never Used Vaping Use Vaping Use: Never used Substance Use Topics Alcohol use: No Drug use: No Objective BP 115/78 Pulse 98 Temp 36.7 C (98.1 F) Resp 20 Wt 52.5 kg (115 lb 12.8 oz) LMP 03/13/2007 SpO2 97% BMI 20.51 kg/m Physical Exam Vitals reviewed. Constitutional: Appearance: Normal appearance. HENT: Head: Normocephalic and atraumatic. Mouth/Throat: Mouth: Mucous membranes are moist. Pharynx: Oropharynx is clear. Cardiovascular: Rate and Rhythm: Normal rate and regular rhythm. Heart sounds: Normal heart sounds. Pulmonary: Effort: Pulmonary effort is normal. Breath sounds: Normal breath sounds. Abdominal: General: Abdomen is flat. Palpations: Abdomen is soft. Tenderness: There is no abdominal tenderness. There is no right CVA tenderness, left CVA tenderness, guarding or rebound. Skin: General: Skin is warm and dry. Neurological: Mental Status: She is alert. Assessment and Plan ASSESSMENT/PLAN: 1. Vomiting and diarrhea - ICD9: 787.03, 787.91, ICD10: R11.10, R19.7 Likely viral illness versus foodborne illness from the [employer]. Her symptoms have almost resolved at this point. She is tested for COVID as she needs a test for work. Discussed supportive care. Patient agreeable. - 2019 CORONAVIRUS Erika Wilkinson PA-C documented in this encounter [facility] 01-07-2022 Miscellaneous Notes Left a detailed message for pt with information listed below. Faustina Goff LPN Noted. Okay to hold off on further imaging since lump gone. Follow up as needed if lump returns or soreness not resolving over the next few weeks. If feels is mostly a TMJ issue, then may follow up with dentist. called pt and she reports the lump is gone. She notes the area is still a little sore and tender but nothing else. ----- Message from Sofia Medina MD sent at 01/06/2022 8:33 PM EDT ----- Xray soft tissue did not reveal any problems. Will check on patient to see if any changes in symptoms that were discussed in October to decide if further evaluation or treatment needed nbow documented in this encounter [facility] 11-14-2021 History of Presen t illness Narrative Images from the original note were not included. This note was created using YouNoodleter. Subjective Denisa Scherer is a 61 year old female. Patient presents with: ER F/U SUBJECTIVE: Denisa Scherer is a 61 year old year old lady here today for ER month follow up appointment for review of medical conditions. Went to ER for pain in left jaw, left ear and posterior neck left with lump back of neck. Lump was sticking out--rason went to ER. Down today but still painful. Throbbing pain in jaw when laid down. 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 Friday her face was all swollen so did not go to work. Had started Friday with face swelling. Did go down since Friday. Did not go to work Friday and was off Friday. Reviewed that is still having pain in posterior left neck as well as ear and throat. Still has lump back of neck Not sure when had pain in anterior neck on left. Sore in front lower neck where there is another lump. About pea size in the front. Did not notice bruising on front of neck. No pain shooting down arms but goes into trapezius on left and over deltoid muscle. PAST MEDICAL HISTORY Diagnosis Date Acute kidney injury (HCC) 02/24/2015 Acute respiratory failure ([facility]) 05/14/2018 Adjustment disorder with depressed mood Anxiety 06/14/2014 Dr. Tess Ochoa (Psychiatrist at [facility]). Bowel disease Colon polyps Depression, major 06/14/2014 Dr. Tess Ochoa (Psychiatrist at [facility]). Fibromyalgia 06/14/2014 GERD (gastroesophageal reflux disease) 06/14/2014 Hematuria 12/22/2007 LBP (See LOW BACK PAIN) 01/31/2009 Migraine 07/27/2014 Mixed hyperlipidemia 02/08/2016 Opiate poisoning ([facility]) 02/24/2015 Peripheral vascular disease, unspecified ([facility]) Poisoning by benzodiazepine, intentional self-harm ([facility]) 02/24/2015 Rectal prolapse Respiratory failure, acute ([facility]) 02/24/2015 RP (rectal prolapse) 01/28/2018 Added automatically from request for surgery [id number] Severe sepsis ([facility]) 02/24/2015 Sprain of unspecified site of sacroiliac region Suicide and self-inflicted poisoning by analgesics, antipyretics, and antirheumatics(E950.0) 02/24/2015 Tobacco abuse 1ppd x 15 years Toxic encephalopathy 02/24/2015 Withdrawal symptoms, drug or narcotic ([facility]) 02/24/2015 Current Outpatient Medications Medication Sig polyethylene glycol 3350 (MIRALAX, GLYCOLAX) 17 gram/dose powder Take 17 g by mouth once daily. This is one (1) capful. Use in at least 8oz of liquid. The dose can be adjusted as needed. gabapentin (NEURONTIN) 800 mg tablet Take one(1) tablet AM and noon. Take 1.[address] tablets at [address]time. Dr. Lara. DULoxetine (CYMBALTA) 60 mg capsule Take 60 mg by mouth once daily. ARIPiprazole (ABILIFY) 5 mg tablet Take 1 tablet by mouth once daily. Dr. Ochoa omeprazole (PRILOSEC) 40 mg capsule Take 1 capsule by mouth once daily. (Patient not taking: Reported on 11/14/2021 ) SUMAtriptan (IMITREX) 50 mg tablet Take 1 tablet by mouth as needed for Migraine Headache (see administration instructions). (Patient not taking: Reported on 11/14/2021 ) No current facility-administered medications for this visit. Review of Systems Objective BP 112/78 Pulse 86 Wt 53.5 kg (118 lb) LMP 03/13/2007 BMI 20.90 kg/m Physical Exam HENT: Head: Jaw: Tenderness (parotid gland on left; not swollen now) and pain on movement (hurts int TMJ joint) present. Comments: States that left cheek still feels Neck: Musculoskeletal: Right shoulder: Normal. Left shoulder: Tenderness present. No swelling, deformity, effusion or laceration. Normal range of motion. Cervical back: Decreased range of motion (Hurts to turn to the left; not able to turn more than 30 degrees). Comments: Tender over trapezius on left and over shoulder/deltoid area Assessment and Plan ASSESSMENT/PLAN: 1. Neck pain on left side - ICD9: 723.1, ICD10: M54.2 (primary diagnosis) - CT NECK SOFT TISSUE W IVCON - IV CONTRAST (RADIOLOGY PROCEDURE) - CBC - COMP METABOLIC PANEL - XR NECK SOFT TISSUE 2V AP/LAT - T4 FREE/FREE THYROX - PTH INTACT BLD 2. Jaw pain - ICD9: 784.92, ICD10: R68.84 - CT NECK SOFT TISSUE W IVCON - IV CONTRAST (RADIOLOGY PROCEDURE) - CBC - COMP METABOLIC PANEL - XR NECK SOFT TISSUE 2V AP/LAT 3. Tenderness of left temporomandibular joint - ICD9: 524.62, ICD10: M26.622 Further evaluation and treatment as indicated. 4. Bruise - ICD9: 924.9, ICD10: T14.8XXA Further evaluation and treatment as indicated. - CT NECK SOFT TISSUE W IVCON - XR NECK SOFT TISSUE 2V AP/LAT 5. Temporomandibular joint disorder - ICD9: 524.60, ICD10: M26.609 - CT NECK SOFT TISSUE W IVCON - XR NECK SOFT TISSUE 2V AP/LAT 6. Localized swelling, mass or lump of neck - ICD9: 784.2, ICD10: R22.1 - CT NECK SOFT TISSUE W IVCON - XR NECK SOFT TISSUE 2V AP/LAT - T4 FREE/FREE THYROX - PTH INTACT BLD 7. Lymphadenopathy - ICD9: 785.6, ICD10: R59.1 - CT NECK SOFT TISSUE W IVCON - IV CONTRAST (RADIOLOGY PROCEDURE) - CBC - COMP METABOLIC PANEL - XR NECK SOFT TISSUE 2V AP/LAT 8. Hypercalcemia - ICD9: 275.42, ICD10: E83.52 - T4 FREE/FREE THYROX - PTH INTACT BLD Sofia Medina MD documented in this encounter [facility] 01-29-2021 History of Presen t illness Narrative Radiology Service Progress Note PATIENT NAME: Denisa Scherer DATE OF SERVICE: January 29, 2021 TIME: 9:08 AM PATIENT IDENTITY VERIFICATION COMPLETED USING TWO (2) IDENTIFIERS: Name and Date of confirmed by patient verbally. FALL SCREENING: Has the patient had 2 falls in the last year or 1 fall with injury or currently using an Ambulatory Assistive Device (Walker, Cane, Wheelchair, Crutches, etc.)? No PATIENT GENDER DATA: Female. status: : No status: NO. PATIENT RELEVANT IMPLANT DATA REVIEWED: Not Applicable RADIOLOGY DEPARTMENT: General X-ray: Exam(s) Completed: Lower Extremity X-Ray(s): Foot, Left and Wt. Bearing PERIPHERAL IV DATA: Not applicable SIGNED BY: RT Jessica(R) January 29, 2021 9:08 AM documented in this encounter [facility] 05-14-2018 History of Past i llness Narrative Problem Noted Date Resolved Date Postoperative pain 05/14/2018 11/21/2018 Last Assessment & Plan: PLAN: Pain control per ERAS protocol Hypoxemia 05/14/2018 11/21/2018 Last Assessment & Plan: PLAN: Desat study done Will need to go home with supplemental oxygen Acute respiratory failure 05/14/20182018 Last Assessment & Plan: PLAN: Desat study done Will need to go home with supplemental oxygen RP (rectal prolapse) 01/28/2018 11/21/2018 Overview: Added automatically from request for surgery [id number] Last Assessment & Plan: PLAN: S/p surgical repair Bilateral edema of lower extremity 02/08/2016 09/07/2017 Gastroesophageal reflux disease 01/24/2016 01/24/2016 Irritable bowel syndrome with diarrhea 6 01/24/2016 Migraine 07/27/2014 07/10/2015 Fibromyalgia 06/14/2014 07/10/2015 Arthritis, multiple joint involvement 12/25/2012 07/10/2015 Physical deconditioning 05/15/2011 07/10/19 16 Back pain 01/08/2011 07/10/2015 Rectal prolapse 11/23/2010 07/10/2015 Pain in joint, shoulder region 05/06/2006 0 07/10/2015 documented as of this encounter (statuses as of 01/07/2022) [facility] History of Past illness Narrative* Problem Noted Date Resolved Date Postoperative pain 05/14/2018 11/21/2018 Last Assessment & Plan: PLAN: Pain control per [facility]AS protocol Hypoxemia 05/14/2018 11/21/2018 Last Assessment & Plan: PLAN: Desat study done Will need to go home with supplemental oxygen Acute respiratory failure 05/14/20182018 Last Assessment & Plan: PLAN: Desat study done Will need to go home with supplemental oxygen RP (rectal prolapse) 01/28/2018 11/21/2018 Overview: Added automatically from request for surgery [id number] Last Assessment & Plan: PLAN: S/p surgical repair Bilateral edema of lower extremity 02/08/2016 09/07/2017 Gastroesophageal reflux disease 01/24/2016 01/24/2016 Irritable bowel syndrome with diarrhea 6 01/24/2016 Migraine 07/27/2014 07/10/2015 Fibromyalgia 06/14/2014 07/10/2015 Arthritis, multiple joint involvement 12/25/2012 07/10/2015 Physical deconditioning 05/15/2011 07/10/19 16 Back pain 01/08/2011 07/10/2015 Rectal prolapse 11/23/2010 07/10/2015 Pain in joint, shoulder region 05/06/2006 0 07/10/2015 documented as of this encounter (statuses as of 01/07/2022) [facility] History of Past illness Narrative* Problem Noted Date Resolved Date Postoperative pain 05/14/2018 11/21/2018 Last Assessment & Plan: PLAN: Pain control per [facility] protocol Hypoxemia 05/14/2018 11/21/2018 Last Assessment & Plan: PLAN: Desat study done Will need to go home with supplemental oxygen Acute respiratory failure 05/14/20182018 Last Assessment & Plan: PLAN: Desat study done Will need to go home with supplemental oxygen RP (rectal prolapse) 01/28/2018 11/21/2018 Overview: Added automatically from request for surgery [id number] Last Assessment & Plan: PLAN: S/p surgical repair Bilateral edema of lower extremity 02/08/2016 09/07/2017 Gastroesophageal reflux disease 01/24/2016 01/24/2016 Irritable bowel syndrome with diarrhea 6 01/24/2016 Migraine 07/27/2014 07/10/2015 Fibromyalgia 06/14/2014 07/10/2015 Arthritis, multiple joint involvement 12/25/2012 07/10/2015 Physical deconditioning 05/15/2011 07/10/19 16 Back pain 01/08/2011 07/10/2015 Rectal prolapse 11/23/2010 07/10/2015 Pain in joint, shoulder region 05/06/2006 0 07/10/2015 documented as of this encounter (statuses as of 01/27/2022) [facility] History of Past illness Narrative* Problem Noted Date Resolved Date Postoperative pain 05/14/2018 11/21/2018 Last Assessment & Plan: PLAN: Pain control per [facility] protocol Hypoxemia 05/14/2018 11/21/2018 Last Assessment & Plan: PLAN: Desat study done Will need to go home with supplemental oxygen Acute respiratory failure 05/14/20182018 Last Assessment & Plan: PLAN: Desat study done Will need to go home with supplemental oxygen RP (rectal prolapse) 01/28/2018 11/21/2018 Overview: Added automatically from request for surgery [id number] Last Assessment & Plan: PLAN: S/p surgical repair Bilateral edema of lower extremity 02/08/2016 09/07/2017 Gastroesophageal reflux disease 01/24/2016 01/24/2016 Irritable bowel syndrome with diarrhea 6 01/24/2016 Migraine 07/27/2014 07/10/2015 Fibromyalgia 06/14/2014 07/10/2015 Arthritis, multiple joint involvement 12/25/2012 07/10/2015 Physical deconditioning 05/15/2011 07/10/19 16 Back pain 01/08/2011 07/10/2015 Rectal prolapse 11/23/2010 07/10/2015 Pain in joint, shoulder region 05/06/2006 0 07/10/2015 documented as of this encounter (statuses as of 01/28/2022) [facility] History of Past illness Narrative* Problem Noted Date Resolved Date Postoperative pain 05/14/2018 11/21/2018 Last Assessment & Plan: PLAN: Pain control per [facility]AS protocol Hypoxemia 05/14/2018 11/21/2018 Last Assessment & Plan: PLAN: Desat study done Will need to go home with supplemental oxygen Acute respiratory failure 05/14/20182018 Last Assessment & Plan: PLAN: Desat study done Will need to go home with supplemental oxygen RP (rectal prolapse) 01/28/2018 11/21/2018 Overview: Added automatically from request for surgery [id number] Last Assessment & Plan: PLAN: S/p surgical repair Bilateral edema of lower extremity 02/08/2016 09/07/2017 Gastroesophageal reflux disease 01/24/2016 01/24/2016 Irritable bowel syndrome with diarrhea 6 01/24/2016 Migraine 07/27/2014 07/10/2015 Fibromyalgia 06/14/2014 07/10/2015 Arthritis, multiple joint involvement 12/25/2012 07/10/2015 Physical deconditioning 05/15/2011 07/10/19 16 Back pain 01/08/2011 07/10/2015 Rectal prolapse 11/23/2010 07/10/2015 Pain in joint, shoulder region 05/06/2006 0 07/10/2015 documented as of this encounter (statuses as of 01/29/2022) [facility] History of Past illness Narrative* Problem Noted Date Resolved Date Postoperative pain 05/14/2018 11/21/2018 Last Assessment & Plan: PLAN: Pain control per ERAS protocol Hypoxemia 05/14/2018 11/21/2018 Last Assessment & Plan: PLAN: Desat study done Will need to go home with supplemental oxygen Acute respiratory failure 05/14/20182018 Last Assessment & Plan: PLAN: Desat study done Will need to go home with supplemental oxygen RP (rectal prolapse) 01/28/2018 11/21/2018 Overview: Added automatically from request for surgery [id number] Last Assessment & Plan: PLAN: S/p surgical repair Bilateral edema of lower extremity 02/08/2016 09/07/2017 Gastroesophageal reflux disease 01/24/2016 01/24/2016 Irritable bowel syndrome with diarrhea 6 01/24/2016 Migraine 07/27/2014 07/10/2015 Fibromyalgia 06/14/2014 07/10/2015 Arthritis, multiple joint involvement 12/25/2012 07/10/2015 Physical deconditioning 05/15/2011 07/10/19 16 Back pain 01/08/2011 07/10/2015 Rectal prolapse 11/23/2010 07/10/2015 Pain in joint, shoulder region 05/06/2006 0 07/10/2015 documented as of this encounter (statuses as of 01/31/2022) [facility] History of Past illness Narrative* Problem Noted Date Resolved Date Postoperative pain 05/14/2018 11/21/2018 Last Assessment & Plan: PLAN: Pain control per ERAS protocol Hypoxemia 05/14/2018 11/21/2018 Last Assessment & Plan: PLAN: Desat study done Will need to go home with supplemental oxygen Acute respiratory failure 05/14/20182018 Last Assessment & Plan: PLAN: Desat study done Will need to go home with supplemental oxygen RP (rectal prolapse) 01/28/2018 11/21/2018 Overview: Added automatically from request for surgery [id number] Last Assessment & Plan: PLAN: S/p surgical repair Bilateral edema of lower extremity 02/08/2016 09/07/2017 Gastroesophageal reflux disease 01/24/2016 01/24/2016 Irritable bowel syndrome with diarrhea 6 01/24/2016 Migraine 07/27/2014 07/10/2015 Fibromyalgia 06/14/2014 07/10/2015 Arthritis, multiple joint involvement 12/25/2012 07/10/2015 Physical deconditioning 05/15/2011 07/10/19 16 Back pain 01/08/2011 07/10/2015 Rectal prolapse 11/23/2010 07/10/2015 Pain in joint, shoulder region 05/06/2006 0 07/10/2015 documented as of this encounter (statuses as of 05/13/2022) [facility] History of Past illness Narrative* Problem Noted Date Resolved Date Postoperative pain 05/14/2018 11/21/2018 Last Assessment & Plan: PLAN: Pain control per ERAS protocol Hypoxemia 05/14/2018 11/21/2018 Last Assessment & Plan: PLAN: Desat study done Will need to go home with supplemental oxygen Acute respiratory failure 05/14/20182018 Last Assessment & Plan: PLAN: Desat study done Will need to go home with supplemental oxygen RP (rectal prolapse) 01/28/2018 11/21/2018 Overview: Added automatically from request for surgery [id number] Last Assessment & Plan: PLAN: S/p surgical repair Bilateral edema of lower extremity 02/08/2016 09/07/2017 Gastroesophageal reflux disease 01/24/2016 01/24/2016 Irritable bowel syndrome with diarrhea 6 01/24/2016 Migraine 07/27/2014 07/10/2015 Fibromyalgia 06/14/2014 07/10/2015 Arthritis, multiple joint involvement 12/25/2012 07/10/2015 Physical deconditioning 05/15/2011 07/10/19 16 Back pain 01/08/2011 07/10/2015 Rectal prolapse 11/23/2010 07/10/2015 Pain in joint, shoulder region 05/06/2006 0 07/10/2015 documented as of this encounter (statuses as of 05/31/2022) [facility] History of Past illness Narrative* Problem Noted Date Resolved Date Postoperative pain 05/14/2018 11/21/2018 Last Assessment & Plan: PLAN: Pain control per ERAS protocol Hypoxemia 05/14/2018 11/21/2018 Last Assessment & Plan: PLAN: Desat study done Will need to go home with supplemental oxygen Acute respiratory failure 05/14/20182018 Last Assessment & Plan: PLAN: Desat study done Will need to go home with supplemental oxygen RP (rectal prolapse) 01/28/2018 11/21/2018 Overview: Added automatically from request for surgery [id number] Last Assessment & Plan: PLAN: S/p surgical repair Bilateral edema of lower extremity 02/08/2016 09/07/2017 Gastroesophageal reflux disease 01/24/2016 01/24/2016 Irritable bowel syndrome with diarrhea 6 01/24/2016 Migraine 07/27/2014 07/10/2015 Fibromyalgia 06/14/2014 07/10/2015 Arthritis, multiple joint involvement 12/25/2012 07/10/2015 Physical deconditioning 05/15/2011 07/10/19 16 Back pain 01/08/2011 07/10/2015 Rectal prolapse 11/23/2010 07/10/2015 Pain in joint, shoulder region 05/06/2006 0 07/10/2015 documented as of this encounter (statuses as of 08/26/2022) [facility] History of Past illness Narrative* Problem Noted Date Resolved Date Postoperative pain 05/14/2018 11/21/2018 Last Assessment & Plan: PLAN: Pain control per ERAS protocol Hypoxemia 05/14/2018 11/21/2018 Last Assessment & Plan: PLAN: Desat study done Will need to go home with supplemental oxygen Acute respiratory failure 05/14/20182018 Last Assessment & Plan: PLAN: Desat study done Will need to go home with supplemental oxygen RP (rectal prolapse) 01/28/2018 11/21/2018 Overview: Added automatically from request for surgery [id number] Last Assessment & Plan: PLAN: S/p surgical repair Bilateral edema of lower extremity 02/08/2016 09/07/2017 Gastroesophageal reflux disease 01/24/2016 01/24/2016 Irritable bowel syndrome with diarrhea 6 01/24/2016 Migraine 07/27/2014 07/10/2015 Fibromyalgia 06/14/2014 07/10/2015 Arthritis, multiple joint involvement 12/25/2012 07/10/2015 Physical deconditioning 05/15/2011 07/10/19 16 Back pain 01/08/2011 07/10/2015 Rectal prolapse 11/23/2010 07/10/2015 Pain in joint, shoulder region 05/06/2006 0 07/10/2015 documented as of this encounter (statuses as of 10/14/2022) [facility] History of Past illness Narrative* Problem Noted Date Resolved Date Postoperative pain 05/14/2018 11/21/2018 Last Assessment & Plan: PLAN: Pain control per ERAS protocol Hypoxemia 05/14/2018 11/21/2018 Last Assessment & Plan: PLAN: Desat study done Will need to go home with supplemental oxygen Acute respiratory failure 05/14/20182018 Last Assessment & Plan: PLAN: Desat study done Will need to go home with supplemental oxygen RP (rectal prolapse) 01/28/2018 11/21/2018 Overview: Added automatically from request for surgery [id number] Last Assessment & Plan: PLAN: S/p surgical repair Bilateral edema of lower extremity 02/08/2016 09/07/2017 Gastroesophageal reflux disease 01/24/2016 01/24/2016 Irritable bowel syndrome with diarrhea 6 01/24/2016 Migraine 07/27/2014 07/10/2015 Fibromyalgia 06/14/2014 07/10/2015 Arthritis, multiple joint involvement 12/25/2012 07/10/2015 Physical deconditioning 05/15/2011 07/10/19 16 Back pain 01/08/2011 07/10/2015 Rectal prolapse 11/23/2010 07/10/2015 Pain in joint, shoulder region 05/06/2006 0 07/10/2015 documented as of this encounter (statuses as of 10/18/2022) [facility] History of Past illness Narrative* Problem Noted Date Diagnosed Date Resolved Date Postoperative pain 05/14/2018 9 Last Assessment & Plan: PLAN: Pain control per ERAS protocol Hypoxemia 05/14/2018 11/21/2018 Last Assessment & Plan: PLAN: Desat study done Will need to go home with supplemental oxygen Acute respiratory failure 05/14/2018 Last Assessment & Plan: PLAN: Desat study done Will need to go home with supplemental oxygen RP (rectal prolapse) 01/28/2018 019 Overview: Added automatically from request for surgery [id number] Last Assessment & Plan: PLAN: S/p surgical repair Bilateral edema of lower extremity 02/08/2016 09/07/2017 Gastroesophageal reflux disease 01/24/2016 01/24/2016 Irritable bowel syndrome with diarrhea 01/24/2016 01/24/2016 Migraine 07/27/2014 07/10/2015 Fibromyalgia 06/14/2014 07/10/2015 Arthritis, multiple joint involvement 12/25/2012 07/10/2015 Physical deconditioning 05/15/201106/30 Back pain 01/08/2011 07/10/2015 Rectal prolapse 11/23/2010 07/10/2015 Pain in joint, shoulder region 05/06/2006 07/10/2015 documented as of this encounter (statuses as of 04/12/2023) [facility] History of Past illness Narrative* Problem Noted Date Diagnosed Date Resolved Date Postoperative pain 05/14/2018 9 Last Assessment & Plan: PLAN: Pain control per ERAS protocol Hypoxemia 05/14/2018 11/21/2018 Last Assessment & Plan: PLAN: Desat study done Will need to go home with supplemental oxygen Acute respiratory failure 05/14/2018 Last Assessment & Plan: PLAN: Desat study done Will need to go home with supplemental oxygen RP (rectal prolapse) 01/28/2018 019 Overview: Added automatically from request for surgery [id number] Last Assessment & Plan: PLAN: S/p surgical repair Bilateral edema of lower extremity 02/08/2016 09/07/2017 Gastroesophageal reflux disease 01/24/2016 01/24/2016 Irritable bowel syndrome with diarrhea 01/24/2016 01/24/2016 Migraine 07/27/2014 07/10/2015 Fibromyalgia 06/14/2014 07/10/2015 Arthritis, multiple joint involvement 12/25/2012 07/10/2015 Physical deconditioning 05/15/201106/30 Back pain 01/08/2011 07/10/2015 Rectal prolapse 11/23/2010 07/10/2015 Pain in joint, shoulder region 05/06/2006 07/10/2015 documented as of this encounter (statuses as of 08/04/2023) [facility] noteNo assessment information availableWMadison Health Work Phone: Evaluation note* Diagnosis Neck pain on left side- Primary Cervicalgia Jaw pain Tenderness of left temporomandibular joint Bruise Contusion of unspecified site Temporomandibular joint disorder Temporomandibular joint disorders, unspecified Localized swelling, mass or lump of neck Swelling, mass, or lump in head and neck Lymphadenopathy Enlargement of lymph nodes Hypercalcemia [facility] Diagnosis Vomiting and diarrhea- Primary Vomiting alone [facility] Diagnosis Leg swelling- Primary Swelling of limb Bilateral leg pain Pain in limb Smoker Tobacco use disorder Short of breath on exertion Shortness of breath [facility] Diagnosis Screening for colon cancer Special screening for malignant neoplasms, colon [facility] Diagnosis Influenza-like illness- Primary Influenza with other respiratory manifestations [facility]counter for screening [facility] for [facility] cancer [facility] Diagnosis Acute cough- Primary Tongue burning sensation Glossodynia [facility] Diagnosis Cellulitis of ear canal, left- Primary Other acute nonsuppurative otitis media of left ear, recurrence not specified [facility] Diagnosis Encounter for screening mammogram for breast cancer [facility] Diagnosis Generalized abdominal pain- Primary Abdominal pain, generalized [facility] Diagnosis Postoperative pain Other acute postoperative pain Nicotine use disorder, F17.2 Tobacco use disorder Acute cough [facility] Diagnosis Postoperative pain Other acute postoperative pain Nicotine use disorder, F17.2 Tobacco use disorder Neck pain on left side Cervicalgia Jaw pain Bruise Contusion of unspecified site Temporomandibular joint disorder Temporomandibular joint disorders, unspecified Localized swelling, mass or lump of neck Swelling, mass, or lump in head and neck Lymphadenopathy Enlargement of lymph nodes documented in this encounter [facility] note* Diagnosis Postoperative pain Other acute postoperative pain Nicotine use disorder, F17.2 Tobacco use disorder Foot pain, left Pain in limb [facility] Diagnosis Postoperative pain Other acute postoperative pain Nicotine use disorder, F17.2 Tobacco use disorder Presbyopia- Primary Regular astigmatism of both eyes Regular astigmatism Age-related nuclear cataract of both eyes Senile nuclear sclerosis documented in this encounter [facility] note* Diagnosis Postoperative pain Other acute postoperative pain Nicotine use disorder, F17.2 Tobacco use disorder Dizziness- Primary Dizziness and giddiness [facility] Discharge instructionsWMadison Health Work Phone: Hospital Discharge instructions Additional Instructions please follow-up with your family doctor to discuss referral to neurology and/or rheumatology to assess for other disease processes that could be causing your symptoms but your work-up here revealed no [facility] Work Phone: Reason for referral (narrative)* Diagnostic Procedure Only (Routine) - Closed Specialty Diagnoses / Procedures Referred By Lata kirk Referred To Contact XR IMAGING Diagnoses Neck pain on left side Jaw pain Bruise Temporomandibular joint disorder Localized swelling, mass or lump of neck Lymphadenopathy Procedures XR NECK SOFT TISSUE 2V AP/LAT RADIOLOGIC EXAMINATION NECK SOFT TISSUE Sofia Medina MD [address] [place] [address] Xr Imaging Referral ID Status Reason Start Date Expiration Date V isits Requested Visits Authorized [id number] Closed Auto-Generate d Referral 11/14/2021 12/14/2022 1 1 * MRI/CT (Urgent) - Pending Review Specialty Diagnoses / Procedures Referred By Lata kirk Referred To Contact CT IMAGING Diagnoses Neck pain on left side Jaw pain Bruise Temporomandibular joint disorder Localized swelling, mass or lump of neck Lymphadenopathy Procedures CT NECK SOFT TISSUE W IVCON CT SOFT TISSUE NECK W/CONTRAST MATERIAL Sofia Medina MD [address] [place] [address] Ct Imaging Referral ID Status Reason Start Date Expiration Date Visits Requested Visits Authorized [id number] Pending Review Auto-Generat ed Referral 11/14/2021 12/14/2022 1 1 [facility] for referral (narrative)* Outpatient Procedure (Routine) - Authorized Specialty Diagnoses / Procedures Referred By Lata kirk Referred To Contact [facility] Diagnoses Leg swelling Bilateral leg pain Procedures US LEG VEIN DVT DANUAT VAS LAB DUP-SCAN XTR VEINS COMPLETE BILATERAL STUDY Meenu Sidhu APRN.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 [address] [place] [address] [facility] [address] [place] [address] Referral ID Status Reason Start Date Expiration Date Visits Requested Visits Authorized [id number] Authorized Auto-Generat ed Referral 01/31/2022 01/31/2023 1 1 * Outpatient Procedure (Routine) - Authorized Specialty Diagnoses / Procedures Referred By Lata kirk Referred To Contact [facility] Diagnoses Leg swelling Short of breath on exertion Procedures ECHO ECHO TTHRC R-T 2D W/WOM-MODE COMPL SPEC&COLR D Meenu Sidhu APRN.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 [address] [place] [address] [facility] [address] [place] [address] Referral ID Status Reason Start Date Expiration Date Visits Requested Visits Authorized [id number] Authorized Auto-Generat ed Referral 01/31/2022 01/31/2023 1 1 [facility] for referral (narrative)* Outpatient Procedure (Routine) - Pending Review Specialty Diagnoses / Procedures Referred By Lata kirk Referred To Contact [facility] Diagnoses Screening for colon cancer Procedures COLONOSCOPY SCREENING COLONOSCOPY FLX DX W/COLLJ SPEC WHEN Jefferson Troy MD [address] [place] [address] [facility] [address] [place] [address] Referral ID Status Reason Start Date Expiration Date Visits Requested Visits Authorized [id number] Pending Review Auto-Generat ed Referral 05/08/2022 05/08/2023 1 1 [facility] for referral (narrative)* Diagnostic Procedure Only (Routine) - Pending Review Specialty Diagnoses / Procedures Referred By Lata kirk Referred To Contact [facility] Diagnoses Encounter for screening mammogram for breast cancer Procedures LEWIS SCREENING SCREENING MAMMOGRAPHY BI 2-VIEW BREAST INC Jefferson Jones MD [address] [place] [address] [facility] [address] [place] [address] Referral ID Status Reason Start Date Expiration Date Visits Requested Visits Authorized [id number] Pending Review Auto-Generat ed Referral 08/21/2022 09/20/2023 1 1 [facility] for referral (narrative)* Diagnostic Procedure Only (Routine) - Pending Review Specialty Diagnoses / Procedures Referred By Lata kirk Referred To Contact [facility] Diagnoses Encounter for screening mammogram for breast cancer Procedures LEWIS SCREENING SCREENING MAMMOGRAPHY BI 2-VIEW BREAST INC Jefferson Jones MD [address] [place] [address] [facility] [address] [place] [address] Referral ID Status Reason Start Date Expiration Date Visits Requested Visits Authorized [id number] Pending Review Auto-Generat ed Referral 07/30/2023 08/28/2024 [address] [facility] for referral (narrative)* Diagnostic Procedure Only (Routine) - Closed Specialty Diagnoses / Procedures Referred By Contac t Referred To Contact XR IMAGING Diagnoses Neck pain on left side Jaw pain Bruise Temporomandibular joint disorder Localized swelling, mass or lump of neck Lymphadenopathy Procedures XR NECK SOFT TISSUE 2V AP/LAT RADIOLOGIC EXAMINATION NECK SOFT TISSUE Sofia Medina MD [address] [place] [address] [place] [address] Referral ID Status Reason Start Date Expiration Date V isits Requested Visits Authorized [id number] Closed Auto-Generate d Referral 11/14/2021 12/14/2022 1 1 [facility] for referral (narrative)* Diagnostic Procedure Only (Routine) - Closed Specialty Diagnoses / Procedures Referred By Contac t Referred To Contact XR IMAGING Diagnoses Foot pain, left Procedures XR FOOT GENERAL 3V AP/LAT/OBL LT X-RAY FOOT MINIMUM 3 VIEWS Sheldon Keys MD [address] [place] [address] [place] [address] Referral ID Status Reason Start Date Expiration Date V isits Requested Visits Authorized [id number] Closed Auto-Generate d Referral 01/29/2021 02/28/2022 1 1 T [facility] for referral (narrative)No reason for referral information availableWMadison Health Work Phone: [facility] Narr[facility]* Diagnostic Procedure Only (Routine) - Closed Specialty Diagnoses / Procedures Referred By Contac t Referred To Contact XR IMAGING Diagnoses Neck pain on left side Jaw pain Bruise Temporomandibular joint disorder Localized swelling, mass or lump of neck Lymphadenopathy Procedures XR NECK SOFT TISSUE 2V AP/LAT RADIOLOGIC EXAMINATION NECK SOFT TISSUE Sofia Median MD [address] [place] [address] [place] [address] Referral ID Status Reason Start Date Expiration Date V isits Requested Visits Authorized [id number] Closed Auto-Generate d Referral 11/14/2021 12/14/2022 1 1 [facility]* Diagnostic Procedure Only (Routine) - Closed Specialty Diagnoses / Procedures Referred By Contac t Referred To Contact XR IMAGING Diagnoses Foot pain, left Procedures XR FOOT GENERAL 3V AP/LAT/OBL LT X-RAY FOOT MINIMUM 3 VIEWS Sheldon Keys MD [address] [place] [address] [place] [address] Referral ID Status Reason Start Date Expiration Date V isits Requested Visits Authorized [id number] Closed Auto-Generate d Referral 01/29/2021 02/28/2022 1 1 [facility] Chief Complaint and Reason for Visit Chief Complaint HEAD PAIN LUMP ON L SIDE NECK Chief Complaint CBC, CMP, Chief Complaint CBC, CMP, headache Chief Complaint CBC, CMP, headache HEADACHE Chief Complaint CBC, CMP, headache HEADACHE SCREENING Chief Complaint HEADACHE SCREENING Chief Complaint NAUSEA, VOMITING Chief Complaint Admit Date LEFT FLANK PAIN May 17, 2024 12:03pm Family History No Family History Records Found Relationship Condition Age at Onset Recorded Date/T moni Unknown Family History?Hypertension Unknown April 09, 2018 3:35am Relationship Condition Age at Onset Recorded Date/T moni Unknown Family History?Hypertension Unknown April 09, 2018 2:35am Advance Directives No Advanced Directives Records Found Advance Directive Response Recorded Date/ Time Living Will No November 10, 2021 7 :24pm Power of Refrigeration Person No November 10, 2021 7:24pm Documents on File Type Date Recorded Patient [employer] Expl anation Advance Directive(s) 05/12/2018 3:49 PM Advance Directive(s) 01/29/2016 5:54 AM Advance Directive(s) 01/24/2016 12:04 PM Advance Directive(s) 01/12/2016 9:00 AM Advance Directive(s) 12/10/2010 8:59 PM Documents on File Type Date Recorded Patient [employer] Expl anation Advance Directive(s) 05/12/2018 3:49 PM Advance Directive(s) 01/29/2016 5:54 AM Advance Directive(s) 01/24/2016 12:04 PM Advance Directive(s) 01/12/2016 9:00 AM Advance Directive(s) 12/10/2010 8:59 PM Documents on File Type Date Recorded Patient [employer] D[employer] Expl anation Advance Directive(s) 12/10/2010 8:59 PM Documents on File Type Date Recorded Patient [employer] D[employer] Expl anation Advance Directive(s) 12/10/2010 8:59 PM Advance Directive Response Recorded Date/ Time Living Will No November 09, 2022 9 :13am Power of Refrigeration Person No November 09, 2022 9:13am Advance Directive Response Recorded Date/ Time Living Will No January 07, 2023 9:54pm Power of Refrigeration Person No January 07 9:54pm Advance Directive Response Recorded Date/ Time Living Will No January 07, 2023 8:54pm Power of Refrigeration Person No January 07 8:54pm Health Concerns Infection Onset Date Last Indicated Resolved Time COVID-19 Rule-Out 01/27/2022 01/27/2022 Infection Onset Date Last Indicated Resolved Time COVID-19 Rule-Out 01/27/2022 01/27/2022 01/28/2022 12:03 AM EDT Infection Onset Date Last Indicated Resolved Time COVID-19 Rule-Out 05/31/2022 05/31/2022 Summary Purpose Additional Source Comments Goals (unrecognized section and content) Goals may be documented in a n alternate sectionGoals may be documented in an alternate sectionGoals may be documented in an alternate sectionGoals may be documented in an alternate sectionGoals may be documented in an alternate sectionGoals may be documented in an alternate sectionGoals may be documented in an alternate sectionGoals may be documented in an alternate sectionGoals may be documented in an alternate sectionGoals may be documented in an alternate section Source Comments (unrecognize d section and content) In the event this informatio n is protected by the Federal Confidentiality of Alcohol and Drug Abuse Patient Records regulations: The Federal rules restrict any use of the information to criminally investigate or prosecute any alcohol or drug abuse patient.[facility] the event this information is protected by the Federal Confidentiality of Alcohol and Drug Abuse Patient Records regulations: The Federal rules restrict any use of the information to criminally investigate or prosecute any alcohol or drug abuse patient.[facility] the event this information is protected by the Federal Confidentiality of Alcohol and Drug Abuse Patient Records regulations: The Federal rules restrict any use of the information to criminally investigate or prosecute any alcohol or drug abuse patient.[facility] HospitalIn the event this information is protected by the Federal Confidentiality of Alcohol and Drug Abuse Patient Records regulations: The Federal rules restrict any use of the information to criminally investigate or prosecute any alcohol or drug abuse patient.[facility] HospitalIn the event this information is protected by the Federal Confidentiality of Alcohol and Drug Abuse Patient Records regulations: The Federal rules restrict any use of the information to criminally investigate or prosecute any alcohol or drug abuse patient.[facility] HospitalIn the event this information is protected by the Federal Confidentiality of Alcohol and Drug Abuse Patient Records regulations: The Federal rules restrict any use of the information to criminally investigate or prosecute any alcohol or drug abuse patient.[facility] HospitalIn the event this information is protected by the Federal Confidentiality of Alcohol and Drug Abuse Patient Records regulations: The Federal rules restrict any use of the information to criminally investigate or prosecute any alcohol or drug abuse patient.[facility] HospitalIn the event this information is protected by the Federal Confidentiality of Alcohol and Drug Abuse Patient Records regulations: The Federal rules restrict any use of the information to criminally investigate or prosecute any alcohol or drug abuse patient.[facility] HospitalIn the event this information is protected by the Federal Confidentiality of Alcohol and Drug Abuse Patient Records regulations: The Federal rules restrict any use of the information to criminally investigate or prosecute any alcohol or drug abuse patient.[facility] HospitalIn the event this information is protected by the Federal Confidentiality of Alcohol and Drug Abuse Patient Records regulations: The Federal rules restrict any use of the information to criminally investigate or prosecute any alcohol or drug abuse patient.[facility] HospitalIn the event this information is protected by the Federal Confidentiality of Alcohol and Drug Abuse Patient Records regulations: The Federal rules restrict any use of the information to criminally investigate or prosecute any alcohol or drug abuse patient.[facility] HospitalIn the event this information is protected by the Federal Confidentiality of Alcohol and Drug Abuse Patient Records regulations: The Federal rules restrict any use of the information to criminally investigate or prosecute any alcohol or drug abuse patient.[facility] HospitalIn the event this information is protected by the Federal Confidentiality of Alcohol and Drug Abuse Patient Records regulations: The Federal rules restrict any use of the information to criminally investigate or prosecute any alcohol or drug abuse patient.[facility] HospitalIn the event this information is protected by the Federal Confidentiality of Alcohol and Drug Abuse Patient Records regulations: The Federal rules restrict any use of the information to criminally investigate or prosecute any alcohol or drug abuse patient.[facility] HospitalIn the event this information is protected by the Federal Confidentiality of Alcohol and Drug Abuse Patient Records regulations: The Federal rules restrict any use of the information to criminally investigate or prosecute any alcohol or drug abuse patient.[facility] HospitalIn the event this information is protected by the Federal Confidentiality of Alcohol and Drug Abuse Patient Records regulations: The Federal rules restrict any use of the information to criminally investigate or prosecute any alcohol or drug abuse patient.[facility] HospitalIn the event this information is protected by the Federal Confidentiality of Alcohol and Drug Abuse Patient Records regulations: The Federal rules restrict any use of the information to criminally investigate or prosecute any alcohol or drug abuse patient.[facility] HospitalIn the event this information is protected by the Federal Confidentiality of Alcohol and Drug Abuse Patient Records regulations: The Federal rules restrict any use of the information to criminally investigate or prosecute any alcohol or drug abuse patient.[facility] HospitalIn the event this information is protected by the Federal Confidentiality of Alcohol and Drug Abuse Patient Records regulations: The Federal rules restrict any use of the information to criminally investigate or prosecute any alcohol or drug abuse patient.[facility] Reason for Visit (unrecogniz ed section and content) Reason Comments ER F/U Reason Comments Results Reason Comments Covid19 Concern asymptomatic Reason Comments Ankle Pain Reason Comments Edema bilateral ankles Reason Comments Cough Pt reported nausea, body aches, Almendarez x5 days. Reason Comments Sore Throat Cough x4 days Reason Comments Ear Pain Left ear x 2 days Reason Comments Headache ALMENDAREZ, bodyaches, weak, no appetite, stomach pressure and lower abdominal pain x 3 days Reason Comments Yearly Exam Reason Comments Dizziness Lightheaded, nausea, diarrhea, ALMENDAREZ x2 days Care Teams (unrecognized sec tion and content) Meal Temperer Relationship Specialty Start Date End Date Sofia Medina MD [address] [facility] [address] PCP - General Internal Medicine 11/14/21 Meal Temperer Relationship Specialty Start Date End Date Sofia Medina MD [address] [place] [address] PCP - General Internal Medicine 11/14/21 Meal Temperer Relationship Specialty Start Date End Date Sofia Medina MD [address] [place] [address] PCP - General Internal Medicine 11/14/21 Meal Temperer Relationship Specialty Start Date End Date Sofia Medina MD [facility] [place] [address] PCP - General Internal Medicine 11/14/21 Meal Temperer Relationship Specialty Start Date End Date Sofia Medina MD [address] [place] [address] PCP - General Internal Medicine 11/14/21 Meal Temperer Relationship Specialty Start Date End Date Jefferson Joya MD [address] [place] [address] PCP - General Internal Medicine 01/31/22 Meal Temperer Relationship Specialty Start Date End Date Jefferson Joya MD [address] [place] [address] PCP - General Internal Medicine 01/31/22 Meal Temperer Relationship Specialty Start Date End Date Jefferson Joya MD [facility] [place] [address] PCP - General Internal Medicine 01/31/22 Meal Temperer Relationship Specialty Start Date End Date Jefferson Joya MD [facility] [place] [address] PCP - General Internal Medicine 01/31/22 Meal Temperer Relationship Specialty Start Date End Date Jefferson Joya MD [address] [place] [address] PCP - General Internal Medicine 01/31/22 Meal Temperer Relationship Specialty Start Date End Date Jefferson Joya MD [address] [place], [place] [id number] PCP - General Internal Medicine 01/31/22 Team Status: Active Member Role Status Dates Dr. Jefferson Joya MD Family Provider Active Dr. Jefferson Joya MD Primary Care Provider Active Team Status: Inactive Member Role Status Dates Dr. Jefferson Joya MD Primary Care Provider Active Dr. Lul Reyes MD Attending Provider, Referring Pr ovider Active Team Status: Active Member Role Status Dates Dr. Jefferson Joya MD Family Provider Active Dr. Lul Reyes MD Primary Care Provider Active Team Status: Inactive Member Role Status Dates Dr. Andre Easton DO Emergency Provider Active Dr. Lul Reyes MD Primary Care Provider Active Team Status: Inactive Member Role Status Dates Dr. Andre Easton DO Attending Provider, Emergency Pro vider Active Dr. Lul Reyes MD Primary Care Provider Active Team Status: Inactive Member Role Status Dates Dr. Lul Reyes MD Primary Care Provider Active Dr. Martinez Wick DO Emergency Provider Active Team Status: Inactive Member Role Status Dates Dr. Lul Reyes MD Primary Care Provider Active Dr. Martinez Wick DO Attending Provider, Emergency Pr ovider Active Team Status: Inactive Member Role Status Dates Dr. Lul Reyes MD Primary Care Provi amanda, Attending Provider, Referring Provider Active Team Status: Inactive Member Role Status Dates Dr. Lul Reyes MD Primary Care Provider, Attending Provider Active Meal Temperer Relationship Specialty Start Date End Date Jefferson Joya MD [address] [place], [place] [address] PCP - General Internal Medicine 01/31/22 Meal Temperer Relationship Specialty Start Date End Date Jefferson Joya MD [address] [place] [address] PCP - General Internal Medicine 01/31/22 Team Status: Active Member Role Status Dates Dr. Lul Reyes MD Primary Care Provi amanda, Attending Provider, Referring Provider Active Meal Temperer Relationship Specialty Start Date End Date Jefferson Joya MD [address] [place] [address] PCP - General Internal Medicine 01/31/22 11/14/23 Meal Temperer Relationship Specialty Start Date End Date Sofia Medina MD [address] [place] [address] PCP - General Internal Medicine 11/14/21 01/30/22 Meal Temperer Relationship Specialty Start Date End Date Jefferson Joya MD [address] [place] [address] PCP - General Internal Medicine 03/30/15 11/13/21 Meal Temperer Relationship Specialty Start Date End Date Lul Reyes Chi [address] [address] PCP - General Gerontology 09/02/24 Team Status: Inactive Member Role Status Dates Dr. Lul Reyes MD Primary Care Provider Active Start: May 17, 2024 End: May 17, 2024 Dr. Lul Reyes MD Attending Provider Active Start: May 17, 2024 End: May 17, 2024 Team Status: Inactive Member Role Status Dates Dr. Lul Reyes MD Primary Care Provider Active Start: May 17, 2024 End: May 17, 2024 Dr. Lul eRyes MD Attending Provider Active Start: May 17, 2024 End: May 17, 2024 Dr. Lul Reyes MD Referring Provider Active Start: May 17, 2024 End: May 17, 2024 Team Status: Inactive Member Role Status Dates Dr. Lul Reyes MD Primary Care Provider Active Start: September 01, 2024 End: September 01, 2024 Dr. Lul Reyes MD Attending Provider Active Start: September 01, 2024 End: September 01, 2024 Dr. Lul Reyes MD Referring Provider Active Start: September 01, 2024 End: September 01, 2024 Meal Temperer Relationship Specialty Start Date End Date Lul Reyes Chi [address] [facility] [address] [place] [address] PCP - General Gerontology 09/02/24 INFORMATION SOURCE (unrecogn ized section and content) DATE CREATED AUTHOR 09/14/2024 [facility] DATE CREATED AUTHOR AUTHOR'S GEOIZ ATION 10/04/2024 [facility] FOR RECORDS PERTAINING TO PATIENTS WHO ARE OR HAVE BEEN ENROLLED IN A CHEMICAL DEPENDENCY/SUBSTANCEABUSE PROGRAM, SOME INFORMATION MAY BE OMITTED. This clinical summary was aggregated from multiple sources. Caution should be exercised in using it in the provision of clinical care. This summary normalizes information from multiple sources, and as a consequence, information in this document may materially change the coding, format and clinical context of patient data. In addition, data may be omitted in some cases. CLINICAL DECISIONS SHOULD BE BASED ON THE PRIMARY CLINICAL RECORDS. [facility]. provides no warranty or guarantee of the accuracy or completeness of information in this document.
== END | disposition home or self-care (01) ==
LOC: LAB 11:08
PROVIDERS: PCP Family Medicine Geriatric Medicine; Referring Provider Family Medicine Geriatric Medicine; Visit Provider Family Medicine Geriatric Medicine
DX: E55.9 Vitamin D deficiency, unspecified (principal); R53.83 Other fatigue
CPT/HCPCS: 36415; 80053; 82306; 84443; 85025

== ENCOUNTER → 2025-01-11 | Outpatient (CLI) | payer MEDICARE, SELFPAY ==
--- NOTE | 2025-01-11 12:31 | VDLE_ITS ---
Reason For Study Reason For Study: RLE SWELLING RIGHT LEFT GSV is normal. CFV is compressible, spontaneous, phasic, competent, CFV is compressible, spontaneous, phasic, competent and demonstrates normal augmentation. and demonstrates normal augmentation. FV is compressible, spontaneous, phasic, competent and demonstrates normal augmentation. POP V is compressible, spontaneous, phasic, competent and demonstrates normal augmentation. T/P Trunk is compressible. PTV is compressible. RT PerV is compressible. Procedure This is a venous duplex using B-mode, color flow and spectral Doppler. Exam performed in department. A preliminary report was called and/or faxed to Dr. Denson @ [phone] @ 12:50 pm. VL/Venous Duplex US, Unilateral Interpretation Summary Deep veins of the right lower extremity are patent and compressible segmentally . There is no evidence of right lower extremity deep vein thrombosis. Valvular competence appears intact within the p roximal deep venous system on the right . The right great saphenous vein appears patent and compressible segmentally. The left common femoral vein is patent and compressible . Ordering Physician: Lul Denson Chi Referring Physician: Lul Denson Chi Performed By: Silvia Flores, HUY, RVT
--- NOTE | 2025-01-11 12:31 | VDLE_ITS ---
Reason For Study Reason For Study: RLE SWELLING RIGHT LEFT GSV is normal. CFV is compressible, spontaneous, phasic, competent, CFV is compressible, spontaneous, phasic, competent and demonstrates normal augmentation. and demonstrates normal augmentation. FV is compressible, spontaneous, phasic, competent and demonstrates normal augmentation. POP V is compressible, spontaneous, phasic, competent and demonstrates normal augmentation. T/P Trunk is compressible. PTV is compressible. RT PerV is compressible. Procedure This is a venous duplex using B-mode, color flow and spectral Doppler. Exam performed in department. A preliminary report was called and/or faxed to Dr. Denson @ [phone] @ 12:50 pm. VL/Venous Duplex US, Unilateral Interpretation Summary Deep veins of the right lower extremity are patent and compressible segmentally . There is no evidence of right lower extremity deep vein thrombosis. Valvular competence appears intact within the p roximal deep venous system on the right . The right great saphenous vein appears patent and compressible segmentally. The left common femoral vein is patent and compressible . Ordering Physician: Lul Denson Chi Referring Physician: Lul Denson Chi Performed By: Silvia Flores, HUY, RVT
--- NOTE | 2025-01-11 12:55 | RAD_ITS ---
EXAM: XR Lumbosacral Spine, 4 or 5 Views CLINICAL INDICATION: RIGHT SIDED SCIATICA TECHNIQUE: Frontal, lateral and bilateral oblique views of the lumbar spine. COMPARISON: No relevant prior studies available. FINDINGS: VERTEBRAE: S shaped scoliosis of the thoracolumbar spine. Right-sided posterior fusion of L3-L5 with disc spacers. Degenerative facet arthropathy throughout the lumbar spine, most prominent in the lower lumbar spine. No acute fracture. Normal alignment. SACRUM/COCCYX: Unremarkable as visualized. No acute fracture. DISC SPACES: Degenerative disc disease throughout the lumbar spine. SOFT TISSUES: Unremarkable. RAD/L/S Spine Min 4 Views IMPRESSION: 1. Postoperative changes as above. 2. Degenerative changes lumbar spine as described. Reading Location: [facility]
--- NOTE | 2025-01-11 12:55 | RAD_ITS ---
EXAM: XR Right Knee Complete, 4 or More Views CLINICAL INDICATION: RIGHT KNEE PAIN TECHNIQUE: Four or more views of the right knee. COMPARISON: No relevant prior studies available. FINDINGS: BONES/JOINTS: Mild tricompartmental degenerative changes of the knee joint. No acute fracture. No dislocation. SOFT TISSUES: Unremarkable. RAD/Knee 4 or More Views IMPRESSION: Degenerative changes as above. Reading Location: [id number]
--- NOTE | 2025-01-11 12:55 | RAD_ITS ---
EXAM: XR Right Knee Complete, 4 or More Views CLINICAL INDICATION: RIGHT KNEE PAIN TECHNIQUE: Four or more views of the right knee. COMPARISON: No relevant prior studies available. FINDINGS: BONES/JOINTS: Mild tricompartmental degenerative changes of the knee joint. No acute fracture. No dislocation. SOFT TISSUES: Unremarkable. RAD/Knee 4 or More Views IMPRESSION: Degenerative changes as above. Reading Location: [id number]
--- NOTE | 2025-01-11 12:55 | RAD_ITS ---
EXAM: XR Lumbosacral Spine, 4 or 5 Views CLINICAL INDICATION: RIGHT SIDED SCIATICA TECHNIQUE: Frontal, lateral and bilateral oblique views of the lumbar spine. COMPARISON: No relevant prior studies available. FINDINGS: VERTEBRAE: S shaped scoliosis of the thoracolumbar spine. Right-sided posterior fusion of L3-L5 with disc spacers. Degenerative facet arthropathy throughout the lumbar spine, most prominent in the lower lumbar spine. No acute fracture. Normal alignment. SACRUM/COCCYX: Unremarkable as visualized. No acute fracture. DISC SPACES: Degenerative disc disease throughout the lumbar spine. SOFT TISSUES: Unremarkable. RAD/L/S Spine Min 4 Views IMPRESSION: 1. Postoperative changes as above. 2. Degenerative changes lumbar spine as described. Reading Location: [facility]
== END | disposition home or self-care (01) ==
LOC: CVS 12:31
PROVIDERS: PCP Family Medicine Geriatric Medicine; Referring Provider Family Medicine Geriatric Medicine; Visit Provider Family Medicine Geriatric Medicine
DX: R22.41 Localized swelling, mass and lump, right lower limb (principal); M54.31 Sciatica, right side; M25.561 Pain in right knee
CPT/HCPCS: 72110; 73564; 93971

== ENCOUNTER 2025-02-05 19:30 | Emergency (ER) | payer MEDICARE, SELFPAY ==
[2025-02-05 19:31] VITALS: BP 118/76; PULSE 74; RESP 16; TEMP 36.6; O2SAT 100
--- NOTE | 2025-02-05 19:51 | RAD_ITS ---
PROCEDURE: KNEE 4 OR MORE VIEWS 02/05/2025 REASON FOR EXAM: PAIN TECHNIQUE: KNEE 4 OR MORE VIEWS Laterality: Right COMPARISON: Right knee radiographs 01/11/2025. FINDINGS: Bones: No acute fracture. No suspicious bone lesion. Joints: Normal alignment. Mild degenerative changes. Effusion: No effusion. Soft tissues: Soft tissues are unremarkable. Other: Vascular calcifications. RAD/Knee 4 or More Views IMPRESSION: DEGENERATIVE OSTEOARTHROSIS. NO ACUTE FINDINGS. Reading Location: [id number]
[2025-02-05 20:41] VITALS: BMI 21.4
--- NOTE | 2025-02-05 21:11 | EX.ED.DYSGE1 ---
HPI History of Present Illness Chief Complaint: Lower Extremity Injury Narrative Narrative: Patient is a 64-year-old female presenting to the emergency department for right knee pain. Patient has a past medical history as below. She states that her left pant leg got stuck on the license plate causing her to fall onto her right knee. She denies hitting her head or any loss of consciousness. Denies any neck or back pain. Endorses pain to her right knee. She has been able to walk on it although with pain. [facility] Medical History (Updated 02/05/25 @ 21:[address] Akanksha Jon MD) Depression Home Medications ?Medication ?Instructions ?Recorded ?Last Taken ?Type duloxetine 60 mg capsule,delayed 120 mg PO DAILY depression 01/11/15 04/08/18 08:00 History release clonazepam 0.5 mg tablet 0.5 mg PO 4X/DAY PRN PRN Anxiety 02/15/15 Unknown History omeprazole 40 mg capsule,delayed 40 mg PO DAILY stomach 02/15/15 04/08/18 08:00 History release aripiprazole 5 mg tablet 2.5 mg PO QHS depression 12/17/15 Unknown History gabapentin 300 mg capsule 300 mg PO BIDCM leg pain 01/30/16 04/08/18 08:00 History gabapentin 300 mg capsule 450 mg PO QHS leg pain 06/21/17 Unknown History aspirin 81 mg chewable tablet 81 mg PO DAILY@0800 [facility] 09/12/17 04/08/18 08:00 History docusate sodium 100 mg capsule 100 mg PO DAILY PRN Constipation 04/09/18 Unknown History (DOK) nicotine 21 mg/24 hr daily 21 mg TRANSDERM. DAILY ##30 04/10/18 Unknown Rx transdermal patch gabapentin 800 mg tablet 800 mg PO .COMPLEX 08/08/23 Unknown History Allergy/AdvReac Type Severity Reaction Status Date / Time Sulfa (Sulfonamide Allergy gets sick Verified 08/08/23 11:58 Antibiotics) sulfamethoxazole (From Allergy gets sick Verified 08/08/23 11:58 Bactrim) trimethoprim (From Bactrim) Allergy gets sick Verified 08/08/23 11:58 codeine AdvReac Vomiting Verified 08/08/23 11:58 cyclobenzaprine HCl (From AdvReac Vomiting Verified 08/08/23 11:58 Flexeril) erythromycin base AdvReac Vomiting Verified 08/08/23 11:58 hydrocodone bitartrate (From AdvReac Vomiting Verified 08/08/23 11:58 Vicodin) pregabalin (From Lyrica) AdvReac Hives Verified 08/08/23 11:58 propoxyphene napsylate (From AdvReac Vomiting Verified 08/08/23 11:58 Darvocet-N) tramadol HCl (From Ultram) AdvReac Vomiting Verified 08/08/23 11:58 Social History (Updated 02/05/25 @ 20:42 by Larisa Woodard) housing: house Smoking Status: Current every day smoker tobacco type: cigarettes ROS ROS ED ROS Narrative See HPI EXAM Physical Exam Narrative Exam Narrative: Vital signs: Reviewed General: Alert and oriented. No acute distress HEENT: Head is normocephalic and atraumatic, sinuses nontender, pupils equal round and reactive. Nares are patent. Oropharynx and throat exams normal. Neck: Supple without lymphadenopathy nontender Cardiovascular: Regular rate and rhythm, no murmurs. No rubs or gallops. Normal S1 and S2 Respiratory: Clear to auscultation bilaterally. No wheezes, rales, rhonchi Abdominal: Soft and nontender. Normal bowel sounds. No guarding or rebound. Nonsurgical abdomen Extremities: There is mild tenderness to palpation in the suprapatellar region. She has no tenderness to palpation of the right hip, femur, tib-fib, ankle or foot. There is no erythema or lacerations of the knee. She is able to flex and extend at the knee, quadriceps and patella tendon are intact. She does not have any significant valgus or varus laxity on exam. DP and PT pulses intact. Sensation intact. Skin: No rash or redness. Neurological: Cranial nerves II through XII are grossly intact. Normal strength and sensation. Normal cerebellar function The rest of the physical exam is unremarkable Const Vital Signs: 02/05/25 19:31 02/05/25 21:29 Temperature 98 F 98 F Temperature Source Oral Pulse Rate 74 74 Respiratory Rate 16 16 Blood Pressure 118/76 118/76 Blood Pressure Mean 90 90 Pulse Ox 100 100 Oxygen Delivery Method Room Air MDM MDM MDM Narrative Medical decision making narrative: Patient is a 64-year-old female presenting to the emergency department for right knee pain. Patient was seen and examined. Vitals are stable. Patient resting in bed comfortably in no acute distress. X-ray of the knee shows no acute findings. Likely a knee strain versus ligamentous injury. Patient was offered crutches for ambulation. Stephon wrap was applied. Given that RICE instructions for home. Given orthopedic follow up, if she continues to have pain over the next 5 to 7 days. Patient discharged from the Emergency Department. I do not feel that the patient's evaluation reveals any acute reason for admission at this time. I instructed them to either follow-up with their primary care physician or promptly return to the Emergency Department for reevaluation should symptoms worsen or new symptoms develop. I explained what symptoms would indicate the need to return to the emergency department. Shared decision making was used. The patient voiced understanding of the treatment plan and is agreeable with it. History & Record Review Discussion w/independent historian: Patient and Family Radiography Diagnostic Testing: Clinical Impression(s) from Imaging Studies Knee X-Ray 02/05/25 19:51 IMPRESSION: DEGENERATIVE OSTEOARTHROSIS. NO ACUTE FINDINGS. Reading Location: [facility] Discharge Plan Triage Chief Complaint: Lower Extremity Injury ED Provider: Akanksha Jon Dx/Rx/DC Orders Clinical Impression: Right knee sprain Instructions: ED Knee Sprain Prescriptions: No Action duloxetine 60 MG capsule 120 mg PO DAILY clonazepam 0.5 MG tablet 0.5 mg PO 4X/DAY PRN PRN (Reason: Anxiety) Patient Comments: omeprazole 40 MG capsule,delayed release(DR/EC) 40 mg PO DAILY Patient Comments: aripiprazole 5 MG tablet 2.5 mg PO QHS gabapentin 300 MG capsule 300 mg PO BIDCM Rx Instructions: takes 1 in the am; 1 in the afternoon & then the larger dose at night gabapentin 300 MG capsule 450 mg PO QHS aspirin 81 MG tablet,chewable 81 mg PO DAILY@0800 docusate sodium [DOK] 100 MG capsule 100 mg PO DAILY PRN (Reason: Constipation) nicotine 21 MG patch 21 mg TRANSDERM. DAILY Qty: 30 0RF gabapentin 800 mg tablet 800 mg PO .COMPLEX Patient Comments: Take 1 tablet by mouth in1am and Noon , then 1 1/2Ctablet at bedtime Rx Instructions: 800 mg orally; Primary Care Provider: Jarett,Lul Chi Referrals: Diego Del Rosario MD [Med Staff - Active Staff] - 2 Days Lul Denson Chi, MD [Primary Care Provider] - 2 Days Activity Restrictions/Additional Instructions: Your evaluation in the Emergency Department did not reveal any acute reason for admission. However, I want to emphasize that you may be early in the course of a disease process or illness even if it is not present. For this reason you should follow-up within 24 hours for reevaluation with either your primary care physician or if necessary back here in the Emergency Department. You should return to the Emergency Department immediately if your symptoms worsen or new symptoms develop. Please follow-up with the orthopedic doctor or your primary care doctor as soon as possible if you continue to have pain in your knee for an MRI to rule out ligament injury. Use the crutches as needed to help you ambulate. Keep the Stephon wrapped on to help with compression and pain. Take Motrin or Tylenol at home for pain control and ice your knee to help with swelling. Print Language: Albanian Disposition Disposition: Home, Self Care Discharge Date/Time: 02/05/25 21:29
--- OUTSIDE RECORDS SUMMARY | 2025-02-05 21:23 | XMS RPT_ITS | CCD ---
Author Organization [facility] Care Team Providers Care Oscillograph Technician Name Role Phone Sofia Medina MD Primary Care Provider Toan RAMESH, Jefferson Garvin Primary Care Provider [phone] Toan RAMESH, Jefferson Garvin Primary Care Provider [phone] Toan RAMESH, Jefferson Garvin Primary Care Provider [phone] Unavailable Primary Care Provider Unavailnorma e Toan RAMESH, Jefferson Garvin Primary Care Provider [phone] Sofia Medina MD Primary Care Provider Toan RAMESH, Jefferson Garvin Primary Care Provider [phone] Jarett, Lul Chi Primary Care Provider Jarett RAMESH, Dr. Lul Metzger Primary Care Provider Jarett RAMESH, Dr. Lul Metzger Attending Provider Jarett RAMESH, Dr. Lul Metzger Referring Provider [phone] JARETT, LUL CHI Primary Care Unavailable KIKI CARROLL Referring Unavailable KIKI CARROLL Attending Unavailable JARETT, LUL CHI Primary Care Unavailable Jarett RAMESH, Dr. Lul Metzger Primary Care Provider [phone] Jarett RAMESH, Dr. Lul Metzger Attending Provider [phone] Jarett RAMESH, Dr. Lul Metzger Referring Provider [phone] Jarett RAMESH, Dr. Lul Metzger Primary Care Provider [phone] Jarett RAMESH, Dr. Lul Metzger Attending Provider [phone] Jarett RAMESH, Dr. Lul Metzger Referring Provider [phone] Jarett, Lul Chi Primary Care Unavailable Jarett, Lul Chi Referring Unavailable Jarett, Lul Chi Attending Unavailable Jarett, Lul Chi Primary Care Unavailable Jarett, Lul Chi Referring Unavailable Jarett, Lul Chi Attending Unavailable Jarett, Lul Chi Primary Care Unavailable Jarett, Lul Chi Referring Unavailable Jarett, Lul Chi Attending Unavailable Jarett, Ull Chi Referring Unavailable Jarett, Lul Chi Attending Unavailable Jarett, Lul Chi Primary Care Unavailable Jarett, Lul Chi Attending Unavailable Jarett, Lul Chi Primary Care Unavailable Jarett, Lul Chi Attending Unavailable Jarett, Lul Chi Primary Care Unavailable Allergies Allergy Classification Reported Allergen(s) Allergy Type Date of Onset Reaction(s) Facility (6 sources) Acetaminophen Drug Allergy 11-11-19 22 [facility] (20 sources) Codeine; Translations: [CODEINE] Drug Allergy 06-08-[address] [facility] Work Phone: (20 sources) cyclobenzaprine; Translations: [CYCLOBENZAPRINE HCL] Drug Allergy 12-10-19 09 Intolerance [facility] (20 sources) Erythromycin Drug Allergy 06-08-[address] [facility] Work Phone: (13 sources) HYDROcodone; Translations: [hydrocodone bitartrate] Drug Allergy 11-11-19 22 [facility] (12 sources) pregabalin Drug Allergy 11-11-19 22 [facility] (13 sources) Propoxyphene; Translations: [propoxyphene napsylate] Drug Allergy 11-11-19 22 [facility] (12 sources) Sulfamethoxazole Drug Allergy 11-11-19 22 [facility] (20 sources) Sulfonamides (Antibiotic); Translations: [SULFA (SULFONAMIDE ANTIBIOTICS)] Allergy to substance 06-09-20 07 GI Upset [facility] (20 sources) traMADol; Translations: [TRAMADOL HCL] Drug Allergy 01-19-20 08 GI Upset [facility] (12 sources) Trimethoprim Drug Allergy 11-11-19 22 [facility] (20 sources) Acetaminophen / Codeine; Translations: [ACETAMINOPHEN-CODE INE] Drug Allergy 10-04-[address] [facility] (20 sources) Propranolol; Translations: [PROPRANOLOL HCL] Drug Allergy 08-02-19 15 Other: See [facility] Work Phone: (20 sources) Sulfamethoxazole / Trimethoprim; Translations: [SULFAMETHOXAZOLE-T RIMETHOPRIM] Drug Allergy 06-08-20 05 Vomiting [facility] Work Phone: (20 sources) zonisamide; Translations: [ZONISAMIDE] Drug Allergy 08-02-19 15 Other: See Comments [facility] Work Phone: (20 sources) Propoxyphene N-Acetaminophen; Translations: [PROPOXYPHENE N-ACETAMINOPHEN] Drug Intolerance 02-03-20 09 [facility] Work Phone: (1 source) Erythromycin; Translations: [ERYTHROMYCIN] Drug Allergy 06-08-20 05 [facility] (1 source) Codeine Drug Allergy 08-08-19 24 [facility] (1 source) Erythromycin Drug Allergy 08-08-19 24 [facility] (1 source) pregabalin Drug Allergy 08-08-19 24 [facility] (1 source) Sulfamethoxazole Drug Allergy 08-08-19 24 [facility] (1 source) Trimethoprim Drug Allergy 08-08-19 24 [facility] Repository Medications Current Medications Medication Drug Class(es) [...] PO AT BEDTIME December 17, 2015 12:00am depression Start: 12-17-2015 take 2.5 mg by mouth [...] on above: Take 1 tablet by kishan once daily. Dr. Ochoa aspirin 81 mg chewable tablet (12 sources) Platelet Aggregation Inhibitor, Nonsteroidal Anti-inflammatory Drug Start: 018 take 1 tablet by mouth once daily Aspirin 81 MG tablet,chewable Active 81 mg PO DAILY@0800 September 12, 2017 12:00am [facility] clonazePAM 0.5 mg oral tablet (12 sources) Benzodiazepine Start: 015 take 1 tablet by mouth four times daily as needed for anxiety Clonazepam 0.5 MG tablet Active 0.5 mg PO 4 TIMES DAILY NEEDED as needed for Anxiety February 15, 2015 12:00am docusate sodium 100 mg oral capsule (20 sources) Start: End: take 1 capsule by mouth once daily as needed for constipation Docusate Sodium (Dok) 100 MG capsule Active 100 mg PO DAILY as needed for Constipation April 09, 2018 12:09am DULoxetine 60 mg delayed release oral capsule (20 sources) Serotonin and Norepinephrine Reuptake Inhibitor Start: take 1 capsule by mouth once daily DULoxetine (CYMBALTA) 60 mg capsule Indications: Severe episode of recurrent major depressive disorder, with psychotic features (HCC) Take 60 mg by mouth once daily. 02/08/2016 Active Start: 01-11-2015 take 2 capsules by m out once daily Duloxetine 60 MG capsule Active 120 mg PO DAILY January 11, 2015 12:00am depression Start: 01-11-2015 take 120 mg by mouth [...] tablet (20 sources) Anti-epileptic Agent Start: 11-15-2019 Gabapentin 800 mg tablet Active 800 mg PO .COMPLEX 2023 1:00am 800 mg orally; Start: 06-21-2017 Gabapentin 300 MG capsule Active 450 mg PO AT BEDTIME June 21, 2017 1:00am leg pain Start: 06-21-2017 take 450 mg by mouth at bedtim e Gabapentin Active 450 MG PO AT BEDTIME June 21, 2017 1:00am Start: 01-30-2016 Gabapentin 300 MG capsule Active 300 mg PO TWICE DAILY WITH MEALS January 30, 2016 12:00am leg pain takes 1 in the am; 1 in the afternoon & then the larger dose at night Comment on above: Take one(1) tablet A M and noon. Take 1.[address] Lara. 24 hr nicotine 0.875 mg/hr transdermal system (12 sources) Cholinergic Nicotinic Agonist Start: 018 apply 21 mg transdermal route once daily Nicotine 21 MG patch Active 21 mg TRANSDERM. DAILY 30 0 April 10, 2018 12:00am nystatin [id number] unt/ml oral suspension (8 sources) Polyene Antifungal [...] sources) Proton Pump Inhibitor Start: 015 End: take 1 capsule by mouth once daily Omeprazole 40 MG capsule,delayed release(DR/EC) Active 40 mg PO DAILY February 15, 2015 12:00am stomach Comment on above: Take 1 capsule by [facility] once daily. polyethylene glycol 3350 25804 mg powder for oral solution (19 sources) Osmotic Laxative Start: polyethylene glycol 3350 (MIRALAX, GLYCOLAX) 17 gram/dose [...] sources) Serotonin-1b and Serotonin-1d Receptor Agonist Start: SUMAtriptan (IMITREX) 50 mg tablet Indications: Migraine without aura and without status migrainosus, not intractable Take 1 tablet by mouth as needed for Migraine Headache (see administration instructions). 7 tablet 5 11/24/2020 Active Comment on above: Take 1 tablet by [facility] as needed for Migraine Headache (see administration [...] Supplemt, Lactose-Reduced (Ensure Enlive) 120 ML liquid (11 sources) Start: 04-10-2018 End: 2023 take 1 mL by mouth four times daily Food Supplemt, Lactose-Reduced (Ensure Enlive) 120 ML liquid Discontinued 120 mL PO 4 TIMES DAILY 100 0 April 10, 2018 12:00am 2023 1:02pm Start: [...] injection (DEFINITY) predniSONE 10 mg oral tablet (14 sources) Start: 04-10-2018 End: 2023 take 4 [...] Resolved: 6 09-04-2017 Chronic Gastritis and duodenitis (12 sources) Acute gastritis; Translations: [Acute gastritis without [...] virus with other respiratory manifestations] Episodic Lymphadenitis (14 sources) Cervical lymphadenopathy; Translations: [Localized enlarged lymph nodes] Episodic Mood disorders (20 sources) Depressive disorder; Translations: [Depression] Onset: 4 06-25-2021 Chronic Nausea and vomiting (1 source) Diarrhea and vomiting; Translations: [Vomiting, unspecified] Episodic Nonspecific chest pain (12 sources) Chest pain; Translations: [Chest pain, unspecified] 10-30-2014 Episodic Nutritional deficiencies (1 source) Vitamin D deficiency, unspecified; Translations: [Vitamin D deficiency, unspecified] Onset: Chronic Other connective tissue disease (18 sources) Fibromyalgia; Translations: [Fibromyalgia] Onset: 4 Resolved: 6 04-09-2018 Episodic Other connective tissue disease (1 source) [...] external ear] 04-12-2023 Episodic Other gastrointestinal disorders (12 sources) Diarrhea; Translations: [Diarrhea, unspecified] 12-18-2015 Episodic Other injuries and conditions due to external causes (2 sources) Contusion; Translations: [Other injury of unspecified body region, initial encounter] Episodic Other lower respiratory disease (13 sources) Cough; Translations: [Cough] Episodic Other lower respiratory disease (1 source) Dyspnea on exertion; Translations: [Shortness of breath] Episodic Other lower respiratory disease (1 source) Cough; Translations: [Acute cough] 10-14-2022 Episodic Other nervous system disorders (12 sources) Paresthesia of hand ; Translations: [Anesthesia of skin] 04-09-2018 Episodic Other nutritional; endocrine; and metabolic disorders (1 source) Hypercalcemia; Translations: [Hypercalcemia] Chronic Other screening for suspected conditions (not mental disorders or infectious disease) (3 sources) Patient encounter status; Translations: [Encounter for screening for malignant neoplasm of colon] Episodic Other skin disorders (2 sources) Finding of neck region; Translations: [Localized swelling, mass and lump, neck] Episodic Other skin disorders (1 source) Localized swelling, mass and lump, right lower limb; Translations: [Localized swelling, mass and lump, right lower limb] Onset: Episodic Otitis media and related conditions (1 [...] Onset: 8 05-14-2018 Chronic Urinary tract infections (12 sources) Urinary tract infectious disease; Translations: [Urinary tract infection, site not specified] 12-18-2015 Episodic Past or Other Problems Problem Classification Problem Date Documented Da te Episodic/Chronic Abdominal pain (2 sources) Generalized abdominal pain; Translations: [Generalized abdominal pain] Onset: 05-20-2024 11-15-2023 Episodic Anal and rectal conditions (12 sources) Rectal prolapse; Translations: [Rectal prolapse] Onset: 11-23-2010 Resolved: 11-21-2018 07-10-2015 Episodic Fluid and electrolyte disorders (10 sources) Dehydration; Translations: [Dehydration] Onset: 05-18-2024 01-07-2023 Episodic Malaise and fatigue (16 sources) Asthenia; Translations: [Weakness] Onset: 05-15-2011 Resolved: 07-10-2015 01-08-2023 Episodic Other and unspecified benign neoplasm (19 sources) Adenomatous polyp of colon ; Translations: [Benign neoplasm of colon, unspecified] Onset: 02-08-2016 02-08-2016 Episodic Other connective tissue disease (19 sources) [...] shoulder] Onset: 05-06-2006 Resolved: 07-10-2015 07-10-2015 Episodic Residual codes; unclassified (6 sources) Bilateral lower limb edema; Translations: [Localized edema] Onset: 02-08-2016 Resolved: 09-07-2017 09-07-2017 Episodic Respiratory failure; insufficiency; arrest (adult) (6 sources) Acute respiratory failure; Translations: [Acute respiratory failure, unspecified whether with hypoxia or hypercapnia] Onset: 05-14-2018 Resolved: 11-21-2018 11-21-2018 Episodic Spondylosis; intervertebral disc disorders; other back problems (20 sources) Chronic back pain ; Translations: [Dorsalgia, unspecified] Onset: 01-08-2011 Resolved: 07-10-2015 Episodic Results Test Name Value Interpretation Reference Range Facility Knee 4 or More Viewson 01-11 Knee 4 or More Views [facility] Imaging Services [address] [place], [place] [address] [phone] Knee 4 or More Views MR#: [id number] Acct: [id number] Name: DENISA SCHERER Rep #: [id number] : 1960 F 64 From: Gomez Morrow MD PCP: Dr. Lul Denson MD Status: REG CLI Study: Knee 4 or More Views Date of Exam: 01/11/25 Exam# [id number] Ordering Dr: Lul Denson MD EXAM: XR Right Knee Complete, 4 or More Views CLINICAL INDICATION: RIGHT KNEE PAIN TECHNIQUE: Four or more views of the right knee. COMPARISON: No relevant prior studies available. FINDINGS: BONES/JOINTS: Mild tricompartmental degenerative changes of the knee joint. No acute fracture. No dislocation. SOFT TISSUES: Unremarkable. RAD/Knee 4 or More Views IMPRESSION: Degenerative changes as above. Reading Location: [facility] CC: Dr. Lul Denson MD [place]: Signed Normal [facility] L/S Spine Min 4 Viewson 12-28 L/S Spine Min 4 Views [facility] Imaging Services [address] [place] [address] L/S Spine Min 4 Views MR#: [id number] Acct: [id number] Name: DENISA SCHERER Rep #: [id number] : 1960 F 64 From: Gomez Morrow MD PCP: Dr. Lul Denson MD Status: REG CLI Study: L/S Spine Min 4 Views Date of Exam: 01/11/25 Exam# [id number] Ordering Dr: Lul Denson MD EXAM: XR Lumbosacral Spine, 4 or 5 Views CLINICAL INDICATION: RIGHT SIDED SCIATICA TECHNIQUE: Frontal, lateral and bilateral oblique views of the lumbar spine. COMPARISON: No relevant prior studies available. FINDINGS: VERTEBRAE: S shaped scoliosis of the thoracolumbar spine. Right-sided posterior fusion of L3-L5 with disc spacers. Degenerative facet arthropathy throughout the lumbar spine, most prominent in the lower lumbar spine. No acute fracture. Normal alignment. SACRUM/COCCYX: Unremarkable as visualized. No acute fracture. DISC SPACES: Degenerative disc disease throughout the lumbar spine. SOFT TISSUES: Unremarkable. RAD/L/S Spine Min 4 Views IMPRESSION: 1. Postoperative changes as above. 2. Degenerative changes lumbar spine as described. Reading [facility] CC: Dr. Lul Denson MD [place]: Signed Normal [facility] Venous Duplex US, Unilateral on 01-11-2025 Venous Duplex US, Unilateral [facility] [address] [place] [address] Venous Duplex US, Unilateral 01/11/25 1233 MR#: [id number] Acct: [id number] Name: DENISA SCHERER Rep #: [id number] : 1960 64 From: Jean Marie Carter MD Attending Dr: Dr. Lul Denson MD Status: REG CLI Ordering Dr: Lul Denson MD Date: 01/11/25 Location: [facility] Sex: F C Admitted: Reason For Study Reason For Study: RLE SWELLING RIGHT LEFT GSV is normal. CFV is compressible, spontaneous, phasic, competent, CFV is compressible, spontaneous, phasic, competent and demonstrates normal augmentation. and demonstrates normal augmentation. FV is compressible, spontaneous, phasic, competent and demonstrates normal augmentation. POP V is compressible, spontaneous, phasic, competent and demonstrates normal augmentation. T/P Trunk is compressible. PTV is compressible. RT PerV is compressible. Procedure This is a venous duplex using B-mode, color flow and spectral Doppler. Exam performed in department. A preliminary report was called and/or faxed to Dr. Denson @ [phone] @ 12:50 pm. VL/Venous Duplex US, Unilateral Interpretation Summary Deep veins of the right lower extremity are patent and compressible segmentally. There is no evidence of right lower extremity deep vein thrombosis. Valvular competence appears intact within the proximal deep venous system on the right . The right great saphenous vein appears patent and compressible segmentally. The left common femoral vein is patent and compressible . Ordering Physician: Lul Denson Chi Referring Physician: Lul Denson Chi Performed By: Silvia Flores, HUY, RVT 01/11/252025 Date Jean Marie Carter MD CC: Dr. Lul Denson MD Date Dictated: 01/11/25 1233 Date Transcribed: 01/11/252025 [place]: Signed Normal [facility] Venous duplex ultrasound rep ortOrdered By: Jean Marie Carter on 01-11-2025 US Vein [facility] [address] [place] [address] Venous Duplex US, Unilateral 01/11/25 1233 MR#: [id number] Acct: [id number] Name: DENISA SCHERER Rep #:[id number] : 1960 64 From: Jean Marie Carter MD Attending Dr: Dr. Lul Denson MD Status: REG CLI Ordering Dr: Lul Denson MD Date: Location: [facility] Sex: F C Admitted: Reason For Study Reason For Study: RLE SWELLING RIGHT LEFT GSV is normal. CFV is compressible, spontaneous, phasic, competent, CFV is compressible, spontaneous, phasic, competent and demonstrates normal augmentation. and demonstrates normal augmentation. FV is compressible, spontaneous, phasic, competent and demonstrates normal augmentation. POP V is compressible, spontaneous, phasic, competent and demonstrates normal augmentation. T/P Trunk is compressible. PTV is compressible. RT PerV is compressible. Procedure This is a venous duplex using B-mode, color flow and spectral Doppler. Exam performed in department. A preliminary report was called and/or faxed to Dr. Denson @ [phone] @ 12:50 pm. VL/Venous Duplex US, Unilateral Interpretation Summary Deep veins of the right lower extremity are patent and compressible segmentally.There is no evidence of right lower extremity deep vein thrombosis. Valvular competence appears intact within the proximal deep venous system on the right . The right great saphenous vein appears patent and compressible segmentally. The left common femoral vein is patent and compressible . Ordering Physician: Lul Denson Chi Referring Physician: Lul Denson Chi Performed By: Silvia Flores, RDCS, RVT 01/11/252025 Date _ Jean Marie Carter MD CC: Dr. Lul Denson MD ~ Date Dictated: 01/11/25 1233 Date Transcribed: 01/11/252025 [place]: Signed [facility] Other Phone: Absolute lymphocyte countOrd ered By: Lul Denson on 12-14-2024 Lymphocytes Auto (Unsp spec) [#/Vol] 2.72 10*3/uL 0.83-4.51 [facility] Absolute neutrophil countOrd ered By: Lul Denson on 12-14-2024 Neutrophils (Bld) [#/Vol] 4.6 10*3/uL 2.0-7.7 [facility] Anion gap in Serum or Plasma Ordered By: Lul Denson on 12-14-2024 Anion gap [Moles/Vol] 8 mmol/L 5-15 [facility] Automated blood erythrocyte countOrdered By: Lul Denson on 12-14-2024 RBC (Bld) [#/Vol] 3.75 10*6/uL Low 4.2-5.4 [facility] Comment on above: Performed By: #### L 506.1001, L501.9520, L100.0100, L500.4050 #### [facility] [address] [place], [address] Automated blood hematocrit ( percentage)Ordered By: Lul Echevarriaok on 12-14-2024 Hematocrit (Bld) [Volume fraction] 37.9 % Normal 37-47 [facility] Comment on above: Performed By: #### L 506.1001, L501.9520, L100.0100, L500.4050 #### [facility] [address] [place], [address] Automated lymphocyte count a s percentage of total leukocytesOrdered By: Lul Denson on 12-14-2024 Lymphocytes/100 WBC Auto (Unsp spec) 33.3 % 19-41 [facility] BUN/creatinine ratioOrdered By: Lul Denson on 12-14-2024 Urea nitrogen/Creatinine [Mass ratio] 18.9 mg/mg 10-20 [facility] Basophil percentageOrdered B y: Lul Jarett on 12-14-2024 Basophils/100 WBC (Bld) 1.1 % High 0-1 [facility] Comment on above: Performed By: #### L 506.1001, L501.9520, L100.0100, L500.4050 #### [facility] [address] [place], [address] Bilirubin, totalOrdered By: Lul Denson on 12-14-2024 Bilirubin [Mass/Vol] mg/dL 0.00-1.30 [facility] CBC W/Diff, Automatedon 06-1 7-2025 Absolute Lymph 2.72 X10 3/uL Normal 0.83-4.51 [facility] Comment on above: Performed By: #### L 506.1001, L501.9520, L100.0100, L500.4050 #### [facility] [address] [place], [address] Absolute Neut 4.6 X10 3/uL Normal 2.0-7.7 [facility] Comment on above: Performed By: #### L 506.1001, L501.9520, L100.0100, L500.4050 #### [facility] [address] [place], [address] IG% 0.200 Normal 0.0-0.9 [facility] Comment on above: Result Comment: IG% - Immature Granulocytes (promyelocytes, myelocytes and metamyelocytes) > 1% indicates that a LEFT SHIFT is Present. Performed By: #### L 506.1001, L501.9520, L100.0100, L500.4050 #### [facility] [address] [place], [address] Lymphocytes/100 WBC (Bld) 33.3 % Normal 19-41 [facility] Comment on above: Performed By: #### L 506.1001, L501.9520, L100.0100, L500.4050 #### [facility] [address] [place], [address] Nucleated RBC (Bld) [#/Vol] 0 10*3/uL Normal 0-5 [facility] Comment on above: Performed By: #### L 506.1001, L501.9520, L100.0100, L500.4050 #### [facility] [address] [place], [address] RDW SD 48.2 fl High 35.1-43.9 [facility] Comment on above: Performed By: #### L 506.1001, L501.9520, L100.0100, L500.4050 #### [facility] [address] [place], [address] Carbon dioxide, total [Moles /volume] in Central venous bloodOrdered By: Lul Denson on 12-14-2024 CO2 [Moles/Vol] 27.1 mmol/L 21.0-32.0 [facility] Chloride assayOrdered By: Jason Denson on 12-14-2024 Chloride [Moles/Vol] 103 mmol/L 98-108 [facility] Comprehensive Metabolic Prof ilon 12-14-2024 Albumin [Mass/Vol] 4.1 g/dL Normal 3.4-4.8 [facility] Comment on above: Performed By: #### L 506.1001, L501.9520, L100.0100, L500.4050 #### [facility] [address] [place], [address] Albumin/Globulin [Mass ratio] 1.5 {ratio} Normal 0.9-2.4 [facility] Comment on above: Performed By: #### L 506.1001, L501.9520, L100.0100, L500.4050 #### [facility] [address] [place], [address] ALK PHOS 70 U/L Normal 35-104 [facility] Comment on above: Performed By: #### L 506.1001, L501.9520, L100.0100, L500.4050 #### [facility] [address] [place], [address] ALT [Catalytic activity/Vol] 20 U/L Normal <=34 [facility] Comment on above: Performed By: #### L 506.1001, L501.9520, L100.0100, L500.4050 #### [facility] [address] [place], [address] AST [Catalytic activity/Vol] 24 U/L Normal <=31 [facility] Comment on above: Performed By: #### L 506.1001, L501.9520, L100.0100, L500.4050 #### [facility] [address] [place], [address] BUN/CRE 18.9 RATIO Normal 10-20 [facility] Comment on above: Performed By: #### L 506.1001, L501.9520, L100.0100, L500.4050 #### [facility] [address] [place], [address] Calcium [Mass/Vol] 10.2 mg/dL Normal 7.6-11.0 [facility] Comment on above: Performed By: #### L 506.1001, L501.9520, L100.0100, L500.4050 #### [facility] [address] [place], [address] Chloride [Moles/Vol] 103 mmol/L Normal 98-108 [facility] Comment on above: Performed By: #### L 506.1001, L501.9520, L100.0100, L500.4050 #### [facility] [address] [place], [address] CO2 [Moles/Vol] 27.1 mmol/L Normal 21.0-32.0 [facility] Comment on above: Performed By: #### L 506.1001, L501.9520, L100.0100, L500.4050 #### [facility] [address] [place], [address] Creatinine [Mass/Vol] 0.69 mg/dL Low 0.70-1.20 [facility] Comment on above: Performed By: #### L 506.1001, L501.9520, L100.0100, L500.4050 #### [facility] [address] [place], [address] GAP 8 Normal 5-15 [facility] Comment on above: Performed By: #### L 506.1001, L501.9520, L100.0100, L500.4050 #### [facility] [address] [place], [address] GFR/1.73 sq M.predicted among non-blacks MDRD (S/P/Bld) [Vol rate/Area] 96 mL/min/{1.73_m2} Normal >60 [facility] Comment on above: Result Comment: mL/m in/1.73m2 CKD-EPI Creatinine Equation (2020) Performed By: #### L 506.1001, L501.9520, L100.0100, L500.4050 #### [facility] [address] [place], [address] Globulin (S) [Mass/Vol] 2.8 g/dL Normal 2.2-4.2 [facility] Comment on above: Performed By: #### L 506.1001, L501.9520, L100.0100, L500.4050 #### [facility] [address] [place], [address] Glucose [Mass/Vol] 97 mg/dL Normal 70-99 [facility] Comment on above: Performed By: #### L 506.1001, L501.9520, L100.0100, L500.4050 #### [facility] [address] [place], [address] Potassium [Moles/Vol] 4.4 mmol/L Normal 3.3-5.1 [facility] Comment on above: Performed By: #### L 506.1001, L501.9520, L100.0100, L500.4050 #### [facility] [address] [place], [address] Sodium [Moles/Vol] 139 mmol/L Normal 133-145 [facility] Comment on above: Performed By: #### L 506.1001, L501.9520, L100.0100, L500.4050 #### [facility] [address] [place], [address] T BILI < 0.15 Normal 0.00-1.30 [facility] Comment on above: Performed By: #### L 506.1001, L501.9520, L100.0100, L500.4050 #### [facility] [address] [place], [address] T PROT 6.9 g/dL Normal 5.9-8.4 [facility] Comment on above: Performed By: #### L 506.1001, L501.9520, L100.0100, L500.4050 #### [facility] [address] [place], [address] Urea nitrogen [Mass/Vol] 13 mg/dL Normal 4-19 [facility] Comment on above: Performed By: #### L 506.1001, L501.9520, L100.0100, L500.4050 #### [facility] [address] [place], [address] Eosinophil percentageOrdered By: Lul Denson on 12-14-2024 Eosinophils/100 WBC (Bld) 2.4 % Normal 0-5 [facility] Comment on above: Performed By: #### L 506.1001, L501.9520, L100.0100, L500.4050 #### [facility] [address] [place], [address] Erythrocyte distribution wid th ratioOrdered By: Lul Denson on 12-14-2024 Erythrocyte distribution width (RBC) [Ratio] 13.0 % Normal 11.6-14.6 [facility] Comment on above: Performed By: #### L 506.1001, L501.9520, L100.0100, L500.4050 #### [facility] [address] [place], [place], [id number] Erythrocyte distribution wid th standard deviationOrdered By: Lul Denson on 12-14-2024 Erythrocyte distribution width (RBC) [Ratio] 48.2 fl High 35.1-43.9 [facility] Glomerular filtration rate ( GFR) estimation/1.73 sq m using serum, plasma, or whole bOrdered By: Lul Denson on 12-14-2024 GFR/1.73 sq M.predicted among non-blacks MDRD (S/P/Bld) [Vol rate/Area] 96 mL/min/{1.73_m2} >60 [facility] Comment on above: mL/min/1.73m2 CKD-EP I Creatinine Equation (2020) Hemoglobin measurementOrdere d By: Lul Denson on 12-14-2024 Hemoglobin (Bld) [Mass/Vol] 12.7 g/dL Normal 12.0-15.0 [facility] Comment on above: Performed By: #### L 506.1001, L501.9520, L100.0100, L500.4050 #### [facility] [address] [place], [place], [id number] Immature granulocytes/100 WB C Auto (Bld)Ordered By: Lul Denson on 12-14-2024 Immature granulocytes/100 WBC (Bld) 0.200 % 0.0-0.9 [facility] Comment on above: IG% - Immature Granu locytes (promyelocytes, myelocytes and metamyelocytes) > 1% indicates that a LEFT SHIFT is Present. Laboratory - Chemistry and C hemistry - challengeOrdered By: Lul Denson on 12-14-2024 AST [Catalytic activity/Vol] 24 U/L <32 [facility] MCV (mean corpuscular volume ) determinationOrdered By: Lul Denson on 12-14-2024 MCV (RBC) [Entitic vol] 101.1 fL High 81-99 [facility] Comment on above: Performed By: #### L 506.1001, L501.9520, L100.0100, L500.4050 #### [facility] [address] [place], [address] Mean corpuscular hemoglobin (MCH) determinationOrdered By: Lul Denson on 12-14-2024 MCH (RBC) [Entitic mass] 33.9 pg High 27.0-32.0 [facility] Comment on above: Performed By: #### L 506.1001, L501.9520, L100.0100, L500.4050 #### [facility] [address] [place], [address] Mean corpuscular hemoglobin concentration (MCHC) determinationOrdered By: Lul Denson on 12-14-2024 MCHC (RBC) [Mass/Vol] 33.5 g/dL Normal 32-36 [facility] Comment on above: Performed By: #### L 506.1001, L501.9520, L100.0100, L500.4050 #### [facility] [address] [place], [address] Mean platelet volume determi nationOrdered By: Lul Denson on 12-14-2024 Platelet mean volume (Bld) [Entitic vol] 9.3 fL Normal 6.2-12.0 [facility] Comment on above: Performed By: #### L 506.1001, L501.9520, L100.0100, L500.4050 #### [facility] [address] [place], [address] Monocyte percentageOrdered B y: Lul Denson on 12-14-2024 Monocytes/100 WBC (Bld) 6.4 % Normal 0-10 [facility] Comment on above: Performed By: #### L 506.1001, L501.9520, L100.0100, L500.4050 #### [facility] [address] [place], [address] Neutrophil percentageOrdered By: Lul Denson on 12-14-2024 Neutrophils/100 WBC (Bld) 56.6 % Normal 47-70 [facility] Comment on above: Performed By: #### L 506.1001, L501.9520, L100.0100, L500.4050 #### [facility] [address] [place], [place], [address] Nucleated red blood cell per centageOrdered By: Lul Denson on 12-14-2024 Nucleated RBC/100 WBC (Bld) [Ratio] 0 % 0-5 [facility] Platelet countOrdered By: Jason Denson on 12-14-2024 Platelets (Bld) [#/Vol] 391 10*3/uL Normal 150-450 [facility] Comment on above: Performed By: #### L 506.1001, L501.9520, L100.0100, L500.4050 #### [facility] [address] [place], [place], [id number] Potassium measurement (mass/ volume)Ordered By: Lul Denson on 12-14-2024 Potassium (Unsp spec) [Mass/Vol] 4.4 mmol/L 3.3-5.1 [facility] Serum creatinine measurement (mass/volume)Ordered By: Lul Denson on 12-14-2024 Creatinine [Mass/Vol] 0.69 mg/dL Low 0.70-1.20 [facility] Serum globulin measurementOr dered By: Lul Denson on 12-14-2024 Globulin (S) [Mass/Vol] 2.8 g/dL 2.2-4.2 [facility] Serum glucose measurement (m ass/volume)Ordered By: Lul Denson on 12-14-2024 Glucose [Mass/Vol] 97 mg/dL 70-99 [facility] Serum or plasma alanine youngblood otransferase (ALT) measurementOrdered By: Lul Denson 12-14-2024 ALT [Catalytic activity/Vol] 20 U/L <35 [facility] Serum or plasma albumin rohith urement (mass/volume)Ordered By: Lul Denson on 12-14-2024 Albumin [Mass/Vol] 4.1 g/dL 3.4-4.8 [facility] Serum or plasma albumin/glob ulin mass ratioOrdered By: Lul Denson on 12-14-2024 Albumin/Globulin [Mass ratio] 1.5 {ratio} 0.9-2.4 [facility] Serum or plasma alkaline shasha sphatase measurementOrdered By: Lul Denson on 12-14-2024 ALP [Catalytic activity/Vol] 70 U/L 35-104 [facility] Serum or plasma calcium rohith urement (mass/volume)Ordered By: Lul Denson on 12-14-2024 Calcium [Mass/Vol] 10.2 mg/dL 7.6-11.0 [facility] Serum or plasma urea nitroge n measurement (mass/volume)Ordered By: Lul Denson on 12-14-2024 Urea nitrogen [Mass/Vol] 13 mg/dL 4-19 [facility] Sodium levelOrdered By: Lul Denson on 12-14-2024 Sodium [Moles/Vol] 139 mmol/L 133-145 [facility] TSH DL <= 0.005 mIU/L QnOrde red By: Lul Denson on 12-14-2024 TSH Qn 0.988 uIU/mL 0.300-4.200 [facility] Thyroid Stim Hormone (TSH)on 12-14-2024 TSH 0.988 uIU/mL Normal 0.300-4.200 [facility] Comment on above: Performed By: #### L 506.1001, L501.9520, L100.0100, L500.4050 #### [facility] [address] [place] [address], [id number] Total proteinOrdered By: Lul Denson on 12-14-2024 Protein [Mass/Vol] 6.9 g/dL 5.9-8.4 [facility] Vitamin D,25 Hydroxyon 12-14 Vitamin D 25-OH 30.3 ng/mL Normal 30-100 [facility] Comment on above: Result Comment: Emelia min D Status Deficiency: <20 ng/mL (50nmol/L) Insufficiency: 20-30 ng/mL (50-75 nmol/L) Sufficiency: 30-100 ng/mL (75-250 nmol/L) Toxicity: >100 ng/mL (>250 nmol/L) Performed By: #### L 506.1001, L501.9520, L100.0100, L500.4050 #### [facility] [address] [place], [place], [address] White blood cell (WBC) count Ordered By: Lul Denson on 12-14-2024 WBC (Bld) [#/Vol] 8.2 10*3/uL Normal 4.4-11.0 [facility] Comment on above: Performed By: #### L 506.1001, L501.9520, L100.0100, L500.4050 #### [facility] [address] [place], [place], [address] CNOVon 10-03-2024 CNOV Office Visit (UCWSTR) DENISA SCHERER ([id number]) 1960 F Date Time Provider Department 10/03/24 8:30 AM [facility] SWAN[facility] During your visit today, we recorded the following information about you: Temperature Pulse Respiration Blood pressure 97.6 degrees 123/minute 18/minute 109/68 Weight 49.7 kg Pearl Swanson APRN.STORE COORDINATOR 10/03/2024 8:57 AM Signed Patient came in [...] Status:Closed by PEARL SWANSON on 10/03/24 Normal [facility] Thoracic Spine 3 Viewson Thoracic Spine 3 Views [facility] Imaging Services [address] [place] [address] Thoracic Spine 3 Views MR#: [id number] Acct: [id number] Name: DENISA SCHERER Rep #: [id number] : 1960 F 64 From: Gomez Lyles MD PCP: Dr. Lul Denson MD Status: REG CLI Study: Thoracic Spine 3 Views Date of Exam: 09/01/24 Exam# [id number] Ordering Dr: Lul Denson MD PROCEDURE: THORACIC SPINE 3 VIEWS REASON [...] 3. Additional description as above. Reading Location: [id number] CC: Dr. Lul Denson MD [place]: Signed Normal [facility] [id number] DOrdered By: Tomeka Denson on 05-17-2024 Vitamin D 25-Hydroxy 35.6 ng/mL [facility] Comment on above: Vitamin D 25(OH) Sta tus Range Deficiency <20 ng/mL (50nmol/L) Insufficiency 20 - 30 ng/mL (50 - 75 nmol/L) Sufficiency 30 - 100 ng/mL (75 - 250 nmol/L) Toxicity >100 ng/mL (>250 nmol/L) Abdomen/Pelvis WITH Contrast on 05-17-2024 Abdomen/Pelvis WITH Contrast [facility] Services [address] [place] [address] Abdomen/Pelvis WITH Contrast MR#: [id number] Acct: [id number] Name: DENISA SCHERER Rep #: [id number] : 1960 F 63 From: Thomas munoz MD PCP: Dr. Lul Denson MD Status: REG CLI Study: Abdomen/Pelvis WITH Contrast Date of Exam: Exam# [id number] Ordering Dr: Lul Denson MD [id number] STUDY: CT ABDOMEN AND PELVIS WITH CONTRAST [...] Electronically Signed: Thomas Romero MD at 14:25 EST , CC: Dr. Lul Denson MD [place]: Signed Normal [facility] Absolute neutrophil countOrd ered By: Lul Denson on 05-17-2024 Neutrophils (Bld) [#/Vol] 6.8 10*3/uL 2.0-7.7 [facility] Albumin to globulin ratioOrd ered By: Lul Denson on 05-17-2024 Albumin/Globulin [Mass ratio] 1.1 {ratio} 0.9-2.4 [facility] Basophil percentageOrdered B y: Lul Denson on 05-17-2024 Basophils/100 WBC (Bld) 0.5 % 0-1 [facility] Bilirubin, totalOrdered By: Lul Denson on 05-17-2024 Bilirubin [Mass/Vol] 0.50 mg/dL 0.20-1.00 [facility] Comment on above: For patients on eltr ombopag therapy, use of Dimension [place] TBIL is not recommended. Blood urea nitrogen (BUN)/cr eatinine ratioOrdered By: Lul Denson on 05-17-2024 Urea nitrogen/Creatinine [Mass ratio] 32.1 mg/mg High 10-20 [facility] CBC W/Diff, Automatedon 04-30 Absolute Lymph 2.45 X10 3/uL Normal 0.83-4.51 [facility] Comment on above: Performed By: #### L 506.1000, L100.0100, L500.4050, L501.9520 #### [facility] [address] [place], [address] Absolute Neut 6.8 X10 3/uL Normal 2.0-7.7 [facility] Comment on above: Performed By: #### L 506.1000, L100.0100, L500.4050, L501.9520 #### [facility] [address] [place], [address] Basophils/100 WBC (Bld) 0.5 % Normal 0-1 [facility] Comment on above: Performed By: #### L 506.1000, L100.0100, L500.4050, L501.9520 #### [facility] [address] [place], [address] Eosinophils/100 WBC (Bld) 1.1 % Normal 0-5 [facility] Comment on above: Performed By: #### L 506.1000, L100.0100, L500.4050, L501.9520 #### [facility] [address] [place], [address] Erythrocyte distribution width (RBC) [Ratio] 12.6 % Normal 11.6-14.6 [facility] Comment on above: Performed By: #### L 506.1000, L100.0100, L500.4050, L501.9520 #### [facility] [address] [place], [address] Hematocrit (Bld) [Volume fraction] 41.7 % Normal 37-47 [facility] Comment on above: Performed By: #### L 506.1000, L100.0100, L500.4050, L501.9520 #### [facility] [address] [place], [address] Hemoglobin (Bld) [Mass/Vol] 13.9 g/dL Normal 12.0-15.0 [facility] Comment on above: Performed By: #### L 506.1000, L100.0100, L500.4050, L501.9520 #### [facility] [address] [place], [address] IG% 0.200 Normal 0.0-0.9 [facility] Comment on above: Result Comment: IG% - Immature Granulocytes (promyelocytes, myelocytes and metamyelocytes) > 1% indicates that a LEFT SHIFT is Present. Performed By: #### L 506.1000, L100.0100, L500.4050, L501.9520 #### [facility] [address] [place], [address] Lymphocytes/100 WBC (Bld) 24.6 % Normal 19-41 [facility] Comment on above: Performed By: #### L 506.1000, L100.0100, L500.4050, L501.9520 #### [facility] [address] [place], [address] MCH (RBC) [Entitic mass] 32.1 pg High 27.0-32.0 [facility] Comment on above: Performed By: #### L 506.1000, L100.0100, L500.4050, L501.9520 #### [facility] [address] [place], [address] MCHC (RBC) [Mass/Vol] 33.3 g/dL Normal 32-36 [facility] Comment on above: Performed By: #### L 506.1000, L100.0100, L500.4050, L501.9520 #### [facility] [address] [place], [address] MCV (RBC) [Entitic vol] 96.3 fL Normal 81-99 [facility] Comment on above: Performed By: #### L 506.1000, L100.0100, L500.4050, L501.9520 #### [facility] [address] [place], [address] Monocytes/100 WBC (Bld) 5.0 % Normal 0-10 [facility] Comment on above: Performed By: #### L 506.1000, L100.0100, L500.4050, L501.9520 #### [facility] [address] [place], [address] Neutrophils/100 WBC (Bld) 68.6 % Normal 47-70 [facility] Comment on above: Performed By: #### L 506.1000, L100.0100, L500.4050, L501.9520 #### [facility] [address] [place], [address] Nucleated RBC (Bld) [#/Vol] 0 10*3/uL Normal 0-5 [facility] Comment on above: Performed By: #### L 506.1000, L100.0100, L500.4050, L501.9520 #### [facility] [address] [place], [address] Platelet mean volume (Bld) [Entitic vol] 9.0 fL Normal 6.2-12.0 [facility] Comment on above: Performed By: #### L 506.1000, L100.0100, L500.4050, L501.9520 #### [facility] [address] [place], [address] Platelets (Bld) [#/Vol] 468 10*3/uL High 150-450 [facility] Comment on above: Performed By: #### L 506.1000, L100.0100, L500.4050, L501.9520 #### [facility] [address] [place], [address] RBC (Bld) [#/Vol] 4.33 10*6/uL Normal 4.2-5.4 [facility] Comment on above: Performed By: #### L 506.1000, L100.0100, L500.4050, L501.9520 #### [facility] [address] [place], [address] RDW SD 44.7 fl High 35.1-43.9 [facility] Comment on above: Performed By: #### L 506.1000, L100.0100, L500.4050, L501.9520 #### [facility] [address] [place], [address] WBC (Bld) [#/Vol] 10.0 10*3/uL Normal 4.4-11.0 [facility] Comment on above: Performed By: #### L 506.1000, L100.0100, L500.4050, L501.9520 #### [facility] [address] [place], [address] Carbon dioxide measurementOr dered By: Lul Denson on 05-17-2024 CO2 [Moles/Vol] 23.0 mmol/L 21.0-32.0 [facility] Chloride measurementOrdered By: Lul Denson on 05-17-2024 Chloride [Moles/Vol] 99 mmol/L 98-107 [facility] Comprehensive Metabolic Prof ilon 05-17-2024 Albumin [Mass/Vol] 4.2 g/dL Normal 3.2-5.0 [facility] Comment on above: Performed By: #### L 506.1000, L100.0100, L500.4050, L501.9520 #### [facility] [address] [place], [address] Albumin/Globulin [Mass ratio] 1.1 {ratio} Normal 0.9-2.4 [facility] Comment on above: Performed By: #### L 506.1000, L100.0100, L500.4050, L501.9520 #### [facility] [address] [place], [address] ALK P 65 U/L Normal 45-117 [facility] Comment on above: Performed By: #### L 506.1000, L100.0100, L500.4050, L501.9520 #### [facility] [address] [place], [address] ALT [Catalytic activity/Vol] 25 U/L Normal 13-56 [facility] Comment on above: Performed By: #### L 506.1000, L100.0100, L500.4050, L501.9520 #### [facility] [address] [place], [address] AST [Catalytic activity/Vol] 21 U/L Normal 15-37 [facility] Comment on above: Performed By: #### L 506.1000, L100.0100, L500.4050, L501.9520 #### [facility] [address] [place], [address] Bilirubin [Mass/Vol] 0.50 mg/dL Normal 0.20-1.00 [facility] Comment on above: Result Comment: For patients on eltrombopag therapy, use of Dimension [place] TBIL is not recommended. Performed By: #### L 506.1000, L100.0100, L500.4050, L501.9520 #### [facility] [address] [place], [address] BUN/CRE 32.1 RATIO High 10-20 [facility] Comment on above: Performed By: #### L 506.1000, L100.0100, L500.4050, L501.9520 #### [facility] [address] [place], [address] CA,Total 9.9 mg/dL Normal 8.5-10.1 [facility] Comment on above: Performed By: #### L 506.1000, L100.0100, L500.4050, L501.9520 #### [facility] [address] [place], [address] Chloride [Moles/Vol] 99 mmol/L Normal 98-107 [facility] Comment on above: Performed By: #### L 506.1000, L100.0100, L500.4050, L501.9520 #### [facility] [address] [place], [address] CO2 [Moles/Vol] 23.0 mmol/L Normal 21.0-32.0 [facility] Comment on above: Performed By: #### L 506.1000, L100.0100, L500.4050, L501.9520 #### [facility] [address] [place], [address] Creatinine [Mass/Vol] 1.09 mg/dL High 0.55-1.02 [facility] Comment on above: Result Comment: The validity of the calculated GFR GFRAA in patients over 70 years has not been determined. Clinical correlation is essential. Performed By: #### L 506.1000, L100.0100, L500.4050, L501.9520 #### [facility] [address] [place], [address] EST GFR - AA 65 mL/min Normal >60 [facility] Comment on above: Result Comment: Afri can [place] GFR Calc Performed By: #### L 506.1000, L100.0100, L500.4050, L501.9520 #### [facility] [address] [place], [address] GAP 11 Normal 5-15 [facility] Comment on above: Performed By: #### L 506.1000, L100.0100, L500.4050, L501.9520 #### [facility] [address] [place], [address] GFR/1.73 sq M.predicted among non-blacks MDRD (S/P/Bld) [Vol rate/Area] 53 mL/min/{1.73_m2} Low >60 [facility] Comment on above: Result Comment: Non- GFR Calc Performed By: #### L 506.1000, L100.0100, L500.4050, L501.9520 #### [facility] [address] [place], [address] Globulin (S) [Mass/Vol] 3.8 g/dL Normal 2.2-4.2 [facility] Comment on above: Performed By: #### L 506.1000, L100.0100, L500.4050, L501.9520 #### [facility] [address] [place], [address] Glucose [Mass/Vol] 117 mg/dL High 74-106 [facility] Comment on above: Result Comment: Fast ing Glucose result from 100 to 125 mg/dL suggests IMPAIRED HOMEOSTASIS per A.D.A. criteria. Performed By: #### L 506.1000, L100.0100, L500.4050, L501.9520 #### [facility] [address] [place], [address] Potassium [Moles/Vol] 3.2 mmol/L Low 3.5-5.1 [facility] Comment on above: Performed By: #### L 506.1000, L100.0100, L500.4050, L501.9520 #### [facility] [address] [place], [address] Sodium [Moles/Vol] 133 mmol/L Low 136-145 [facility] Comment on above: Performed By: #### L 506.1000, L100.0100, L500.4050, L501.9520 #### [facility] [address] [place], [address] T PROT 8.0 g/dL Normal 6.4-8.2 [facility] Comment on above: Performed By: #### L 506.1000, L100.0100, L500.4050, L501.9520 #### [facility] [address] [place], [address] Urea nitrogen [Mass/Vol] 35 mg/dL High 7-18 [facility] Comment on above: Performed By: #### L 506.1000, L100.0100, L500.4050, L501.9520 #### [facility] [address] [place], [address] Eosinophil percentageOrdered By: Lul Denson on 05-17-2024 Eosinophils/100 WBC (Bld) 1.1 % 0-5 [facility] Erythrocyte distribution wid th ratioOrdered By: Lul Denson on 05-17-2024 Erythrocyte distribution width (RBC) [Ratio] 12.6 % 11.6-14.6 [facility] Erythrocyte distribution wid th standard deviationOrdered By: Lul Jarett on 05-17-2024 Erythrocyte distribution width (RBC) [Entitic vol] 44.7 fL High 35.1-43.9 [facility] Estimated glomerular filtrat ion rate (GFR) AmericanOrdered By: Lul Denson on 05-17-2024 Estimated GFR (MDRD) Amer 65 mL/min >60 [facility] Comment on above: GFR Calc Glomerular filtration rate ( GFR) estimationOrdered By: Lul Jarett 05-17-2024 Estimated GFR (MDRD) Non-Af Amer 53 mL/min Low >60 [facility] Comment on above: Non- GFR Calc Glucose measurementOrdered B y: Lul Denson on 05-17-2024 Glucose [Mass/Vol] 117 mg/dL High 74-106 [facility] Comment on above: Fasting Glucose resu lt from 100 to 125 mg/dL suggests IMPAIRED HOMEOSTASIS per A.D.A. criteria. Hematocrit Auto (Bld) [Volum e fraction]Ordered By: Lul Denson on 05-17-2024 Hematocrit (Bld) [Volume fraction] 41.7 % 37-47 [facility] Hemoglobin measurementOrdere d By: Lul Denson on 05-17-2024 Hemoglobin (Bld) [Mass/Vol] 13.9 g/dL 12.0-15.0 [facility] Immature granulocytes/100 WB C Auto (Bld)Ordered By: Lul Denson on 05-17-2024 Immature granulocytes/100 WBC (Bld) 0.200 % 0.0-0.9 [facility] Comment on above: IG% - Immature Granu locytes (promyelocytes, myelocytes and metamyelocytes) > 1% indicates that a LEFT SHIFT is Present. Laboratory - Chemistry and C hemistry - challengeOrdered By: Lul Denson on 05-17-2024 AST [Catalytic activity/Vol] 21 U/L 15-37 [facility] Lymphocytes Auto (Unsp spec) [#/Vol][facility] Lymphocytes (Bld) [#/Vol] 2.45 10*3/uL 0.83-4.51 [facility] Lymphocytes/100 WBC Auto (Un sp spec)Ordered By: Lul Denson on 05-17-2024 Lymphocytes/100 WBC (Bld) 24.6 % 19-41 [facility] MCV (mean corpuscular volume ) determinationOrdered By: Lul Denson on 05-17-2024 MCV (RBC) [Entitic vol] 96.3 fL 81-99 [facility] Mean corpuscular hemoglobin (MCH) determinationOrdered By: [facility] MCH (RBC) [Entitic mass] 32.1 pg High 27.0-32.0 [facility] Mean corpuscular hemoglobin concentration (MCHC) determinationOrdered By: Lul Jarett 05-17-2024 MCHC (RBC) [Mass/Vol] 33.3 g/dL 32-36 [facility] Mean platelet volume determi nationOrdered By: [facility] on 05-17-2024 Platelet mean volume (Bld) [Entitic vol] 9.0 fL 6.2-12.0 [facility] Monocyte percentageOrdered B y: Lul Denson on 05-17-2024 Monocytes/100 WBC (Bld) 5.0 % 0-10 [facility] Neutrophil percentageOrdered By: Lul Denson on 05-17-2024 Neutrophils/100 WBC (Bld) 68.6 % 47-70 [facility] Nucleated red blood cell per centageOrdered By: Lul Denson on 05-17-2024 Nucleated RBC/100 WBC (Bld) [Ratio] 0 % 0-5 [facility] Platelet countOrdered By: Jason Denson on 05-17-2024 Platelets (Bld) [#/Vol] 468 10*3/uL High 150-450 [facility] Potassium measurementOrdered By: Lul Denson on 05-17-2024 Potassium [Moles/Vol] 3.2 mmol/L Low 3.5-5.1 [facility] RBC Auto (Bld) [#/Vol]Ordere d By: Lul Denson on 05-17-2024 RBC (Bld) [#/Vol] 4.33 10*6/uL 4.2-5.4 [facility] Serum anion gap measurementO rdered By: Lul Denson on 05-17-2024 Anion gap [Moles/Vol] 11 mmol/L 5-15 [facility] Serum globulin measurementOr dered By: Lul Denson on 05-17-2024 Globulin (S) [Mass/Vol] 3.8 g/dL 2.2-4.2 [facility] Serum or plasma alanine youngblood otransferase (ALT) measurementOrdered By: Lul Denson on 05-17-2024 ALT [Catalytic activity/Vol] 25 U/L 13-56 [facility] Serum or plasma albumin rohith urement (mass/volume)Ordered By: Lul Denson on 05-17-2024 Albumin [Mass/Vol] 4.2 g/dL 3.2-5.0 [facility] Serum or plasma alkaline shasha sphatase measurementOrdered By: Lul Denson on 05-17-2024 ALP [Catalytic activity/Vol] 65 U/L 45-117 [facility] Serum or plasma calcium rohith urement (mass/volume)Ordered By: Lul Denson on 05-17-2024 Calcium [Mass/Vol] 9.9 mg/dL 8.5-10.1 [facility] Serum or plasma creatinine m easurement (mass/volume)Ordered By: Lul Denson on 05-17-2024 Creatinine [Mass/Vol] 1.09 mg/dL High 0.55-1.02 [facility] Comment on above: The validity of the calculated GFR & GFRAA in patients over 70 years has not been determined. Clinical correlation is essential. Serum or plasma urea nitroge n measurement (mass/volume)Ordered By: Lul Denson on 05-17-2024 Urea nitrogen [Mass/Vol] 35 mg/dL High 7-18 [facility] Sodium levelOrdered By: Lul Denson on 05-17-2024 Sodium [Moles/Vol] 133 mmol/L Low 136-145 [facility] TSH QnOrdered By: Lul Denson o n 05-17-2024 Thyroid Stimulating Hormone (TSH) 1.640 uIU/mL 0.358-3.740 [facility] Thyroid Stim Hormone (TSH)on 05-17-2024 TSH 1.640 uIU/mL Normal 0.358-3.740 [facility] Comment on above: Performed By: #### L 506.1000, L100.0100, L500.4050, L501.9520 #### [facility] [address] [place], [place], [address] Total proteinOrdered By: Lul Denson on 05-17-2024 Protein [Mass/Vol] 8.0 g/dL 6.4-8.2 [facility] Vitamin D,25 Hydroxyon 05-17 Vitamin D 25-OH 35.6 ng/mL Normal [facility] Comment on above: Result Comment: Emelia min D 25(OH) Status Range Deficiency <20 ng/mL (50nmol/L) Insufficiency 20 - 30 ng/mL (50 - 75 nmol/L) Sufficiency 30 - 100 ng/mL (75 - 250 nmol/L) Toxicity >100 ng/mL (>250 nmol/L) Performed By: #### L 506.1000, L100.0100, L500.4050, L501.9520 #### [facility] [address] [place], [address] White blood cell (WBC) count Ordered By: Lul Denson on 05-17-2024 WBC (Bld) [#/Vol] 10.0 10*3/uL 4.4-11.0 [facility] 11-15-2023 CN Office Visit ([facility]) DENISA SCHERER ([id number]) 1960 F Date Time Provider Department 11/15/23 10:45 AM RUBY OLGUIN [facility] During your visit today, we recorded the following information about you: Temperature Pulse Respiration Blood pressure 98.9 degrees 103/minute 18/minute 122/80 Weight 52.4 kg Ruby Olguin PA 11/15/2023 10:39 AM Signed This note was created using Rollstream[employer]. Subjective Denisa Scherer is a 63 year [...] Anxiety 06/14/2014 Dr. Tess Ochoa (Psychiatrist at [facility]). Bowel disease Colon polyps Depression, major 06/14/2014 Dr. Tess Ochoa (Psychiatrist at [facility]). 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 Phys (more content not included)... Normal [facility] Absolute lymphocyte countOrd ered By: Lul Denson on 11-03-2023 Lymphocytes Auto (Unsp spec) [#/Vol] 2.65 10*3/uL 0.83-4.51 [facility] Automated lymphocyte count a s percentage of total leukocytesOrdered By: Lul Denson on 11-03-2023 Lymphocytes/100 WBC Auto (Unsp spec) 38.1 % 19-41 [facility] Basophil percentageOrdered B y: Lul Denson on 11-03-2023 Basophils/100 WBC (Bld) 1.2 % 0-1 [facility] Bilirubin [Mass/Vol] 0.20 mg/dL 0.20-1.00 [facility] Comment on above: For patients on eltr ombopag therapy, use of Dimension [place] TBIL is not recommended. Chloride [Moles/Vol] 108 mmol/L 98-107 [facility] Eosinophils/100 WBC (Bld) 1.7 % 0-5 [facility] Glucose [Mass/Vol] 85 mg/dL 74-106 [facility] Hemoglobin (Bld) [Mass/Vol] 13.5 g/dL 12.0-15.0 [facility] Monocytes/100 WBC (Bld) 6.8 % 0-10 [facility] Neutrophils (Bld) [#/Vol] 3.6 10*3/uL 2.0-7.7 [facility] Neutrophils/100 WBC (Bld) 51.8 % 47-70 [facility] Potassium [Moles/Vol] 4.3 mmol/L 3.5-5.1 [facility] Protein [Mass/Vol] 7.4 g/dL 6.4-8.2 [facility] Sodium [Moles/Vol] 138 mmol/L 136-145 [facility] WBC (Bld) [#/Vol] 7.0 10*3/uL 4.4-11.0 [facility] Determination of erythrocyte mean corpuscular volume (MCV)Ordered By: Lul Denson on 11-03-2023 MCV (RBC) [Entitic vol] 101.0 fL 81-99 [facility] Erythrocyte distribution wid th ratioOrdered By: Lul Denson on 11-03-2023 Erythrocyte distribution width (RBC) [Ratio] 12.5 % 11.6-14.6 [facility] Erythrocyte distribution wid th standard deviationOrdered By: Lul Denson on 11-03-2023 Erythrocyte distribution width (RBC) [Entitic vol] 47.1 fL 35.1-43.9 [facility] Hematocrit Auto (Bld) [Volum e fraction]Ordered By: Lul Denson on 11-03-2023 Hematocrit (Bld) [Volume fraction] 40.5 % 37-47 [facility] Immature granulocytes/100 WB C Auto (Bld)Ordered By: Lul Denson on 11-03-2023 Immature granulocytes/100 WBC (Bld) 0.400 % 0.0-0.9 [facility] Comment on above: IG% - Immature Granu locytes (promyelocytes, myelocytes and metamyelocytes) > 1% indicates that a LEFT SHIFT is Present. Laboratory - Chemistry and C hemistry - challengeOrdered By: Lul Denson on 11-03-2023 Albumin/Globulin [Mass ratio] 0.9 {ratio} 0.9-2.4 [facility] ALP [Catalytic activity/Vol] 66 U/L 45-117 [facility] ALT [Catalytic activity/Vol] 20 U/L 13-56 [facility] CO2 [Moles/Vol] 26.0 mmol/L 21.0-32.0 [facility] Globulin (S) [Mass/Vol] 3.8 g/dL 2.2-4.2 [facility] Urea nitrogen/Creatinine [Mass ratio] 15.0 mg/mg 10-20 [facility] Laboratory - Hematology and Cell countsOrdered By: Lul Denson on 11-03-2023 MCH (RBC) [Entitic mass] 33.7 pg 27.0-32.0 [facility] MCHC (RBC) [Mass/Vol] 33.3 g/dL 32-36 [facility] Nucleated RBC/100 WBC (Bld) [Ratio] 0 % 0-5 [facility] Platelet mean volume (Bld) [Entitic vol] 9.2 fL 6.2-12.0 [facility] Platelets (Bld) [#/Vol] 371 10*3/uL 150-450 [facility] No Panel InformationOrdered By: Lul Denson on 11-03-2023 Estimated GFR (MDRD) Amer 102 mL/min >60 [facility] Comment on above: GFR Calc Estimated GFR (MDRD) Non-Af Amer 84 mL/min >60 [facility] Comment on above: Non- GFR Calc Vitamin D 25-Hydroxy 34.3 ng/mL [facility] Comment on above: Vitamin D 25(OH) Sta tus Range Deficiency <20 ng/mL (50nmol/L) Insufficiency 20 - 30 ng/mL (50 - 75 nmol/L) Sufficiency 30 - 100 ng/mL (75 - 250 nmol/L) Toxicity >100 ng/mL (>250 nmol/L) RBC Auto (Bld) [#/Vol]Ordere d By: Lul Denson on 11-03-2023 RBC (Bld) [#/Vol] 4.01 10*6/uL 4.2-5.4 [facility] Serum or plasma calcium rohith urement (mass/volume)Ordered By: Lul Denson on 11-03-2023 Calcium [Mass/Vol] 9.7 mg/dL 8.5-10.1 [facility] Serum or plasma creatinine m easurement (mass/volume)Ordered By: Lul Denson on 11-03-2023 Creatinine [Mass/Vol] 0.73 mg/dL 0.55-1.02 [facility] Comment on above: The validity of the calculated GFR & GFRAA in patients over 70 years has not been determined. Clinical correlation is essential. Serum or plasma thyroid stim ulating hormone (TSH) measurement (units/volume)Ordered By: Lul Denson on 11-03-2023 TSH Qn 0.42 uIU/mL 0.358-3.74 [facility] Serum or plasma urea nitroge n measurement (mass/volume)Ordered By: Lul Denson on 11-03-2023 Urea nitrogen [Mass/Vol] 11 mg/dL 7-18 [facility] Thin prep Papanicolaou smear with manual screeningOrdered By: Lul Denson on 11-03-2023 Thin prep Papanicolaou smear with manual screening 3.6 g/dL 3.2-5.0 [facility] Thin prep Papanicolaou smear with manual screening 20 U/L 15-37 [facility] Thin prep Papanicolaou smear with manual screening 4 5-15 [facility] Absolute lymphocyte countOrd ered By: Lul Denson on 2023 Lymphocytes Auto (Unsp spec) [#/Vol] 2.85 10*3/uL 0.83-4.51 [facility] Automated lymphocyte count a s percentage of total leukocytesOrdered By: Lul Denson on 2023 Lymphocytes/100 WBC Auto (Unsp spec) 37.5 % 19-41 [facility] Basophil percentageOrdered B y: Lul Denson on 2023 Basophils/100 WBC (Bld) 0.8 % 0-1 [facility] Bilirubin [Mass/Vol] 0.40 mg/dL 0.20-1.00 [facility] Comment on above: For patients on eltr ombopag therapy, use of Dimension [place] TBIL is not recommended. Chloride [Moles/Vol] 105 mmol/L 98-107 [facility] Eosinophils/100 WBC (Bld) 1.3 % 0-5 [facility] Glucose [Mass/Vol] 114 mg/dL 74-106 [facility] Comment on above: Fasting Glucose resu lt from 100 to 125 mg/dL suggests IMPAIRED HOMEOSTASIS per A.D.A. criteria. Hemoglobin (Bld) [Mass/Vol] 14.3 g/dL 12.0-15.0 [facility] Monocytes/100 WBC (Bld) 3.8 % 0-10 [facility] Neutrophils (Bld) [#/Vol] 4.3 10*3/uL 2.0-7.7 [facility] Neutrophils/100 WBC (Bld) 56.3 % 47-70 [facility] Potassium [Moles/Vol] 3.7 mmol/L 3.5-5.1 [facility] Protein [Mass/Vol] 7.8 g/dL 6.4-8.2 [facility] Sodium [Moles/Vol] 140 mmol/L 136-145 [facility] WBC (Bld) [#/Vol] 7.6 10*3/uL 4.4-11.0 [facility] Culture, urineOrdered By: Jason Denson on 2023 Bacteria identified Cx Nom (U) Presumptive E. coli [facility] Bacteria identified Cx Nom (U) Presumptive E. coli [facility] Determination of erythrocyte mean corpuscular volume (MCV)Ordered By: Lul Denson on 2023 MCV (RBC) [Entitic vol] 97.5 fL 81-99 [facility] Erythrocyte distribution wid th ratioOrdered By: Lul Denson on 2023 Erythrocyte distribution width (RBC) [Ratio] 12.8 % 11.6-14.6 [facility] Erythrocyte distribution wid th standard deviationOrdered By: Lul Denson on 2023 Erythrocyte distribution width (RBC) [Entitic vol] 45.8 fL 35.1-43.9 [facility] Hematocrit Auto (Bld) [Volum e fraction]Ordered By: Lul Denson on 2023 Hematocrit (Bld) [Volume fraction] 42.3 % 37-47 [facility] Immature granulocytes/100 WB C Auto (Bld)Ordered By: Lul Denson on 2023 Immature granulocytes/100 WBC (Bld) 0.300 % 0.0-0.9 [facility] Comment on above: IG% - Immature Granu locytes (promyelocytes, myelocytes and metamyelocytes) > 1% indicates that a LEFT SHIFT is Present. Laboratory - Chemistry and C hemistry - challengeOrdered By: Lul Denson on 2023 Albumin/Globulin [Mass ratio] 1.0 {ratio} 0.9-2.4 [facility] ALP [Catalytic activity/Vol] 63 U/L 45-117 [facility] ALT [Catalytic activity/Vol] 23 U/L 13-56 [facility] CO2 [Moles/Vol] 30.0 mmol/L 21.0-32.0 [facility] Globulin (S) [Mass/Vol] 3.9 g/dL 2.2-4.2 [facility] Urea nitrogen/Creatinine [Mass ratio] 17.2 mg/mg 10-20 [facility] Laboratory - Hematology and Cell countsOrdered By: Lul Denson on 2023 MCH (RBC) [Entitic mass] 32.9 pg 27.0-32.0 [facility] MCHC (RBC) [Mass/Vol] 33.8 g/dL 32-36 [facility] Nucleated RBC/100 WBC (Bld) [Ratio] 0 % 0-5 [facility] Platelet mean volume (Bld) [Entitic vol] 9.3 fL 6.2-12.0 [facility] Platelets (Bld) [#/Vol] 395 10*3/uL 150-450 [facility] No Panel InformationOrdered By: Lul Denson on 2023 Estimated GFR (MDRD) Amer 99 mL/min >60 [facility] Comment on above: GFR Calc Estimated GFR (MDRD) Non-Af Amer 81 mL/min >60 [facility] Comment on above: Non- GFR Calc RBC Auto (Bld) [#/Vol]Ordere d By: Lul Denson on 2023 RBC (Bld) [#/Vol] 4.34 10*6/uL 4.2-5.4 [facility] Serum or plasma calcium rohith urement (mass/volume)Ordered By: Lul Denson on 2023 Calcium [Mass/Vol] 10.2 mg/dL 8.5-10.1 [facility] Serum or plasma creatinine m easurement (mass/volume)Ordered By: Lul Denson on 2023 Creatinine [Mass/Vol] 0.76 mg/dL 0.55-1.02 [facility] Comment on above: The validity of the calculated GFR & GFRAA in patients over 70 years has not been determined. Clinical correlation is essential. Serum or plasma urea nitroge n measurement (mass/volume)Ordered By: Lul Denson on 2023 Urea nitrogen [Mass/Vol] 13 mg/dL 7-18 [facility] Thin prep Papanicolaou smear with manual screeningOrdered By: Lul Denson on 2023 Thin prep Papanicolaou smear with manual screening 3.9 g/dL 3.2-5.0 [facility] Thin prep Papanicolaou smear with manual screening 15 U/L 15-37 [facility] Thin prep Papanicolaou smear with manual screening 5 5-15 [facility] Absolute lymphocyte countOrd ered By: Lul Denson on 04-24-2023 Lymphocytes Auto (Unsp spec) [#/Vol] 2.54 10*3/uL 0.83-4.51 [facility] Basophil percentageOrdered B y: Lul Denson on 04-24-2023 Basophils/100 WBC (Bld) 0.7 % 0-1 [facility] Bilirubin [Mass/Vol] 0.20 mg/dL 0.20-1.00 [facility] Comment on above: For patients on eltr ombopag therapy, use of Dimension [place] TBIL is not recommended. Chloride [Moles/Vol] 107 mmol/L 98-107 [facility] Eosinophils/100 WBC (Bld) 1.5 % 0-5 [facility] Glucose [Mass/Vol] 115 mg/dL 74-106 [facility] Comment on above: Fasting Glucose resu lt from 100 to 125 mg/dL suggests IMPAIRED HOMEOSTASIS per A.D.A. criteria. Neutrophils (Bld) [#/Vol] 4.0 10*3/uL 2.0-7.7 [facility] Neutrophils/100 WBC (Bld) 55.8 % 47-70 [facility] Potassium [Moles/Vol] 3.5 mmol/L 3.5-5.1 [facility] Protein [Mass/Vol] 6.9 g/dL 6.4-8.2 [facility] Sodium [Moles/Vol] 137 mmol/L 136-145 [facility] WBC (Bld) [#/Vol] 7.2 10*3/uL 4.4-11.0 [facility] Blood erythrocytes count (nu mber/volume)Ordered By: Lul Denson on 04-24-2023 RBC (Bld) [#/Vol] 3.91 10*6/uL 4.2-5.4 [facility] Blood hemoglobin measurement (mass/volume)Ordered By: Lul Denson on 04-24-2023 Hemoglobin (Bld) [Mass/Vol] 12.8 g/dL 12.0-15.0 [facility] Blood lymphocytes/100 leukoc ytesOrdered By: Lul Denson on 04-24-2023 Lymphocytes/100 WBC (Bld) 35.1 % 19-41 [facility] Blood monocytes/100 leukocyt esOrdered By: Lul Denson on 04-24-2023 Monocytes/100 WBC (Bld) 6.6 % 0-10 [facility] Blood platelet mean volumeOr dered By: Lul Denson on 04-24-2023 Platelet mean volume (Bld) [Entitic vol] 9.6 fL 6.2-12.0 [facility] Determination of erythrocyte mean corpuscular volume (MCV)Ordered By: Lul Denson on 04-24-2023 MCV (RBC) [Entitic vol] 101.0 fL 81-99 [facility] Hematocrit Auto (Bld) [Volum e fraction]Ordered By: Lul Denson on 04-24-2023 Hematocrit (Bld) [Volume fraction] 39.5 % 37-47 [facility] Laboratory - Chemistry and C hemistry - challengeOrdered By: Lul Denson on 04-24-2023 ALP [Catalytic activity/Vol] 71 U/L 45-117 [facility] ALT [Catalytic activity/Vol] 21 U/L 13-56 [facility] CO2 [Moles/Vol] 26.0 mmol/L 21.0-32.0 [facility] Globulin (S) [Mass/Vol] 3.6 g/dL 2.2-4.2 [facility] Urea nitrogen/Creatinine [Mass ratio] 21.9 mg/mg 10-20 [facility] - Hematology and Cell countsOrdered By: Lul Dneson on 04-24-2023 Erythrocyte distribution width (RBC) [Entitic vol] 47.8 fL 35.1-43.9 [facility] Erythrocyte distribution width (RBC) [Ratio] 12.8 % 11.6-14.6 [facility] Immature granulocytes/100 WBC (Bld) 0.300 % 0.0-0.9 [facility] Comment on above: IG% - Immature Granu locytes (promyelocytes, myelocytes and metamyelocytes) > 1% indicates that a LEFT SHIFT is Present. MCH (RBC) [Entitic mass] 32.7 pg 27.0-32.0 [facility] Nucleated RBC/100 WBC (Bld) [Ratio] 0 % 0-5 [facility] MCHC Auto (RBC) [Mass/Vol]Or dered By: Lul Denson on 04-24-2023 MCHC (RBC) [Mass/Vol] 32.4 g/dL 32-36 [facility] No Panel InformationOrdered By: Lul Denson on 04-24-2023 Estimated GFR (MDRD) Amer 111 mL/min >60 [facility] Comment on above: GFR Calc Estimated GFR (MDRD) Non-Af Amer 92 mL/min >60 [facility] Comment on above: Non- GFR Calc Thyroid Stimulating Hormone (TSH) 0.59 uIU/mL 0.358-3.74 [facility] Platelets bldOrdered By: Lul Denson on 04-24-2023 Platelets (Bld) [#/Vol] 371 10*3/uL 150-450 [facility] Serum or plasma albumin rohith urement (mass/volume)Ordered By: Lul Denson on 04-24-2023 Albumin [Mass/Vol] 3.3 g/dL 3.2-5.0 [facility] Serum or plasma albumin/glob ulin mass ratioOrdered By: Lul Denson on 04-24-2023 Albumin/Globulin [Mass ratio] 0.9 {ratio} 0.9-2.4 [facility] Serum or plasma calcium rohith urement (mass/volume)Ordered By: Lul Denson on 04-24-2023 Calcium [Mass/Vol] 9.2 mg/dL 8.5-10.1 [facility] Serum or plasma creatinine m easurement (mass/volume)Ordered By: Lul Denson on 04-24-2023 Creatinine [Mass/Vol] 0.68 mg/dL 0.55-1.02 [facility] Comment on above: The validity of the calculated GFR & GFRAA in patients over 70 years has not been determined. Clinical correlation is essential. Serum or plasma urea nitroge n measurement (mass/volume)Ordered By: Lul Denson on 04-24-2023 Urea nitrogen [Mass/Vol] 15 mg/dL 7-18 [facility] Thin prep Papanicolaou smear with manual screeningOrdered By: [facility] Thin prep Papanicolaou smear with manual screening 16 U/L 15-37 [facility] Thin prep Papanicolaou smear with manual screening 4 5-15 [facility] Absolute lymphocyte countOrd ered By: Lul Echevarriaok on 01-13-2023 Lymphocytes Auto (Unsp spec) [#/Vol] 2.29 10*3/uL 0.83-4.51 [facility] Basophil percentageOrdered B y: Lul Denson on 01-13-2023 Basophils/100 WBC (Bld) 0.9 % 0-1 [facility] Bilirubin [Mass/Vol] 0.20 mg/dL 0.20-1.00 [facility] Comment on above: For patients on eltr ombopag therapy, use of Dimension [place] TBIL is not recommended. Chloride [Moles/Vol] 106 mmol/L 98-107 [facility] Eosinophils/100 WBC (Bld) 1.6 % 0-5 [facility] Glucose [Mass/Vol] 97 mg/dL 74-106 [facility] Neutrophils (Bld) [#/Vol] 4.5 10*3/uL 2.0-7.7 [facility] Neutrophils/100 WBC (Bld) 61.3 % 47-70 [facility] Potassium [Moles/Vol] 3.9 mmol/L 3.5-5.1 [facility] [facility] [Mass/Vol] 7.7 g/dL 6.4-8.2 [facility] Sodium [Moles/Vol] 136 mmol/L 136-145 [facility] WBC (Bld) [#/Vol] 7.4 10*3/uL 4.4-11.0 [facility] Blood erythrocytes count (nu mber/volume)Ordered By: Lul Denson on 01-13-2023 RBC (Bld) [#/Vol] 4.24 10*6/uL 4.2-5.4 [facility] Blood hemoglobin measurement (mass/volume)Ordered By: Lul Denson on 01-13-2023 Hemoglobin (Bld) [Mass/Vol] 13.9 g/dL 12.0-15.0 [facility] Blood lymphocytes/100 leukoc ytesOrdered By: Lul Denson on 01-13-2023 Lymphocytes/100 WBC (Bld) 30.9 % 19-41 [facility] Blood monocytes/100 leukocyt esOrdered By: Lul Denson on 01-13-2023 Monocytes/100 WBC (Bld) 4.9 % 0-10 [facility] Blood platelet mean volumeOr dered By: Lul Denson on 01-13-2023 Platelet mean volume (Bld) [Entitic vol] 9.3 fL 6.2-12.0 [facility] Determination of erythrocyte mean corpuscular volume (MCV)Ordered By: Lul Denson on 01-13-2023 MCV (RBC) [Entitic vol] 100.2 fL 81-99 [facility] Hematocrit Auto (Bld) [Volum e fraction]Ordered By: Lul Denson on 01-13-2023 Hematocrit (Bld) [Volume fraction] 42.5 % 37-47 [facility] Laboratory - Chemistry and C hemistry - challengeOrdered By: Lul Denson on 01-13-2023 ALP [Catalytic activity/Vol] 65 U/L 45-117 [facility] ALT [Catalytic activity/Vol] 24 U/L 13-56 [facility] CO2 [Moles/Vol] 26.0 mmol/L 21.0-32.0 [facility] Globulin (S) [Mass/Vol] 4.1 g/dL 2.2-4.2 [facility] Urea nitrogen/Creatinine [Mass ratio] 12.9 mg/mg 10-20 [facility] Laboratory - Hematology and Cell countsOrdered By: Lul Denson on 01-13-2023 Erythrocyte distribution width (RBC) [Entitic vol] 49.3 fL 35.1-43.9 [facility] Erythrocyte distribution width (RBC) [Ratio] 13.4 % 11.6-14.6 [facility] Immature granulocytes/100 WBC (Bld) 0.400 % 0.0-0.9 [facility] Comment on above: IG% - Immature Granu locytes (promyelocytes, myelocytes and metamyelocytes) > 1% indicates that a LEFT SHIFT is Present. MCH (RBC) [Entitic mass] 32.8 pg 27.0-32.0 [facility] Nucleated RBC/100 WBC (Bld) [Ratio] 0 % 0-5 [facility] MCHC Auto (RBC) [Mass/Vol]Or dered By: Lul Denson on 01-13-2023 MCHC (RBC) [Mass/Vol] 32.7 g/dL 32-36 [facility] No Panel InformationOrdered By: Lul Denson on 01-13-2023 Estimated GFR (MDRD) Amer 96 mL/min >60 [facility] Comment on above: GFR Calc Estimated GFR (MDRD) Non-Af Amer 79 mL/min >60 [facility] Comment on above: Non- GFR Calc Thyroid Stimulating Hormone (TSH) 1.52 uIU/mL 0.358-3.74 [facility] Platelets bldOrdered By: Lul Denson on 01-13-2023 Platelets (Bld) [#/Vol] 555 10*3/uL 150-450 [facility] Serum or plasma albumin rohith urement (mass/volume)Ordered By: Lul Denson on 01-13-2023 Albumin [Mass/Vol] 3.6 g/dL 3.2-5.0 [facility] Serum or plasma albumin/glob ulin mass ratioOrdered By: Lul Denson on 01-13-2023 Albumin/Globulin [Mass ratio] 0.9 {ratio} 0.9-2.4 [facility] Serum or plasma calcium rohith urement (mass/volume)Ordered By: Lul Denson on 01-13-2023 Calcium [Mass/Vol] 9.6 mg/dL 8.5-10.1 [facility] Serum or plasma creatinine m easurement (mass/volume)Ordered By: Lul Denson on 01-13-2023 Creatinine [Mass/Vol] 0.78 mg/dL 0.55-1.02 [facility] Comment on above: The validity of the calculated GFR & GFRAA in patients over 70 years has not been determined. Clinical correlation is essential. Serum or plasma urea nitroge n measurement (mass/volume)Ordered By: Lul Denson on 01-13-2023 Urea nitrogen [Mass/Vol] 10 mg/dL 7-18 [facility] Thin prep Papanicolaou smear with manual screeningOrdered By: Lul Denson on 01-13-2023 Thin prep Papanicolaou smear with manual screening 25 U/L 15-37 [facility] Thin prep Papanicolaou smear with manual screening 4 5-15 [facility] No Panel InformationOrdered By: Lul Denson on 01-09-2023 Influenza Types A,B Direct FA (MANUEL) [facility] RSV Ag EIAOrdered By: Lul ortiz on 01-09-2023 RSV Ag Immune stain Ql (Tiss) [facility] Absolute lymphocyte countOrd ered By: Martinez Wick on 01-07-2023 Lymphocytes Auto (Unsp spec) [#/Vol] 3.68 10*3/uL 0.83-4.51 [facility] Basophil percentageOrdered B y: Martinez Wick on 01-07-2023 Basophil percentage 0 SEEN /hpf 0-5 [facility] Basophils/100 WBC (Bld) 0.8 % 0-1 [facility] Chloride [Moles/Vol] 109 mmol/L 98-107 [facility] Eosinophils/100 WBC (Bld) 1.9 % 0-5 [facility] Glucose [Mass/Vol] 87 mg/dL 74-106 [facility] Neutrophils (Bld) [#/Vol] 4.7 10*3/uL 2.0-7.7 [facility] Neutrophils/100 WBC (Bld) 51.7 % 47-70 [facility] Potassium [Moles/Vol] 3.4 mmol/L 3.5-5.1 [facility] Sodium [Moles/Vol] 141 mmol/L 136-145 [facility] WBC (Bld) [#/Vol] 9.1 10*3/uL 4.4-11.0 [facility] Bilirubin Test strip Ql (U)O rdered By: Martinez Wick on 01-07-2023 Bilirubin Ql (U) Negative Negative [facility] Blood erythrocytes count (nu mber/volume)Ordered By: Martinez Wick on 01-07-2023 RBC (Bld) [#/Vol] 3.98 10*6/uL 4.2-5.4 [facility] Blood hemoglobin measurement (mass/volume)Ordered By: Martinez Wick on 01-07-2023 Hemoglobin (Bld) [Mass/Vol] 13.3 g/dL 12.0-15.0 [facility] Blood lymphocytes/100 leukoc ytesOrdered By: Martinez Wick on 01-07-2023 Lymphocytes/100 WBC (Bld) 40.3 % 19-41 [facility] Blood monocytes/100 leukocyt esOrdered By: Martinez Wick on 01-07-2023 Monocytes/100 WBC (Bld) 5.0 % 0-10 [facility] Blood platelet mean volumeOr dered By: Martinez Wick on 01-07-2023 Platelet mean volume (Bld) [Entitic vol] 8.8 fL 6.2-12.0 [facility] Determination of erythrocyte mean corpuscular volume (MCV)Ordered By: Martinez Wick on 01-07-2023 MCV (RBC) [Entitic vol] 101.0 fL 81-99 [facility] Hematocrit Auto (Bld) [Volum e fraction]Ordered By: Martinez Wick on 01-07-2023 Hematocrit (Bld) [Volume fraction] 40.2 % 37-47 [facility] Influenza virus A and B and SARS-CoV-2 (COVID-19) Ag panel - Upper respiratory specimOrdered By: Martinez Wick on 01-07-2023 SARS-CoV-2 (COVID-19) RNA ALEAH+probe Ql (Resp) [facility] Ketones Test strip Ql (U)Ord ered By: Martinez Wick on 01-07-2023 Ketones Ql (U) Negative Negative [facility] Laboratory - Chemistry and C hemistry - challengeOrdered By: Martinez Wick on 01-07-2023 CO2 [Moles/Vol] 28.0 mmol/L 21.0-32.0 [facility] Magnesium [Mass/Vol] 2.0 mg/dL 1.6-2.6 [facility] Urea nitrogen/Creatinine [Mass ratio] 16.4 mg/mg 10-20 [facility] Laboratory - Hematology and Cell countsOrdered By: Martinez Wick on 01-07-2023 Erythrocyte distribution width (RBC) [Entitic vol] 48.9 fL 35.1-43.9 [facility] Erythrocyte distribution width (RBC) [Ratio] 13.2 % 11.6-14.6 [facility] Immature granulocytes/100 WBC (Bld) 0.300 % 0.0-0.9 [facility] Comment on above: IG% - Immature Granu locytes (promyelocytes, myelocytes and metamyelocytes) > 1% indicates that a LEFT SHIFT is Present. MCH (RBC) [Entitic mass] 33.4 pg 27.0-32.0 [facility] Nucleated RBC/100 WBC (Bld) [Ratio] 0 % 0-5 [facility] MCHC Auto (RBC) [Mass/Vol]Or dered By: Martinez Wick on 01-07-2023 MCHC (RBC) [Mass/Vol] 33.1 g/dL 32-36 [facility] Mucus LM Ql (Urine sed)Order ed By: Martinez Wick on 01-07-2023 Mucus Ql (Urine sed) 0 SEEN /hpf [facility] Nitrite Test strip Ql (U)Ord ered By: Martinez Wick on 01-07-2023 Nitrite Ql (U) Negative Negative [facility] No Panel InformationOrdered By: Martinez Wick on 01-07-2023 Estimated Creatinine Clearance Calc 51.10 ml/min [facility] Estimated GFR (MDRD) Amer 79 mL/min >60 [facility] Comment on above: GFR Calc Estimated GFR (MDRD) Non-Af Amer 66 mL/min >60 [facility] Comment on above: Non- GFR Calc Thyroid Stimulating Hormone (TSH) 1.68 uIU/mL 0.358-3.74 [facility] Platelets bldOrdered By: Barrington Wick on 01-07-2023 Platelets (Bld) [#/Vol] 465 10*3/uL 150-450 [facility] Protein Test strip Ql (U)Ord ered By: Martinez Wick on 01-07-2023 Protein Ql (U) Negative Negative [facility] Serum or plasma calcium rohith urement (mass/volume)Ordered By: Martinez Wick on 01-07-2023 Calcium [Mass/Vol] 9.7 mg/dL 8.5-10.1 [facility] Serum or plasma creatinine m easurement (mass/volume)Ordered By: Martinez Wick on 01-07-2023 Creatinine [Mass/Vol] 0.92 mg/dL 0.55-1.02 [facility] Comment on above: The validity of the calculated GFR & GFRAA in patients over 70 years has not been determined. Clinical correlation is essential. Serum or plasma urea nitroge n measurement (mass/volume)Ordered By: Martinez Wick on 01-07-2023 Urea nitrogen [Mass/Vol] 15 mg/dL 7-18 [facility] Squamous epithelial cells de tection in urine sediment by light microscopyOrdered By: Martinez Wick on 01-07-2023 Epithelial cells.squamous LM Ql (Urine sed) 0 SEEN /hpf 5-10 [facility] Thin prep Papanicolaou smear with manual screeningOrdered By: Martinez Wick on 01-07-2023 Thin prep Papanicolaou smear with manual screening 4 5-15 [facility] Urine blood detectionOrdered By: Martinez Wick on 01-07-2023 RBC Ql (U) 25 /ul Negative [facility] RBC Ql (U) 0-5 SEEN /hpf 0-5 [facility] Urine clarityOrdered By: Barrington Wick on 01-07-2023 Clarity (U) Clear Clear [facility] Urine color determinationOrd ered By: Martinez Wick on 01-07-2023 Color (U) Yellow Yellow [facility] Urine glucose detectionOrder ed By: Martinez Wick on 01-07-2023 Glucose Ql (U) Normal mg/dl Normal [facility] Urine leukocyte esterase det ection by dipstickOrdered By: Martinez Wick on 01-07-2023 Leukocyte esterase Test strip Ql (U) Negative Negative [facility] Urine pHOrdered By: Martinez coffman on 01-07-2023 pH (U) 6.5 [pH] 5.0 - 8.0 [facility] Urine sediment bacteria coun t by microscopy (number/high power field)Ordered By: Martinez Wick on 01-07-2023 Bacteria LM.HPF (Urine sed) [#/Area] 0 /[HPF] None Seen [facility] Urine specific gravity measu rementOrdered By: Martinez Wick on 01-07-2023 Specific gravity (U) [Rel density] 1.010 1.002-1.030 [facility] Urobilinogen Auto test strip Ql (U)Ordered By: Martinez Wick on 01-07-2023 Urobilinogen Ql (U) Normal mg/dl Normal [facility] Absolute lymphocyte countOrd ered By: Dr. Easton on 11-09-2022 Lymphocytes Auto (Unsp spec) [#/Vol] 2.01 10*3/uL 0.83-4.51 [facility] Basophil percentageOrdered B y: Dr. Easton on 11-09-2022 Basophils/100 WBC (Bld) 0.8 % 0-1 [facility] Chloride [Moles/Vol] 108 mmol/L 98-107 [facility] Eosinophils/100 WBC (Bld) 2.6 % 0-5 [facility] Glucose [Mass/Vol] 109 mg/dL 74-106 [facility] Comment on above: Fasting Glucose resu lt from 100 to 125 mg/dL suggests IMPAIRED HOMEOSTASIS per A.D.A. criteria. Neutrophils (Bld) [#/Vol] 3.5 10*3/uL 2.0-7.7 [facility] Neutrophils/100 WBC (Bld) 57.8 % 47-70 [facility] Potassium [Moles/Vol] 4.3 mmol/L 3.5-5.1 [facility] Sodium [Moles/Vol] 140 mmol/L 136-145 [facility] WBC (Bld) [#/Vol] 6.0 10*3/uL 4.4-11.0 [facility] Blood erythrocytes count (nu mber/volume)Ordered By: Dr. Easton on 11-09-2022 RBC (Bld) [#/Vol] 4.19 10*6/uL 4.2-5.4 [facility] Blood hemoglobin measurement (mass/volume)Ordered By: Dr. Easton on 11-09-2022 Hemoglobin (Bld) [Mass/Vol] 14.0 g/dL 12.0-15.0 [facility] Blood lymphocytes/100 leukoc ytesOrdered By: Dr. Easton on 11-09-2022 Lymphocytes/100 WBC (Bld) 33.3 % 19-41 [facility] Blood monocytes/100 leukocyt esOrdered By: Dr. Easton on 11-09-2022 Monocytes/100 WBC (Bld) 5.3 % 0-10 [facility] Blood platelet mean volumeOr dered By: Dr. Easton on 11-09-2022 Platelet mean volume (Bld) [Entitic vol] 9.5 fL 6.2-12.0 [facility] Determination of erythrocyte mean corpuscular volume (MCV)Ordered By: Dr. Easton on 11-09-2022 MCV (RBC) [Entitic vol] 99.5 fL 81-99 [facility] Erythrocyte sedimentation ra teOrdered By: Dr. Easton on 11-09-2022 ESR (Bld) [Velocity] 14 mm/h 0-30 [facility] Hematocrit Auto (Bld) [Volum e fraction]Ordered By: Dr. Easton on 11-09-2022 Hematocrit (Bld) [Volume fraction] 41.7 % 37-47 [facility] Laboratory - Chemistry and C hemistry - challengeOrdered By: Dr. Easton on 11-09-2022 CO2 [Moles/Vol] 28.0 mmol/L 21.0-32.0 [facility] Urea nitrogen/Creatinine [Mass ratio] 16.5 mg/mg 10-20 [facility] Laboratory - Hematology and Cell countsOrdered By: Dr. Easton on 11-09-2022 Erythrocyte distribution width (RBC) [Entitic vol] 45.9 fL 35.1-43.9 [facility] Erythrocyte distribution width (RBC) [Ratio] 12.5 % 11.6-14.6 [facility] Immature granulocytes/100 WBC (Bld) 0.200 % 0.0-0.9 [facility] Comment on above: IG% - Immature Granu locytes (promyelocytes, myelocytes and metamyelocytes) > 1% indicates that a LEFT SHIFT is Present. MCH (RBC) [Entitic mass] 33.4 pg 27.0-32.0 [facility] Nucleated RBC/100 WBC (Bld) [Ratio] 0 % 0-5 [facility] MCHC Auto (RBC) [Mass/Vol]Or dered By: Dr. Easton on 11-09-2022 MCHC (RBC) [Mass/Vol] 33.6 g/dL 32-36 [facility] No Panel InformationOrdered By: Dr. Easton on 11-09-2022 Estimated Creatinine Clearance Calc 64.40 ml/min [facility] Estimated GFR (MDRD) Amer 103 mL/min >60 [facility] Comment on above: GFR Calc Estimated GFR (MDRD) Non-Af Amer 85 mL/min >60 [facility] Comment on above: Non- GFR Calc Platelets bldOrdered By: Dr. Easton on 11-09-2022 Platelets (Bld) [#/Vol] 382 10*3/uL 150-450 [facility] Serum or plasma calcium rohith urement (mass/volume)Ordered By: Dr. Easton on 11-09-2022 Calcium [Mass/Vol] 9.4 mg/dL 8.5-10.1 [facility] Serum or plasma creatinine m easurement (mass/volume)Ordered By: Dr. Easton on 11-09-2022 Creatinine [Mass/Vol] 0.73 mg/dL 0.55-1.02 [facility] Comment on above: The validity of the calculated GFR & GFRAA in patients over 70 years has not been determined. Clinical correlation is essential. Serum or plasma urea nitroge n measurement (mass/volume)Ordered By: Dr. Easton on 11-09-2022 Urea nitrogen [Mass/Vol] 12 mg/dL 7-18 [facility] Thin prep Papanicolaou smear with manual screeningOrdered By: Dr. Easton on 11-09-2022 Thin prep Papanicolaou smear with manual screening 4 5-15 [facility] Absolute lymphocyte countOrd ered By: Dr. Denson on 10-16-2022 Lymphocytes Auto (Unsp spec) [#/Vol] 3.16 10*3/uL 0.83-4.51 [facility] Basophil percentageOrdered B y: Dr. Denson on 10-16-2022 Basophils/100 WBC (Bld) 0.7 % 0-1 [facility] Bilirubin [Mass/Vol] 0.10 mg/dL 0.20-1.00 [facility] Comment on above: For patients on eltr ombopag therapy, use of Dimension [place] TBIL is not recommended. Chloride [Moles/Vol] 106 mmol/L 98-107 [facility] Eosinophils/100 WBC (Bld) 2.1 % 0-5 [facility] Glucose [Mass/Vol] 96 mg/dL 74-106 [facility] Neutrophils (Bld) [#/Vol] 4.4 10*3/uL 2.0-7.7 [facility] Neutrophils/100 WBC (Bld) 52.8 % 47-70 [facility] Potassium [Moles/Vol] 4.4 mmol/L 3.5-5.1 [facility] Protein [Mass/Vol] 7.8 g/dL 6.4-8.2 [facility] Sodium [Moles/Vol] 136 mmol/L 136-145 [facility] WBC (Bld) [#/Vol] 8.3 10*3/uL 4.4-11.0 [facility] Blood erythrocytes count (nu mber/volume)Ordered By: Dr. Denson on 10-16-2022 RBC (Bld) [#/Vol] 4.42 10*6/uL 4.2-5.4 [facility] Blood hemoglobin measurement (mass/volume)Ordered By: Dr. Denson on 10-16-2022 Hemoglobin (Bld) [Mass/Vol] 14.7 g/dL 12.0-15.0 [facility] Blood lymphocytes/100 leukoc ytesOrdered By: Dr. Denson on 10-16-2022 Lymphocytes/100 WBC (Bld) 38.2 % 19-41 [facility] Blood monocytes/100 leukocyt esOrdered By: Dr. Denson on 10-16-2022 Monocytes/100 WBC (Bld) 5.8 % 0-10 [facility] Blood platelet mean volumeOr dered By: Dr. Denson on 10-16-2022 Platelet mean volume (Bld) [Entitic vol] 8.4 fL 6.2-12.0 [facility] Determination of erythrocyte mean corpuscular volume (MCV)Ordered By: Dr. Denson on 10-16-2022 MCV (RBC) [Entitic vol] 102.3 fL 81-99 [facility] Hematocrit Auto (Bld) [Volum e fraction]Ordered By: Dr. Denson on 10-16-2022 Hematocrit (Bld) [Volume fraction] 45.2 % 37-47 [facility] Laboratory - Chemistry and C hemistry - challengeOrdered By: Dr. Denson on 10-16-2022 ALP [Catalytic activity/Vol] 68 U/L 45-117 [facility] ALT [Catalytic activity/Vol] 21 U/L 13-56 [facility] CO2 [Moles/Vol] 27.0 mmol/L 21.0-32.0 [facility] Globulin (S) [Mass/Vol] 4.0 g/dL 2.2-4.2 [facility] Urea nitrogen/Creatinine [Mass ratio] 18.8 mg/mg 10-20 [facility] Laboratory - Hematology and Cell countsOrdered By: Dr. Denson on 10-16-2022 Erythrocyte distribution width (RBC) [Entitic vol] 46.9 fL 35.1-43.9 [facility] Erythrocyte distribution width (RBC) [Ratio] 12.5 % 11.6-14.6 [facility] Immature granulocytes/100 WBC (Bld) 0.400 % 0.0-0.9 [facility] Comment on above: IG% - Immature Granu locytes (promyelocytes, myelocytes and metamyelocytes) > 1% indicates that a LEFT SHIFT is Present. MCH (RBC) [Entitic mass] 33.3 pg 27.0-32.0 [facility] Nucleated RBC/100 WBC (Bld) [Ratio] 0 % 0-5 [facility] MCHC Auto (RBC) [Mass/Vol]Or dered By: Dr. Denson on 10-16-2022 MCHC (RBC) [Mass/Vol] 32.5 g/dL 32-36 [facility] No Panel InformationOrdered By: Dr. Denson on 10-16-2022 Estimated GFR (MDRD) Amer 71 mL/min >60 [facility] Comment on above: GFR Calc Estimated GFR (MDRD) Non-Af Amer 59 mL/min >60 [facility] Comment on above: Non- GFR Calc Hepatitis C Antibody Non-Reactive Nonreactive [facility] Comment on above: Non Reactive: < 0.8 Equivocal: >/= 0.8 to < 1.0 Reactive: >/= 1.0The CDC recommends that a reactive/equivocal HCV antibody result be followed up by the HCV Nucleic Acid Amplificationtest (587820) Thyroid Stimulating Hormone (TSH) 1.80 uIU/mL 0.358-3.74 [facility] Platelets bldOrdered By: Dr. Denson on 10-16-2022 Platelets (Bld) [#/Vol] 443 10*3/uL 150-450 [facility] Serum or plasma albumin rohith urement (mass/volume)Ordered By: Dr. Denson on 10-16-2022 Albumin [Mass/Vol] 3.8 g/dL 3.2-5.0 [facility] Serum or plasma albumin/glob ulin mass ratioOrdered By: Dr. Denson on 10-16-2022 Albumin/Globulin [Mass ratio] 1.0 {ratio} 0.9-2.4 [facility] Serum or plasma calcium rohith urement (mass/volume)Ordered By: Dr. Denson on 10-16-2022 Calcium [Mass/Vol] 10.5 mg/dL 8.5-10.1 [facility] Serum or plasma creatinine m easurement (mass/volume)Ordered By: Dr. Denson on 10-16-2022 Creatinine [Mass/Vol] 1.01 mg/dL 0.55-1.02 [facility] Comment on above: The validity of the calculated GFR & GFRAA in patients over 70 years has not been determined. Clinical correlation is essential. Serum or plasma urea nitroge n measurement (mass/volume)Ordered By: Dr. Denson on 10-16-2022 Urea nitrogen [Mass/Vol] 19 mg/dL 7-18 [facility] Thin prep Papanicolaou smear with manual screeningOrdered By: Dr. Denson on 10-16-2022 Thin prep Papanicolaou smear with manual screening 19 U/L 15-37 [facility] Thin prep Papanicolaou smear with manual screening 3 5-15 [facility] XR CHEST 2V FRONTAL/LATon [facility] XR Chest PA and Lateralon IMPRESSION: No acute radiographic abnormality. [place]: [place] Transcribe Date/Time: Oct 14 2022 8:18A Dictated by : RONALDO ENGLE MD This examination was interpreted and the report reviewed and electronically signed by: RONALDO ENGLE MD on Oct 14 2022 8:22AM [facility] DIVISION OF RADIOLOGY * * *Final Report* [...] soft tissues: Unremarkable. DIVISION OF RADIOLOGY Provider, [facility] [place] - 10/14/2022 * * *Final Report* * [...] Unremarkable. IMPRESSION IMPRESSION: No acute radiographic abnormality. [place]: [facility] Transcribe Date/Time: Oct 14 2022 8:18A Dictated by : RONALDO ENGLE MD This examination was interpreted and the report reviewed and electronically signed by: RONALDO ENGLE MD on Oct 14 2022 8:22AM EST [facility] Radiology Study observation (narrative) [facility] XR Chest PA and LateralOrder ed By: [facility] Provider on 10-14-2022 [facility] CBC panel Auto (Bld)on 11-15 Erythrocyte distribution width (RBC) [Ratio] 13.2 % 11.5 - 15.0 % [facility] Hematocrit (Bld) [Volume fraction] 44.2 % 36.0 - 46.0 % [facility] Hemoglobin (Bld) [Mass/Vol] 14.3 g/dL 11.5 - 15.5 g/dL [facility] MCH (RBC) [Entitic mass] 32.9 pg 26.0 - 34.0 pg [facility] MCHC (RBC) [Mass/Vol] 32.4 g/dL 30.5 - 36.0 g/dL [facility] MCV (RBC) [Entitic vol] 101.8 fL High 80.0 - 100.0 fL [facility] Nucleated RBC (Bld) [#/Vol] 10*3/uL <0.01 k/uL [facility] Platelet mean volume (Bld) [Entitic vol] 8.8 fL Low 9.0 - 12.7 fL [facility] Platelets (Bld) [#/Vol] 477 10*3/uL High 150 - 400 k /uL [facility] RBC (Bld) [#/Vol] 4.34 10*6/uL 3.90 - 5.2 0 m/uL [facility] WBC (Bld) [#/Vol] 8.19 10*3/uL 3.70 - 11. 00 k/uL [facility] Comprehensive metabolic 2000 panelon 11-15-2021 Albumin [Mass/Vol] 4.2 g/dL 3.9 - 4.9 g/dL [facility] ALP [Catalytic activity/Vol] 67 U/L 34 - 123 U/L [facility] ALT [Catalytic activity/Vol] 13 U/L 7 - 38 U/L [facility] Anion gap [Moles/Vol] 10 mmol/L 9 - 18 mmol/L [facility] AST [Catalytic activity/Vol] 22 U/L 13 - 35 U/L [facility] Bilirubin [Mass/Vol] 0.2 mg/dL 0.2 - 1 .3 mg/dL [facility] Calcium [Mass/Vol] 10.5 mg/dL High 8.5 - 10. 2 mg/dL [facility] Chloride [Moles/Vol] 106 mmol/L High 97 - 10 5 mmol/L [facility] CO2 [Moles/Vol] 23 mmol/L 22 - 30 mmol/L [facility] Creatinine [Mass/Vol] 0.73 mg/dL 0.58 - 0.96 mg/dL [facility] Estimated Glomerular Filtration Rate 93 mL/min/1.73m >=60 mL/min/1.73m [facility] Glucose [Mass/Vol] 114 mg/dL High 74 - 99 mg/dL [facility] Potassium [Moles/Vol] 4.6 mmol/L 3.7 - 5.1 mmol/L [facility] Protein [Mass/Vol] 7.4 g/dL 6.3 - 8.0 g/dL [facility] Sodium [Moles/Vol] 139 mmol/L 136 - 144 mmol/L [facility] Urea nitrogen [Mass/Vol] 15 mg/dL 7 - 21 mg/d L [facility] PTH INTACT BLDon 11-15-2021 Parathyrin.intact [Mass/Vol] 43 pg/mL 15 - 65 pg/mL [facility] T4 FREE/FREE THYROXon 2021 Free T4 [Mass/Vol] 1.1 ng/dL 0.9 - 1.7 ng/dL [facility] XR Neck AP and Lateralon * [...] prevertebral soft tissue swelling. Impression: No acute renewable energy division manager: EVIEB Transcribe Date/Time: Nov 15 2021 9:51A Dictated by : RONALDO ENGLE MD This examination was interpreted and the report reviewed and electronically signed by: RONALDO ENGLE MD on Nov 15 2021 9:53AM EST [id number] SE_DIVISION OF RADIOLOGY Provider, [facility] [place] - 11/15/2021 * * *Final Report* * [...] prevertebral soft tissue swelling. Impression: No acute renewable energy division manager: [facility] Transcribe Date/Time: Nov 15 2021 9:51A Dictated by : RONALDO ENGLE MD This examination was interpreted and the report reviewed and electronically signed by: RONALDO ENGLE MD on Nov 15 2021 9:53AM EST [facility] XR Neck AP and LateralOrdere d By: [facility] Provider on 11-15-2021 [facility] XR NECK SOFT TISSUE 2V AP/LA Ton 11-14-2021 [facility] XR Neck AP and Lateralon Radiology Study observation (narrative) [facility] XR Foot - left AP and Latera l and obliqueon 01-29-2021 IMPRESSION: Nutrient channel versus oblique nondisplaced fracture of the fourth proximal phalanx. Correlation with physical examination for possible point tenderness in this region. Additionally, if indicated a follow-up radiograph in one week may be obtained. [place]: [place] Transcribe Date/Time: Jan 29 2021 10:52A [...] osseous injury identified. DIVISION OF RADIOLOGY Provider, [facility] [place] - 01/29/2021 * * *Final Report* * [...] radiograph in one week may be obtained. [place]: [place] Transcribe Date/Time: Jan 29 2021 10:52A Dictated by : LEONA AMARO MD This examination was interpreted and the report reviewed and electronically signed by: LEONA AMARO MD on Jan 29 2021 10:54AM EST [facility] Radiology Study observation (narrative) Ishmael ferraro [facility] XR Foot - left AP and Latera l and obliqueOrdered By: [facility] Provider on 01-29-2021 [facility] Vital Signs Date Time Vital Sign Value Performing Clinician Facility 10-03-2024 08:45-0400 Body mass index (BMI) [Ratio] 19.41 kg/m2 Pearl Swanson APRN.STORE COORDINATOR Work Phone: [facility] 10-03-2024 08:45-0400 Body temperature 97.59 [degF] Pearl Swanson APRN.STORE COORDINATOR Work Phone: [facility] 10-03-2024 08:45-0400 Body weight 49.7 kg Pearl Swanson APRN.STORE COORDINATOR Work Phone: [facility] 10-03-2024 08:45-0400 Diastolic blood pressure 68 mm[Hg] Pearl Swanosn APRN.STORE COORDINATOR Work Phone: [facility] 10-03-2024 08:45-0400 Heart rate 123 /min Pearl Swanson APRN.STORE COORDINATOR Work Phone: [facility] 10-03-2024 08:45-0400 Respiratory rate 18 /min Pearl Swanson APRN.STORE COORDINATOR Work Phone: [facility] 10-03-2024 08:45-0400 SaO2% (BldA) [Mass fraction] 99 % Pearl Swanson APRN.STORE COORDINATOR Work Phone: [facility] 10-03-2024 08:45-0400 Systolic blood pressure 109 mm[Hg] Pearl Swanson APRN.STORE COORDINATOR Work Phone: [facility] 11-15-2023 10:30-0400 Body mass index (BMI) [Ratio] 20.46 kg/m2 Krislyn Aberegg PA Work Phone: [facility] 11-15-2023 10:30-0400 Body temperature 98.91 [degF] Krislyn Aberegg PA Work Phone: [facility] 11-15-2023 10:30-0400 Body weight 52.4 kg Krislyn Aberegg PA Work Phone: [facility] 11-15-2023 10:30-0400 Diastolic blood pressure 80 mm[Hg] Krislyn Aberegg PA Work Phone: [facility] 11-15-2023 10:30-0400 Heart rate 103 /min Krislyn Aberegg PA Work Phone: [facility] 11-15-2023 10:30-0400 Respiratory rate 18 /min Krislyyue Gutierrezeregg PA Work Phone: [facility] 11-15-2023 10:30-0400 SaO2% (BldA) [Mass fraction] 98 % Krislyyue Aberegg PA Work Phone: [facility] 11-15-2023 10:30-0400 Systolic blood pressure 122 mm[Hg] Ruby Gutierrezeregg PA Work Phone: [facility] 2023 14:50-0500 Diastolic blood pressure 76 mm[Hg] [facility] 2023 14:50-0500 Heart rate 69 /min [facility] 2023 14:50-0500 Respiratory rate 16 /min [facility] 2023 14:50-0500 Systolic blood pressure 113 mm[Hg] [facility] 2023 12:05-0500 Body height 160.02 cm [facility] 2023 12:05-0500 Body mass index (BMI) [Ratio] 20.5 kg/m2 [facility] 2023 12:05-0500 Body temperature 96 [degF] [facility] 2023 12:05-0500 Body weight 52.61 kg [facility] 2023 12:05-0500 SaO2% (BldA) [Mass fraction] 115 % [facility] 04-12-2023 08:09-0400 Body temperature 97.3 [degF] Zahra Prayamiller-Wood ROUTE SALES DRIVER.STORE COORDINATOR Work Phone: [facility] 04-12-2023 08:09-0400 Body weight 52.07 kg Zahra Praisler-Wood ROUTE SALES DRIVER.STORE COORDINATOR Work Phone: [facility] 04-12-2023 08:09-0400 Diastolic blood pressure 76 mm[Hg] Zahra Praisler-Wood ROUTE SALES DRIVER.STORE COORDINATOR Work Phone: [facility] 04-12-2023 08:09-0400 Heart rate 111 /min Zahra Praisler-Wood ROUTE SALES DRIVER.STORE COORDINATOR Work Phone: [facility] 04-12-2023 08:09-0400 Respiratory rate 20 /min Zhara Praisler-Wood ROUTE SALES DRIVER.STORE COORDINATOR Work Phone: [facility] 04-12-2023 08:09-0400 SaO2% (BldA) [Mass fraction] 96 % Zahra Praisler-Wood ROUTE SALES DRIVER.STORE COORDINATOR Work Phone: [facility] 04-12-2023 08:09-0400 Systolic blood pressure 109 mm[Hg] Zahra Praisler-Wood ROUTE SALES DRIVER.STORE COORDINATOR Work Phone: [facility] 01-08-2023 01:10-0400 Diastolic blood pressure 79 mm[Hg] [facility] 01-08-2023 01:10-0400 Heart rate 61 /min [facility] 01-08-2023 01:10-0400 Respiratory rate 18 /min [facility] 01-08-2023 01:10-0400 SaO2% (BldA) [Mass fraction] 99 % [facility] 01-08-2023 01:10-0400 Systolic blood pressure 116 mm[Hg] [facility] 01-07-2023 17:43-0400 Body height 160.02 cm [facility] 01-07-2023 17:43-0400 Body mass index (BMI) [Ratio] 20.5 kg/m2 [facility] 01-07-2023 17:43-0400 Body temperature 97.1 [degF] [facility] 01-07-2023 17:43-0400 Body weight 52.61 kg [facility] 11-09-2022 11:00-0400 Heart rate 87 /min [facility] 11-09-2022 11:00-0400 Respiratory rate 18 /min [facility] 11-09-2022 11:00-0400 SaO2% (BldA) [Mass fraction] 100 % [facility] 11-09-2022 08:57-0400 Body height 160.02 cm [facility] 11-09-2022 08:57-0400 Body mass index (BMI) [Ratio] 20.9 kg/m2 [facility] 11-09-2022 08:57-0400 Body temperature 97.1 [degF] [facility] 11-09-2022 08:57-0400 Body weight 53.52 kg [facility] 11-09-2022 08:57-0400 Diastolic blood pressure 86 mm[Hg] [facility] 11-09-2022 08:57-0400 Systolic blood pressure 121 mm[Hg] [facility] 10-14-2022 07:11-0400 Body temperature 97.11 [degF] Yani Bogner PA-C Work Phone: [facility] 10-14-2022 07:11-0400 Body weight 55.61 kg Yani Bogner PA-C Work Phone: [facility] 10-14-2022 07:11-0400 Diastolic blood pressure 72 mm[Hg] Yani Bogner PA-C Work Phone: [facility] 10-14-2022 07:11-0400 Heart rate 96 /min Yani Bogner PA-C Work Phone: [facility] 10-14-2022 07:11-0400 Respiratory rate 18 /min Yani Bogner PA-C Work Phone: [facility] 10-14-2022 07:11-0400 SaO2% (BldA) [Mass fraction] 97 % Yani Bogner PA-C Work Phone: [facility] 10-14-2022 07:11-0400 Systolic blood pressure 116 mm[Hg] Yani Bogner PA-C Work Phone: [facility] 05-31-2022 11:37-0500 Body temperature 98.6 [degF] Sheldon Keys MD Work Phone: [facility] 05-31-2022 11:37-0500 Body weight 55.43 kg Sheldon Keys MD Work Phone: [facility] 05-31-2022 11:37-0500 Diastolic blood pressure 82 mm[Hg] Sheldon Keys MD Work Phone: [facility] 05-31-2022 11:37-0500 Heart rate 70 /min Sheldon Keys MD Work Phone: [facility] 05-31-2022 11:37-0500 Respiratory rate 18 /min Sheldon Keys MD Work Phone: [facility] 05-31-2022 11:37-0500 SaO2% (BldA) [Mass fraction] 97 % Sheldon Keys MD Work Phone: [facility] 05-31-2022 11:37-0500 Systolic blood pressure 124 mm[Hg] Sheldon Kesy MD Work Phone: [facility] 01-31-2022 07:46-0400 Body weight 55.79 kg Meenu Sidhu ROUTE SALES DRIVER.CHANNEL MACHINE OPERATOR Work Phone: [facility] 01-31-2022 07:46-0400 Diastolic blood pressure 78 mm[Hg] Meenu Sidhu ROUTE SALES DRIVER.CHANNEL MACHINE OPERATOR Work Phone: [facility] 01-31-2022 07:46-0400 Heart rate 82 /min Meenu Sidhu ROUTE SALES DRIVER.CHANNEL MACHINE OPERATOR Work Phone: [facility] 01-31-2022 07:46-0400 Respiratory rate 16 /min Meenu Sidhu ROUTE SALES DRIVER.CHANNEL MACHINE OPERATOR Work Phone: [facility] 01-31-2022 07:46-0400 SaO2% (BldA) [Mass fraction] 96 % Meenu Sidhu ROUTE SALES DRIVER.CHANNEL MACHINE OPERATOR Work Phone: [facility] 01-31-2022 07:46-0400 Systolic blood pressure 112 mm[Hg] Meenu Sidhu ROUTE SALES DRIVER.CHANNEL MACHINE OPERATOR Work Phone: [facility] 01-27-2022 12:26-0400 Body temperature 98.1 [degF] Erika Athy PA-C Work Phone: [facility] 01-27-2022 12:26-0400 Body weight 52.53 kg Erika Athy PA-C Work Phone: [facility] 01-27-2022 12:26-0400 Diastolic blood pressure 78 mm[Hg] Erika Athy PA-C Work Phone: [facility] 01-27-2022 12:26-0400 Heart rate 98 /min Erika Athy PA-C Work Phone: [facility] 01-27-2022 12:26-0400 Respiratory rate 20 /min Erika Athy PA-C Work Phone: [facility] 01-27-2022 12:26-0400 SaO2% (BldA) [Mass fraction] 97 % Erika Athy PA-C Work Phone: [facility] 01-27-2022 12:26-0400 Systolic blood pressure 115 mm[Hg] Erika Athy PA-C Work Phone: [facility] 11-14-2021 16:00-0400 Body weight 53.52 kg Sofia Medina MD Work Phone: [facility] 11-14-2021 16:00-0400 Diastolic blood pressure 78 mm[Hg] Sofia Medina MD Work Phone: [facility] 11-14-2021 16:00-0400 Heart rate 86 /min Sofia Medina MD Work Phone: [facility] 11-14-2021 16:00-0400 Systolic blood pressure 112 mm[Hg] Sofia Medina MD Work Phone: [facility] 11-10-2021 19:16-0400 Body height 157.48 cm [facility] Work Phone: 11-10-2021 19:16-0400 Body mass index (BMI) [Ratio] 21.9 kg/m2 [facility] Work Phone: 11-10-2021 19:16-0400 Body temperature 98 [degF] [facility] Work Phone: 11-10-2021 19:16-0400 Body weight 54.43 kg [facility] Work Phone: 11-10-2021 19:16-0400 Diastolic blood pressure 91 mm[Hg] [facility] Work Phone: 11-10-2021 19:16-0400 Heart rate 111 /min [facility] Work Phone: 11-10-2021 19:16-0400 Respiratory rate 18 /min [facility] Work Phone: 11-10-2021 19:16-0400 SaO2% (BldA) [Mass fraction] 97 % [facility] Work Phone: 11-10-2021 19:16-0400 Systolic blood pressure 122 mm[Hg] [facility] Work Phone: 08-20-2021 14:42-0500 Diastolic blood pressure 73 mm[Hg] [facility] Work Phone: 08-20-2021 14:42-0500 Heart rate 84 /min [facility] Work Phone: 08-20-2021 14:42-0500 Respiratory rate 18 /min [facility] Work Phone: 08-20-2021 14:42-0500 Systolic blood pressure 118 mm[Hg] [facility] Work Phone: 08-20-2021 11:19-0500 Body mass index (BMI) [Ratio] 20.5 kg/m2 [facility] Work Phone: 08-20-2021 11:19-0500 Body temperature 97.1 [degF] [facility] Work Phone: 08-20-2021 11:19-0500 Body weight 54.43 kg [facility] Work Phone: 08-20-2021 11:19-0500 SaO2% (BldA) [Mass fraction] 97 % [facility] Work Phone: Encounters Encounter Date Encounter Type Care Provider Facility Start: 01-11-2025 End: 01-11-[address] Lul Denson MD Work Phone: -Cardiovascular Services Start: 01-11-2025 End: 01-11-[address] Lul Denson MD -Cardiovascu lar Services Work Phone: Start: 01-11-2025 End: 01-11-[facility] Start: 12-14-2024 End: 12-14-[address] Lul Denson MD Work Phone: [facility] Work Phone: Start: 12-14-2024 End: 12-14-[address] Lul Denson MD -Laboratory Work Phone: Start: 12-14-2024 End: 12-14-2024 ambulatory [facility] Facility:[facility] Start: 10-03-2024 End: 10-03-2024 ambulatory [facility] Facility:[facility] Start: 10-03-2024 End: 10-03-2024 Patient encounter procedure Pearl Swanson APRN.STORE COORDINATOR Work Phone: [facility] Comment on above: Dizziness (Primary D x) Start: 09-02-2024 End: 09-02-2024 ambulatory [facility] Facility:[facility] Start: 09-02-2024 End: 09-02-2024 Patient encounter procedure Kiki Carroll OD Work Phone: Optometry Comment on above: Presbyopia (Primary Dx); Regular astigmatism of both eyes; Age-related nuclear cataract of both eyes Start: 09-01-2024 End: 09-01-[address] Lul Denson MD Work Phone: [facility] Work Phone: Start: 09-01-2024 End: 09-01-[address] Lul Denson MD -Radiology, [facility] Work Phone: Start: 09-01-2024 End: 09-01-2024 ambulatory [facility] Facility:[facility] Start: 05-23-2024 ambulatory [facility] Facility:[facility] Start: 05-17-2024 End: 05-17-[address] Lul Denson MD -Cat Scan, [facility] Work Phone: Start: 05-17-2024 End: 05-17-[address] Lul Denson MD -Laboratory, Phy Office 3rd Flr Start: 05-17-2024 End: 05-17-2024 ambulatory [facility] Facility:[facility] Start: 11-15-2023 End: 11-15-2023 Patient encounter procedure Ruby BULLARD Work Phone: [facility] Comment on above: Generalized abdomina l pain (Primary Dx) Start: 11-15-2023 End: 11-15-2023 ambulatory [facility] Facility:[facility] Start: 11-03-2023 End: 11-03-2023 ambulatory [facility] Work Phone: Start: 11-03-2023 End: 11-03-2023 Patient encounter procedure [facility]-Laboratory Work Phone: Start: 2023 End: 2023 [facility] Work Phone: Start: 2023 End: 2023 Patient encounter procedure [facility]-Cat Scan, [facility] Work Phone: Start: 07-30-2023 ambulatory Jefferson bustillo MD Work Phone: Internal Medicine [facility] Start: 04-24-2023 End: 04-24-2023 ambulatory [facility] Work Phone: Start: 04-24-2023 End: 04-24-2023 Patient encounter procedure [facility]-Laboratory, Phy Office 3rd Flr Start: 04-12-2023 End: 04-12-2023 Patient encounter procedure Zahra Marcano APRN.STORE COORDINATOR Work Phone: [facility] Comment on above: Cellulitis of ear ca nal, left (Primary Dx); Other acute nonsuppurative otitis media of left ear, recurrence not specified Start: 01-13-2023 End: 01-13-2023 ambulatory [facility] Work Phone: Start: 01-13-2023 End: 01-13-2023 [facility] Start: 01-09-2023 End: 01-09-2023 Patient encounter procedure [facility]-Pulmonary Services/Neurology Work Phone: Start: 01-07-2023 End: 01-08-2023 [facility] Start: 11-09-2022 End: 11-09-2022 Emergency department patient visit [facility]-Emergency Department Start: 10-16-2022 End: 10-16-2022 ambulatory [facility] Work Phone: Start: 10-16-2022 End: 10-16-2022 [facility] Start: 10-16-2022 Telephone encounter Jose Angel zuluaga APRN.STORE COORDINATOR Work Phone: [facility] Comment on above: Results Start: 10-14-2022 End: 10-14-2022 Subsequent hospital visit by physician [facility] Work Phone: Radiology Comment on above: Acute cough [R05.1] Start: 10-14-2022 End: 10-14-2022 Office outpatient visit 25 minutes Yani Pollard PA-C Work Phone: [facility] Comment on above: Acute cough (Primary Dx); Tongue burning sensation Start: 08-21-2022 ambulatory Jefferson bustillo MD Work Phone: Internal Medicine [facility] [place] Start: 05-31-2022 End: 05-31-2022 Patient encounter procedure Sheldon Keys MD Work Phone: [facility] Comment on above: Influenza-like illne ss (Primary Dx) Start: 05-08-2022 ambulatory Arnulfo Tre bustillo MD Work Phone: Ambulatory Surgery Start: 01-31-2022 End: 01-31-2022 Patient encounter procedure Meenu Sidhu PO.CHANNEL MACHINE OPERATOR Work Phone: Internal Medicine [place] Comment on above: Leg swelling (Primar y Dx); Bilateral leg pain; Smoker; Short of breath on exertion Start: 01-29-2022 ambulatory Sofia shaffer MD Work Phone: Internal Medicine [place] Comment on above: Ankle Pain Start: 01-28-2022 Telephone encounter Pearl Swanson APRN.STORE COORDINATOR Work Phone: [facility] Comment on above: Results Start: 01-27-2022 End: 01-27-2022 Patient encounter procedure Erika Wilkinson PA-C Work Phone: [facility] Comment on above: Vomiting and diarrhe a (Primary Dx) Start: 01-07-2022 Telephone encounter Sofia venegas MD Work Phone: Internal Medicine [place] Comment on above: Results Start: 11-14-2021 End: 11-14-2021 Subsequent hospital visit by physician Will [facility] Work Phone: Radiology Comment on above: Neck pain on left si de [M54.2] Start: 11-14-2021 End: 11-14-2021 Office outpatient visit 40 minutes Sofia Medina MD Work Phone: Internal Medicine [place] Comment on above: Neck pain on left si de (Primary Dx); Jaw pain; Tenderness of left temporomandibular joint; Bruise; Temporomandibular joint disorder; Localized swelling, mass or lump of neck; Lymphadenopathy; Hypercalcemia Start: 11-10-2021 End: 11-10-2021 [facility] Start: 08-20-2021 End: 08-20-2021 Emergency department patient visit [facility] Start: 01-29-2021 End: 01-29-2021 Subsequent hospital visit by physician [facility] Work Phone: Radiology Comment on above: Foot pain, left [M79 .672] Procedures Date Procedure Procedure Detail Performing Clinician Start: 01-11-2025 X-ray of knee, four or more views Dr. Lul Denson MD Work Phone: Start: 01-11-2025 X-ray of lumbosacral spine Dr. Lul Denson MD Work Phone: Start: 12-14-2024 Vitamin D, 25-hydrox y measurement Dr. Lul Denson MD Work Phone: Comment on above: Vitamin D StatusDefi ciency: <20 ng/mL (50nmol/L)Insufficiency: 20-30 ng/mL (50-75 nmol/L)Sufficiency: 30-100 ng/mL (75-250 nmol/L)Toxicity: >100 ng/mL (>250 nmol/L) Start: 09-01-2024 X-ray of thoracic sp ine, three views Dr. Lul Denson MD Work Phone: Start: 05-17-2024 Computed tomography of abdomen and pelvis with contrast Dr. Lul Denson MD Work Phone: Start: 2023 Urine culture [...] - S pratik or Plasma Zahra Marcano APRN.CNP Work Phone: Start: 01-24-2016 Colonoscopy Sofia logan MD Work Phone: Plan of Treatment Date Care Activity Detail Author Start: 2033 RSV Vaccine (1 - 1-dose 75+ series) RSV Vaccine (1 - 1-dose 75+ series) [facility] Start: 12-18-2025 Lipid 1996 panel - Serum or Plasma Lipid Screening [facility] Start: 12-18-2025 Lipid panel Lipid Screening [facility] Start: 12-18-2025 LIPID SCREEN LIPID SCREEN [facility] Start: 09-08-2025 End: 09-08-2025 Patient encounter procedure 09/08/2025 8:00 AM EDT Office Visit [facility] [address] [place] [address] Kiki Carroll, LISSY [address] [place] [address] eye exam/[facility] Comment on above: eye exam/[facility] Start: 11-15-2024 DIABETES SCREEN DIABETES SCREEN [facility] Start: 11-15-2024 Diabetes Screening Diabetes Screening [facility] Start: 06-30-2024 Advance Directive Discussion Advance Directive Discussion [facility] Start: 02-29-2024 Covid-19 Vaccine ( season) Covid-19 Vaccine ( season) [facility] Start: 02-29-2024 Influenza vaccination Influenza Vaccine (#1) [facility] Start: 2023 Advance Directive Discussion Advance Directive Discussion [facility] Start: 2023 Iv infusion hydration each additional hour HYDRATE IV INFUSION ADD-ON [facility] Start: 2023 Iv infusion hydration initial 31 min-1 hour HYDRATION IV INFUSION INIT [facility] Start: 2023 Screening for osteoporosis Bone Density Screening [facility] Start: 02-28-2023 Covid-19 Vaccine ( season) Covid-19 Vaccine ( season) [facility] Start: 02-28-2023 Influenza [facility] Start: 10-14-2022 End: 12-14-2022 Fungus identified in Unspecified specimen by Culture [facility] Work Phone: Comment on above: Expected: 10/14/2022, Expires: 3 Start: 07-05-2022 Mammography [facility] Start: 07-05-2022 Screening for malignant neoplasm of breast Mammogram Screening [facility] Start: 05-31-2022 End: 06-14-2022 Influenza virus A and B RNA and SARS-CoV-2 (COVID-19) N gene panel - Respiratory specimen by ALEAH with probe detection COVID WITH FLUA+B, ROUTINE Microbiology Routine Influenza-like illness Expected: 05/31/2022, Expires: 06/14/2022 [facility] Work Phone: Comment on above: Expected: 05/31/2022, Expires: 2 Start: 02-28-2022 Influenza vaccination INFLUENZA (#1) [facility] Start: 01-27-2022 End: 02-10-2022 SARS-CoV-2 (COVID-19) RNA [Presence] in Respiratory specimen by ALEAH with probe detection [facility] Work Phone: Comment on above: Expected: 01/27/2022, Expires: 2 Start: 11-10-2021 Streptococcus pyogenes antigen assay Group A Streptococcus Rapid Screen [facility] Work Phone: Start: 01-23-2021 Colonoscopy COLONOSCOPY [facility] Start: 01-23-2021 COLORECTAL CANCER SCREENING COLORECTAL CANCER SCREENING [facility] Start: 01-23-2021 Screening for malignant neoplasm of colon [facility] Start: 2018 RSV Vaccine (1 - 1-dose 60+ series) RSV Vaccine (1 - 1-dose 60+ series) [facility] Start: 07-10-2016 PNEUMOCOCCAL (2 - PCV) PNEUMOCOCCAL (2 - PCV) [facility] Start: 07-10-2016 [facility] Start: 07-10-2016 Pneumococcal Vaccine: 50+ (2 of 2 - PCV) Pneumococcal Vaccine: 50+ (2 of 2 - PCV) [facility] Start: 07-10-2016 Pneumococcal Vaccine: 65+ (2 of 2 - PCV) Pneumococcal Vaccine: 65+ (2 of 2 - PCV) [facility] Start: 11-09-2015 Urine microalbumin profile [facility] Start: 2008 SHINGRIX VACCINE (1 of 2) SHINGRIX VACCINE (1 of 2) [facility] Start: 2003 COLOGUARD (FIT-DNA) COLOGUARD (FIT-DNA) [facility] Start: [address] COLONOGRAPHY [facility] Start: 2003 FECAL OCCULT BLOOD FECAL OCCULT BLOOD [facility] Start: 2003 Screening for malignant neoplasm of colon [facility] Start: 2003 SIGMOIDOSCOPY SIGMOIDOSCOPY [facility] Start: 1976 HIV SCREENING HIV SCREENING [facility] Start: 1976 HIV screening HIV Screening [facility] Start: 02[birth year]-1959 COVID-19 VACCINE (#1) COVID-19 VACCINE (#1) [facility] End: 12-14-2022 Ct soft tissue neck w/contrast material CT NECK SOFT TISSUE W IVCON Radiology Routine Neck pain on left side Jaw pain Bruise Temporomandibular joint disorder Localized swelling, mass or lump of neck Lymphadenopathy 1 Occurrences starting 11/14/2021 until 12/14/2022 [facility] Work Phone: Comment on above: 1 Occurrences starting 11/14/2021 until 12/14/2022 End: 01-31-2023 Echocardiography ECHO Cardiology Routine Leg swelling Short of breath on exertion 1 Occurrences starting 01/31/2022 until 01/31/2023 [facility] Work Phone: Comment on above: 1 Occurrences starting 01/31/2022 until 01/31/2023 End: 09-20-2023 LEWIS SCREENING LEWIS SCREENING Radiology Routine Encounter for screening mammogram for breast cancer 1 Occurrences starting 08/21/2022 until 09/20/2023 [facility] Work Phone: Comment on above: 1 Occurrences starting 08/21/2022 until 09/20/2023 End: 08-28-2024 LEWIS SCREENING LEWIS SCREENING Radiology Routine Encounter for screening mammogram for breast cancer 1 Occurrences starting 07/30/2023 until 08/28/2024 [facility] Work Phone: Comment on above: 1 Occurrences starting 07/30/2023 until 08/28/2024 Patient Education [facility] Work Phone: Patient referral [facility] Work Phone: SARS-CoV-2 (COVID-19 ) RNA [Presence] in Respiratory specimen by ALEAH with probe detection 2018 CORONAVIRUS Microbiology Routine Acute cough 10/14/2022 9:42 AM EDT [facility] Work Phone: End: 05-08-2023 Screening colonoscopy COLONOSCOPY SCREENING Endoscopy Routine Screening for colon cancer 1 Occurrences starting 05/08/2022 until 05/08/2023 [facility] Work Phone: Comment on above: 1 Occurrences starting 05/08/2022 until 05/08/2023 End: 01-31-2023 US LEG VEIN DVT [facility] US LEG VEIN DVT [facility] V[facility] Lab Routine Leg swelling Bilateral leg pain 1 Occurrences starting 01/31/2022 until 01/31/2023 [facility] Work Phone: Comment on above: 1 Occurrences starting 01/31/2022 until 01/31/2023 [facility] Immunizations Immunization Date Immunization Notes Care Provider Fa cili 04-22-2023 influenza virus vacc ine, unspecified formulation Xr Idalia Work Phone: [facility] 04-22-2022 influenza virus vacc ine, unspecified formulation Zahra Marcano APRN.ELISEO Work Phone: [facility] 02-10-2020 influenza, injectabl e, quadrivalent, preservative free Sofia Medina MD Work Phone: [facility] Work Phone: 04-09-2019 influenza, injectabl e, quadrivalent, preservative free Sofia Medina MD Work Phone: [facility] Work Phone: 03-30-2018 influenza, injectabl e, quadrivalent, preservative free Sofia Medina MD Work Phone: [facility] 04-07-2017 influenza, seasonal, injectable Sofia Medina MD Work Phone: [facility] Work Phone: 03-24-2017 Influenza virus vaccine [facility] 11-08-2015 tetanus and diphther ia toxoids, adsorbed, preservative free, for adult use (5 Lf of tetanus toxoid and 2 Lf of diphtheria toxoid) Sofia Medina MD Work Phone: [facility] 07-10-2015 pneumococcal polysaccharide vaccine, 23 valent Sofia Medina MD Work Phone: [facility] 03-29-2015 influenza, seasonal, injectable Sofia Medina MD Work Phone: [facility] Payers Date Payer Category Payer Private Health Insurance [facility] E PLAN OF H[id number] [place] [address] [id number] 2024 Unknown [id number] 2023 Self-pay [id number] [id number] 2023 Medicare (Managed Care) [employer] [id number] 2023 Unknown ANTHEM BLUE CROS S AND BLUE SHIELD ANTHEM MEDICARE ADVANTAGE PPO [id number] 2023-Present [phone] [address] [place] [address] PPO [id number] 2023 Medicare [id number] 2015 Medicare [id number] 2015 Medicare MEDICARE MEDICAR E A AND B [id number] 2015-Present [phone] [place] [address] Medicare [id number] 2015 Medicare MEDICARE MEDICAR E A AND B [id number] 2015-Present [phone] [place] [address] Medicare [id number] Unknown [id number] Unknown [id number] Unknown [id number] Unknown [id number] Unknown [id number] Unknown [id number] Social History Date Type Detail Facility Start: 11-10-2021 End: 01-07-2023 Tobacco smoking status NHIS Unknown if ever smoked [facility] Start: 04-09-2018 Occasional [facility] Start: 04-09-2018 None [facility] Start: 04-09-2018 Spouse/ Signif icant Other [facility] Start: 04-10-2018 Cigarettes [facility] Start: 1960 Sex Assigned At Female [facility] Start: 01-11-2016 End: 01-07-2023 Tobacco smoking status NHIS Smokes tobacco daily [facility] History of tobacco use Cigarette Smoker [facility] Start: 01-11-2016 End: 09-02-2024 Cigarettes smoked current (pack per day) - Reported 0.5 [facility] Start: 01-11-2016 End: 09-02-2024 Tobacco use and exposure Smokeless tobacco non-user [facility] Start: 06-25-2021 End: 10-03-2024 Alcohol intake Current non-drinker of alcohol (finding) [facility] Start: 1960 Sex Assigned At Not on file [facility] Start: 12-30-2020 End: 05-31-2022 Exposure to SARS-CoV-2 (event) Not sure [facility] Start: 04-12-2023 End: 09-02-2024 Tobacco use panel [facility] Adult Depression Screening Assessment 2 [facility] Start: 09-11-2024 Sex Female (finding) [facility] Medical Equipment Procedure Code Equipment Code Equipment Origin al Text Equipment Identifier Dates Graft Biodesign Collagen Surgical Rectopexy Sterile Latex Free - [id number] Start: 05-13-2018 Mesh Srg Prol 6x 3in Katarina Nabsb - [id number] Start: 12-11-2010 Functional Status Date Assessment Result Facility 05-15-2018 Are you deaf, or do you have serious difficulty hearing No 05/15/2018 12:18 PM Rhea Ordonez, CALI No [facility] 05-15-2018 Are you blind, or do you have serious difficulty seeing, even when wearing glasses No 05/15/2018 12:18 PM Rhea Ordonez, CALI No [facility] 05-15-2018 Do you have serious difficulty walking or climbing stairs No 05/15/2018 12:18 PM Rhea Ordonez, CALI No [facility] 05-15-2018 Do you have difficul ty dressing or bathing No 05/15/2018 12:18 PM Rhea Ordonez RN No [facility] 05-15-2018 Because of a physica l, mental, or emotional condition, do you have difficulty doing errands alone such as visiting a physician's office or shopping No 05/15/2018 12:18 PM Rhea Ordonez RN No [facility] Mental Status Date Assessment Result Facility 2023 Cognitive function Level Of Cons ciousness Awake;Alert;Appropriate;Fol lows Commands [facility] Work Phone: 01-07-2023 Cognitive function Level Of Cons ciousness Awake;Alert;Appropriate;Fol lows Commands [facility] Work Phone: 11-09-2022 Cognitive function Level Of Cons ciousness Awake;Alert;Appropriate;Fol lows Commands [facility] Work Phone: 08-20-2021 Cognitive function Level Of Cons ciousness Awake;Alert;Appropriate [facility] Work Phone: 05-15-2018 Because of a physica l, mental, or emotional condition, do you have serious difficulty concentrating, remembering, or making decisions No 05/15/2018 12:18 PM Rhea Ordonez, CALI No [facility] Clinical Notes 05-14-2018 to 01-12-2025 Pearl Swanson APRN.STORE COORDINATOR - 10/03/2024 8:52 AM Kiki Tsai, LISSY - 09/02/2024 9:25 AM Ruby Sabillon PA - 11/15/2023 10:37 AM EDTPZahra Velez APRN.CNP - 04/12/2023 8:21 AM EDT Note Date & Type Note Facility 01-12-2025 Radiology Diagnostic study note [facility] Imaging Services [address] [place], [place] [id number] [phone] L/S Spine Min 4 Views MR#: [id number] Acct: [id number] Name: DENISA SCHERER Rep #: [id number] : 1960 F 64 From: Cami Morrow MD PCP: Dr. Lul Denson MD Status: REG Teresita BANEGAS Study:L/S Spine Min 4 Views Date of Exam: 01/11/25 Exam# [id number] Ordering Dr: Lul Denson MD EXAM: XR Lumbosacral Spine, 4 or 5 Views CLINICAL INDICATION: RIGHT SIDED SCIATICA TECHNIQUE: Frontal, lateral and bilateral oblique views of the lumbar spine. COMPARISON: No relevant prior studies available. FINDINGS: VERTEBRAE: S shaped scoliosis of the thoracolumbar spine. Right-sided posterior fusion of L3-L5 with disc spacers. Degenerative facet arthropathy throughout the lumbar spine, most prominent in the lower lumbar spine. No acute fracture. Normal alignment. SACRUM/COCCYX: Unremarkable as visualized. No acute fracture. DISC SPACES: Degenerative disc disease throughout the lumbar spine. SOFT TISSUES: Unremarkable. RAD/L/S Spine Min 4 Views IMPRESSION: 1. Postoperative changes as above. 2. Degenerative changes lumbar spine as described. Reading [facility] CC: Dr. Lul Denson MD ~ [place]: Signed [facility] 01-11-2025 Radiology Diagnostic study note [facility] Imaging Services [address] [place], [place] [address] Knee 4 or More Views MR#: [id number] Acct: [id number] Name: DENISA SCHERER Rep #: [id number] : 1960 F 64 From: Cami Morrow MD PCP: Dr. Lul Denson MD Status: REG C [facility] Study:Knee 4 or More Views Date of Exam: 01/11/25 Exam# [id number] Ordering Dr: Lul Denson MD EXAM: XR Right Knee Complete, 4 or More Views CLINICAL INDICATION: RIGHT KNEE PAIN TECHNIQUE: Four or more views of the right knee. COMPARISON: No relevant prior studies available. FINDINGS: BONES/JOINTS: Mild tricompartmental degenerative changes of the knee joint. Noacute fracture. No dislocation. SOFT TISSUES: Unremarkable. RAD/Knee 4 or More Views IMPRESSION: Degenerative changes as above. Reading Location: [id number] CC: Dr. Lul Denson MD ~ [place]: Signed [facility] 10-03-2024 Note HNO ID: [id number] Author: PEARL SWANSON APRN.STORE COORDINATOR Service: ? Author Type: Nurse Practitioner Type: [...] squad and wants to take her self. [facility] 10-03-2024 History of Presen t illness Narrative [...] take her self. documented in this encounter [facility] 09-02-2024 Note HNO ID: [id number] Author: KIKI CARROLL OD Service: ? Author Type: SPANISH SPEAKING NANNY Type: Progress Notes Filed: 09/02/2024 09:26 Note [...] vision, otherwise follow up yearly. Kiki Carroll, LISSY September 02, 2024 9:26 AM [facility] 09-02-2024 History of Presen t illness Narrative [...] vision, otherwise follow up yearly. Kiki Carroll, LISSY September 02, 2024 9:26 AM documented in this encounter [facility] 09-01-2024 Radiology Diagnostic study note [facility] Imaging Services [address] [place] [address] Thoracic Spine 3 Views MR#: [id number] Acct: [id number] Name: DENISA SCHERER Rep #: [id number] : 1960 F 64 From: Cami Lyles MD PCP: Dr. Lul Denson MD Status: REG C [facility] Study:Thoracic Spine 3 Views Date of Exam: 09/01/24 Exam# [id number] Ordering Dr: Lul Denson MD PROCEDURE: THORACIC SPINE 3 VIEWS REASON [...] 3. Additional description as above. Reading Location: [facility] CC: Dr. Lul Denson MD ~ [place]: Signed [facility] 11-15-2023 Note HNO ID: [id number] Author: RUBY OLGUIN PA Service: ? Author Type: Physician Corporate Account Executive Type: Progress Notes Filed: 11/15/2023 10:39 Note Text: This note was created using NoteWriter. Subjective Denisa Scherer is a 63 year [...] Anxiety 06/14/2014 Dr. Tess Ochoa (Psychiatrist at [facility]). Bowel disease Colon polyps Depression, major 06/14/2014 Dr. Tess Ochoa (Psychiatrist at [facility]). Fibromyalgia 06/14/2014 GERD (gastroesophageal reflux disease) 06/14/2014 Hematuria 12/22/2007 LBP (See LOW BACK PAIN) 01/31/2009 Migraine 07/27/2014 Mixed hyperlipidemia 02/08/2016 Opiate poisoning ([facility]) 02/24/2015 Peripheral vascular disease, unspecified ([facility]) Poisoning by benzodiazepine, intentional self-harm ([facility]) 02/24/2015 Rectal prolapse Respiratory failure, acute ([facility]) 02/24/2015 RP (rectal prolapse) 01/28/2018 Added automatically from request for surgery [id number] Severe sepsis ([facility]) 02/24/2015 Sprain of unspecified site of sacroiliac [...] normal. Breath joshua (more content not included)... [facility] 11-15-2023 History of Presen t illness Narrative This note was created using Rollstreamriter. Subjective Denisa Scherer is a 63 year [...] Anxiety 06/14/2014 Dr. Tess Ochoa (Psychiatrist at [facility]). Bowel disease Colon polyps Depression, major 06/14/2014 Dr. Tess Ochoa (Psychiatrist at [facility]). 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 Peripheral vascular disease, unspecified (HCC) Poisoning by benzodiazepine, intentional self-harm (HCC) 02/24/2015 Rectal prolapse Respiratory failure, acute (HCC) 02/24/2015 RP (rectal prolapse) 01/28/2018 Added automatically from request for surgery [id number] Severe sepsis (HCC) 02/24/2015 Sprain of unspecified [...] to. ALEAH Bhandari documented in this encounter [facility] 04-12-2023 History of Presen t illness [...] better now. She rates her ear pain 02/06. She took tylenol last night for pain. [...] Anxiety 06/14/2014 Dr. Tess Ochoa (Psychiatrist at [facility]). Bowel disease Colon polyps Depression, major 06/14/2014 Dr. Tess Ochoa (Psychiatrist at [facility]). 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 Peripheral vascular disease, unspecified (HCC) Poisoning by benzodiazepine, intentional self-harm (HCC) 02/24/2015 Rectal prolapse Respiratory failure, acute (HCC) 02/24/2015 RP (rectal prolapse) 01/28/2018 Added automatically from request for surgery [id number] Severe sepsis (HCC) 02/24/2015 Sprain of unspecified [...] Discussed expected course of illness Zahra Marcano APRN.STORE COORDINATOR documented in this encounter [facility] 04-12-2023 Instructions Zahra Marcano APRN.ELISEO - 04/12/2023 8:19 AM EDT ASSESSMENT/PLAN: 1. [...] Discussed expected course of illness Zahra Marcano APRN.CNP OTITIS MEDIA GENERAL INFORMATION: Otitis media is [...] even if the symptoms go away. 2. Iwcz-yyk-qlzqvfu pain medication may be taken or other [...] him or her). documented in this encounter [facility] 10-17-2022 Miscellaneous Notes Phone call placed patient advised (see prior provider encounter) Patient verbalized understanding, agreed with plan of care. Maggy Goff LPN Left message for pt to call back. Cheri Gates MA Please notify that no fungus grown at 2 days. Will notify if becomes positive. documented in this encounter [facility] 10-14-2022 History of Presen t illness [...] 2022 8:03 AM documented in this encounter [facility] 10-14-2022 History of Presen t illness [...] Anxiety 06/14/2014 Dr. Tess Ochoa (Psychiatrist at [facility]). Bowel disease Colon polyps Depression, major 06/14/2014 Dr. Tess Ochoa (Psychiatrist at [facility]). 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 Peripheral vascular disease, unspecified (HCC) Poisoning by benzodiazepine, intentional self-harm (HCC) 02/24/2015 Rectal prolapse Respiratory failure, acute ([facility]) 02/24/2015 RP (rectal prolapse) 01/28/2018 Added automatically from request for surgery [id number] Severe sepsis ([facility]) 02/24/2015 Sprain of unspecified site of sacroiliac region Suicide and self-inflicted poisoning by analgesics, antipyretics, and antirheumatics(E950.0) 02/24/2015 Tobacco abuse 1ppd x 15 years Toxic encephalopathy 02/24/2015 Withdrawal symptoms, drug or narcotic ([facility]) 02/24/2015 ALLERGIES Bactrim [Sulfamethoxazole-Trimethoprim], Codeine, Erythromycin, Acetaminophen-Codeine, [...] Yani Pollard PA-C documented in this encounter [facility] 05-31-2022 History of Presen t illness [...] Anxiety 06/14/2014 Dr. Tess Ochoa (Psychiatrist at [facility]). Bowel disease Colon polyps Depression, major 06/14/2014 Dr. Tess Ochoa (Psychiatrist at [facility]). 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 Peripheral vascular disease, unspecified (HCC) Poisoning by benzodiazepine, intentional self-harm (HCC) 02/24/2015 Rectal prolapse Respiratory failure, acute ([facility]) 02/24/2015 RP (rectal prolapse) 01/28/2018 Added automatically from request for surgery [id number] Severe sepsis ([facility]) 02/24/2015 Sprain of unspecified site of sacroiliac [...] Sheldon Keys MD documented in this encounter [facility] 01-31-2022 Instructions Meenu Sidhu APRN.NICHOLAS - 01/31/2022 8:02 AM EDT For foot and leg swelling: Avoid salty foods, elevate your legs when sitting down and try fcam-yki-ynpncwu compression socks when sitting or standing for prolonged periods (8-15mmHg strength or similar). These are available at most pharmacies. documented in this encounter [facility] 01-31-2022 History of Presen t illness [...] with viral illness versus foodborne illness from [facility]. Negative COVID test. Presents for mild ankle swelling present for 2 weeks that increases with prolonged standing, resolves overnight. Diet change/sodium intake: Does not monitor states he does not eat salty foods Chest pain: No Shortness of breath: 40 years smoking, 3/4 packs a day; stable History of [place]: No Weight gain: 8 pounds over the [...] Anxiety 06/14/2014 Dr. Tess Ochoa (Psychiatrist at [facility]). Bowel disease Colon polyps Depression, major 06/14/2014 Dr. Tess Ochoa (Psychiatrist at [facility]). 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 Peripheral vascular disease, unspecified (HCC) Poisoning by benzodiazepine, intentional self-harm (HCC) 02/24/2015 Rectal prolapse Respiratory failure, acute (HCC) 02/24/2015 RP (rectal prolapse) 01/28/2018 Added automatically from request for surgery [id number] Severe sepsis (HCC) 02/24/2015 Sprain of unspecified [...] your legs when sitting down and try dwuo-mbc-etlksfh compression socks when sitting or standing for [...] 4 - Moderate documented in this encounter [facility] 01-29-2022 Miscellaneous Notes Patient calls to [...] not certain but 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 Reports worse at the end of the day. Relieved with elevation. 8. MEDICAL HISTORY: No 9. RECURRENT SYMPTOM: No 10. OTHER SYMPTOMS: No chest pain or difficulty breathing Protocols used: LEG SWELLING AND [id number] documented in this encounter [facility] 01-28-2022 Miscellaneous Notes Patient given results and verbalized understanding of instructions given. Sarah Beth Ramirez Negative for covid please notify thank you documented in this encounter [facility] 01-27-2022 History of Presen t illness Narrative This note was created using MediaPasster. Subjective Denisa Scherer is a 61 year [...] Anxiety 06/14/2014 Dr. Tess Ochoa (Psychiatrist at [facility]). Bowel disease Colon polyps Depression, major 06/14/2014 Dr. Tess Ochoa (Psychiatrist at [facility]). 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 Peripheral vascular disease, unspecified (HCC) Poisoning by benzodiazepine, intentional self-harm (HCC) 02/24/2015 Rectal prolapse Respiratory failure, acute ([facility]) 02/24/2015 RP (rectal prolapse) 01/28/2018 Added automatically from request for surgery [id number] Severe sepsis ([facility]) 02/24/2015 Sprain of unspecified site of sacroiliac region Suicide and self-inflicted poisoning by analgesics, antipyretics, and antirheumatics(E950.0) 02/24/2015 Tobacco abuse 1ppd x 15 years Toxic encephalopathy 02/24/2015 Withdrawal symptoms, drug or narcotic ([facility]) 02/24/2015 Current Outpatient Medications Medication Sig Dispense [...] insertion (Prolene mesh). PAST SURGICAL HISTORY OF 2007 Partial hysterectomy FAMILY HISTORY Problem Relation Age [...] Erika Wilkinson PA-C documented in this encounter [facility] 01-07-2022 Miscellaneous Notes Left a detailed [...] treatment needed nbow documented in this encounter [facility] 11-14-2021 History of Presen t illness Narrative Images from the original note were not included. This note was created using Sendah Direct. Subjective Denisa Scherer is a 61 year [...] Anxiety 06/14/2014 Dr. Tess Ochoa (Psychiatrist at [facility]). Bowel disease Colon polyps Depression, major 06/14/2014 Dr. Tess Ochoa (Psychiatrist at [facility]). 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 Peripheral vascular disease, unspecified ([facility]) Poisoning by benzodiazepine, intentional self-harm ([facility]) 02/24/2015 Rectal prolapse Respiratory failure, acute ([facility]) 02/24/2015 RP (rectal prolapse) 01/28/2018 Added automatically from request for surgery [id number] Severe sepsis ([facility]) 02/24/2015 Sprain of unspecified site of sacroiliac region Suicide and self-inflicted poisoning by analgesics, antipyretics, and antirheumatics(E950.0) 02/24/2015 Tobacco abuse 1ppd x 15 years Toxic encephalopathy 02/24/2015 Withdrawal symptoms, drug or narcotic (HCC) 02/24/2015 Current Outpatient Medications Medication Sig polyethylene [...] Sofia Medina MD documented in this encounter [facility] 01-29-2021 History of Presen t illness [...] 2021 9:08 AM documented in this encounter [facility] 05-14-2018 History of Past i llness [...] Overview: Added automatically from request for surgery [id number] Last Assessment & Plan: PLAN: S/p surgical [...] of this encounter (statuses as of 01/07/2022) [facility]11-[facility]-2018 History of Past illness Narrative* Problem [...] Overview: Added automatically from request for surgery [id number] Last Assessment & Plan: PLAN: S/p surgical [...] of this encounter (statuses as of 01/07/2022) [facility] History of Past illness Narrative* Problem [...] Overview: Added automatically from request for surgery [id number] Last Assessment & Plan: PLAN: S/p surgical [...] of this encounter (statuses as of 01/27/2022) [facility] History of Past illness Narrative* Problem [...] Overview: Added automatically from request for surgery [id number] Last Assessment & Plan: PLAN: S/p surgical [...] of this encounter (statuses as of 01/28/2022) [facility] History of Past illness Narrative* Problem [...] Overview: Added automatically from request for surgery [id number] Last Assessment & Plan: PLAN: S/p surgical [...] of this encounter (statuses as of 01/29/2022) [facility] History of Past illness Narrative* Problem [...] Overview: Added automatically from request for surgery [id number] Last Assessment & Plan: PLAN: S/p surgical [...] of this encounter (statuses as of 01/31/2022) [facility] History of Past illness Narrative* Problem [...] Overview: Added automatically from request for surgery [id number] Last Assessment & Plan: PLAN: S/p surgical [...] of this encounter (statuses as of 05/13/2022) [facility] History of Past illness Narrative* Problem [...] Overview: Added automatically from request for surgery [id number] Last Assessment & Plan: PLAN: S/p surgical [...] of this encounter (statuses as of 05/31/2022) [facility] History of Past illness Narrative* Problem [...] Overview: Added automatically from request for surgery [id number] Last Assessment & Plan: PLAN: S/p surgical [...] of this encounter (statuses as of 08/26/2022) [facility] History of Past illness Narrative* Problem [...] Overview: Added automatically from request for surgery [id number] Last Assessment & Plan: PLAN: S/p surgical [...] of this encounter (statuses as of 10/14/2022) [facility] History of Past illness Narrative* Problem [...] Overview: Added automatically from request for surgery [id number] Last Assessment & Plan: PLAN: S/p surgical [...] of this encounter (statuses as of 10/18/2022) [facility] History of Past illness Narrative* Problem [...] Overview: Added automatically from request for surgery [id number] Last Assessment & Plan: PLAN: S/p surgical [...] of this encounter (statuses as of 04/12/2023) [facility] History of Past illness Narrative* Problem [...] Overview: Added automatically from request for surgery [id number] Last Assessment & Plan: PLAN: S/p surgical [...] of this encounter (statuses as of 08/04/2023) [facility] noteNo assessment information availableWGuernsey [facility] Hospital Work Phone: Evaluation note* Diagnosis Neck pain on left side- Primary Cervicalgia Jaw pain Tenderness of left temporomandibular joint Bruise Contusion of unspecified site Temporomandibular joint disorder Temporomandibular joint disorders, unspecified Localized swelling, mass or lump of neck Swelling, mass, or lump in head and neck Lymphadenopathy Enlargement of lymph nodes Hypercalcemia [facility] Diagnosis Vomiting and diarrhea- Primary Vomiting alone [facility] Diagnosis Leg swelling- Primary Swelling of limb Bilateral leg pain Pain in limb Smoker Tobacco use disorder Short of breath on exertion Shortness of breath [facility]* Diagnosis Screening for colon cancer Special screening for malignant neoplasms, colon [facility]* Diagnosis Influenza-like illness- Primary Influenza with other respiratory manifestations [facility]* Diagnosis Encounter for screening mammogram for breast cancer [facility]* Diagnosis Acute cough- Primary Tongue burning sensation Glossodynia [facility]* Diagnosis Cellulitis of ear canal, left- Primary Other acute nonsuppurative otitis media of left ear, recurrence not specified [facility]* Diagnosis Encounter for screening mammogram for breast cancer [facility] Diagnosis Generalized abdominal pain- Primary Abdominal pain, generalized [facility]* Diagnosis Postoperative pain Other acute postoperative pain Nicotine use disorder, F17.2 Tobacco use disorder Acute cough [facility]* Diagnosis Postoperative pain Other acute postoperative pain Nicotine use disorder, F17.2 Tobacco use disorder Neck pain on left side Cervicalgia Jaw pain Bruise Contusion of unspecified site Temporomandibular joint disorder Temporomandibular joint disorders, unspecified Localized swelling, mass or lump of neck Swelling, mass, or lump in head and neck Lymphadenopathy Enlargement of lymph nodes [facility]* Diagnosis Postoperative pain Other acute postoperative pain Nicotine use disorder, F17.2 Tobacco use disorder Foot pain, left Pain in limb [facility]* Diagnosis Postoperative pain Other acute postoperative pain Nicotine use disorder, F17.2 Tobacco use disorder Presbyopia- Primary Regular astigmatism of both eyes Regular astigmatism Age-related nuclear cataract of both eyes Senile nuclear sclerosis [facility] Diagnosis Postoperative pain Other acute postoperative pain Nicotine use disorder, F17.2 Tobacco use disorder Dizziness- Primary Dizziness and giddiness [facility] instructionsWGu[facility] Work Phone: Hospital Discharge instructions Additional Instructions please follow-up with your family doctor to discuss referral to neurology and/or rheumatology to assess for other disease processes that could be causing your symptoms but your work-up here revealed no acute findingsWGuernsey Memorial Hospital Work Phone: Reason for referral (narrative)* Diagnostic Procedure Only (Routine) - Closed Specialty Diagnoses / Procedures Referred By Lata kirk Referred To Contact XR IMAGING Diagnoses Neck pain on left side Jaw pain Bruise Temporomandibular joint disorder Localized swelling, mass or lump of neck Lymphadenopathy Procedures XR NECK SOFT TISSUE 2V AP/LAT RADIOLOGIC EXAMINATION NECK SOFT TISSUE Sofia Medina MD [address] [place] [address] Xr Imaging Referral ID Status Reason Start Date Expiration Date V isits Requested Visits Authorized [id number] Closed Auto-Generate d Referral 11/14/2021 12/14/2022 1 1 * MRI/CT (Urgent) - Pending Review Specialty Diagnoses / Procedures Referred By Lata kirk Referred To Contact CT IMAGING Diagnoses Neck pain on left side Jaw pain Bruise Temporomandibular joint disorder Localized swelling, mass or lump of neck Lymphadenopathy Procedures CT NECK SOFT TISSUE W IVCON CT SOFT TISSUE NECK W/CONTRAST MATERIAL Sofia Medina MD [address] [place] [address] Ct Imaging Referral ID Status Reason Start Date Expiration Date Visits Requested Visits Authorized [id number] Pending Review Auto-Generat ed Referral 11/14/2021 12/14/2022 1 1 [facility] for referral (narrative)* Outpatient Procedure (Routine) - Authorized Specialty Diagnoses / Procedures Referred By Contac t Referred To Contact [facility] Diagnoses Leg swelling Bilateral leg pain Procedures US LEG VEIN DVT [facility] DUP-SCAN XTR VEINS COMPLETE BILATERAL STUDY Meenu Sidhu APRN.CHANNEL MACHINE OPERATOR [address] [place] [address] [facility][Note 3] Vascular [address] [address] Referral ID Status Reason Start Date Expiration Date Visits Requested Visits Authorized [id number] Authorized Auto-Generat ed Referral 01/31/2022 01/31/2023 1 1 * Outpatient Procedure (Routine) - Authorized Specialty Diagnoses / Procedures Referred By Contac t Referred To Contact [facility] Diagnoses Leg swelling Short of breath on exertion Procedures ECHO ECHO TTHRC R-T 2D W/WOM-MODE COMPL SPEC&COLR D Meenu Sidhu APRN.CHANNEL MACHINE OPERATOR [address] [place] [address] [facility][Note 3] Vascular [address] [address] Referral ID Status Reason Start Date Expiration Date Visits Requested Visits Authorized [id number] Authorized Auto-Generat ed Referral 01/31/2022 01/31/2023 1 1 [facility] for referral (narrative)* Outpatient Procedure (Routine) - Pending Review Specialty Diagnoses / Procedures Referred By Contac t Referred To Contact [facility] Diagnoses Screening for colon cancer Procedures COLONOSCOPY SCREENING COLONOSCOPY FLX DX W/COLLJ SPEC WHEN Jefferson Troy MD [address] [place] [address] [facility] [place] [address] Referral ID Status Reason Start Date Expiration Date Visits Requested Visits Authorized [id number] Pending Review Auto-Generat ed Referral 05/08/2022 05/08/2023 1 1 [facility] for referral (narrative)* Diagnostic Procedure Only (Routine) - Pending Review Specialty Diagnoses / Procedures Referred By Lata kirk Referred To Contact [facility] Diagnoses Encounter for screening mammogram for breast cancer Procedures LEWIS SCREENING SCREENING MAMMOGRAPHY BI 2-VIEW BREAST INC Jefferson Jones MD [address] [place] [address] [facility] [address] [place] [address] Referral ID Status Reason Start Date Expiration Date Visits Requested Visits Authorized [id number] Pending Review Auto-Generat ed Referral 08/21/2022 09/20/2023 1 1 [facility] for referral (narrative)* Diagnostic Procedure Only (Routine) - Pending Review Specialty Diagnoses / Procedures Referred By Lata kirk Referred To Contact [facility] Diagnoses Encounter for screening mammogram for breast cancer Procedures LEWIS SCREENING SCREENING MAMMOGRAPHY BI 2-VIEW BREAST INC Jefefrson Jones MD [address] [place] [address] [facility] [address] [place] [address] Referral ID Status Reason Start Date Expiration Date Visits Requested Visits Authorized [id number] Pending Review Auto-Generat ed Referral 07/30/2023 08/28/2024 1 1 [facility] for referral (narrative)* Diagnostic Procedure Only (Routine) - Closed Specialty Diagnoses / Procedures Referred By Lata kirk Referred To Contact XR IMAGING Diagnoses Neck pain on left side Jaw pain Bruise Temporomandibular joint disorder Localized swelling, mass or lump of neck Lymphadenopathy Procedures XR NECK SOFT TISSUE 2V AP/LAT RADIOLOGIC EXAMINATION NECK SOFT TISSUE Sofia Medina MD [address] [place] [address] [place] [address] Referral ID Status Reason Start Date Expiration Date V isits Requested Visits Authorized [id number] Closed Auto-Generate d Referral 11/14/2021 12/14/2022 1 1 [facility] for referral (narrative)* Diagnostic Procedure Only (Routine) - Closed Specialty Diagnoses / Procedures Referred By Contac t Referred To Contact XR IMAGING Diagnoses Foot pain, left Procedures XR FOOT GENERAL 3V AP/LAT/OBL LT X-RAY FOOT MINIMUM 3 VIEWS Sheldon Keys MD [address] [place] [address] [place] [address] Referral ID Status Reason Start Date Expiration Date V isits Requested Visits Authorized [id number] Closed Auto-Generate d Referral 01/29/2021 02/28/2022 1 1 [facility] for referral (narrative)No reason for referral information availableWGuernsey Memorial Hospital Work Phone: [facility] Narrative* Diagnostic Procedure Only (Routine) - Closed Specialty Diagnoses / Procedures Referred By Contac t Referred To Contact XR IMAGING Diagnoses Neck pain on left side Jaw pain Bruise Temporomandibular joint disorder Localized swelling, mass or lump of neck Lymphadenopathy Procedures XR NECK SOFT TISSUE 2V AP/LAT RADIOLOGIC EXAMINATION NECK SOFT TISSUE Sofia Medina MD [address] [place] [address] [place] [id number] Referral ID Status Reason Start Date Expiration Date V isits Requested Visits Authorized [id number] Closed Auto-Generate d Referral 11/14/2021 12/14/2022 1 1 [facility] for visit Narrative* Diagnostic Procedure Only (Routine) - Closed Specialty Diagnoses / Procedures Referred By Contac t Referred To Contact XR IMAGING Diagnoses Foot pain, left Procedures XR FOOT GENERAL 3V AP/LAT/OBL LT X-RAY FOOT MINIMUM 3 VIEWS Sheldon Keys MD [address] [place] [address] [place] [id number] Referral ID Status Reason Start Date Expiration Date V isits Requested Visits Authorized [id number] Closed Auto-Generate d Referral 01/29/2021 02/28/2022 1 1 [facility] Chief Complaint and Reason for Visit Chief Complaint HEAD PAIN LUMP ON L SIDE NECK Chief Complaint CBC, CMP, Chief Complaint CBC, CMP, headache Chief Complaint CBC, CMP, headache HEADACHE Chief Complaint CBC, CMP, headache HEADACHE SCREENING Chief Complaint HEADACHE SCREENING Chief Complaint NAUSEA, VOMITING Chief Complaint Admit Date LEFT FLANK PAIN May 17, 2024 12:03pm Chief Complaint Admit Date Localized swelling, mass and lump, (STAT ) January 11, 2025 12:30pm Family History No Family History Records Found Relationship Condition Age at Onset Recorded Date/T moni Unknown Family History?Hypertension Unknown April 09, 2018 3:35am Relationship Condition Age at Onset Recorded Date/T moni Unknown Family History?Hypertension Unknown April 09, 2018 2:35am Advance Directives No Advanced Directives Records Found Advance Directive Response Recorded Date/ Time Living Will No November 10, 2021 7 :24pm Power of Hand Cigar Making Supervisor No November 10, 2021 7:24pm Documents on File Type Date 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 Advance Directive(s) 05/12/2018 3:49 PM Advance Directive(s) 01/29/2016 5:54 AM Advance Directive(s) 01/24/2016 12:04 PM Advance Directive(s) 01/12/2016 9:00 AM Advance Directive(s) 12/10/2010 8:59 PM Documents on File Type Date 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 Advance Directive(s) 05/12/2018 3:49 PM Advance Directive(s) 01/29/2016 5:54 AM Advance Directive(s) 01/24/2016 12:04 PM Advance Directive(s) 01/12/2016 9:00 AM Advance Directive(s) 12/10/2010 8:59 PM Documents on File Type Date Recorded 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 Advance Directive(s) 12/10/2010 8:59 PM Documents on File Type Date Recorded 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 Advance Directive(s) 12/10/2010 8:59 PM Advance Directive Response Recorded Date/ Time Living Will No November 09, 2022 9 :13am Power of Hand Cigar Making Supervisor No November 09, 2022 9:13am Advance Directive Response Recorded Date/ Time Living Will No January 07, 2023 9:54pm Power of Hand Cigar Making Supervisor No January 07 9:54pm Advance Directive Response Recorded Date/ Time Living Will No January 07, 2023 8:54pm Power of Hand Cigar Making Supervisor No January 07 8:54pm Health Concerns Infection [...] or prosecute any alcohol or drug abuse patient.[facility] the event this information is protected by the Federal Confidentiality of Alcohol and Drug Abuse Patient Records regulations: The Federal rules restrict any use of the information to criminally investigate or prosecute any alcohol or drug abuse patient.[facility] the event this information is protected by the Federal Confidentiality of Alcohol and Drug Abuse Patient Records regulations: The Federal rules restrict any use of the information to criminally investigate or prosecute any alcohol or drug abuse patient.[facility] the event this information is protected by the Federal Confidentiality of Alcohol and Drug Abuse Patient Records regulations: The Federal rules restrict any use of the information to criminally investigate or prosecute any alcohol or drug abuse patient.[facility] the event this information is protected by the Federal Confidentiality of Alcohol and Drug Abuse Patient Records regulations: The Federal rules restrict any use of the information to criminally investigate or prosecute any alcohol or drug abuse patient.[facility] the event this information is protected by the Federal Confidentiality of Alcohol and Drug Abuse Patient Records regulations: The Federal rules restrict any use of the information to criminally investigate or prosecute any alcohol or drug abuse patient.[facility] the event this information is protected by the Federal Confidentiality of Alcohol and Drug Abuse Patient Records regulations: The Federal rules restrict any use of the information to criminally investigate or prosecute any alcohol or drug abuse patient.[facility] the event this information is protected by the Federal Confidentiality of Alcohol and Drug Abuse Patient Records regulations: The Federal rules restrict any use of the information to criminally investigate or prosecute any alcohol or drug abuse patient.[facility] the event this information is protected by the Federal Confidentiality of Alcohol and Drug Abuse Patient Records regulations: The Federal rules restrict any use of the information to criminally investigate or prosecute any alcohol or drug abuse patient.[facility] the event this information is protected by the Federal Confidentiality of Alcohol and Drug Abuse Patient Records regulations: The Federal rules restrict any use of the information to criminally investigate or prosecute any alcohol or drug abuse patient.[facility] the event this information is protected by the Federal Confidentiality of Alcohol and Drug Abuse Patient Records regulations: The Federal rules restrict any use of the information to criminally investigate or prosecute any alcohol or drug abuse patient.[facility] the event this information is protected by the Federal Confidentiality of Alcohol and Drug Abuse Patient Records regulations: The Federal rules restrict any use of the information to criminally investigate or prosecute any alcohol or drug abuse patient.[facility] the event this information is protected by the Federal Confidentiality of Alcohol and Drug Abuse Patient Records regulations: The Federal rules restrict any use of the information to criminally investigate or prosecute any alcohol or drug abuse patient.[facility] the event this information is protected by the Federal Confidentiality of Alcohol and Drug Abuse Patient Records regulations: The Federal rules restrict any use of the information to criminally investigate or prosecute any alcohol or drug abuse patient.[facility] the event this information is protected by the Federal Confidentiality of Alcohol and Drug Abuse Patient Records regulations: The Federal rules restrict any use of the information to criminally investigate or prosecute any alcohol or drug abuse patient.[facility]In the event this information is protected by the Federal Confidentiality of Alcohol and Drug Abuse Patient Records regulations: The Federal rules restrict any use of the information to criminally investigate or prosecute any alcohol or drug abuse patient.[facility] the event this information is protected by the Federal Confidentiality of Alcohol and Drug Abuse Patient Records regulations: The Federal rules restrict any use of the information to criminally investigate or prosecute any alcohol or drug abuse patient.[facility] the event this information is protected by the Federal Confidentiality of Alcohol and Drug Abuse Patient Records regulations: The Federal rules restrict any use of the information to criminally investigate or prosecute any alcohol or drug abuse patient.[facility] HospitalIn the event this information is protected by the Federal Confidentiality of Alcohol and Drug Abuse Patient Records regulations: The Federal rules restrict any use of the information to criminally investigate or prosecute any alcohol or drug abuse patient.[facility] Reason for Visit (unrecogniz ed section [...] Care Teams (unrecognized sec tion and content) Oscillograph Technician Relationship Specialty Start Date End Date Sofia Medina MD [address] [place] [address] PCP - General Internal Medicine 11/14/21 Oscillograph Technician Relationship Specialty Start Date End Date Sofia Medina MD [address] [place] [address] PCP - General Internal Medicine 11/14/21 Oscillograph Technician Relationship Specialty Start Date End Date Sofia Medina MD [address] [facility] [place] [address] PCP - General Internal Medicine 11/14/21 Oscillograph Technician Relationship Specialty Start Date End Date Sofia Medina MD [address] [facility] [place] [address] PCP - General Internal Medicine 11/14/21 Oscillograph Technician Relationship Specialty Start Date End Date Sofia Medina MD [address] [facility] [place] [address] PCP - General Internal Medicine 11/14/21 Oscillograph Technician Relationship Specialty Start Date End Date Jefferson Joya MD [address] [facility] [place] [address] PCP - General Internal Medicine 01/31/22 Oscillograph Technician Relationship Specialty Start Date End Date Jefferson Joya MD [address] [facility] [place] [address] PCP - General Internal Medicine 01/31/22 Oscillograph Technician Relationship Specialty Start Date End Date Jefferson Joya MD [address] [facility] [place] [address] PCP - General Internal Medicine 01/31/22 Oscillograph Technician Relationship Specialty Start Date End Date Jefferson Joya MD [address] [facility] [place] [address] PCP - General Internal Medicine 01/31/22 Oscillograph Technician Relationship Specialty Start Date End Date Jefferson Joya MD [address] [facility] [place] [address] PCP - General Internal Medicine 01/31/22 Oscillograph Technician Relationship Specialty Start Date End Date Jefferson Joya MD [address] [facility] [address] PCP - General Internal Medicine 01/31/22 Team Status: Active Member Role Status Dates Dr. Jefferson Joya MD Family Provider Active Dr. Jefferson Joya MD Primary Care Provider Active Team Status: Inactive Member Role Status Dates Dr. Jefferson Joya MD Primary Care Provider Active Dr. Lul Denson MD Attending Provider, Referring Pr ovider Active Team Status: Active Member Role Status Dates Dr. Jefferson Joya MD Family Provider Active Dr. Lul Denson MD Primary Care Provider Active Team Status: Inactive Member Role Status Dates Dr. Andre Easton DO Emergency Provider Active Dr. Lul Denson MD Primary Care Provider Active Team Status: Inactive Member Role Status Dates Dr. Andre Easton DO Attending Provider, Emergency Pro vider Active Dr. Lul Denson MD Primary Care Provider Active Team Status: Inactive Member Role Status Dates Dr. Lul Denson MD Primary Care Provider Active Dr. Martinez Wick DO Emergency Provider Active Team Status: Inactive Member Role Status Dates Dr. Lul Denson MD Primary Care Provider Active Dr. Martinez Wick DO Attending Provider, Emergency Pr ovider Active Team Status: Inactive Member Role Status Dates Dr. Lul Denson MD Primary Care Provi amanda, Attending Provider, Referring Provider Active Team Status: Inactive Member Role Status Dates Dr. Lul Denson MD Primary Care Provider, Attending Provider Active Oscillograph Technician Relationship Specialty Start Date End Date Jefferson Joya MD [address] [place] [address] PCP - General Internal Medicine 01/31/22 Oscillograph Technician Relationship Specialty Start Date End Date Jefferson Joya MD [address] [place], [place] [id number] PCP - General Internal Medicine 01/31/22 Team Status: Active Member Role Status Dates Dr. Lul Denson MD Primary Care Provi amanda, Attending Provider, Referring Provider Active Oscillograph Technician Relationship Specialty Start Date End Date Jefferson Joya MD [address] [facility] [place] [address] PCP - General Internal Medicine 01/31/22 11/14/23 Oscillograph Technician Relationship Specialty Start Date End Date Sofia Medina MD [address] [facility], [place] [id number] PCP - General Internal Medicine 11/14/21 01/30/22 Oscillograph Technician Relationship Specialty Start Date End Date Jefferson Joya MD [address] [facility], [place] [id number] PCP - General Internal Medicine 03/30/15 11/13/21 Oscillograph Technician Relationship Specialty Start Date End Date Lul Denson Chi [address] [id number] PCP - General Gerontology 09/02/24 Team Status: Inactive Member Role Status Dates Dr. Lul Denson MD Primary Care Provider Active Start: May 17, 2024 End: May 17, 2024 Dr. Lul Denson MD Attending Provider Active Start: May 17, 2024 End: May 17, 2024 Team Status: Inactive Member Role Status Dates Dr. Lul Denson MD Primary Care Provider Active Start: May 17, 2024 End: May 17, 2024 Dr. Lul Denson MD Attending Provider Active Start: May 17, 2024 End: May 17, 2024 Dr. Lul Denson MD Referring Provider Active Start: May 17, 2024 End: May 17, 2024 Team Status: Inactive Member Role Status Dates Dr. Lul Denson MD Primary Care Provider Active Start: September 01, 2024 End: September 01, 2024 Dr. Lul Denson MD Attending Provider Active Start: September 01, 2024 End: September 01, 2024 Dr. Lul Denson MD Referring Provider Active Start: September 01, 2024 End: September 01, 2024 Oscillograph Technician Relationship Specialty Start Date End Date Lul Denson [facility] [address] [place] [address] PCP - General Gerontology 09/02/24 Team Status: Inactive Member Role Status Dates Dr. Lul Denson MD Primary Care Provider Active Start: December 14, 2024 End: December 14, 2024 Dr. Lul Denson MD Attending Provider Active Start: December 14, 2024 End: December 14, 2024 Dr. Lul Denson MD Referring Provider Active Start: December 14, 2024 End: December 14, 2024 Team Status: Active Member Role/Relationship Status Dates Dr. Lul Denson MD Primary Care Provider Active Team Status: Inactive Member Role/Relationship Status Dates Dr. Lul Denson MD Primary Care Provider Active Start: December 14, 2024 End: December 14, 2024 Dr. Lul Denson MD Attending Provider Active Start: December 14, 2024 End: December 14, 2024 Dr. Lul Denson MD Referring Provider Active Start: December 14, 2024 End: December 14, 2024 Team Status: Inactive Member Role/Relationship Status Dates Dr. Lul Denson MD Primary Care Provider Active Start: January 11, 2025 End: January 11, 2025 Dr. Lul Denson MD Attending Provider Active Start: January 11, 2025 End: January 11, 2025 Dr. Lul Denson MD Referring Provider Active Start: January 11, 2025 End: January 11, 2025 INFORMATION SOURCE (unrecogn ized section and content) DATE CREATED AUTHOR 10/04/2024 [facility] DATE CREATED AUTHOR AUTHOR'S ORGANIZ ATION 01/19/2025 [facility] FOR RECORDS PERTAINING TO PATIENTS WHO [...] BE BASED ON THE PRIMARY CLINICAL RECORDS. [facility]. provides no warranty or guarantee of the accuracy or completeness of information in this document.
[2025-02-05 21:29] VITALS: BP 118/76; PULSE 74; RESP 16; TEMP 36.6; O2SAT 100
== END 2025-02-05 21:29 | disposition home or self-care (01) ==
LOC: ED 21:20
PROVIDERS: Emergency Provider Student in an Organized Health Care Education/Training Program; PCP Family Medicine Geriatric Medicine; Referring Provider Student in an Organized Health Care Education/Training Program; Visit Provider Student in an Organized Health Care Education/Training Program
DX: S83.91XA Sprain of unspecified site of right knee, initial encounter (principal); F17.210 Nicotine dependence, cigarettes, uncomplicated; W19.XXXA Unspecified fall, initial encounter
CPT/HCPCS: 73564; 99282

== ENCOUNTER → 2025-03-21 | Outpatient (CLI) | payer MEDICARE, SELFPAY ==
[2025-03-21 12:15] LABS: Mucous, Urine 0 SEEN /hpf (<or=2+)
[2025-03-21 12:30] LABS: Glucose, Dipstick Normal (Normal); Hematocrit 44.6 % (37-47); Hemoglobin 15.2 g/dL (12.0-15.0); Immature Granulocytes Count 0.030 X10^3/uL (0.0-0.0); Leukocyte Esterase-Dipstick 25 /ul (Negative); Mean Corp Hgb Conc 34.1 g/dL (32-36); Mean Corpuscular Volume 100.0 fL (81-99); Mean Platelet Vol. 9.0 fl (6.2-12.0); NRBC Flagged by Analyzer 0 % (0-5); Nitrite-Dipstick Negative (Negative); Occult Blood-Urine 150 /ul (Negative); Platelet Count 489 K/mm3 (150-450); Protein-Dipstick 100 mg/dl (Negative); RBC Distribution Width CV 13.3 % (11.6-14.6); RBC Distribution Width SD 49.3 fl (35.1-43.9); Red Blood Count 4.46 M/mm3 (4.2-5.4); Specific Gravity, Urine 1.025 (1.002-1.030); Urine Bilirubin Dipstick Negative (Negative); White Blood Count 7.3 K/mm3 (4.4-11.0)
[2025-03-21 13:06] LABS: Anion Gap 12 (5-15); BUN 18 mg/dL (4-19); BUN/Creat Ratio 23.7 RATIO (10-20); Calcium,Total 10.0 mg/dL (7.6-11.0); Carbon Dioxide 22.0 mmol/L (21.0-32.0); Chloride 108 mmol/L (98-108); Glucose 120 mg/dL (70-99); Potassium 4.4 mmol/L (3.3-5.1)
[2025-03-21 13:22] LABS: Color, Urine YELLOW (Yellow); Red Blood Cells-Urine 0-5 SEEN /hpf (0-5); Squamous Epithelial Cells - UA 0-5 SEEN /hpf (5-10)
[2025-03-21 16:06] LABS: Ketone-Dipstick 150 mg/dl (Negative)
[2025-03-21 20:17] LABS: Xtra Tube Kwok EXTRA TUBE
== END | disposition home or self-care (01) ==
LOC: POLAB3 12:12
PROVIDERS: PCP Family Medicine Geriatric Medicine; Visit Provider Family Medicine Geriatric Medicine
DX: N39.0 Urinary tract infection, site not specified (principal); R50.9 Fever, unspecified
CPT/HCPCS: 36415; 80048; 81001; 85025; 87086; 87088; 87631

== ENCOUNTER → 2025-05-09 | Outpatient (CLI) | payer MEDICARE, SELFPAY ==
--- NOTE | 2025-05-09 16:34 | RAD_ITS ---
EXAM: XR Right Hand Complete, 3 or More Views CLINICAL INDICATION: RIGHT HAND PAIN TECHNIQUE: Frontal, lateral and oblique views of the right hand. COMPARISON: No relevant prior studies available. FINDINGS: BONES/JOINTS: Severe degenerative changes of the 1st carpometacarpal joint. Mild degenerative changes of the DIP joints. No acute fracture. No dislocation. SOFT TISSUES: Unremarkable. RAD/Hand Min 3 Views IMPRESSION: Severe degenerative changes of the 1st carpometacarpal joint. Reading Location: [id number]
== END | disposition home or self-care (01) ==
LOC: RAD 16:26
PROVIDERS: PCP Family Medicine Geriatric Medicine; Referring Provider Family Medicine Geriatric Medicine; Visit Provider Family Medicine Geriatric Medicine
DX: M79.641 Pain in right hand (principal); M25.531 Pain in right wrist
CPT/HCPCS: 73130

== ENCOUNTER → 2025-05-10 | Outpatient (CLI) | payer MEDICARE, SELFPAY ==
--- NOTE | 2025-05-10 11:10 | RAD_ITS ---
EXAM: XR Right Wrist Complete, 3 or More Views CLINICAL INDICATION: WRIST PAIN TECHNIQUE: Frontal, lateral and oblique views of the right wrist. COMPARISON: No relevant prior studies available. FINDINGS: BONES/JOINTS: Severe degenerative changes of the 1st carpometacarpal joint. Subtle fracture can not be excluded. No dislocation. SOFT TISSUES: Soft tissue swelling. No radiopaque foreign body. RAD/Wrist min 3 Views IMPRESSION: Severe degenerative changes of the 1st carpometacarpal joint. Subtle fracture can not be excluded. Reading Location: [id number]
== END | disposition home or self-care (01) ==
LOC: RAD 11:01
PROVIDERS: PCP Family Medicine Geriatric Medicine; Referring Provider Family Medicine Geriatric Medicine; Visit Provider Family Medicine Geriatric Medicine
DX: M79.641 Pain in right hand (principal)
CPT/HCPCS: 73110

== ENCOUNTER → 2025-05-18 | Outpatient (CLI) | payer MEDICARE, SELFPAY ==
[2025-05-18 17:32] LABS: Hematocrit 48.0 % (37-47); Hemoglobin 16.5 g/dL (12.0-15.0); Immature Granulocytes Count 0.040 X10^3/uL (0.0-0.0); Mean Corp Hgb Conc 34.4 g/dL (32-36); Mean Corpuscular Volume 98.0 fL (81-99); Mean Platelet Vol. 8.9 fl (6.2-12.0); NRBC Flagged by Analyzer 0 % (0-5); Platelet Count 513 K/mm3 (150-450); RBC Distribution Width CV 13.3 % (11.6-14.6); RBC Distribution Width SD 47.8 fl (35.1-43.9); Red Blood Count 4.90 M/mm3 (4.2-5.4); White Blood Count 10.4 K/mm3 (4.4-11.0)
[2025-05-18 17:41] LABS: AST(SGOT) 22 U/L (<=31); Alanine Aminotransfer ALT/SGPT 16 U/L (<=34); Albumin, Serum 4.5 g/dL (3.4-4.8); Alkaline Phosphatase 66 U/L (35-104); Anion Gap 12 (5-15); BUN 25 mg/dL (4-19); BUN/Creat Ratio 34.8 RATIO (10-20); Calcium,Total 10.1 mg/dL (7.6-11.0); Carbon Dioxide 23.3 mmol/L (21.0-32.0); Chloride 101 mmol/L (98-108); Globulin 3.3 g/dL (2.2-4.2); Glucose 108 mg/dL (70-99); Potassium 3.5 mmol/L (3.3-5.1)
== END | disposition home or self-care (01) ==
LOC: POLAB3 17:02
PROVIDERS: PCP Family Medicine Geriatric Medicine; Visit Provider Family Medicine Geriatric Medicine
DX: R19.7 Diarrhea, unspecified (principal); R53.83 Other fatigue
CPT/HCPCS: 36415; 80053; 85025

== ENCOUNTER → 2025-05-18 | Outpatient (CLI) | payer MEDICARE, SELFPAY ==
--- NOTE | 2025-05-18 17:00 | RAD_ITS ---
PROCEDURE: ABD INC DECUB AND/OR ERECT 05/18/2025 REASON FOR EXAM: NAUSEA WITH VOMITING, UNSPECIFIED TECHNIQUE: Procedure Code: [id number] Modality: DX Procedure: ABD INC DECUB AND/OR ERECT COMPARISON: None FINDINGS: There is a nonobstructive bowel gas pattern. There are no abnormal soft tissue calcifications or radiopaque foreign bodies. Status post interbody fusion, L2 through L4. RAD/Abd Inc Decub and/or Erect IMPRESSION: No evidence of acute abdominal pathology. Reading Location: [place] [id number]
== END | disposition home or self-care (01) ==
LOC: RAD 16:57
PROVIDERS: PCP Family Medicine Geriatric Medicine; Referring Provider Family Medicine Geriatric Medicine; Visit Provider Family Medicine Geriatric Medicine
DX: R11.2 Nausea with vomiting, unspecified (principal)
CPT/HCPCS: 74019

== ENCOUNTER → 2025-05-23 | Outpatient (CLI) | payer MEDICARE, SELFPAY ==
[2025-05-23 15:23] LABS: Hematocrit 46.0 % (37-47); Hemoglobin 15.8 g/dL (12.0-15.0); Immature Granulocytes Count 0.030 X10^3/uL (0.0-0.0); Mean Corp Hgb Conc 34.3 g/dL (32-36); Mean Corpuscular Volume 99.8 fL (81-99); Mean Platelet Vol. 9.4 fl (6.2-12.0); NRBC Flagged by Analyzer 0 % (0-5); Platelet Count 431 K/mm3 (150-450); RBC Distribution Width CV 13.3 % (11.6-14.6); RBC Distribution Width SD 49.2 fl (35.1-43.9); Red Blood Count 4.61 M/mm3 (4.2-5.4); White Blood Count 10.7 K/mm3 (4.4-11.0)
[2025-05-23 15:45] LABS: Amylase 55 U/L (28-100); Lipase 40 U/L (13-75)
[2025-05-23 15:49] LABS: AST(SGOT) 22 U/L (<=31); Alanine Aminotransfer ALT/SGPT 16 U/L (<=34); Albumin, Serum 4.3 g/dL (3.4-4.8); Alkaline Phosphatase 62 U/L (35-104); Anion Gap 12 (5-15); BUN 13 mg/dL (4-19); BUN/Creat Ratio 17.1 RATIO (10-20); Calcium,Total 9.7 mg/dL (7.6-11.0); Carbon Dioxide 24.2 mmol/L (21.0-32.0); Chloride 106 mmol/L (98-108); Globulin 3.0 g/dL (2.2-4.2); Glucose 108 mg/dL (70-99); Potassium 3.4 mmol/L (3.3-5.1)
[2025-05-23 23:03] LABS: Xtra Tube Kwok EXTRA TUBE
== END | disposition home or self-care (01) ==
LOC: POLAB3 15:02
PROVIDERS: PCP Family Medicine Geriatric Medicine; Visit Provider Family Medicine Geriatric Medicine
DX: K85.90 Acute pancreatitis without necrosis or infection, unspecified (principal); N39.0 Urinary tract infection, site not specified; R53.83 Other fatigue
CPT/HCPCS: 36415; 80053; 82150; 83690; 85025; 87086; 87088

== ENCOUNTER → 2025-06-21 | Outpatient (CLI) | payer MEDICARE, SELFPAY ==
[2025-06-21 10:14] LABS: Hematocrit 45.9 % (37-47); Hemoglobin 16.0 g/dL (12.0-15.0); Immature Granulocytes Count 0.020 X10^3/uL (0.0-0.0); Mean Corp Hgb Conc 34.9 g/dL (32-36); Mean Corpuscular Volume 97.9 fL (81-99); Mean Platelet Vol. 9.0 fl (6.2-12.0); NRBC Flagged by Analyzer 0 % (0-5); Platelet Count 452 K/mm3 (150-450); RBC Distribution Width CV 13.2 % (11.6-14.6); RBC Distribution Width SD 47.5 fl (35.1-43.9); Red Blood Count 4.69 M/mm3 (4.2-5.4); White Blood Count 7.4 K/mm3 (4.4-11.0)
[2025-06-21 11:11] LABS: AST(SGOT) 21 U/L (<=31); Alanine Aminotransfer ALT/SGPT 15 U/L (<=34); Albumin, Serum 4.6 g/dL (3.4-4.8); Alkaline Phosphatase 60 U/L (35-104); Anion Gap 12 (7-18); BUN 16 mg/dL (4-19); BUN/Creat Ratio 19.7 RATIO (10-20); Calcium,Total 10.5 mg/dL (7.6-11.0); Carbon Dioxide 24.4 mmol/L (20.0-29.0); Chloride 102 mmol/L (96-106); Globulin 3.2 g/dL (2.2-4.2); Glucose 118 mg/dL (70-99); Potassium 3.6 mmol/L (3.5-5.1); Uric Acid 3.6 mg/dL (2.6-6.0); Vitamin D,25 Hydroxy 31.0 ng/mL (30-100)
[2025-06-21 18:04] LABS: Xtra Tube Kwok EXTRA TUBE
== END | disposition home or self-care (01) ==
LOC: POLAB3 10:03
PROVIDERS: PCP Family Medicine Geriatric Medicine; Visit Provider Family Medicine Geriatric Medicine
DX: I10 Essential (primary) hypertension (principal); E55.9 Vitamin D deficiency, unspecified; M10.9 Gout, unspecified
CPT/HCPCS: 36415; 80053; 82306; 84443; 84550; 85025